=== PATIENT | male | born 1965 | race Caucasian/White ===

== ENCOUNTER 2021-04-12 12:51 | Outpatient (REF) | payer MEDICARE, MEDICAID, SELFPAY ==
--- NOTE | ~2021-04-12 | CT_ITS ---
EXAMINATION: CT HIP WITHOUT CONTRAST, RIGHT CLINICAL INFORMATION: Abnormal x-ray, right hip pain. COMPARISON: None TECHNIQUE: Multiple axial images of the right hip were obtained without administration of intravenous contrast. Coronal and sagittal reformatted images were also obtained. This CT examination was performed using dose optimization techniques as appropriate, variously including the following: *Automated exposure control *Adjustment of mA and/or kV according to patient size (this includes techniques or standardized protocols for targeted exams where dose is matched to indication/reason for exam; i.e. extremities or head) *Use of iterative reconstruction technique DLP: 271 mGy-cm FINDINGS: Minimal degenerative changes are seen in the superior aspect of the joint space with subcortical sclerosis along the superior acetabular rim. Tiny spurring is seen off of the superolateral aspect the acetabular margin. Several small thin-walled cysts with narrow zone of transition are seen medially in the femoral head measuring up to 1.2 cm (image 49, series 6). A similar cyst seen anteriorly at the level of the subcapital femoral neck measures 1.5 cm (image 55, series 2). There is no acute fracture or dislocation. The right hemipelvis is intact. No significant intrapelvic abnormality is seen in the visualized right hemipelvis. CT/CT hip RT wo con IMPRESSION: 1. Minimal right hip degenerative joint changes. 2. Thin-walled cysts detailed above demonstrate benign features without associated abnormality.
== END 2021-04-12 12:52 | disposition home or self-care (01) ==
LOC: HO.CT 12:51
PROVIDERS: PCP Hospitalist; Visit Provider Hospitalist
DX: R93.89 Abnormal findings on diagnostic imaging of other specified body structures (principal)
CPT/HCPCS: 73700

== ENCOUNTER 2021-12-20 13:47 | Outpatient (REF) | payer MEDICARE, MEDICAID, SELFPAY ==
--- NOTE | ~2021-12-20 | CT_ITS ---
EXAMINATION: CT HIP WITHOUT CONTRAST, RIGHT CLINICAL INFORMATION: Thin-walled cyst. Pain. COMPARISON: Right hip CT dated 04/12/2021. TECHNIQUE: Contiguous axial CT images of the right hip were obtained without contrast. Multiplanar reformats were provided and reviewed. This CT examination was performed using dose optimization techniques as appropriate, variously including the following: *Automated exposure control *Adjustment of mA and/or kV according to patient size (this includes techniques or standardized protocols for targeted exams where dose is matched to indication/reason for exam; i.e. extremities or head) *Use of iterative reconstruction technique DLP: 241 mGy-cm FINDINGS: No acute fracture or dislocation. Mild right hip joint space narrowing with tiny marginal osteophytes, unchanged. Mild degenerative change partially visualized at the right sacroiliac joint as well as at the symphysis pubis, unchanged. Redemonstration of subchondral cysts within the medial femoral head as well as within the anterolateral aspect of the femoral head/neck junction, unchanged when compared to the prior examination and consistent with degenerative cysts. No evidence of avascular necrosis. No concerning lytic or blastic osseous lesions. No large joint effusion. The visualized muscles and tendons are grossly intact, however evaluation is limited on CT examination. No abnormal soft tissue mass or fluid collection. The visualized intrapelvic structures are unremarkable. CT/CT hip RT wo con IMPRESSION: Mild right hip osteoarthritis with degenerative cysts in the medial and anterolateral aspect of the femoral head, unchanged when compared to the prior examination. No acute fracture or dislocation. No evidence of avascular necrosis.
== END 2021-12-20 13:48 | disposition home or self-care (01) ==
LOC: HO.CT 13:47
PROVIDERS: PCP Hospitalist; Visit Provider Hospitalist
DX: M25.551 Pain in right hip (principal)
CPT/HCPCS: 73700

== ENCOUNTER 2022-01-02 16:18 | Outpatient (REF) | payer MEDICARE, MEDICAID, SELFPAY ==
[2022-01-02 16:31] LABS: Appearance Urine CLEAR; Color Urine YELLOW; Glucose Urine UA NEG (NEG); Leukocyte Esterase Urine NEG (NEG); Nitrite Urine NEG (NEG); Urine Blood NEG (NEG); Urine Ketones NEG (NEG); Urine Protein NEG (NEG-TRACE)
== END 2022-01-02 16:19 | disposition home or self-care (01) ==
LOC: HO.LNP 16:18
PROVIDERS: Visit Provider Hospitalist
DX: N40.0 Benign prostatic hyperplasia without lower urinary tract symptoms (principal)
CPT/HCPCS: 81003; 87086; 87088; 87186

== ENCOUNTER 2022-02-24 17:41 | Emergency (ER) | payer MEDICARE, MEDICAID, SELFPAY ==
[2022-02-24 17:54] VITALS: BP 160/77; PULSE 90; RESP 18; TEMP 36.1; O2SAT 95; BMI 26.9
--- NOTE | 2022-02-24 18:19 | ED.WOUNDLAC ---
HPI - Wound/Laceration General Chief Complaint: Wound/Laceration Stated Complaint: left finger laceration Time Seen by Provider: 02/24/22 18:19 Source: patient Mode of arrival: wheelchair Limitations: no limitations History of Present Illness HPI narrative: Patient came with laceration left middle finger from the wheelchair break as he tried to turn wheelchair and got his left middle finger stuck in the break superficial laceration with minimal bleeding no deformity Related Data Allergies Allergy/AdvReac Type Severity Reaction Status Date / Time Penicillins [PENICILLINS] Allergy Unknown UNKNOWN Verified 02/24/22 17:57 Review of Systems Review of Systems: Yes all other systems are reviewed and are negative [facility] Social History Social History Advance Directives: No Advance Directives Information Provided: No Physical Exam Vital Signs: Vital Signs: Last Vital Signs Temp 97 F 02/24/22 17:54 Pulse 90 02/24/22 17:54 Resp 18 02/24/22 17:54 BP 160/77 H 02/24/22 17:54 Pulse Ox 95 02/24/22 17:54 BMI result Body Mass Index 26.9 Const: General: comfortable and no acute distress Extrem: Hand/finger images: 1. Superficial flap laceration about 2.5 cm left middle finger no bony deformity neurovascular intact Procedures Laceration Laceration 1: Site: hand (Third finger) Side (If applicable): left Description: flap Depth: simple, single layer Local Anesthetic: lidocaine 2% Amount of anesthesia used (mL): 2 Skin layer closed with: nylon Size (cm): 5-0 Number of sutures: 6 Technique: simple, interrupted Discharge Plan Discharge Clinical Impression: Laceration Instructions: Finger Laceration (ED) Additional Instructions: Local care as advised Suture removal in 7-10 days Interventions: ED Discharge Assessment Last Done: 02/24/22 19:15
[2022-02-24] MEDS: Lidocaine HCl 2 % MPF 5 ML VIAL INFILTRATI (19:33)
== END 2022-02-24 23:30 | disposition home or self-care (01) ==
PROVIDERS: Emergency Provider Internal Medicine; PCP Hospitalist
DX: S61.213A Laceration without foreign body of left middle finger without damage to nail, initial encounter (principal); W23.0XXA Caught, crushed, jammed, or pinched between moving objects, initial encounter; Y93.9 Activity, unspecified; Y92.9 Unspecified place or not applicable; Y99.9 Unspecified external cause status
CPT/HCPCS: 12001; 99284

== ENCOUNTER 2022-11-10 00:02 | Inpatient (IN) | payer MEDICARE, MEDICAID, SELFPAY ==
[2022-11-10] VITALS (16 sets, daily range): BP systolic 86–138; BP diastolic 48–78; PULSE 73–140; RESP 16–36; TEMP 35.8–37.4; O2SAT 93–96; BMI 26.2
--- NOTE | ~2022-11-10 | XR_ITS ---
EXAMINATION: XR CHEST CLINICAL INFORMATION: ET tube placement COMPARISON: 11/11/2022 TECHNIQUE: Frontal view of the chest was obtained. FINDINGS: Endotracheal tube tip lies approximately 6.5 cm above the [place]. Enteric tube courses into the stomach. Right IJ central line tip lies in the region of the cavoatrial junction. Lung volumes are symmetric. Streaky bibasilar opacities are more suggestive of atelectasis. No evidence of pneumothorax or significant pleural effusion. The cardiomediastinal contour is unremarkable. No acute osseous findings are seen. XR/XR chest 1V IMPRESSION: Endotracheal tube tip approximately 6.5 cm above the [place]. Streaky bibasilar opacities more suggestive of atelectasis.
--- NOTE | ~2022-11-10 | XR_ITS ---
EXAMINATION: XR CHEST CLINICAL INFORMATION: Triple-lumen catheter placement COMPARISON: 11/11/2022 TECHNIQUE: Frontal view of the chest was obtained. FINDINGS: Right IJ central line tip lies in the region of the cavoatrial junction. Enteric tube courses into the stomach and has been advanced. The lungs are hypoinflated. Streaky bibasilar opacities suggest atelectasis in this setting. No evidence of pneumothorax or significant pleural effusion. The cardiomediastinal contour is unremarkable. No acute osseous findings are seen. XR/XR chest 1V IMPRESSION: Right IJ central line tip in the region of the cavoatrial junction. Low lung volumes with streaky bibasilar opacities suggesting atelectasis.
--- NOTE | ~2022-11-10 | XR_ITS ---
EXAMINATION: XR CHEST CLINICAL INFORMATION: Shortness of breath COMPARISON: 11/10/2022 TECHNIQUE: Frontal view of the chest was obtained. FINDINGS: Enteric tube courses into the proximal stomach with side-port in the region of the gastroesophageal junction. The lungs are hypoinflated with mild streaky bibasilar opacities suggesting atelectasis. No evidence of pneumothorax or significant pleural effusion. The cardiomediastinal contour is unremarkable. No acute osseous findings are seen. XR/XR chest 1V IMPRESSION: Enteric tube courses into the proximal stomach with side-port in the region of the gastroesophageal junction; consider advancement. Low lung volumes with mild streaky bibasilar opacities suggesting atelectasis.
--- NOTE | ~2022-11-10 | XR_ITS ---
EXAMINATION: XR ABDOMEN WITH DECUBITUS VIEWS CLINICAL INDICATION: Small bowel resection, abdominal distention COMPARISON: CT abdomen 11/10/2022. TECHNIQUE: The abdomen is imaged in 6 views including supine AP and left decubitus views. FINDINGS: There are skin mag overlying the mid abdomen and upper pelvis. Probable temperature probe overlying rectum. Subsegmental atelectasis left base. No effusion lung bases. There is gaseous dilatation of the stomach. Scattered gas is present in large and small bowel. Small bowel loop left midabdomen is mildly dilated along with air-fluid level. No pneumatosis. Scattered gas in the colon is normal in caliber. XR/XR abdomen w decubitus IMPRESSION: 1. Gaseous dilatation stomach. 2. Mildly dilated small bowel loop left midabdomen with air-fluid level. No pneumatosis.
--- NOTE | ~2022-11-10 | CT_ITS ---
EXAMINATION: NONCONTRAST HEAD CT NONCONTRAST CERVICAL SPINE CT INDICATION INFORMATION: Fall, altered mental status COMPARISON: None TECHNIQUE: Separate noncontrast CT examinations of the head and cervical spine were performed. Coronal head CT images and coronal and sagittal cervical spine images were created at the technologist workstation. DLP: 2174 mGy-cm DOSE LOWERING TECHNIQUES: This CT examination was performed using dose optimization techniques as appropriate, variously including the following: - Automated exposure control - Adjustment of mA and/or kV according to patient size (this includes techniques or standardized protocols for targeted exams were dose is matched to indication/reason for exam; i.e. extremities or head) - Use of iterative reconstruction technique FINDINGS: Head: There is no evidence of acute intracranial hemorrhage or territorial infarction. No abnormal mass-effect or midline shift is seen. Reina to white matter differentiation is well preserved. No extra-axial fluid collections are identified. The ventricles are normal in size. There is a chronic appearing region of encephalomalacia in the left middle cranial fossa with overlying craniotomy changes. Mild volume loss is noted. No acute fracture is seen. The mastoid air cells and visualized portions of the paranasal sinuses are well-aerated. Cervical spine: There is grade 1 anterolisthesis of C2 on C3 and slight retrolisthesis of C3 on C4, favored to be chronic/degenerative in nature. Vertebral body heights are maintained. There is facet arthropathy of the upper cervical spine, left-sided greater than right. Scattered endplate osteophytes are present most prominently at C3-C4 with associated disc space narrowing. There is degenerative change at the atlantodens articulation. No evidence of acute fracture. No prevertebral soft tissue swelling. Visualized portions of the lung apices are unremarkable. The thyroid gland is unremarkable. CT/CT cervical spine wo IV con IMPRESSION: HEAD: No acute intracranial findings. Chronic appearing changes as noted above. CERVICAL SPINE: No acute findings identified. Degenerative changes as noted above.
--- NOTE | ~2022-11-10 | XR_ITS ---
EXAMINATION: XR CHEST CLINICAL INFORMATION: NG tube placement COMPARISON: Chest x-ray earlier today TECHNIQUE: Frontal view of the chest was obtained. FINDINGS: Interval insertion of enteric tube which terminates below the level of the diaphragm. The cardiac silhouette is stable. The lungs remain hypoinflated. No pleural effusion or pneumothorax. XR/XR chest 1V IMPRESSION: Enteric tube terminates below the level of the diaphragm.
--- NOTE | ~2022-11-10 | XR_ITS ---
EXAMINATION: XR CHEST CLINICAL INFORMATION: Tachypnea COMPARISON: 11/11/2022 TECHNIQUE: Frontal view of the chest was obtained. FINDINGS: The lungs are hypoinflated. Small right pleural effusion is suspected with adjacent basilar opacity suggesting atelectasis, mildly worsened from prior. Mild atelectasis is also suspected at the left lung base. No evidence of pneumothorax or overt pulmonary edema. The cardiomediastinal contour is unremarkable. No acute osseous findings are seen. XR/XR chest 1V IMPRESSION: Small right pleural effusion with adjacent basilar opacity suggesting atelectasis though consolidation is difficult to entirely exclude, overall mildly worsened from prior.
--- NOTE | ~2022-11-10 | XR_ITS ---
EXAMINATION: XR CHEST CLINICAL INFORMATION: Fall, seizure COMPARISON: 12/23/2013 TECHNIQUE: Frontal view of the chest was obtained. FINDINGS: The lungs are hypoinflated. No focal consolidation is seen. No evidence of pneumothorax, pleural effusion, or pulmonary edema. The cardiomediastinal contour is unremarkable. No acute osseous findings are seen. XR/XR chest 1V IMPRESSION: Low lung volumes without acute findings.
--- NOTE | ~2022-11-10 | CT_ITS ---
EXAMINATION: CT ABDOMEN AND PELVIS WITHOUT CONTRAST CLINICAL INFORMATION: Diffuse abdominal pain, distention COMPARISON: None TECHNIQUE: Multidetector volumetric imaging was performed from the superior aspect of the liver through the pubic symphysis. Sagittal and coronal reformatted images were obtained on the technologist's workstation. This CT examination was performed using dose optimization techniques as appropriate, variously including the following: *Automated exposure control *Adjustment of mA and/or kV according to patient size (this includes techniques or standardized protocols for targeted exams where dose is matched to indication/reason for exam; i.e. extremities or head) *Use of iterative reconstruction technique DLP: 2174 mGy-cm FINDINGS: LUNG BASES: The visualized lung bases are unremarkable. LIVER, GALLBLADDER, AND BILIARY TREE: The liver is normal in size, shape, and attenuation. No focal hepatic lesion or biliary ductal dilatation is identified. The gallbladder is unremarkable with no evidence of radiopaque gallstones, gallbladder wall thickening, or obvious pericholecystic inflammatory changes. PANCREAS: Unremarkable. SPLEEN: Unremarkable. ADRENAL GLANDS: Unremarkable. KIDNEYS AND URETERS: No hydronephrosis or obstructing calculus. There are a couple left lower pole renal calculi measuring up to 4 mm. Mild nonspecific bilateral perinephric stranding. BLADDER: Unremarkable. GASTROINTESTINAL TRACT: Stomach is distended and contains an air-fluid level. There is diffuse, predominantly fluid distention of small bowel. There is suggestion of a short segment of collapsed small bowel in the lateral right abdomen (coronal image 41) which may represent a transition point in the setting of obstruction. Distalmost small bowel loops demonstrate fecalization. Moderate stool is present throughout the colon. No significant bowel wall thickening. The appendix is unremarkable. Trace free fluid is present in the right abdomen. No free air is seen. ABDOMINAL WALL: No significant hernia is appreciated. LYMPH NODES: Normal. VASCULAR: There is atherosclerotic calcification along the aorta and iliac arteries. PELVIC VISCERA: Unremarkable. OSSEOUS STRUCTURES: There is facet arthropathy of the lower lumbar spine. CT/CT abdomen pelvis wo IV con IMPRESSION: 1. Diffuse small bowel dilation with suggestion of a transition point in the right abdomen, overall concerning for small bowel obstruction. 2. Trace free fluid in the lower abdomen. 3. Left lower pole renal calculi without hydronephrosis.
--- NOTE | 2022-11-10 00:55 | ECG_ITS ---
Test Reason : hypotension Blood Pressure : / mmHG Vent. Rate : 072 BPM Atrial Rate : 072 BPM P-R Int : 174 ms QRS Dur : 090 ms QT Int : 402 ms P-R-T Axes : 055 -12 071 degrees QTc Int : 440 ms Normal sinus rhythm with sinus arrhythmia Possible Left atrial enlargement Left ventricular hypertrophy with repolarization abnormality ( R in aVL ) Abnormal ECG No previous ECGs available Referred By: Tesha Adams Electronically Signed By:RAGHAVENDRA LEON
--- NOTE | 2022-11-10 00:58 | ED.GENADULT ---
HPI - General Adult General Chief complaint: General Medical Stated complaint: abd pain Time Seen by Provider: 11/10/22 00:49 Source: EMS Mode of arrival: EMS Limitations: altered mental status and other History of Present Illness HPI narrative: Patient comes to the emergency room via EMS from [facility]. The facility reports that the patient has seizure. Unclear if patient had a head strike. Also, they noted the patient has distended abdomen. Patient is nonverbal. Seems that patient is not on any blood thinners. On arrival to the emergency room, patient complaining of abdominal pain. Patient only able to move his head saying yes or no and answers to certain questions Related Data Allergies Allergy/AdvReac Type Severity Reaction Status Date / Time Penicillins [PENICILLINS] Allergy Unknown UNKNOWN Verified 02/24/22 17:57 Review of Systems Review of Systems: Yes Other (Difficult to obtain, seems to be complaining of abdominal pain) PMFSH Past Medical History Medical History Bipolar disorder BPH (benign prostatic hyperplasia) GERD (gastroesophageal reflux disease) Hyperlipidemia Hypertension Hypothyroidism Schizoaffective disorder Seizure disorder Social History Social History Alcohol intake: unknown Smoked in Last 30 Days: No Use of substances other than those prescribed or required for medical reasons: Unknown Advance Directives: No Advance Directives Information Provided: Yes Physical Exam ED Vital Signs: Vital Signs - 24 hr 11/10/22 00:43 11/10/22 01:42 Temperature 98.2 F 96.5 F L Pulse Rate 75 75 Respiratory Rate 16 18 Blood Pressure 87/60 L 95/49 L Pulse Oximetry 96 96 Oxygen Delivery Method Room Air Room Air BMI result Body Mass Index 26.2 Const Other: Appearance: Alert. Nonverbal at baseline, opens eyes on command Eyes: Pupils equal, round and reactive to light. ENT: Pharynx normal. Neck: Normal inspection. Neck supple. No lymph nodes noted. No crepitus CVS: Normal heart rate and rhythm. Pulses normal. Normal S1 and S2 Respiratory: No respiratory distress. Breath sounds normal. No Wheezing. No rales Abdomen: Soft, distended, seems to have tenderness in the right upper lower quadrants Skin: Skin warm and dry. Normal skin color. Normal skin turgor. Extremities: No lower extremity edema. No Lacerations. No Rash Neuro: Unable to participate in cranial nerve assessment Psych: calm Course Course Course Narrative: -on patient's labs and imaging pending -it is possible the patient had a seizure secondary to hyponatremia. In the emergency room, patient is alert, not having any signs of being postictal, and has not had any active seizures. -patient's white blood cell count 15.2, sodium 121, potassium 5.7, creatinine 1.64, lactic acid 1.8 -sepsis is not suspected. CT scan shows possible small bowel obstruction. -patient received IV fluids, before the sodium levels resolved -patient received 2 amps of D50 and 10 units of insulin to treat hyperkalemia. Also patient got calcium gluconate -we attempted to insert a nasogastric tube. Patient vomited at least 1000 mL of vomit, patient pulled out his NG tube. Patient refusing reinsertion -I discussed the patient with Dr. Bowers, pt being admitted -also, I discussed the patient with Dr. Monk from surgery. Reviewing the CT scan, seems that the patient likely has ileus rather than a small bowel obstruction. We will try to convince the patient to reinsert the NG tube Medications Administered Generic Name Dose Route Start Last Admin Trade Name Freq PRN Reason Stop Dose Admin Calcium Gluconate 2 gm in 100 mls @ 50 mls/hr 11/10/22 02:01 11/10/22 02:31 Calcium Gluconate IV 11/10/22 04:00 50 mls/hr ONCE ONE Administration Discontinued Medications Generic Name Dose Route Start Last Admin Trade Name Freq PRN Reason Stop Dose Admin Dextrose 50 gm 11/10/22 02:01 11/10/22 02:32 Dextrose 50 % 25 Gm/50 Ml Syringe IVPUSH 11/10/22 02:02 50 gm ONCE ONE Administration Sodium Chloride 1,000 mls @ 999 mls/hr 11/10/22 00:55 11/10/22 01:44 Ns IVCONT 11/10/22 01:55 999 mls/hr .Q1H1M ONE Administration Insulin Human Regular 10 unit 11/10/22 02:01 11/10/22 02:34 Insulin Regular, Human 100 Unit/Ml 3 Ml Vial IVPUSH 11/10/22 02:02 10 unit ONCE ONE Administration Medical Decision Making Medical Decision Making MDM Narrative: -patient declined being straight cath, urine is still pending -patient declined nasogastric to Differential Diagnosis Differential Diagnoses: The differential diagnosis associated with the presentation includes (Small-bowel obstruction, constipation, UTI) Admission/Observation Consideration of admission/observation: Escalation of care including admission/observation considered Consult Healthcare Provider Management of the patient was discussed with: Hospitalist (I discussed the patient with Dr. Bowers, pt being admitted) Lab Data MDM Lab Attestation statement: I reviewed the patient's lab results. 11/10/22 01:08 11/10/22 01:08 Labs: Lab Results 11/10/22 11/10/22 11/10/22 Range/Units 00:38 01:08 01:08 WBC 15.2 H (4.8-10.8) X10*3/uL RBC 4.98 (4.60-5.80) X10*6/uL Hgb 15.1 (14.0-18.0) g/dl Hct 40.6 L (42.0-52.0) % MCV 81.5 (80.0-98.0) fL MCH 30.3 (27.0-33.0) pg MCHC 37.2 H (31.0-36.0) g/dl RDW 11.9 (11.0-16.0) % Plt Count 279 (160-400) X10*3/uL MPV 10.0 (9.4-12.4) fL Immature Gran % (Auto) 0.5 H (0.0-0.4) % Neut % (Auto) 85.9 H (45-73) % Lymph % (Auto) 6.3 L (20-40) % Stanley % (Auto) 6.9 (2-11) % Eos % (Auto) 0.1 (0-4) % Baso % (Auto) 0.3 (0-2) % Lymph # (Auto) 1.0 L (1.2-4.9) X10*3/uL Stanley # (Auto) 1.0 (0.1-1.2) X10*3/uL Eos # (Auto) 0.0 (0.0-0.4) X10*3/uL Baso # (Auto) 0.1 (0.0-0.2) X10*3/uL Abs Immat Gran (auto) 0.08 H (0.00-0.03) X10*3/uL Absolute Neuts (auto) 13.0 H (2.0-8.3) x10*3/uL Absolute Nucleated RBC 0.000 (0.0-0.012) X10*3/uL Nucleated RBC % (auto) 0.0 (0.0-0.2) /100WBC PT (10.0-13.1) SEC INR (0.9-1.1) Sodium 121 L (135-145) mmol/L Potassium 5.7 H (3.3-5.1) mmol/L Chloride 89 L (96-108) mmol/L Carbon Dioxide 20 L (22-29) mmol/L Anion Gap 18 (12-20) BUN 16 (9-16) mg/dL Creatinine 1.64 H (0.5-1.4) mg/dL Estim Creat Clear Calc 51.6 Estimated GFR 43 POC Glucose 154 H (60-115) mg/dL Random Glucose 151 H (60-115) mg/dL Lactic Acid (0.5-2.0) mmol/L Calcium 9.7 (8.4-10.2) mg/dL Magnesium 1.6 (1.6-2.6) mg/dL Total Bilirubin 0.6 (0.0-1.0) mg/dL Direct Bilirubin < 0.2 (0.0-0.5) mg/dL AST 24 (5-37) U/L ALT 16 (0-40) U/L Alkaline Phosphatase 94 (39-117) U/L Troponin I High Sens (<3.5-35.0) ng/L Total Protein 7.2 (6.5-8.0) g/dL Albumin 4.6 (3.5-5.0) g/dL Lipase 47 (8-78) U/L TSH (0.32-4.0) uIU/mL COVID-19 (DINA) (Negative) COVID-19 Clin Com 11/10/22 11/10/22 11/10/22 Range/Units 01:08 01:08 01:08 WBC (4.8-10.8) X10*3/uL RBC (4.60-5.80) X10*6/uL Hgb (14.0-18.0) g/dl Hct (42.0-52.0) % MCV (80.0-98.0) fL MCH (27.0-33.0) pg MCHC (31.0-36.0) g/dl RDW (11.0-16.0) % Plt Count (160-400) X10*3/uL MPV (9.4-12.4) fL Immature Gran % (Auto) (0.0-0.4) % Neut % (Auto) (45-73) % Lymph % (Auto) (20-40) % Stanley % (Auto) (2-11) % Eos % (Auto) (0-4) % Baso % (Auto) (0-2) % Lymph # (Auto) (1.2-4.9) X10*3/uL Stanley # (Auto) (0.1-1.2) X10*3/uL Eos # (Auto) (0.0-0.4) X10*3/uL Baso # (Auto) (0.0-0.2) X10*3/uL Abs Immat Gran (auto) (0.00-0.03) X10*3/uL Absolute Neuts (auto) (2.0-8.3) x10*3/uL Absolute Nucleated RBC (0.0-0.012) X10*3/uL Nucleated RBC % (auto) (0.0-0.2) /100WBC PT 11.8 (10.0-13.1) SEC INR 1.0 (0.9-1.1) Sodium (135-145) mmol/L Potassium (3.3-5.1) mmol/L Chloride (96-108) mmol/L Carbon Dioxide (22-29) mmol/L Anion Gap (12-20) BUN (9-16) mg/dL Creatinine (0.5-1.4) mg/dL Estim Creat Clear Calc Estimated GFR POC Glucose (60-115) mg/dL Random Glucose (60-115) mg/dL Lactic Acid (0.5-2.0) mmol/L Calcium (8.4-10.2) mg/dL Magnesium (1.6-2.6) mg/dL Total Bilirubin (0.0-1.0) mg/dL Direct Bilirubin (0.0-0.5) mg/dL AST (5-37) U/L ALT (0-40) U/L Alkaline Phosphatase (39-117) U/L Troponin I High Sens 6.5 (<3.5-35.0) ng/L Total Protein (6.5-8.0) g/dL Albumin (3.5-5.0) g/dL Lipase (8-78) U/L TSH (0.32-4.0) uIU/mL COVID-19 (DINA) Negative (Negative) COVID-19 Clin Com See Note 11/10/22 11/10/22 11/10/22 Range/Units 01:08 01:08 03:22 WBC (4.8-10.8) X10*3/uL RBC (4.60-5.80) X10*6/uL Hgb (14.0-18.0) g/dl Hct (42.0-52.0) % MCV (80.0-98.0) fL MCH (27.0-33.0) pg MCHC (31.0-36.0) g/dl RDW (11.0-16.0) % Plt Count (160-400) X10*3/uL MPV (9.4-12.4) fL Immature Gran % (Auto) (0.0-0.4) % Neut % (Auto) (45-73) % Lymph % (Auto) (20-40) % Stanley % (Auto) (2-11) % Eos % (Auto) (0-4) % Baso % (Auto) (0-2) % Lymph # (Auto) (1.2-4.9) X10*3/uL Stanley # (Auto) (0.1-1.2) X10*3/uL Eos # (Auto) (0.0-0.4) X10*3/uL Baso # (Auto) (0.0-0.2) X10*3/uL Abs Immat Gran (auto) (0.00-0.03) X10*3/uL Absolute Neuts (auto) (2.0-8.3) x10*3/uL Absolute Nucleated RBC (0.0-0.012) X10*3/uL Nucleated RBC % (auto) (0.0-0.2) /100WBC PT (10.0-13.1) SEC INR (0.9-1.1) Sodium (135-145) mmol/L Potassium (3.3-5.1) mmol/L Chloride (96-108) mmol/L Carbon Dioxide (22-29) mmol/L Anion Gap (12-20) BUN (9-16) mg/dL Creatinine (0.5-1.4) mg/dL Estim Creat Clear Calc Estimated GFR POC Glucose 364 H* (60-115) mg/dL Random Glucose (60-115) mg/dL Lactic Acid 1.8 (0.5-2.0) mmol/L Calcium (8.4-10.2) mg/dL Magnesium (1.6-2.6) mg/dL Total Bilirubin (0.0-1.0) mg/dL Direct Bilirubin (0.0-0.5) mg/dL AST (5-37) U/L ALT (0-40) U/L Alkaline Phosphatase (39-117) U/L Troponin I High Sens (<3.5-35.0) ng/L Total Protein (6.5-8.0) g/dL Albumin (3.5-5.0) g/dL Lipase (8-78) U/L TSH 1.79 (0.32-4.0) uIU/mL COVID-19 (DINA) (Negative) COVID-19 Clin Com Independent Interpretation I performed an independent interpretation of an: CT Scan (My Interpretation of head CT: Chronic encephalomalacia in left middle cranial fossa, no acute bleed. My interpretation of abdominal CT scan: Small-bowel obstruction present) Radiology Impression Discussion of test interpretation with radiology: I have reviewed the radiologist's reading. Radiologist Impression: FINDINGS: Head: There is no evidence of acute intracranial hemorrhage or territorial infarction. No abnormal mass-effect or midline shift is seen. Reina to white matter differentiation is well preserved. No extra-axial fluid collections are identified. The ventricles are normal in size. There is a chronic appearing region of encephalomalacia in the left middle cranial fossa with overlying craniotomy changes. Mild volume loss is noted. No acute fracture is seen. The mastoid air cells and visualized portions of the paranasal sinuses are well-aerated. Cervical spine: There is grade 1 anterolisthesis of C2 on C3 and slight retrolisthesis of C3 on C4, favored to be chronic/degenerative in nature. Vertebral body heights are maintained. There is facet arthropathy of the upper cervical spine, left-sided greater than right. Scattered endplate osteophytes are present most prominently at C3-C4 with associated disc space narrowing. There is degenerative change at the atlantodens articulation. No evidence of acute fracture. No prevertebral soft tissue swelling. Visualized portions of the lung apices are unremarkable. The thyroid gland is unremarkable. CT/CT head/brain wo IV con IMPRESSION: HEAD: No acute intracranial findings. Chronic appearing changes as noted above. ? CERVICAL SPINE: No acute findings identified. Degenerative changes as noted above. FINDINGS: LUNG BASES: The visualized lung bases are unremarkable.? LIVER, GALLBLADDER, AND BILIARY TREE: The liver is normal in size, shape, and attenuation. No focal hepatic lesion or biliary ductal dilatation is identified. The gallbladder is unremarkable with no evidence of radiopaque gallstones, gallbladder wall thickening, or obvious pericholecystic inflammatory changes.? PANCREAS: Unremarkable.? SPLEEN: Unremarkable.? ADRENAL GLANDS: Unremarkable.? KIDNEYS AND URETERS: No hydronephrosis or obstructing calculus. There are a couple left lower pole renal calculi measuring up to 4 mm. Mild nonspecific bilateral perinephric stranding.? BLADDER: Unremarkable.? GASTROINTESTINAL TRACT: Stomach is distended and contains an air-fluid level. There is diffuse, predominantly fluid distention of small bowel. There is suggestion of a short segment of collapsed small bowel in the lateral right abdomen (coronal image 41) which may represent a transition point in the setting of obstruction. Distalmost small bowel loops demonstrate fecalization. Moderate stool is present throughout the colon. No significant bowel wall thickening. The appendix is unremarkable. Trace free fluid is present in the right abdomen. No free air is seen. ABDOMINAL WALL: No significant hernia is appreciated.? LYMPH NODES: Normal. VASCULAR: There is atherosclerotic calcification along the aorta and iliac arteries. PELVIC VISCERA: Unremarkable.? OSSEOUS STRUCTURES: There is facet arthropathy of the lower lumbar spine.? CT/CT abdomen pelvis wo IV con IMPRESSION: 1.? Diffuse small bowel dilation with suggestion of a transition point in the right abdomen, overall concerning for small bowel obstruction. 2.? Trace free fluid in the lower abdomen. 3.? Left lower pole renal calculi without hydronephrosis. ? Critical Care Time Critical Care Time Critical Care Time: Yes Total Critical Care Time: 75 Attestation: I have personally provided critical care time. Time includes review of lab data, radiology results, discussion with consultants, and monitoring for potential decompensation. Intervention performed as documented. Discharge Plan Discharge Clinical Impression: Ileus, Acute hyponatremia, Acute hyperkalemia, Acute kidney injury Patient Disposition: Admitted As Inpatient
[2022-11-10 01:17] LABS: MANUAL DIFF FLAG NO
[2022-11-10 01:25] LABS: Prothrombin Time 11.8 SEC (10.0-13.1)
[2022-11-10 01:32] LABS: Lactic Acid 1.8 mmol/L (0.5-2.0)
--- OUTSIDE RECORDS SUMMARY | 2022-11-10 01:32 | XMS_ITS | Continuity of Care Document ---
:1965 Author Organization [facility] Address [address] [place] [id number]- Care Team Providers Name Role Phone Juan Richey DO Primary Care Physician Encounter [facility] Date(s): 09/01/20 - 10/04/20 [facility] [address] [place] [id number]- Attending Physician: Allen Mariano MD Admitting Physician: Allen Mariano MD Referring Physician: Juan Richey DO Allergies, Adverse Reactions, Alerts Substance Reaction Severity Status penicillins Active Medications benztropine 0.5 mg oral tablet 1 tablet = 0.5 mg, By Mouth, Daily at bedtime, 0 Refills, Maintenance, 08/23/14 9:16:20 Start Date: 08/23/14 Status: Orderedbisacodyl 10 mg rectal suppository 1 supp = 10 mg, Rectally, Daily, PRN as needed for constipation, 0 Refills, Maintenance, 08/23/14 9:13:32 Start Date: 08/23/14 Status: Orderedchlorpromazine 100 mg oral tablet 1 tablet = 100 mg, By Mouth, 2 times a day, 0 Refills, Maintenance, 04/13/14 13:43:34 Start Date: 04/13/14 Status: Ordereddiazepam 2 mg oral tablet 1 tablet = 2 mg, By Mouth, 4 times a day, 0 Refills, Maintenance, 08/23/14 9:15:55 Start Date: 08/23/14 Status: OrderedFleet Enema 133 mL, Rectally, Once, PRN as needed for constipation, 0 Refills, Maintenance, 08/23/14 9:13:53 Start Date: 08/23/14 Status: Orderedgabapentin 100 mg oral capsule 2 capsule = 200 mg, By Mouth, 4 times a day, 0 Refills, Maintenance, 04/13/14 13:45:04 Start Date: 04/13/14 Status: OrderedHaloperidol 0 Refills, Maintenance Start Date: 06/12/11 Status: OrderedHydrOXYzine 0 Refills, Maintenance Start Date: 06/12/11 Status: Orderedibuprofen 800 mg oral tablet 1 tablet = 800 mg, By Mouth, 3 times a day, 0 Refills, Maintenance, 04/13/14 13:48:52 Start Date: 04/13/14 Status: OrderedLevothyroxine Tablet Daily, 0 Refills, Maintenance Start Date: 06/12/11 Status: Orderedloperamide 2 mg oral capsule 1 capsule = 2 mg, By Mouth, Every 4 hours, 0 Refills, Maintenance, 04/13/14 13:45:47 Start Date: 04/13/14 Status: Orderedlorazepam 1 mg oral tablet 1 tablet = 1 mg, By Mouth, 3 times a day, 0 Refills, Maintenance, 08/23/14 9:12:12 Start Date: 08/23/14 Status: OrderedMelatonin 3 mg oral tablet 1 tablet = 3 mg, By Mouth, Daily at bedtime, PRN for insomnia, # 60 tablet, 0 Refills, Maintenance, 04/13/14 13:42:19, Tablet Start Date: 04/13/14 Status: OrderedMylanta Liquid 10 mL, By Mouth, 3 times a day after meals and bedtime, PRN as needed to control stomach acid, 0 Refills, Maintenance, 08/23/14 9:11:47 Start Date: 08/23/14 Status: OrderedNexium 40 mg oral enteric coated capsule 1 capsule = 40 mg, By Mouth, Daily, 0 Refills, Maintenance, 08/23/14 9:15:23 Start Date: 08/23/14 Status: Orderedpropranolol 20 mg oral tablet 1 tablet = 20 mg, By Mouth, 2 times a day, 0 Refills, Maintenance, 04/13/14 13:41:48 Start Date: 04/13/14 Status: Orderedranitidine 150 mg oral capsule 1 capsule = 150 mg, By Mouth, 2 times a day, 0 Refills, Maintenance, 08/23/14 9:14:34 Start Date: 08/23/14 Status: OrderedRobitussin AC Liquid 10 mL, By Mouth, Every 4 hours, PRN as needed for cough and congestion, 0 Refills, Maintenance, 08/23/14 9:12:47 Start Date: 08/23/14 Status: OrderedSenna 8.6 mg oral tablet 2 tablet = 17.2 mg, By Mouth, Daily at bedtime, PRN as needed for constipation, # 100 tablet, 0 Refills, Maintenance, 08/23/14 9:14:12, Tablet Start Date: 08/23/14 Status: Orderedtamsulosin 0.4 mg oral capsule 1 capsule = 0.4 mg, By Mouth, Daily, 0 Refills, Maintenance, 04/13/14 13:42:52 Start Date: 04/13/14 Status: OrderedTrileptal Tablet By Mouth, 2 times a day, Maintenance, 06/12/11 18:00:02 Start Date: 06/12/11 Status: OrderedXifaxan 550 mg oral tablet 1 tablet = 550 mg, By Mouth, 2 times a day, # 60 tablet, 0 Refills, Maintenance, 04/13/14 13:44:39, Tablet Start Date: 04/13/14 Status: Ordered Problem List Condition Effective Dates Status Health Status Informant Acid reflux(Confirmed) Active H/O partial seizures(Confirmed) Active Schizophrenia(Confirmed) Active
--- OUTSIDE RECORDS SUMMARY | 2022-11-10 01:32 | XMS_ITS | Continuity of Care Document ---
:1965 Author Organization [facility] Address [address] [place] [id number]- Care Team Providers Name Role Phone Juan Richey DO Primary Care Physician Encounter [facility] Date(s): 09/04/20 - 10/04/20 [facility] [address] [place] [id number] Attending Physician: Gillian Ramirez Admitting Physician: Admtr, Gillian Referring Physician: Admtr, [id number] Allergies, Adverse Reactions, Alerts Substance Reaction Severity [...]
--- OUTSIDE RECORDS SUMMARY | 2022-11-10 01:32 | XMS_ITS | Continuity of Care Document ---
:1965 Author Organization [facility] Address [address] [place] [id number]- Care Team Providers Name Role Phone Juan Richey DO Primary Care Physician [place] [facility] [place]03/20 - 12/03/20 [facility] [address] [place] [id number] Attending Physician: Gillian Ramirez Admitting Physician: Gillian Ramirez Referring Physician: AdmtrGillian Allergies, Adverse Reactions, Alerts Substance Reaction Severity [...] Maintenance, 08/23/14 9:15:23 Start Date: 08/23/14 Status: OrderedNuLYTELY with Flavor Packs oral powder for reconstitution See Instructions, Drink 240mL every 15-20 minutes until gone, # 4,000 mL, 0 Refills, Maintenance, 11/03/20 10:43:00 EST, [facility], Partial fill upon patient request if the prescription is for a schedule II opioid drug., Drink 240mL ever... Start Date: 11/03/20 Status: Orderedpropranolol 20 mg oral tablet 1 [...]
--- OUTSIDE RECORDS SUMMARY | 2022-11-10 01:32 | XMS_ITS | Continuity of Care Document ---
:1965 Author Organization [facility] Address [address] [place] [id number]- Care Team Providers Name Role Phone Juan Richey DO Primary Care Physician [place] [facility] [place]24/20 - 03/28/[address] [id number] Attending Physician: Franky IRIZARRY, Carline Admitting Physician: Carline Wilkins MD Allergies, Adverse Reactions, Alerts Substance Reaction Severity [...] mL, 0 Refills, Maintenance, 11/03/20 10:43:00 EST, [facility], Partial fill upon patient request if the [...]
--- OUTSIDE RECORDS SUMMARY | 2022-11-10 01:32 | XMS_ITS | Continuity of Care Document ---
:1965 Author Organization [facility] Address [address] [place] [id number]- Care Team Providers Name Role Phone Juan Richey DO Primary Care Physician [place] [facility] [place] 07[place] 10/04/20 [facility] [address] [place] [id number] Attending Physician: Mayra Andrews MD Admitting Physician: Mayra Andrews MD Referring Physician: Juan Richey DO Allergies, [...]
[2022-11-10 01:34] LABS: Basophils Absolute Auto 0.1 X10*3/uL (0.0-0.2); Basophils Percent Auto 0.3 % (0-2); COVID-19 Test Negative (Negative); Eosinophils Percent Auto 0.1 % (0-4); Hematocrit 40.6 % (42.0-52.0); Hemoglobin 15.1 g/dl (14.0-18.0); IDNOW Serial# 6674DD1D; Imm Gran Abs Auto 0.08 X10*3/uL (0.00-0.03); Imm Gran Pct Auto 0.5 % (0.0-0.4); Lymphocytes Percent Auto 6.3 % (20-40); Mean Corpuscular HGB Conc 37.2 g/dl (31.0-36.0); Mean Corpuscular Hemoglobin 30.3 pg (27.0-33.0); Mean Corpuscular Volume 81.5 fL (80.0-98.0); Monocytes Percent Auto 6.9 % (2-11); Neutrophils Percent Auto 85.9 % (45-73); Platelet Count 279 X10*3/uL (160-400); Red Blood Count 4.98 X10*6/uL (4.60-5.80); Red Cell Distribution Width 11.9 % (11.0-16.0); White Blood Count 15.2 X10*3/uL (4.8-10.8)
[2022-11-10 01:41] LABS: Troponin-I High Sensitivity 6.5 ng/L (<3.5-35.0)
[2022-11-10 01:43] LABS: Alanine Aminotransferase 16 U/L (0-40); Albumin Level 4.6 g/dL (3.5-5.0); Alkaline Phosphatase 94 U/L (39-117); Anion Gap 18 (12-20); Aspartate Amino Transferase 24 U/L (5-37); Bilirubin Direct < 0.2 mg/dL (0.0-0.5); Bilirubin Total 0.6 mg/dL (0.0-1.0); Blood Urea Nitrogen 16 mg/dL (9-16); Calcium 9.7 mg/dL (8.4-10.2); Carbon Dioxide 20 mmol/L (22-29); Chloride 89 mmol/L (96-108); Creatinine Clr Calc Pharmacy 51.6; Estimated Glomerular Filt Rate 43; Glucose Random 151 mg/dL (60-115); Lipase 47 U/L (8-78); Magnesium 1.6 mg/dL (1.6-2.6); Potassium 5.7 mmol/L (3.3-5.1); Sodium 121 mmol/L (135-145); Total Protein 7.2 g/dL (6.5-8.0)
[2022-11-10] MEDS: 0.9 % Sodium Chloride 1,000 ML 999 ML IVCONT (01:44)
--- NOTE | 2022-11-10 01:56 | PC.NURSE ---
Nursing Assessment: Pt's hyportensive on the monitor, NSR on the monitor. Pt has taken rectal temp, all labs has been drawn, IV 20g LAC. PTt is pacing, this nurse has tried to complete the straight cath, pt has scream, do not touch me . PT IVF are running as order. Provider has been notified. Pt bowel sound throughout all 4 quadrants are hypoactive sound, the abd is rigid, during palpation pt was grimacing on his R upper quadrant touch, and is distended.
[2022-11-10 01:57] LABS: TSH reflex Free T4 1.79 uIU/mL (0.32-4.0)
[2022-11-10] MEDS: Calcium Gluconate/NaCl,Iso-Osm 2 GM/100 ML PLAST..BAG IV (02:31)
[2022-11-10] MEDS: Dextrose 50 % 25 GM/50 ML SYRINGE IVPUSH (02:32)
[2022-11-10] MEDS: Insulin Regular, Human 100 UNIT/ML 3 ML VIAL 10 UNIT IVPUSH (02:34)
[2022-11-10 02:41] LABS: Glucose, Whole Blood 154 mg/dL (60-115)
--- NOTE | 2022-11-10 02:48 | PC.NURSE ---
Re-assessment: Pt's BP is hypotensive, HR stable and afribile. This nurse have tried to insert NG tube with RN Zain. The patient took it off, and started to projectile vomiting ~ 1.5L light brown. pt was changed, and is actually sleeping.
--- NOTE | 2022-11-10 03:01 | PC.NURSE ---
Addendum entered by Yana Kelly 11/10/22 06:02: Pt is hyponatremia not hypo calcemia. Original Note: Re-Assessment: Pt's hypotensive, hypocalemia, and hyperkalemia. Pt's meds were administered as order, and double check with provider. PT POC will be monitor.
[2022-11-10 03:27] LABS: Glucose, Whole Blood 364 mg/dL (60-115)
[2022-11-10 04:38] LABS: Glucose, Whole Blood 292 mg/dL (60-115)
[2022-11-10 04:38] LABS: Glucose, Whole Blood 277 mg/dL (60-115)
--- NOTE | 2022-11-10 05:22 | PC.NURSE ---
Pt BP dropped, pt was change to trendelenburg position and add i bag IVF.
--- NOTE | 2022-11-10 05:58 | PC.NURSE ---
Re-assessment: Pt's V/S are stable, pt was re-position to semi swain. This nurse has spoken with hospitalist by tiger text, provider has stopthe second NS bag d/t pt is hyponatremia.
--- NOTE | 2022-11-10 06:53 | PM.IMHP ---
History of Present Illness Date of Service: 11/10/22 Chief Complaint: seizure? 57-year-old male with past medical history of bipolar disorder, hyperlipidemia, hypertension, hypothyroidism, schizoaffective disorder, seizure disorder, presents to the hospital with witnessed seizure at [facility]. Patient is somnolent but wakes up, shakes his head yes or no but is unable to get much history from him. on review of document sent with him to the ED it seems that pt was sent for abdominal distention, lack of bowel sounds and diaareah as well as vomiting. On arrival to the ED patient noted to be hypotensive with a BP of 87/60, received some fluids with improvement in his BP, Labs are significant for WBC count of 15.2, sodium of 121 with no previous for comparison, potassium of 5.7, chloride of 89, creatinine of 1.64, Abdomen pelvic CT shows diffuse small bowel dilation with suggestion of a transition point in the right abdomen overall concerning for small-bowel obstruction Head CT -ve Unable to obtain review of system is patient is not cooperating with history Past medical history is obtained from documents sent to the ED from [facility] Review of Systems Review of Systems: Yes Unobtainable due to mental condition and Unobtainable due to mental status [facility] Medical History (Updated 11/10/22 @ 07:22 by Colton Mckinley MD) Bipolar disorder BPH (benign prostatic hyperplasia) GERD (gastroesophageal reflux disease) Heart failure Hyperlipidemia Hypertension Hyponatremia Hypothyroidism Schizoaffective disorder Seizure disorder Social History Alcohol intake: unknown Smoked in Last 30 Days: No Use of substances other than those prescribed or required for medical reasons: Unknown Advance Directives: No Advance Directives Information Provided: Yes Meds Allergies Allergy/AdvReac Type Severity Reaction Status Date / Time Penicillins [PENICILLINS] Allergy Unknown UNKNOWN Verified 02/24/22 17:57 Physical Exam Vital Signs and Narrative: Vital Signs: Last Vital Signs Temp 96.5 F L 11/10/22 01:42 Pulse 91 11/10/22 06:21 Resp 18 11/10/22 06:21 BP 101/52 L 11/10/22 06:21 Pulse Ox 93 11/10/22 06:21 O2 Del Method 11/10/22 06:21 BMI result Body Mass Index 26.2 Results Labs 11/10/22 01:08 11/10/22 01:08 Labs: Laboratory Results - last 24 hr 11/10/22 11/10/22 11/10/22 00:38 01:08 01:08 MCV 81.5 MCH 30.3 MCHC 37.2 H RDW 11.9 Plt Count 279 MPV 10.0 Immature Gran % (Auto) 0.5 H Neut % (Auto) 85.9 H Lymph % (Auto) 6.3 L [place] % (Auto) 6.9 Eos % (Auto) 0.1 Baso % (Auto) 0.3 Lymph # (Auto) 1.0 L [place] # (Auto) 1.0 Eos # (Auto) 0.0 Baso # (Auto) 0.1 Abs Immat Gran (auto) 0.08 H Absolute Neuts (auto) 13.0 H Absolute Nucleated RBC 0.000 Nucleated RBC % (auto) 0.0 PT INR Anion Gap 18 Estim Creat Clear Calc 51.6 Estimated GFR 43 POC Glucose 154 H Random Glucose 151 H Lactic Acid Calcium 9.7 Magnesium 1.6 Total Bilirubin 0.6 Direct Bilirubin < 0.2 AST 24 ALT 16 Alkaline Phosphatase 94 Troponin I High Sens Total Protein 7.2 Albumin 4.6 Lipase 47 TSH COVID-19 ([facility]INA) COVID-19 Clin Com 11/10/22 11/10/22 11/10/22 01:08 01:08 01:08 MCV MCH MCHC RDW Plt Count MPV Immature Gran % (Auto) Neut % (Auto) Lymph % (Auto) [place] % (Auto) Eos % (Auto) Baso % (Auto) Lymph # (Auto) [place] # (Auto) Eos # (Auto) Baso # (Auto) Abs Immat Gran (auto) Absolute Neuts (auto) Absolute Nucleated RBC Nucleated RBC % (auto) PT 11.8 INR 1.0 Anion Gap Estim Creat Clear Calc Estimated GFR POC Glucose Random Glucose Lactic Acid Calcium Magnesium Total Bilirubin Direct Bilirubin AST ALT Alkaline Phosphatase Troponin I High Sens 6.5 Total Protein Albumin Lipase TSH COVID-19 ([facility]INA) Negative COVID-19 Clin Com See Note 11/10/22 11/10/22 11/10/22 01:08 01:08 03:22 MCV MCH MCHC RDW Plt Count MPV Immature Gran % (Auto) Neut % (Auto) Lymph % (Auto) [place] % (Auto) Eos % (Auto) Baso % (Auto) Lymph # (Auto) [place] # (Auto) Eos # (Auto) Baso # (Auto) Abs Immat Gran (auto) Absolute Neuts (auto) Absolute Nucleated RBC Nucleated RBC % (auto) PT INR Anion Gap Estim Creat Clear Calc Estimated GFR POC Glucose 364 H* Random Glucose Lactic Acid 1.8 Calcium Magnesium Total Bilirubin Direct Bilirubin AST ALT Alkaline Phosphatase Troponin I High Sens Total Protein Albumin Lipase TSH 1.79 COVID-19 (DINA) COVID-19 Clin Com 11/10/22 11/10/22 04:04 04:34 MCV MCH MCHC RDW Plt Count MPV Immature Gran % (Auto) Neut % (Auto) Lymph % (Auto) [place] % (Auto) Eos % (Auto) Baso % (Auto) Lymph # (Auto) [place] # (Auto) Eos # (Auto) Baso # (Auto) Abs Immat Gran (auto) Absolute Neuts (auto) Absolute Nucleated RBC Nucleated RBC % (auto) PT INR Anion Gap Estim Creat Clear Calc Estimated GFR POC Glucose 292 H 277 H Random Glucose Lactic Acid Calcium Magnesium Total Bilirubin Direct Bilirubin AST ALT Alkaline Phosphatase Troponin I High Sens Total Protein Albumin Lipase TSH COVID-19 (DINA) COVID-19 Clin Com Imaging Radiologist's Impressions: Impressions Chest X-Ray 11/10/22 01:25 IMPRESSION: Low lung volumes without acute findings. Abdomen/Pelvis CT 11/10/22 02:25 IMPRESSION: 1. Diffuse small bowel dilation with suggestion of a transition point in the right abdomen, overall concerning for small bowel obstruction. 2. Trace free fluid in the lower abdomen. 3. Left lower pole renal calculi without hydronephrosis. Cervical Spine CT 11/10/22 02:25 IMPRESSION: HEAD: No acute intracranial findings. Chronic appearing changes as noted above. CERVICAL SPINE: No acute findings identified. Degenerative changes as noted above. Head CT 11/10/22 02:25 IMPRESSION: HEAD: No acute intracranial findings. Chronic appearing changes as noted above. CERVICAL SPINE: No acute findings identified. Degenerative changes as noted above. Assessment and Plan (1) Small bowel obstruction: Status: Acute (2) Acute hyponatremia: Status: Chronic (3) Acute hyperkalemia: Status: Acute (4) Acute kidney injury: Status: Acute Plan 57-year-old male with past medical history of schizoaffective, bipolar disorder, hypertension, hyperlipidemia, unspecified heart failure presents to the hospital with what appears to be abdominal distension, lack of bowel sounds as well as reported vomiting. In the ED patient also had several episodes of vomiting. Imaging shows small-bowel obstruction # acute small-bowel obstruction - will make NPO, - NG-tube was attempted but unsuccessful - patient had episodes of hypotension responded well to fluids - hemodynamically stable - GI consulted # chronic versus acute? hyponatremia - per documentation patient has hypoosmolar hyponatremia - no previous sodium for comparison - patient received 1 L of NS in the ED - will obtain stat BMP - nephrology consulted -follow BMP q.6 hours - at this time I will hold off on further fluids until further evaluation # hyperkalemia - no EKG changes - will give Lokelma # MELY? - unclear baseline - patient received IV fluids - repeat BMP # Seizure? - some report of seizure per triage note, but no reprt per documentation from [facility] - will continue home antileptics All other issues are stable, at this time pending med review by pharmacy - will resume home medications once reconciled Time Spent With Patient Time: Total time managing care of this patient today ____ minutes. Quality Stroke Does the patient have a stroke diagnosis?: No VTE Prior VTE?: No VTE Risk Level:: Medical - moderate - high VTE Device Contraindication: Treatment Not Indicated VTE Drug Contraindication: N/A - Med Ordered
[2022-11-10] MEDS: 0.9 % Sodium Chloride 1,000 ML 100 ML IVCONT ×2 (07:19→17:43)
[2022-11-10 07:48] LABS: Anion Gap 19 (12-20); Blood Urea Nitrogen 19 mg/dL (9-16); Calcium 10.2 mg/dL (8.4-10.2); Carbon Dioxide 21 mmol/L (22-29); Chloride 89 mmol/L (96-108); Creatinine Clr Calc Pharmacy 51.9; Estimated Glomerular Filt Rate 44; Glucose Random 129 mg/dL (60-115); Potassium 3.9 mmol/L (3.3-5.1); Sodium 125 mmol/L (135-145)
--- NOTE | 2022-11-10 08:04 | P.CONNP_ITS ---
History of Present Illness Reason for Consult Consult date: 11/10/22 Chief Complaint Chief complaint: SBO, electrolyte abnormality History of Present Illness Narrative: 57 year old patient with unknown baseline kidney function presented to the hospital with witnessed seizure and found to have elevated serum creaatinine, potassium and low sereum sodium. [facility] He was also sent because of abdominal distention and vomiting. On arrival to the ED patient noted to be hypotensive with a BP of 87/60. Abdomen CT showed diffuse small bowel dilation with suggestion of a transition point in the right abdomen overall concerning for small-bowel obstruction Review of Systems Review of Systems 10 points ROS negative except for pertinent in HPI PMFSH Past Medical History Medical History (Updated 11/10/22 @ 08:06 by Carrington Swift MD) Bipolar disorder BPH (benign prostatic hyperplasia) GERD (gastroesophageal reflux disease) Heart failure Hyperlipidemia Hypertension Hyponatremia Hypothyroidism Schizoaffective disorder Seizure disorder Social History Social History Alcohol intake: unknown Smoked in Last 30 Days: No Use of substances other than those prescribed or required for medical reasons: Unknown Advance Directives: No Advance Directives Information Provided: Yes Meds Allergies Allergy/AdvReac Type Severity Reaction Status Date / Time Penicillins [PENICILLINS] Allergy Unknown UNKNOWN Verified 02/24/22 17:57 Active Medications: Current Medications Acetaminophen (Acetaminophen 325 Mg Tablet) 650 mg PO Q6H PRN PRN Reason: Pain, Mild (Pain Scale 1-3) Dextrose (Dextrose 50 % 25 Gm/50 Ml Syringe) 25 gm IVPUSH Q15M PRN; Protocol PRN Reason: per Hypoglycemia Standing Ord. Glucose (Glucose Gel 15 Gm Gel..Gram.) 15 gm PO Q15M PRN; Protocol PRN Reason: per Hypoglycemia Standing Ord. Heparin Sodium (Porcine) (Heparin Sodium,Porcine 5,000 Unit/Ml Vial) 5,000 unit SUBCUT Q12H [facility] Sodium Chloride (Ns) 1,000 mls @ 100 mls/hr IVCONT .Q10H [facility] Last Admin: 11/10/22 07:19 Dose: 100 mls/hr Insulin Human Lispro (Insulin Lispro 100 Unit/Ml 3 Ml Vial) 0 unit SUBCUT QIDACHS [facility]; Protocol Last Admin: 11/10/22 07:20 Dose: Not Given Ondansetron HCl (Ondansetron Hcl 4 Mg/2 Ml Vial) 4 mg IVPUSH Q8H PRN PRN Reason: Nausea and Vomiting Physical Exam Vital Signs: Last Vital Signs Temp 97.4 F 11/10/22 07:00 Pulse 96 11/10/22 07:00 Resp 20 11/10/22 07:00 BP 99/56 L 11/10/22 07:00 Pulse Ox 95 11/10/22 07:00 O2 Del Method 11/10/22 07:00 BMI result Body Mass Index 26.2 Const General: alert and awake HEENT Head: Yes normocephalic and Yes atraumatic Neck Neck: Yes supple Resp Auscultation: clear to auscultation bilaterally Cardio Heart sounds: S1 normal heart sound present and S2 normal heart sound present GI Palpation (GI): Soft to palpation and no guarding Extrem General: Yes no pedal edema Results Lab Results 11/10/22 01:08 11/10/22 07:26 Lab results: Chemistry 11/10/22 11/10/22 01:08 07:26 Sodium 121 L 125 L Potassium 5.7 H 3.9 D Carbon Dioxide 20 L 21 L BUN 16 19 H Creatinine 1.64 H 1.63 H Calcium 9.7 10.2 Hematology 11/10/22 01:08 WBC 15.2 H Hgb 15.1 Plt Count 279 Assessment and Plan (1) MELY (acute kidney injury): Status: Acute (2) Hyperkalemia: Status: Acute (3) Hyponatremia: Status: Acute (4) Metabolic acidosis: Status: Acute Plan MELY probably due to renal hypoperfusion and tubular stress ? acute tubular injury no obstruction benign urine sediment hypotensive probably hypovolemic hyponatremia elevated serum potassium due to compromised distal flow unknown baseline kidney function REC Uosm and Lisset Sosm IVF NS sodium zirconium as needed track down baseline kidney function follow kidney function and electrolytes Time Spent With Patient Time: Total time managing care of this patient today ____ minutes. Procedures Date of Service Date of Service: 11/10/22
--- NOTE | 2022-11-10 08:18 | PHA.MEDREC ---
Pharmacy Consult ? Medication Reconciliation Pharmacy has completed the medication reconciliation. Patient had med list from [facility] [place].
[2022-11-10 08:49] LABS: Osmolality, Serum 263 mosm/kg (281-305)
--- NOTE | 2022-11-10 08:57 | PM.CNGS ---
History of Present Illness Consult details Consult date: 11/10/22 Reason for consult: abdominal pain Requesting physician: Tesha Adams Narrative: 57-year-old male patient resident of [facility] with a history of bipolar disorder, hyperlipidemia, hypertension, hypothyroidism, schizoaffective disorder, and seizure disorder, presenting to the ED after a witnessed seizure at his facility. Patient was found to be somnolent with no complaints of abdominal pain however he was found to have abdominal distension with decreased bowel sounds, diarrhea and vomiting. Subsequent workup laboratories revealed a WBC of 15.2, glucose of 364, and lactic acid of 1.8, sodium 121, potassium 5.7. CT abdomen and pelvis revealed dilated loops of small bowel with air-fluid levels with a transition point in the right abdomen suggestive of a partial small-bowel obstruction , although to my reading of the study there appears to be dilated terminal ileum with fecalization and diffuse dilatation of small bowel suggestive of ileus. Marked gastric distention is identified. Patient was admitted to the hospitalist service for management of the electrolyte imbalance. Review of Systems Review of Systems: Yes Unobtainable due to mental status Neurologic: Reports confusion Psychiatric: Psychiatric: Reports confusion [facility] Past Medical History Medical History (Updated 11/10/22 @ 08:06 by Carrington Swift MD) Bipolar disorder BPH (benign prostatic hyperplasia) GERD (gastroesophageal reflux disease) Heart failure Hyperlipidemia Hypertension Hyponatremia Hypothyroidism Schizoaffective disorder Seizure disorder Social History Social History Alcohol intake: unknown Smoked in Last 30 Days: No Use of substances other than those prescribed or required for medical reasons: Unknown Advance Directives: No Advance Directives Information Provided: Yes Meds Allergies Allergy/AdvReac Type Severity Reaction Status Date / Time Penicillins [PENICILLINS] Allergy Unknown UNKNOWN Verified 02/24/22 17:57 Active Medications: Current Medications Acetaminophen (Acetaminophen 325 Mg Tablet) 650 mg PO Q6H PRN PRN Reason: Pain, Mild (Pain Scale 1-3) Al Hydroxide/Mg Hydroxide (Magnesium Hydrox/Alum Hydrox 30 Ml Oral.Susp) 30 ml PO Q6H PRN PRN Reason: GI UPSET Benztropine Mesylate (Benztropine Mesylate 0.5 Mg Tablet) 0.5 mg PO BID [place] Bisacodyl (Bisacodyl 10 Mg Supp.Rect) 10 mg NE DAILY PRN PRN Reason: Constipation Chlorpromazine HCl (Chlorpromazine Hcl 25 Mg Tablet) 25 mg PO BID [facility] Chlorpromazine HCl (Chlorpromazine Hcl 100 Mg Tablet) 100 mg PO BID [facility] Clozapine (Clozapine 25 Mg Tablet) 25 mg PO DAILY [facility] Clozapine (Clozapine 25 Mg Tablet) 50 mg PO DAILY [facility] Dextrose (Dextrose 50 % 25 Gm/50 Ml Syringe) 25 gm IVPUSH Q15M PRN; Protocol PRN Reason: per Hypoglycemia Standing Ord. Diazepam (Diazepam 2 Mg Tablet) 2 mg PO BID [facility] Diphenhydramine HCl (Diphenhydramine Hcl 25 Mg Capsule) 25 mg PO Q6H PRN PRN Reason: Itching Docusate Sodium (Docusate Sodium 100 Mg Capsule) 100 mg PO Q8H PRN PRN Reason: Constipation Gabapentin (Gabapentin 100 Mg Capsule) 100 mg PO TID [facility] Gabapentin (Gabapentin 600 Mg Tablet) 600 mg PO TID [facility] Gemfibrozil (Gemfibrozil 600 Mg Tablet) 600 mg PO BID [facility] Glucose (Glucose Gel 15 Gm Gel..Gram.) 15 gm PO Q15M PRN; Protocol PRN Reason: per Hypoglycemia Standing Ord. Guaifenesin (Guaifenesin 100 Mg/5 Ml Liquid) 10 ml PO Q6H PRN PRN Reason: Cough Haloperidol Decanoate (Haloperidol Decanoate 50 Mg/Ml Ampul) 100 mg IM Q2W [facility] Heparin Sodium (Porcine) (Heparin Sodium,Porcine 5,000 Unit/Ml Vial) 5,000 unit SUBCUT Q12H [facility] Hydroxyzine HCl (Hydroxyzine Hcl 50 Mg Tablet) 50 mg PO Q8H PRN PRN Reason: Agitation Hydroxyzine HCl (Hydroxyzine Hcl 50 Mg/Ml Vial) 50 mg IM Q8H PRN PRN Reason: Agitation Sodium Chloride (Ns) 1,000 mls @ 100 mls/hr IVCONT .Q10H [facility] Last Admin: 11/10/22 07:19 Dose: 100 mls/hr Ibuprofen (Ibuprofen 600 Mg Tablet) 600 mg PO TID [facility] Insulin Human Lispro (Insulin Lispro 100 Unit/Ml 3 Ml Vial) 0 unit SUBCUT QIDACHS [facility]; Protocol Last Admin: 11/10/22 07:20 Dose: Not Given Lactulose (Lactulose 20 Gm/30 Ml Solution) 20 gm PO DAILY [facility] Levothyroxine Sodium (Levothyroxine Sodium 75 Mcg Tablet) 75 mcg PO DAILY@0600 [facility] Lisinopril (Lisinopril 5 Mg Tablet) 5 mg PO DAILY [facility]; Protocol Melatonin (Melatonin 3 Mg Tablet) 3 mg PO BEDTIME [facility] Non-Formulary Medication (Loperamide [Imodium A-D]) 2 mg PO Q6H PRN PRN Reason: Loose Stool Non-Formulary Medication (Saliva Substitute Combo No.9 [Biotene Dry Mouth Oral Rinse]) 15 ml MUCOUS MEM BID [facility] Omeprazole (Omeprazole 40 Mg Capsule.Dr) 40 mg PO BEDTIME [facility] Ondansetron HCl (Ondansetron Hcl 4 Mg/2 Ml Vial) 4 mg IVPUSH Q8H PRN PRN Reason: Nausea and Vomiting Oxcarbazepine (Oxcarbazepine 300 Mg Tablet) 600 mg PO BID [facility] Propranolol HCl (Propranolol Hcl 10 Mg Tablet) 10 mg PO TID [facility]; Protocol Propranolol HCl (Propranolol Hcl 20 Mg Tablet) 20 mg PO TID [facility]; Protocol Rifaximin (Rifaximin 550 Mg Tablet) 550 mg PO BID [facility] Senna (Sennosides 8.6 Mg Tablet) 8.6 mg PO DAILY PRN PRN Reason: Constipation Sodium Biphosphate/Sodium Phosphate (Sodium Phosphate,Sumner-Dibasic 133 Ml Enema) 118 ml NE DAILY PRN PRN Reason: Constipation Sodium Chloride (Sodium Chloride 0.65 % Nasal 44 Ml Sprbtl) 2 spray NOSTRIL-B Q12H PRN PRN Reason: dry nose Sodium Chloride (Sodium Chloride Tab 1 Gm Tablet) 1 gm PO BID [facility] Tamsulosin HCl (Tamsulosin Hcl 0.4 Mg Capsule) 0.4 mg PO BEDTIME [facility] Tramadol HCl (Tramadol Hcl 50 Mg Tablet) 50 mg PO Q12H PRN PRN Reason: right hip pain Home Medications Medication Instructions Recorded Confirmed Last Taken Type Saccharomyces boulardii 250 mg 250 mg PO DAILY 11/10/22 11/10/22 Unknown History capsule (Probiotic (S.boulardii)) acetaminophen 325 mg tablet 650 mg PO Q4H PRN Fever Or Pain 11/10/22 11/10/22 Unknown History aluminum-mag hydroxide-simethicone 30 ml PO Q6H PRN GI UPSET 11/10/22 11/10/22 Unknown History 200 mg-200 mg-20 mg/5 mL oral susp benztropine 0.5 mg tablet 0.5 mg PO BID 11/10/22 11/10/22 Unknown History bisacodyl 10 mg rectal suppository 10 mg NE DAILY PRN Constipation 11/10/22 11/10/22 Unknown History cetylpyridinium chloride 1 jaja mucous membrane Q2H PRN Sore 11/10/22 11/10/22 Unknown History Throat chlorpromazine 100 mg tablet 100 mg PO BID 11/10/22 11/10/22 Unknown History chlorpromazine 25 mg tablet 25 mg PO BID 11/10/22 11/10/22 Unknown History clozapine 25 mg tablet 25 mg PO DAILY 11/10/22 11/10/22 Unknown History clozapine 50 mg tablet 50 mg PO DAILY 11/10/22 11/10/22 Unknown History diazepam 2 mg tablet 2 mg PO BID 11/10/22 11/10/22 Unknown History diphenhydramine HCl 25 mg tablet 25 mg PO Q6H PRN Itching 11/10/22 11/10/22 Unknown History (Benadryl Allergy) docusate sodium 100 mg capsule 100 mg PO Q8H PRN Constipation 11/10/22 11/10/22 Unknown History gabapentin 100 mg capsule 100 mg PO TID 11/10/22 11/10/22 Unknown History gabapentin 600 mg tablet 600 mg PO TID 11/10/22 11/10/22 Unknown History gemfibrozil 600 mg tablet (Lopid) 600 mg PO BID 11/10/22 11/10/22 Unknown History guaifenesin 100 mg/5 mL oral liquid 200 mg PO Q6H PRN Cough 11/10/22 11/10/22 Unknown History haloperidol decanoate 100 mg/mL 100 mg IM Q2W 11/10/22 11/10/22 11/09/22 History intramuscular solution (Haldol Decanoate) hydroxyzine HCl 50 mg tablet 50 mg PO Q8H PRN Agitation 11/10/22 11/10/22 Unknown History hydroxyzine HCl 50 mg/mL 50 mg IM Q8H PRN Agitation 11/10/22 11/10/22 Unknown History intramuscular solution ibuprofen 600 mg tablet 600 mg PO TID 11/10/22 11/10/22 Unknown History lactulose 10 gram/15 mL oral 30 ml PO DAILY 11/10/22 11/10/22 Unknown History solution levothyroxine 75 mcg tablet 75 mcg PO DAILY@0600 11/10/22 11/10/22 Unknown History lisinopril 5 mg tablet 5 mg PO DAILY 11/10/22 11/10/22 Unknown History loperamide 2 mg tablet (Imodium 2 mg PO Q6H PRN Loose Stool 11/10/22 11/10/22 Unknown History A-D) melatonin 3 mg tablet 3 mg PO BEDTIME 11/10/22 11/10/22 Unknown History methyl salicylate 15 %-menthol 10 1 appl topical Q8H PRN Back Pain 11/10/22 11/10/22 Unknown History % topical cream omeprazole 40 mg capsule,delayed 40 mg PO BEDTIME 11/10/22 11/10/22 Unknown History release ondansetron HCl 4 mg tablet 4 mg PO Q6H PRN Nausea And Vomiting 11/10/22 11/10/22 Unknown History oxcarbazepine 600 mg tablet 600 mg PO BID 11/10/22 11/10/22 Unknown History propranolol 10 mg tablet 10 mg PO TID 11/10/22 11/10/22 Unknown History propranolol 20 mg tablet 20 mg PO TID 11/10/22 11/10/22 Unknown History rifaximin 550 mg tablet (Xifaxan) 550 mg PO BID 11/10/22 11/10/22 Unknown History saliva substitute combo no.9 15 ml mucous membrane BID 11/10/22 11/10/22 Unknown History (Biotene Dry Mouth Oral Rinse mouthwash) sennosides 8.6 mg tablet (senna) 8.6 mg PO DAILY PRN Constipation 11/10/22 11/10/22 Unknown History sodium chloride 0.65 % nasal spray 2 spray intranasal Q12H PRN dry 11/10/22 11/10/22 Unknown History aerosol (Deep Sea Nasal) nose sodium chloride 1,000 mg soluble 1,000 mg PO BID 11/10/22 11/10/22 Unknown History tablet sodium phosphates 19 gram-7 118 ml NE DAILY PRN Constipation 11/10/22 11/10/22 Unknown History gram/118 mL enema (Fleet Enema) tamsulosin 0.4 mg capsule 0.4 mg PO BEDTIME 11/10/22 11/10/22 Unknown History tramadol 50 mg tablet 50 mg PO Q12H PRN right hip pain 11/10/22 11/10/22 Unknown History Physical Exam Vital Signs: Vital Signs: Last Vital Signs Temp 97.4 F 11/10/22 07:00 Pulse 96 11/10/22 07:00 Resp 20 11/10/22 07:00 BP 99/56 L 11/10/22 07:00 Pulse Ox 95 11/10/22 07:00 O2 Del Method 11/10/22 07:00 BMI result Body Mass Index 26.2 Const: General: confusion, lethargic and patient obtunded Nutritional Appearance: thin Orientation/consciousness: confusion, patient obtunded and lethargic Limitations: behavioral limitations HEENT: Head: Yes normocephalic and Yes atraumatic Resp: Effort & Inspection: normal respiratory effort, no audible wheezes, no cough and no respiratory distress GI: Inspection: Yes distended Palpation (GI): Soft to palpation, nontender, no guarding, not rigid and No hepatosplenomegaly present Percussion: Yes dullness to percussion Rectal Exam - Male: Yes deferred Skin: Other: warm, dry Neuro: Other: non-verbal General: confusion and patient obtunded Extrem: General: Yes no clubbing, cyanosis or edema Results Labs 11/10/22 01:08 11/10/22 07:26 Labs: Abnormal lab results 11/10/22 11/10/22 11/10/22 Range/Units 00:38 01:08 01:08 WBC 15.2 H (4.8-10.8) X10*3/uL Hct 40.6 L (42.0-52.0) % MCHC 37.2 H (31.0-36.0) g/dl Immature Gran % (Auto) 0.5 H (0.0-0.4) % Neut % (Auto) 85.9 H (45-73) % Lymph % (Auto) 6.3 L (20-40) % Lymph # (Auto) 1.0 L (1.2-4.9) X10*3/uL Abs Immat Gran (auto) 0.08 H (0.00-0.03) X10*3/uL Absolute Neuts (auto) 13.0 H (2.0-8.3) x10*3/uL Sodium 121 L (135-145) mmol/L Potassium 5.7 H (3.3-5.1) mmol/L Chloride 89 L (96-108) mmol/L Carbon Dioxide 20 L (22-29) mmol/L BUN (9-16) mg/dL Creatinine 1.64 H (0.5-1.4) mg/dL POC Glucose 154 H (60-115) mg/dL Random Glucose 151 H (60-115) mg/dL Osmolality (281-305) mosm/kg 11/10/22 11/10/22 11/10/22 Range/Units 03:22 04:04 04:34 WBC (4.8-10.8) X10*3/uL Hct (42.0-52.0) % MCHC (31.0-36.0) g/dl Immature Gran % (Auto) (0.0-0.4) % Neut % (Auto) (45-73) % Lymph % (Auto) (20-40) % Lymph # (Auto) (1.2-4.9) X10*3/uL Abs Immat Gran (auto) (0.00-0.03) X10*3/uL Absolute Neuts (auto) (2.0-8.3) x10*3/uL Sodium (135-145) mmol/L Potassium (3.3-5.1) mmol/L Chloride (96-108) mmol/L Carbon Dioxide (22-29) mmol/L BUN (9-16) mg/dL Creatinine (0.5-1.4) mg/dL POC Glucose 364 H* 292 H 277 H (60-115) mg/dL Random Glucose (60-115) mg/dL Osmolality (281-305) mosm/kg 11/10/22 11/10/22 Range/Units 07:26 07:30 WBC (4.8-10.8) X10*3/uL Hct (42.0-52.0) % MCHC (31.0-36.0) g/dl Immature Gran % (Auto) (0.0-0.4) % Neut % (Auto) (45-73) % Lymph % (Auto) (20-40) % Lymph # (Auto) (1.2-4.9) X10*3/uL Abs Immat Gran (auto) (0.00-0.03) X10*3/uL Absolute Neuts (auto) (2.0-8.3) x10*3/uL Sodium 125 L (135-145) mmol/L Potassium (3.3-5.1) mmol/L Chloride 89 L (96-108) mmol/L Carbon Dioxide 21 L (22-29) mmol/L BUN 19 H (9-16) mg/dL Creatinine 1.63 H (0.5-1.4) mg/dL POC Glucose (60-115) mg/dL Random Glucose 129 H (60-115) mg/dL Osmolality 263 L (281-305) mosm/kg Short CBC 11/10/22 Range/Units 01:08 WBC 15.2 H (4.8-10.8) X10*3/uL Hgb 15.1 (14.0-18.0) g/dl Hct 40.6 L (42.0-52.0) % Plt Count 279 (160-400) X10*3/uL BMP 11/10/22 11/10/22 01:08 07:26 Sodium 121 L 125 L Potassium 5.7 H 3.9 D Chloride 89 L 89 L Carbon Dioxide 20 L 21 L BUN 16 19 H Creatinine 1.64 H 1.63 H Calcium 9.7 10.2 Liver Function 11/10/22 Range/Units 01:08 Total Bilirubin 0.6 (0.0-1.0) mg/dL Direct Bilirubin < 0.2 (0.0-0.5) mg/dL AST 24 (5-37) U/L ALT 16 (0-40) U/L Alkaline Phosphatase 94 (39-117) U/L Albumin 4.6 (3.5-5.0) g/dL All other labs normal. Assessment and Plan (1) Small bowel obstruction: Status: Acute (2) Ileus: Status: Acute Plan 57-year-old male patient presenting following a seizure at his care facility found to have abdominal distension. Abdominal examination does reveal a distended abdomen with no apparent tenderness although exam is difficult due to patient's mental status . Laboratories revealed hyponatremia and hyperkalemia. There is a normal lactate. CT abdomen and pelvis revealed diffusely dilated small bowel with fecalization in the terminal ileum this may be from an ileus or chronic constipation. There is gastric dilatation in the patient would benefit from a nasogastric decompression. This was apparently was attempted but unsuccessful in the emergency department. Recommend correction of electrolyte imbalance and bowel rest. No indication for surgical intervention at this time. Time Spent With Patient Time: Total time managing care of this patient today ____ minutes. Procedures Date of Service Date of Service: 11/10/22
--- NOTE | 2022-11-10 11:16 | PC.NURSE ---
patient HR has been increased to 120s. hospitalist notified but no further orders at this time. patient is NPO, refusing to taking any meds anyway. looks at rn when they talk to him but then closes his eyes. follows commands when spoke to.
[2022-11-10 11:23] LABS: Glucose, Whole Blood 116 mg/dL (60-115)
[2022-11-10 12:16] LABS: Anion Gap 19 (12-20); Blood Urea Nitrogen 24 mg/dL (9-16); Calcium 9.9 mg/dL (8.4-10.2); Carbon Dioxide 23 mmol/L (22-29); Chloride 89 mmol/L (96-108); Creatinine Clr Calc Pharmacy 46.5; Estimated Glomerular Filt Rate 38; Glucose Random 131 mg/dL (60-115); Potassium 4.5 mmol/L (3.3-5.1); Sodium 126 mmol/L (135-145)
[2022-11-10] MEDS: Haloperidol Lactate 5 MG/ML VIAL 2.5 MG IVPUSH (13:17)
[2022-11-10] MEDS: Morphine Sulfate 2 MG/ML CARTRIDGE IVPUSH (13:26)
--- NOTE | 2022-11-10 13:43 | PM.EVENT ---
Event Note Date of Service: 11/10/22 Event Note: The patient was seen evaluated on multiple occasions during the day Removed his NG tube upon placing it Abdomen is more distended and he started throw up To use none behavior restraint to the wrist Place NG tube Surgery to follow him up Time Spent With Patient Time: Total time managing care of this patient today ____ minutes.
--- NOTE | 2022-11-10 13:45 | PC.NURSE ---
md at bedside, patient abdomen firm, appeared more distended than this morning. tender to light touch. decision to place NG back into patient. md order for soft restraints on patient wrists. ng tube placed, initial output 1900 ml or dark brown fluid.
--- NOTE | 2022-11-10 15:23 | PC.NURSE ---
pt pressure decreased 80s/50s. this RN tiger texted Dr. Cavazos, awaiting response
[2022-11-10] MEDS: 0.9 % Sodium Chloride 1,000 ML 999 ML IV (15:55)
--- NOTE | 2022-11-10 15:55 | PC.NURSE ---
pt placed into trendelenburg and 1L bolus of NS initiated. report called to floor, pt going up shortly
--- NOTE | 2022-11-10 15:56 | PC.NURSE ---
pt remains in soft upper extremity restrains for medical necessity to prevent pulling out NG-tube. Pt tolerating restrains well, circulation intact, range of movement is still present
[2022-11-10 17:03] LABS: Glucose, Whole Blood 107 mg/dL (60-115)
[2022-11-10] MEDS: Heparin Sodium,Porcine 5,000 UNIT/ML VIAL 5000 UNIT SUBCUT (17:46)
[2022-11-10 18:41] LABS: Anion Gap 19 (12-20); Blood Urea Nitrogen 29 mg/dL (9-16); Calcium 8.9 mg/dL (8.4-10.2); Carbon Dioxide 20 mmol/L (22-29); Chloride 93 mmol/L (96-108); Creatinine Clr Calc Pharmacy 38.6; Estimated Glomerular Filt Rate 31; Glucose Random 114 mg/dL (60-115); Potassium 3.5 mmol/L (3.3-5.1); Sodium 128 mmol/L (135-145)
[2022-11-10 19:47] LABS: Glucose, Whole Blood 111 mg/dL (60-115)
[2022-11-11] VITALS (42 sets, daily range): BP systolic 56–128; BP diastolic 40–82; PULSE 68–138; RESP 15–30; TEMP 32–39.2; O2SAT 97–100; BMI 26.2
--- NOTE | 2022-11-11 | ECG_ITS ---
Test Reason : cp Blood Pressure : / mmHG Vent. Rate : 137 BPM Atrial Rate : 137 BPM P-R Int : 140 ms QRS Dur : 068 ms QT Int : 252 ms P-R-T Axes : 093 -29 157 degrees QTc Int : 380 ms Poor data quality Likely sinus tachycardia T wave abnormality, consider lateral ischemia Abnormal ECG When compared to the previous EKG of Sinus tachycardia present Referred By: Colton Mckinley Electronically Signed By:Pankaj Azar
[2022-11-11] MEDS: diazePAM 10 MG/2 ML CARTRIDGE 2 MG IVPUSH (00:02)
[2022-11-11] MEDS: Lactated Ringers 1,000 ML 999 ML IV ×2 (00:55→02:55)
--- NOTE | 2022-11-11 01:04 | ECG_ITS ---
Test Reason : cp Blood Pressure : / mmHG Vent. Rate : 124 BPM Atrial Rate : 124 BPM P-R Int : 130 ms QRS Dur : 076 ms QT Int : 276 ms P-R-T Axes : 000 -29 152 degrees QTc Int : 396 ms Sinus tachycardia Minimal voltage criteria for LVH, may be normal variant ( R in aVL ) T wave abnormality, consider lateral ischemia Abnormal ECG When compared with ECG of 10-NOV-2022 01:21, T wave inversion now evident in Lateral leads Referred By: Colton Mckinley Electronically Signed By:Pankaj Azar
[2022-11-11 01:10] LABS: Anion Gap 24 (12-20); Blood Urea Nitrogen 39 mg/dL (9-16); Carbon Dioxide 17 mmol/L (22-29); Chloride 93 mmol/L (96-108); Creatinine Clr Calc Pharmacy 27.3; Estimated Glomerular Filt Rate 21; Glucose Random 107 mg/dL (60-115); Potassium 4.3 mmol/L (3.3-5.1); Sodium 130 mmol/L (135-145)
--- NOTE | 2022-11-11 01:15 | PC.NURSE ---
Addendum entered by Ronan Pappas RN 11/11/22 07:57: Despite IVF bolus, unable to get manual BP on patient and unable to place PIV. MD notified and ICU DECORATOR INSPECTOR at bedside to place RIJ triple lumen w/o incident. Additional 1.5L IVF boluses given w/minimal improvement in BP to 50s/30s manually. This RN still unable to get O2 sat on patient. Throughout this patient continued mentating appropriately and asymptomatic. Dr. Mckinley made aware of continued hypotension. Patient transferred to ICU for pressor support at 0600. On arrival to ICU patient intubated for airway protection at 0606 w/#8 ETT, 22@lip - see eMAR for meds given. Vent settings RR 16, TV 450, PEEP 5, FiO2 70%. Patient started on Levophed w/immediate improvement in BPs. Bladder scanned for >250 mL and Allred placed per order. Oncoming RN aware. Original Note: At approximately 0030 this RN was made aware of unable to get O2 sat on patient. On assessment patient noted to be tachypneic w/increased work of breathing and RR mid 30s. HR also noted to be increased to ST 130s. Multiple sites trialed for O2 sat, only able to get SpO2 68%. NRB placed on patient and Dr. Mckinley paged. at bedside to evaluate patient w/RT, unable to get sat. At this time manual BP also taken for 70/20 by both RN and MD. STAT ABG, CXR and labs completed as ordered - see chart for complete results. IVF bolus infusing as ordered.
[2022-11-11 01:25] LABS: ABG Refer to POC result
[2022-11-11 01:27] LABS: ABG Base Excess -9.5 mmol/L; ABG HCO3 13 mmol/L (22-26); ABG pCO2 23 mmHg (32-45); ABG pH 7.37 (7.35-7.45); ABG pO2 130 mmHg (83-108)
[2022-11-11 01:27] LABS: Appearance Urine Clear; Color Urine Yellow; Glucose Urine UA 250 mg/dL (Negative); Leukocyte Esterase Urine Negative (Negative); Nitrite Urine Negative (Negative); PH 5.5 (5.0-9.0); UMIC TRIGGER UACC YES; Urine Blood Negative (Negative); Urine Ketones Negative (Negative); Urine Protein 30 (1+) mg/dL (Neg-Trace)
[2022-11-11 01:29] LABS: Bacteria Urine None Seen (None Seen); Hyaline Casts Urine 0-2 /LPF (0-2); RBC Urine 0-2 /HPF (0-2); Squamous Epithelial Cell Urine 0-2 /HPF (0-2); WBC Urine 0-5 /HPF (0-5)
[2022-11-11 01:37] LABS: Amphetamine Screen Urine Not Detected (Not Detect); Barbiturates, Urine Not Detected (Not Detect); Benzodiazepines Screen Urine POSITIVE (Not Detect); Cannabinoid Screen Urine Not Detected (Not Detect); Cocaine Screen Urine Not Detected (Not Detect); Fentanyl, urine POSITIVE (Not Detect); Opiate Screen Urine POSITIVE (Not Detect); Phencyclidine Screen Urine Not Detected (Not Detect)
[2022-11-11 01:43] LABS: Osmolality Urine 409 mosm/kg (373-1093)
--- NOTE | 2022-11-11 02:27 | W.PM.CCHP ---
Procedures Date of Service Date of Service: 11/11/22 Central Line Placement Right IJ: Central Line Comments: Patient with poor peripheral access, requiring multiple lab draws and medications. Multiple RNs attempt IV access, ED attempt EJ with no sucess.? Central line placed Right internal jugular triple lumen central venous catheter placed in usual sterile conditions under ultrasound guidance for appropriate vascular access without immediate complications. Central line position verified with Chest XRAY. Consent for Procedure: Emergent-no informed consent obtained Time out performed: Yes Sterile Technique Used: Yes Patient placed on monitor/pulse ox: Yes MD prep: mask, gown and gloves Central line prep: Chlorhexidine scrub Local anesthesia used: lidocaine 1% Amount of anesthesia used (ml): 2 Ultrasound used for placement: Yes Central line lumen inserted: triple Post procedure: sutured in place, good blood return, all ports aspirated, flushed, capped and sterile dressing applied Post procedure x-ray: tip of catheter in good position and no pneumothorax seen Patient tolerated procedure: well and no complications Complications: none
[2022-11-11 02:44] LABS: B Type Natriuretic Peptide 514 pg/mL (<100)
[2022-11-11 02:59] LABS: Troponin-I High Sensitivity 2342.7 ng/L (<3.5-35.0)
[2022-11-11] MEDS: Lactated Ringers 500 ML 999 ML IV (04:18)
[2022-11-11 04:56] LABS: Anion Gap 21 (12-20); Blood Urea Nitrogen 41 mg/dL (9-16); Calcium 8.3 mg/dL (8.4-10.2); Carbon Dioxide 18 mmol/L (22-29); Chloride 98 mmol/L (96-108); Creatinine Clr Calc Pharmacy 31.9; Estimated Glomerular Filt Rate 25; Glucose Random 89 mg/dL (60-115); Potassium 4.9 mmol/L (3.3-5.1); Sodium 132 mmol/L (135-145)
[2022-11-11 04:59] LABS: Lactic Acid 5.9 mmol/L (0.5-2.0)
[2022-11-11 05:00] LABS: Troponin-I High Sensitivity 1817.1 ng/L (<3.5-35.0)
[2022-11-11] MEDS: Lactated Ringers 1,000 ML 100 ML IVCONT ×3 (05:12→18:44)
[2022-11-11] MEDS: cefEPime HCl 1 GM in 0.9 % Sodium Chloride 50 ML IV ×2 (05:22→11:37)
--- NOTE | 2022-11-11 05:53 | PM.EVENT ---
Event Note Date of Service: 11/11/22 Event Note: At around 01:30 received a message from nurse that we are unable to get O2 on the patient, upon my arrival patient is alert, awake, answering questions appropriately but shaking his head yes or no. He appear to be tachypneic, as well as have thready pulses. He has hands appear to be cold and skin to be call me. We were unable to obtain O2 as well as blood pressure was significantly low to the point that we were on both to record BP manually or using the BP machine. During this patient has been awake, and alert. Denies any chest pain, no shortness of breath. He was on non-rebreather. An ABG was attempted, and fluid was started. ABG shows PaO2 of 130, with pH of 7.37, - will unable to start him on fluid but he lost peripheral IV access, Central line was placed by ICU 2.5 L of LR were given, Labs are significant for elevated troponin, patient denies any chest pain, EKG shows nonspecific ST T wave changes, also has an elevated lactic acid and a BNP Patient's abdomen is slightly distended, and G-tube in place After receiving 2.5 L fluid BP improved to 70s over 50s At this time due to low BP, as well as the send abdomen as well as significant abnormality in all other parameters patient will be transferred to ICU. Discussed case with general surgery who state that they will operate on patient if he needs operation for SBO, as well as spoke to his mother who states that patient needs to be full code no measures need to be implemented if necessary Case discussed with Dr. Kessler Time Spent With Patient Time: Total time managing care of this patient today ____ minutes.
[2022-11-11] MEDS: propofoL 1,000 MG/100 ML VIAL 25.59 MG IVCONT ×3 (06:05→18:28)
[2022-11-11] MEDS: Sodium Bicarbonate 8.4% 50 MEQ/50 ML SYRINGE IVPUSH (06:05)
[2022-11-11] MEDS: propofoL 200 MG/20 ML VIAL 100 MG IVPUSH (06:05)
[2022-11-11] MEDS: Sodium Bicarbonate 8.4% 50 MEQ/50 ML VIAL IVPUSH (06:30)
--- NOTE | 2022-11-11 06:30 | W.PM.CCHP ---
Procedures Date of Service Date of Service: 11/11/22 Intubation Intubation Comments: Patient required emergent intubation for airway protection. Emergent endotracheal intubation performed with 8-cuffed ET tube with glidescope visualization of the vocal cords with no immediate complications.? ET tube position verified on chest x-ray. Consent for Procedure: Emergent-no informed consent obtained Time out performed: Yes Sedative: propofol Mg given: 100 Laryngoscope: fiber optic video scope ET tube size: 8 ET tube uncuffed: No Tube secured depth (cm): 22 Tube secured location: lips Tube placement confirmation: visualized tube passing through cords, equal breath sounds bilaterally, no breath sounds over epigastrium and confirmation by capnometry Patient tolerated procedure: well and no complications Intubation complications: none
[2022-11-11 06:33] LABS: Reflex Lactate? Lactic Acid Added
[2022-11-11 06:52] LABS: Venous Blood Gas Refer to POC result
[2022-11-11 06:53] LABS: VBG Base Excess -2.4 mmol/L; VBG HCO3 24 mmol/L (22-26); VBG pCO2 48 mmHg; VBG pO2 60 mmHg
[2022-11-11 06:58] LABS: Hematocrit 34.3 % (42.0-52.0); Hemoglobin 12.6 g/dl (14.0-18.0); Mean Corpuscular HGB Conc 36.7 g/dl (31.0-36.0); Mean Corpuscular Hemoglobin 29.9 pg (27.0-33.0); Mean Corpuscular Volume 81.3 fL (80.0-98.0); Mean Platelet Volume 10.6 fL (9.4-12.4); Platelet Count 251 X10*3/uL (160-400); Red Blood Count 4.22 X10*6/uL (4.60-5.80); Red Cell Distribution Width 12.2 % (11.0-16.0); White Blood Count 11.2 X10*3/uL (4.8-10.8)
[2022-11-11 07:04] LABS: ~Lactic Acid-LAB USE ONLY 7.4 mmol/L (0.5-2.0)
[2022-11-11 07:11] LABS: Alanine Aminotransferase 1091 U/L (0-40); Albumin Level 2.9 g/dL (3.5-5.0); Alkaline Phosphatase 63 U/L (39-117); Anion Gap 21 (12-20); Aspartate Amino Transferase 990 U/L (5-37); Bilirubin Total 0.7 mg/dL (0.0-1.0); Blood Urea Nitrogen 43 mg/dL (9-16); Calcium 8.1 mg/dL (8.4-10.2); Carbon Dioxide 22 mmol/L (22-29); Chloride 95 mmol/L (96-108); Creatinine Clr Calc Pharmacy 35.5; Estimated Glomerular Filt Rate 28; Glucose Random 109 mg/dL (60-115); Potassium 4.7 mmol/L (3.3-5.1); Sodium 133 mmol/L (135-145); Total Protein 4.5 g/dL (6.5-8.0)
--- NOTE | 2022-11-11 08:24 | P.PNGS_ITS ---
Subjective Subjective Date of Service: 11/11/22 Interval history: Events of the night were reviewed. Patient became hypotensive and was transferred a ICU, intubated and placed on pressors. Abdomen found to be markedly distended despite nasogastric decompression. Physical Exam Vital Signs: Vital Signs: Last Vital Signs Temp 102.0 F H 11/11/22 07:54 Pulse 135 H 11/11/22 07:54 Resp 25 H 11/11/22 07:54 BP 86/51 L 11/11/22 07:54 Pulse Ox 100 11/11/22 07:54 O2 Del Method 11/11/22 07:54 O2 Flow Rate 6 11/11/22 03:20 FiO2 70 11/11/22 07:54 BMI result Body Mass Index 26.2 Const: Other: Intubated and sedated Resp: Other: breathing on vent GI: Other: marked distension of abdomen, tympany to percussion Extrem: Other: no edema Objective Data Active Medications Acetaminophen (Acetaminophen 325 Mg Tablet) 650 mg PO Q6H PRN PRN Reason: Pain, Mild (Pain Scale 1-3) Al Hydroxide/Mg Hydroxide (Magnesium Hydrox/Alum Hydrox 30 Ml Oral.Susp) 30 ml PO Q6H PRN PRN Reason: GI UPSET Benztropine Mesylate (Benztropine Mesylate 0.5 Mg Tablet) 0.5 mg PO BID [facility] Last Admin: 11/10/22 19:53 Dose: Not Given Documented By: FAIZAN Non-Admin Reason: NPO Bisacodyl (Bisacodyl 10 Mg Supp.Rect) 10 mg DC DAILY PRN PRN Reason: Constipation Chlorpromazine HCl (Chlorpromazine Hcl 25 Mg Tablet) 25 mg PO BID [facility] Last Admin: 11/10/22 19:53 Dose: Not Given Documented By: FAIZAN Non-Admin Reason: NPO Chlorpromazine HCl (Chlorpromazine Hcl 100 Mg Tablet) 100 mg PO BID [facility] Last Admin: 11/10/22 19:53 Dose: Not Given Documented By: FAIZAN Non-Admin Reason: NPO Dextrose (Dextrose 50 % 25 Gm/50 Ml Syringe) 25 gm IVPUSH Q15M PRN; Protocol PRN Reason: per Hypoglycemia Standing Ord. Diazepam (Diazepam 2 Mg Tablet) 2 mg PO BID [facility] Last Admin: 11/10/22 19:53 Dose: Not Given Documented By: FAIZAN Non-Admin Reason: NPO Diazepam (Diazepam 10 Mg/2 Ml Cartridge) 2 mg IVPUSH BID [facility] Last Admin: 11/11/22 00:02 Dose: 2 mg Documented By: FAIZAN Diphenhydramine HCl (Diphenhydramine Hcl 25 Mg Capsule) 25 mg PO Q6H PRN PRN Reason: Itching Docusate Sodium (Docusate Sodium 100 Mg Capsule) 100 mg PO Q8H PRN PRN Reason: Constipation Gabapentin (Gabapentin 100 Mg Capsule) 100 mg PO TID [facility] Last Admin: 11/10/22 19:54 Dose: Not Given Documented By: FAIZAN Non-Admin Reason: NPO Gabapentin (Gabapentin 600 Mg Tablet) 600 mg PO TID [facility] Last Admin: 11/10/22 19:54 Dose: Not Given Documented By: FAIZAN Non-Admin Reason: NPO Gemfibrozil (Gemfibrozil 600 Mg Tablet) 600 mg PO BID [facility] Last Admin: 11/10/22 19:54 Dose: Not Given Documented By: FAIZAN Non-Admin Reason: NPO Glucose (Glucose Gel 15 Gm Gel..Gram.) 15 gm PO Q15M PRN; Protocol PRN Reason: per Hypoglycemia Standing Ord. Guaifenesin (Guaifenesin 100 Mg/5 Ml Liquid) 10 ml PO Q6H PRN PRN Reason: Cough Haloperidol Decanoate (Haloperidol Decanoate 50 Mg/Ml Ampul) 100 mg IM Q14D [facility] Haloperidol Lactate (Haloperidol Lactate 5 Mg/Ml Vial) 2.5 mg IVPUSH ONCE PRN PRN Reason: anxiety/restlessness Last Admin: 11/10/22 13:17 Dose: 2.5 mg Documented By: COOPEB Heparin Sodium (Porcine) (Heparin Sodium,Porcine 5,000 Unit/Ml Vial) 5,000 unit SUBCUT Q12H [facility] Last Admin: 11/11/22 07:09 Dose: Not Given Documented By: SOLEDAD Non-Admin Reason: hold per risk professional Hydroxyzine HCl (Hydroxyzine Hcl 50 Mg Tablet) 50 mg PO Q8H PRN PRN Reason: Agitation Hydroxyzine HCl (Hydroxyzine Hcl 50 Mg/Ml Vial) 50 mg IM Q8H PRN PRN Reason: Agitation Cefepime HCl 1 gm/ Sodium (Chloride) 50 mls @ 100 mls/hr IV Q8H [facility] Last Infusion: 11/11/22 06:28 Dose: 0 mls/hr Documented By: WILMA Propofol (Diprivan) 1,000 mg in 100 mls @ 0 mls/hr IVCONT .Q0M [facility]; Protocol Last Admin: 11/11/22 06:05 Dose: 50 mcg/kg/min, 25.59 mls/hr Documented By: WILMA Norepinephrine Bitartrate (Levophed) 8 mg in 250 mls @ 0 mls/hr IVCONT .Q0M [facility]; Protocol Last Titration: 11/11/22 07:28 Dose: 0.27 mcg/kg/min, 43.18 mls/hr Documented By: SOLEDAD Vancomycin HCl 1,000 mg/ (Sodium Chloride) 270 mls @ 270 mls/hr IV Q24H [facility] Ibuprofen (Ibuprofen 600 Mg Tablet) 600 mg PO TID [facility] Last Admin: 11/10/22 19:54 Dose: Not Given Documented By: FAIZAN Non-Admin Reason: NPO Insulin Human Lispro (Insulin Lispro 100 Unit/Ml 3 Ml Vial) 0 unit SUBCUT Q6H [facility]; Protocol Lactulose (Lactulose 20 Gm/30 Ml Solution) 20 gm PO DAILY [facility] Last Admin: 11/10/22 10:09 Dose: Not Given Documented By: HERRERA Non-Admin Reason: NPO Levothyroxine Sodium (Levothyroxine Sodium 75 Mcg Tablet) 75 mcg PO DAILY@0600 [facility] Last Admin: 11/11/22 06:36 Dose: Not Given Documented By: WILMA Non-Admin Reason: NPO Lisinopril (Lisinopril 5 Mg Tablet) 5 mg PO DAILY [facility]; Protocol Last Admin: 11/10/22 10:09 Dose: Not Given Documented By: HERRERA Non-Admin Reason: NPO Loperamide HCl (Loperamide Hcl 2 Mg Capsule) 2 mg PO Q6H PRN PRN Reason: Loose Stool Melatonin (Melatonin 3 Mg Tablet) 3 mg PO BEDTIME [facility] Last Admin: 11/10/22 19:54 Dose: Not Given Documented By: FAIZAN Non-Admin Reason: NPO Metoprolol Tartrate (Metoprolol Tartrate 5 Mg/5 Ml Vial) 5 mg IVPUSH Q6H PRN PRN Reason: HR>110 Morphine Sulfate (Morphine Sulfate 2 Mg/Ml Cartridge) 2 mg IVPUSH Q3H PRN; Protocol PRN Reason: Pain, Severe (Pain Scale 7-10) Last Admin: 11/10/22 13:26 Dose: 2 mg Documented By: COOPEB Omeprazole (Omeprazole 40 Mg Capsule.Dr) 40 mg PO BEDTIME [facility] Last Admin: 11/10/22 19:54 Dose: Not Given Documented By: FAIZAN Non-Admin Reason: NPO Ondansetron HCl (Ondansetron Hcl 4 Mg/2 Ml Vial) 4 mg IVPUSH Q8H PRN PRN Reason: Nausea and Vomiting Oxcarbazepine (Oxcarbazepine 300 Mg Tablet) 600 mg PO BID [facility] Last Admin: 11/10/22 19:54 Dose: Not Given Documented By: FAIZAN Non-Admin Reason: NPO Pharmacy Consult (Consult Rx Vancomycin Dosing) 1 each MISCELLANE DAILY PRN PRN Reason: Consult order Propranolol HCl (Propranolol Hcl 10 Mg Tablet) 10 mg PO TID [facility]; Protocol Last Admin: 11/10/22 19:55 Dose: Not Given Documented By: FAIZAN Non-Admin Reason: NPO Propranolol HCl (Propranolol Hcl 20 Mg Tablet) 20 mg PO TID [facility]; Protocol Last Admin: 11/10/22 19:55 Dose: Not Given Documented By: FAIZAN Non-Admin Reason: NPO Rifaximin (Rifaximin 550 Mg Tablet) 550 mg PO BID [facility] Last Admin: 11/10/22 19:55 Dose: Not Given Documented By: FAIZAN Non-Admin Reason: NPO Senna (Sennosides 8.6 Mg Tablet) 8.6 mg PO DAILY PRN PRN Reason: Constipation Sodium Biphosphate/Sodium Phosphate (Sodium Phosphate,[place]-Dibasic 133 Ml Enema) 118 ml DC DAILY PRN PRN Reason: Constipation Sodium Chloride (Sodium Chloride 0.65 % Nasal 44 Ml Sprbtl) 2 spray NOSTRIL-B Q12H PRN PRN Reason: dry nose Sodium Chloride (Sodium Chloride Tab 1 Gm Tablet) 1 gm PO BID [facility] Last Admin: 11/10/22 19:55 Dose: Not Given Documented By: FAIZAN Non-Admin Reason: NPO Tamsulosin HCl (Tamsulosin Hcl 0.4 Mg Capsule) 0.4 mg PO BEDTIME [facility] Last Admin: 11/10/22 19:55 Dose: Not Given Documented By: FAIZAN Non-Admin Reason: NPO Tramadol HCl (Tramadol Hcl 50 Mg Tablet) 50 mg PO Q12H PRN PRN Reason: right hip pain Labs 11/11/22 06:40 11/11/22 06:40 Labs: Laboratory Results - last 24 hr 11/10/22 11/10/22 11/10/22 07:30 11:20 11:53 MCV MCH MCHC RDW Plt Count MPV Absolute Nucleated RBC Nucleated RBC % (auto) O2 Saturation ABG pH at Pt Temp ABG pCO2 at Pt Temp ABG pO2 at Pt Temp ABG HCO3 ABG Base Excess (Actual) VBG pH VBG pCO2 VBG pO2 VBG HCO3 VBG O2 Saturation VBG Base Excess Anion Gap 19 Estim Creat Clear Calc 46.5 Estimated GFR 38 POC Glucose 116 H Random Glucose 131 H Osmolality 263 L Lactic Acid Lactic Acid F/U @ 2Hr Calcium 9.9 Total Bilirubin AST ALT Alkaline Phosphatase Troponin I High Sens B-Natriuretic Peptide Total Protein Albumin Urine Color Urine Appearance Urine pH Ur Specific [place] Urine Protein Urine Glucose (UA) Urine Ketones Urine Blood Urine Nitrite Ur Leukocyte Esterase Urine RBC Urine WBC Ur Squamous Epith Cells Urine Bacteria Hyaline Casts Urine Osmolality Ur Random Sodium Urine Opiates Screen Urine Fentanyl Screen Ur Barbiturates Screen Ur Phencyclidine Scrn Ur Amphetamines Screen U Benzodiazepines Scrn Urine Cocaine Screen U Marijuana (THC) Screen 11/10/22 11/10/22 11/10/22 16:36 18:00 19:43 MCV MCH MCHC RDW Plt Count MPV Absolute Nucleated RBC Nucleated RBC % (auto) O2 Saturation ABG pH at Pt Temp ABG pCO2 at Pt Temp ABG pO2 at Pt Temp ABG HCO3 ABG Base Excess (Actual) VBG pH VBG pCO2 VBG pO2 VBG HCO3 VBG O2 Saturation VBG Base Excess Anion Gap 19 Estim Creat Clear Calc 38.6 Estimated GFR 31 POC Glucose 107 111 Random Glucose 114 Osmolality Lactic Acid Lactic Acid F/U @ 2Hr Calcium 8.9 D Total Bilirubin AST ALT Alkaline Phosphatase Troponin I High Sens B-Natriuretic Peptide Total Protein Albumin Urine Color Urine Appearance Urine pH Ur Specific [place] Urine Protein Urine Glucose (UA) Urine Ketones Urine Blood Urine Nitrite Ur Leukocyte Esterase Urine RBC Urine WBC Ur Squamous Epith Cells Urine Bacteria Hyaline Casts Urine Osmolality Ur Random Sodium Urine Opiates Screen Urine Fentanyl Screen Ur Barbiturates Screen Ur Phencyclidine Scrn Ur Amphetamines Screen U Benzodiazepines Scrn Urine Cocaine Screen U Marijuana (THC) Screen 11/10/22 11/10/22 11/10/22 23:15 23:15 23:15 MCV MCH MCHC RDW Plt Count MPV Absolute Nucleated RBC Nucleated RBC % (auto) O2 Saturation ABG pH at Pt Temp ABG pCO2 at Pt Temp ABG pO2 at Pt Temp ABG HCO3 ABG Base Excess (Actual) VBG pH VBG pCO2 VBG pO2 VBG HCO3 VBG O2 Saturation VBG Base Excess Anion Gap Estim Creat Clear Calc Estimated GFR POC Glucose Random Glucose Osmolality Lactic Acid Lactic Acid F/U @ 2Hr Calcium Total Bilirubin AST ALT Alkaline Phosphatase Troponin I High Sens B-Natriuretic Peptide Total Protein Albumin Urine Color Yellow Urine Appearance Clear Urine pH 5.5 Ur Specific [place] 1.020 Urine Protein 30 (1+) H Urine Glucose (UA) 250 H Urine Ketones Negative Urine Blood Negative Urine Nitrite Negative Ur Leukocyte Esterase Negative Urine RBC 0-2 Urine WBC 0-5 Ur Squamous Epith Cells 0-2 Urine Bacteria None Seen Hyaline Casts 0-2 Urine Osmolality 409 Ur Random Sodium Urine Opiates Screen POSITIVE H Urine Fentanyl Screen POSITIVE H Ur Barbiturates Screen Not Detected Ur Phencyclidine Scrn Not Detected Ur Amphetamines Screen Not Detected U Benzodiazepines Scrn POSITIVE H Urine Cocaine Screen Not Detected U Marijuana (THC) Screen Not Detected 11/10/22 11/11/22 11/11/22 23:15 00:38 01:19 MCV MCH MCHC RDW Plt Count MPV Absolute Nucleated RBC Nucleated RBC % (auto) O2 Saturation 100.0 ABG pH at Pt Temp 7.37 ABG pCO2 at Pt Temp 23 L ABG pO2 at Pt Temp 130 H ABG HCO3 13 L ABG Base Excess (Actual) -9.5 VBG pH VBG pCO2 VBG pO2 VBG HCO3 VBG O2 Saturation VBG Base Excess Anion Gap 24 H Estim Creat Clear Calc 27.3 Estimated GFR 21 POC Glucose Random Glucose 107 Osmolality Lactic Acid Lactic Acid F/U @ 2Hr Calcium 9.0 Total Bilirubin AST ALT Alkaline Phosphatase Troponin I High Sens B-Natriuretic Peptide Total Protein Albumin Urine Color Urine Appearance Urine pH Ur Specific [place] Urine Protein Urine Glucose (UA) Urine Ketones Urine Blood Urine Nitrite Ur Leukocyte Esterase Urine RBC Urine WBC Ur Squamous Epith Cells Urine Bacteria Hyaline Casts Urine Osmolality Ur Random Sodium 29.0 Urine Opiates Screen Urine Fentanyl Screen Ur Barbiturates Screen Ur Phencyclidine Scrn Ur Amphetamines Screen U Benzodiazepines Scrn Urine Cocaine Screen U Marijuana (THC) Screen 11/11/22 11/11/22 11/11/22 01:44 02:16 04:29 MCV MCH MCHC RDW Plt Count MPV Absolute Nucleated RBC Nucleated RBC % (auto) O2 Saturation ABG pH at Pt Temp ABG pCO2 at Pt Temp ABG pO2 at Pt Temp ABG HCO3 ABG Base Excess (Actual) VBG pH VBG pCO2 VBG pO2 VBG HCO3 VBG O2 Saturation VBG Base Excess Anion Gap Estim Creat Clear Calc Estimated GFR POC Glucose Random Glucose Osmolality Lactic Acid Lactic Acid F/U @ 2Hr Calcium Total Bilirubin AST ALT Alkaline Phosphatase Troponin I High Sens 2342.7 H* D 1817.1 H* B-Natriuretic Peptide 514 H Total Protein Albumin Urine Color Urine Appearance Urine pH Ur Specific [place] Urine Protein Urine Glucose (UA) Urine Ketones Urine Blood Urine Nitrite Ur Leukocyte Esterase Urine RBC Urine WBC Ur Squamous Epith Cells Urine Bacteria Hyaline Casts Urine Osmolality Ur Random Sodium Urine Opiates Screen Urine Fentanyl Screen Ur Barbiturates Screen Ur Phencyclidine Scrn Ur Amphetamines Screen U Benzodiazepines Scrn Urine Cocaine Screen U Marijuana (THC) Screen 11/11/22 11/11/22 11/11/22 04:29 04:29 06:40 MCV MCH MCHC RDW Plt Count MPV Absolute Nucleated RBC Nucleated RBC % (auto) O2 Saturation ABG pH at Pt Temp ABG pCO2 at Pt Temp ABG pO2 at Pt Temp ABG HCO3 ABG Base Excess (Actual) VBG pH VBG pCO2 VBG pO2 VBG HCO3 VBG O2 Saturation VBG Base Excess Anion Gap 21 H 21 H Estim Creat Clear Calc 31.9 35.5 Estimated GFR 25 28 POC Glucose Random Glucose 89 109 Osmolality Lactic Acid 5.9 H* Lactic Acid F/U @ 2Hr Calcium 8.3 L D 8.1 L Total Bilirubin 0.7 AST 990 H ALT 1091 H Alkaline Phosphatase 63 Troponin I High Sens B-Natriuretic Peptide Total Protein 4.5 L Albumin 2.9 L Urine Color Urine Appearance Urine pH Ur Specific [place] Urine Protein Urine Glucose (UA) Urine Ketones Urine Blood Urine Nitrite Ur Leukocyte Esterase Urine RBC Urine WBC Ur Squamous Epith Cells Urine Bacteria Hyaline Casts Urine Osmolality Ur Random Sodium Urine Opiates Screen Urine Fentanyl Screen Ur Barbiturates Screen Ur Phencyclidine Scrn Ur Amphetamines Screen U Benzodiazepines Scrn Urine Cocaine Screen U Marijuana (THC) Screen 11/11/22 11/11/22 11/11/22 06:40 06:40 06:40 MCV 81.3 MCH 29.9 MCHC 36.7 H RDW 12.2 Plt Count 251 MPV 10.6 Absolute Nucleated RBC 0.000 Nucleated RBC % (auto) 0.0 O2 Saturation ABG pH at Pt Temp ABG pCO2 at Pt Temp ABG pO2 at Pt Temp ABG HCO3 ABG Base Excess (Actual) VBG pH VBG pCO2 VBG pO2 VBG HCO3 VBG O2 Saturation VBG Base Excess Anion Gap Cancelled Estim Creat Clear Calc Cancelled Estimated GFR Cancelled POC Glucose Random Glucose Cancelled Osmolality Lactic Acid Lactic Acid F/U @ 2Hr 7.4 H* Calcium Cancelled Total Bilirubin AST ALT Alkaline Phosphatase Troponin I High Sens B-Natriuretic Peptide Total Protein Albumin Urine Color Urine Appearance Urine pH Ur Specific [place] Urine Protein Urine Glucose (UA) Urine Ketones Urine Blood Urine Nitrite Ur Leukocyte Esterase Urine RBC Urine WBC Ur Squamous Epith Cells Urine Bacteria Hyaline Casts Urine Osmolality Ur Random Sodium Urine Opiates Screen Urine Fentanyl Screen Ur Barbiturates Screen Ur Phencyclidine Scrn Ur Amphetamines Screen U Benzodiazepines Scrn Urine Cocaine Screen U Marijuana (THC) Screen 11/11/22 06:46 MCV MCH MCHC RDW Plt Count MPV Absolute Nucleated RBC Nucleated RBC % (auto) O2 Saturation ABG pH at Pt Temp ABG pCO2 at Pt Temp ABG pO2 at Pt Temp ABG HCO3 ABG Base Excess (Actual) VBG pH 7.30 L VBG pCO2 48 VBG pO2 60 VBG HCO3 24 VBG O2 Saturation 82.0 VBG Base Excess -2.4 Anion Gap Estim Creat Clear Calc Estimated GFR POC Glucose Random Glucose Osmolality Lactic Acid Lactic Acid F/U @ 2Hr Calcium Total Bilirubin AST ALT Alkaline Phosphatase Troponin I High Sens B-Natriuretic Peptide Total Protein Albumin Urine Color Urine Appearance Urine pH Ur Specific [place] Urine Protein Urine Glucose (UA) Urine Ketones Urine Blood Urine Nitrite Ur Leukocyte Esterase Urine RBC Urine WBC Ur Squamous Epith Cells Urine Bacteria Hyaline Casts Urine Osmolality Ur Random Sodium Urine Opiates Screen Urine Fentanyl Screen Ur Barbiturates Screen Ur Phencyclidine Scrn Ur Amphetamines Screen U Benzodiazepines Scrn Urine Cocaine Screen U Marijuana (THC) Screen Microbiology Microbiology Results: Microbiology 11/10/22 01:16 Blood Culture - Preliminary Blood - Venous Prelim: GPC Gram Stain only 11/10/22 01:16 Blood Culture - Preliminary Blood - Venous No growth after 24 hours. Procedures Date of Service Date of Service: 11/11/22 Progress Note: A&P Assessment and plan (1) Metabolic acidosis: Status: Acute (2) Hyponatremia: Status: Acute (3) Small bowel obstruction: Status: Acute Plan patient with apparent small-bowel obstruction, not responding to non operative management now becoming septic with increased lactate, hypotension and increased abdominal distension. Patient will require exploratory laparotomy probable lysis of adhesions. Discussed with ICU team. Will add on schedule as soon as possible. I discussed the procedure in detail with patient's mom , Rocio, and she consents to the procedure. Time Spent With Patient Time: Total time managing care of this patient today ____ minutes. Quality Stroke Does the patient have a stroke diagnosis?: No VTE Prior VTE?: No VTE Risk Level:: Medical - moderate - high VTE Device Contraindication: Treatment Not Indicated VTE Drug Contraindication: N/A - Med Ordered
--- NOTE | 2022-11-11 08:35 | MHC.CM.PN ---
Addendum entered by Tana Badillo 11/11/22 13:01: Pt spoke with RN at [facility]: pt is minimally communicative and requires total assistance for care needs. He is primarily w/c bound at baseline. Pt went to OR this am for an exploratory laparotomy and will return to ICU on vent for continued care. D/C plan is for a return to [facility] where pt is a LTC resident. Pt's mother/activated HCP to be notified of surgical progress by MD frame table operator. CM to follow. Original Note: Pt transferred to ICU and is now vented and unable to participate in CM assessment. Call placed to [facility]: pt is a full code with an activated HCP listed as his mother. Copy urgently requested for our records. RN states she does not know pt and to call back when administration is available for information on his functional abilities. Pt is a LTC resident and will return to facility when medically ready.
[2022-11-11 08:44] LABS: Reflex Lactate? 2 Y
[2022-11-11] MEDS: Chlorhexidine Gluc Oral Rinse 15 ML MOUTHWASH BUCCAL ×3 (08:53→21:42)
[2022-11-11] MEDS: Famotidine/PF 20 MG/2 ML VIAL IVPUSH (08:53)
[2022-11-11 09:30] LABS: ~Lactic Acid-LAB USE ONLY 4.5 mmol/L (0.5-2.0)
[2022-11-11] MEDS: Norepinephrine Bitartrate/D5W 8 MG/250 ML PLAST..BAG 43.18 MG IVCONT (09:47)
--- NOTE | 2022-11-11 10:02 | PHA.PROG ---
Admission Date/Time: November 10, 2022 06:51 Indication: Resp Infection Weight in k.3 kg Adjusted body weight in K.3 kg [place] body weight in K.3 kg Obesity Dosing Indication % IBW: 113% Serum Creatinine - Last 168 Hours 11/10/22 11/10/22 11/10/22 01:08 07:26 11:53 Creatinine 1.64 H 1.63 H 1.82 H 11/10/22 11/11/22 11/11/22 18:00 00:38 04:29 Creatinine 2.19 H 3.10 H 2.65 H 11/11/22 11/11/22 06:40 06:40 Creatinine 2.38 H Cancelled Estimated CrCl and GFR - Last 168 Hours 11/10/22 11/10/22 11/10/22 01:08 07:26 11:53 Estim Creat Clear Calc 51.6 51.9 46.5 Estimated GFR 43 44 38 11/10/22 11/11/22 11/11/22 18:00 00:38 04:29 Estim Creat Clear Calc 38.6 27.3 31.9 Estimated GFR 31 21 25 11/11/22 11/11/22 06:40 06:40 Estim Creat Clear Calc 35.5 Cancelled Estimated GFR 28 Cancelled Vancomycin Loading Dose: 2000 mg Current Vancomycin Dosing Regimen: 1000 mg Q24H Date and Time for next Vancomycin Level to be drawn: 11/13 @ 0500 Pharmacist Comments on Vancomycin Plan: Patient received an adequate loading dose of vancomycin 2000 mg on 11/11 @ 0522. Will start maintenance dose vanco 1000 mg Q24H on 11/12 @ 0700. Expected AUC 536 with a trough of 17.8. Since patient's SCr is unstable, will get a level prior to the 3rd dose on 11/13 @ 0500. Pharmacy will continue to monitor renal function daily Erin Guzman PharmD Vancomycin dosing will take advantage of [employer] as a clinical decision support tool that uses Bayesian modeling to calculate individual patient's pharmacokinetic parameters and forecast the patient's drug concentration time course with the target goal AUC 24 range of 400 - 600 mg/L/hr.
--- NOTE | 2022-11-11 10:43 | MHC.CLN ---
RE: CONSULT PT EXPECTED TO BE NPO >3 DAYS AND MAY REQUIRE TF FOR NUTRITION SUPPORT PT IS INTUBATED AND SEDATED AND HEADED TO OR FOR SX THIS AM DISCUSSED AT ROUNDS WITH PT CURRENTLY NPO AND TO REMAIN R/T SBO NGT IN PLACE IF TF NEEDED; RECOMMEND PROMOTE AT MAX GAOL RATE 60ML/HR TO PROVIDE 1440KCALS (2116KCALS WITH SEDATION), 90G PROTEIN, 1208ML FREE WATER MONITOR TOLERANCE, RESIDUALS AND LYTES SEE ALSO FULL CLINICAL NUTRITION ASSESSMENT
--- NOTE | 2022-11-11 10:47 | P.CONAN_ITS ---
FORMERLY [facility] Active Problems Active Problems: All Active Problems (Updated 11/10/22 @ 08:06 by Carrington Swift MD) Metabolic acidosis (Acute) Hyponatremia (Acute) Hyperkalemia (Acute) MELY (acute kidney injury) (Acute) Small bowel obstruction (Acute) Ileus (Acute) Acute hyponatremia (Chronic) Acute hyperkalemia (Acute) Acute kidney injury (Acute) Past Medical History Medical History (Updated 11/10/22 @ 08:06 by Carrington Swift MD) Bipolar disorder BPH (benign prostatic hyperplasia) GERD (gastroesophageal reflux disease) Heart failure Hyperlipidemia Hypertension Hyponatremia Hypothyroidism Schizoaffective disorder Seizure disorder Surgical History History of Problems with Anesthesia: Unobtainable Social History Social History Household Members: Other Housing: Assisted Living Facility Unable to assess alcohol history related to: Unknown Alcohol intake: unknown Patient Tobacco Use Status: Never used Tobacco Meds Allergies Allergy/AdvReac Type Severity Reaction Status Date / Time Penicillins [PENICILLINS] Allergy Unknown UNKNOWN Verified 02/24/22 17:57 Active Medications: Current Medications Chlorhexidine Gluconate (Chlorhexidine Gluc Oral Rinse 15 Ml Mouthwash) 15 ml BUCCAL TID [facility] Last Admin: 11/11/22 08:53 Dose: 15 ml Dextrose (Dextrose 50 % 25 Gm/50 Ml Syringe) 25 gm IVPUSH Q15M PRN; Protocol PRN Reason: per Hypoglycemia Standing Ord. Famotidine (Famotidine/Pf 20 Mg/2 Ml Vial) 20 mg IVPUSH DAILY [facility] Last Admin: 11/11/22 08:53 Dose: 20 mg Glucose (Glucose Gel 15 Gm Gel..Gram.) 15 gm PO Q15M PRN; Protocol PRN Reason: per Hypoglycemia Standing Ord. Haloperidol Decanoate (Haloperidol Decanoate 50 Mg/Ml Ampul) 100 mg IM Q14D [facility] Heparin Sodium (Porcine) (Heparin Sodium,Porcine 5,000 Unit/Ml Vial) 5,000 unit SUBCUT Q12H [facility] Last Admin: 11/11/22 07:09 Dose: Not Given Cefepime HCl 1 gm/ Sodium (Chloride) 50 mls @ 100 mls/hr IV Q8H [facility] Last Infusion: 11/11/22 06:28 Dose: Infused Propofol (Diprivan) 1,000 mg in 100 mls @ 0 mls/hr IVCONT .Q0M [facility]; Protocol Last Admin: 11/11/22 09:10 Dose: 50 mcg/kg/min, 25.59 mls/hr Vancomycin HCl 1,000 mg/ (Sodium Chloride) 270 mls @ 270 mls/hr IV Q24H ESPINOZA Lactated Ringer's (Lr) 1,000 mls @ 100 mls/hr IVCONT .Q10H [facility] Last Admin: 11/11/22 08:20 Dose: 100 mls/hr Norepinephrine Bitartrate (Levophed) 8 mg in 250 mls @ 0 mls/hr IVCONT .Q0M [facility]; Protocol Last Admin: 11/11/22 09:47 Dose: 0.27 mcg/kg/min, 43.18 mls/hr Insulin Human Lispro (Insulin Lispro 100 Unit/Ml 3 Ml Vial) 0 unit SUBCUT Q6H [facility]; Protocol Lactulose (Lactulose 20 Gm/30 Ml Solution) 20 gm PO DAILY [facility] Last Admin: 11/10/22 10:09 Dose: Not Given Levothyroxine Sodium (Levothyroxine Sodium 75 Mcg Tablet) 75 mcg PO DAILY@0600 [facility] Last Admin: 11/11/22 06:36 Dose: Not Given Metoprolol Tartrate (Metoprolol Tartrate 5 Mg/5 Ml Vial) 5 mg IVPUSH Q6H PRN PRN Reason: HR>110 Morphine Sulfate (Morphine Sulfate 2 Mg/Ml Cartridge) 2 mg IVPUSH Q3H PRN; Protocol PRN Reason: Pain, Severe (Pain Scale 7-10) Last Admin: 11/10/22 13:26 Dose: 2 mg Ondansetron HCl (Ondansetron Hcl 4 Mg/2 Ml Vial) 4 mg IVPUSH Q8H PRN PRN Reason: Nausea and Vomiting Pharmacy Consult (Consult Rx Vancomycin Dosing) 1 each MISCELLANE DAILY PRN PRN Reason: Consult order Home Medications Medication Instructions Recorded Confirmed Last Taken Type Saccharomyces boulardii 250 mg 250 mg PO DAILY 11/10/22 11/10/22 Unknown History capsule (Probiotic (S.boulardii)) acetaminophen 325 mg tablet 650 mg PO Q4H PRN Fever Or Pain 11/10/22 11/10/22 Unknown History aluminum-mag hydroxide-simethicone 30 ml PO Q6H PRN GI UPSET 11/10/22 11/10/22 Unknown History 200 mg-200 mg-20 mg/5 mL oral susp benztropine 0.5 mg tablet 0.5 mg PO BID 11/10/22 11/10/22 Unknown History bisacodyl 10 mg rectal suppository 10 mg DC DAILY PRN Constipation 11/10/22 11/10/22 Unknown History cetylpyridinium chloride 1 jaja mucous membrane Q2H PRN Sore 11/10/22 11/10/22 Unknown History Throat chlorpromazine 100 mg tablet 100 mg PO BID 11/10/22 11/10/22 Unknown History chlorpromazine 25 mg tablet 25 mg PO BID 11/10/22 11/10/22 Unknown History clozapine 25 mg tablet 25 mg PO DAILY 11/10/22 11/10/22 Unknown History clozapine 50 mg tablet 50 mg PO DAILY 11/10/22 11/10/22 Unknown History diazepam 2 mg tablet 2 mg PO BID 11/10/22 11/10/22 Unknown History diphenhydramine HCl 25 mg tablet 25 mg PO Q6H PRN Itching 11/10/22 11/10/22 Unknown History (Benadryl Allergy) docusate sodium 100 mg capsule 100 mg PO Q8H PRN Constipation 11/10/22 11/10/22 Unknown History gabapentin 100 mg capsule 100 mg PO TID 11/10/22 11/10/22 Unknown History gabapentin 600 mg tablet 600 mg PO TID 11/10/22 11/10/22 Unknown History gemfibrozil 600 mg tablet (Lopid) 600 mg PO BID 11/10/22 11/10/22 Unknown History guaifenesin 100 mg/5 mL oral liquid 200 mg PO Q6H PRN Cough 11/10/22 11/10/22 Unknown History haloperidol decanoate 100 mg/mL 100 mg IM Q2W 11/10/22 11/10/22 11/09/22 History intramuscular solution (Haldol Decanoate) hydroxyzine HCl 50 mg tablet 50 mg PO Q8H PRN Agitation 11/10/22 11/10/22 Unknown History hydroxyzine HCl 50 mg/mL 50 mg IM Q8H PRN Agitation 11/10/22 11/10/22 Unknown History intramuscular solution ibuprofen 600 mg tablet 600 mg PO TID 11/10/22 11/10/22 Unknown History lactulose 10 gram/15 mL oral 30 ml PO DAILY 11/10/22 11/10/22 Unknown History solution levothyroxine 75 mcg tablet 75 mcg PO DAILY@0600 11/10/22 11/10/22 Unknown History lisinopril 5 mg tablet 5 mg PO DAILY 11/10/22 11/10/22 Unknown History loperamide 2 mg tablet (Imodium 2 mg PO Q6H PRN Loose Stool 11/10/22 11/10/22 Unknown History A-D) melatonin 3 mg tablet 3 mg PO BEDTIME 11/10/22 11/10/22 Unknown History methyl salicylate 15 %-menthol 10 1 appl topical Q8H PRN Back Pain 11/10/22 11/10/22 Unknown History % topical cream omeprazole 40 mg capsule,delayed 40 mg PO BEDTIME 11/10/22 11/10/22 Unknown History release ondansetron HCl 4 mg tablet 4 mg PO Q6H PRN Nausea And Vomiting 11/10/22 11/10/22 Unknown History oxcarbazepine 600 mg tablet 600 mg PO BID 11/10/22 11/10/22 Unknown History propranolol 10 mg tablet 10 mg PO TID 11/10/22 11/10/22 Unknown History propranolol 20 mg tablet 20 mg PO TID 11/10/22 11/10/22 Unknown History rifaximin 550 mg tablet (Xifaxan) 550 mg PO BID 11/10/22 11/10/22 Unknown History saliva substitute combo no.9 15 ml mucous membrane BID 11/10/22 11/10/22 Unknown History (Biotene Dry Mouth Oral Rinse mouthwash) sennosides 8.6 mg tablet (senna) 8.6 mg PO DAILY PRN Constipation 11/10/22 11/10/22 Unknown History sodium chloride 0.65 % nasal spray 2 spray intranasal Q12H PRN dry 11/10/22 11/10/22 Unknown History aerosol (Deep Sea Nasal) nose sodium chloride 1,000 mg soluble 1,000 mg PO BID 11/10/22 11/10/22 Unknown History tablet sodium phosphates 19 gram-7 118 ml DC DAILY PRN Constipation 11/10/22 11/10/22 Unknown History gram/118 mL enema (Fleet Enema) tamsulosin 0.4 mg capsule 0.4 mg PO BEDTIME 11/10/22 11/10/22 Unknown History tramadol 50 mg tablet 50 mg PO Q12H PRN right hip pain 11/10/22 11/10/22 Unknown History Exam Exam Date and Time: November 11, 2022 1047 Height,Weight and Vital Signs: Height 5 ft 11 in Weight 85.3 kg Last Vital Signs Temp 102.4 F H 11/11/22 08:54 Pulse 134 H 11/11/22 09:47 Resp 22 H 11/11/22 08:54 BP 81/56 L 11/11/22 09:47 Pulse Ox 100 11/11/22 08:54 O2 Del Method 11/11/22 08:54 O2 Flow Rate 6 11/11/22 03:20 FiO2 70 11/11/22 08:54 Pertinent Lab Results Pertinent Lab Results: Laboratory Tests 11/10/22 11/10/22 11/10/22 00:38 01:08 01:08 WBC 15.2 H RBC 4.98 Hgb 15.1 Hct 40.6 L MCV 81.5 MCH 30.3 MCHC 37.2 H RDW 11.9 Plt Count 279 MPV 10.0 Immature Gran % (Auto) 0.5 H Neut % (Auto) 85.9 H Lymph % (Auto) 6.3 L [place] % (Auto) 6.9 Eos % (Auto) 0.1 Baso % (Auto) 0.3 Lymph # (Auto) 1.0 L [place] # (Auto) 1.0 Eos # (Auto) 0.0 Baso # (Auto) 0.1 Abs Immat Gran (auto) 0.08 H Absolute Neuts (auto) 13.0 H Absolute Nucleated RBC 0.000 Nucleated RBC % (auto) 0.0 PT INR O2 Saturation ABG pH at Pt Temp ABG pCO2 at Pt Temp ABG pO2 at Pt Temp ABG HCO3 ABG Base Excess (Actual) VBG pH VBG pCO2 VBG pO2 VBG HCO3 VBG O2 Saturation VBG Base Excess Sodium 121 L Potassium 5.7 H Chloride 89 L Carbon Dioxide 20 L Anion Gap 18 BUN 16 Creatinine 1.64 H Estim Creat Clear Calc 51.6 Estimated GFR 43 POC Glucose 154 H Random Glucose 151 H Osmolality Lactic Acid Lactic Acid F/U @ 2Hr Lactic Acid F/U @ 4Hr Calcium 9.7 Magnesium 1.6 Total Bilirubin 0.6 Direct Bilirubin < 0.2 AST 24 ALT 16 Alkaline Phosphatase 94 Troponin I High Sens B-Natriuretic Peptide Total Protein 7.2 Albumin 4.6 Lipase 47 TSH Urine Color Urine Appearance Urine pH Ur Specific [place] Urine Protein Urine Glucose (UA) Urine Ketones Urine Blood Urine Nitrite Ur Leukocyte Esterase Urine RBC Urine WBC Ur Squamous Epith Cells Urine Bacteria Hyaline Casts Urine Osmolality Ur Random Sodium Urine Opiates Screen Urine Fentanyl Screen Ur Barbiturates Screen Ur Phencyclidine Scrn Ur Amphetamines Screen U Benzodiazepines Scrn Urine Cocaine Screen U Marijuana (THC) Screen COVID-19 ([facility]) COVID-19 Clin Com Blood Type Antibody Screen 11/10/22 11/10/22 11/10/22 01:08 01:08 01:08 WBC RBC Hgb Hct MCV MCH MCHC RDW Plt Count MPV Immature Gran % (Auto) Neut % (Auto) Lymph % (Auto) [place] % (Auto) Eos % (Auto) Baso % (Auto) Lymph # (Auto) [place] # (Auto) Eos # (Auto) Baso # (Auto) Abs Immat Gran (auto) Absolute Neuts (auto) Absolute Nucleated RBC Nucleated RBC % (auto) PT 11.8 INR 1.0 O2 Saturation ABG pH at Pt Temp ABG pCO2 at Pt Temp ABG pO2 at Pt Temp ABG HCO3 ABG Base Excess (Actual) VBG pH VBG pCO2 VBG pO2 VBG HCO3 VBG O2 Saturation VBG Base Excess Sodium Potassium Chloride Carbon Dioxide Anion Gap BUN Creatinine Estim Creat Clear Calc Estimated GFR POC Glucose Random Glucose Osmolality Lactic Acid Lactic Acid F/U @ 2Hr Lactic Acid F/U @ 4Hr Calcium Magnesium Total Bilirubin Direct Bilirubin AST ALT Alkaline Phosphatase Troponin I High Sens 6.5 B-Natriuretic Peptide Total Protein Albumin Lipase TSH Urine Color Urine Appearance Urine pH Ur Specific [place] Urine Protein Urine Glucose (UA) Urine Ketones Urine Blood Urine Nitrite Ur Leukocyte Esterase Urine RBC Urine WBC Ur Squamous Epith Cells Urine Bacteria Hyaline Casts Urine Osmolality Ur Random Sodium Urine Opiates Screen Urine Fentanyl Screen Ur Barbiturates Screen Ur Phencyclidine Scrn Ur Amphetamines Screen U Benzodiazepines Scrn Urine Cocaine Screen U Marijuana (THC) Screen COVID-19 ([facility]INA) Negative COVID-19 Clin Com See Note Blood Type Antibody Screen 11/10/22 11/10/22 11/10/22 01:08 01:08 03:22 WBC RBC Hgb Hct MCV MCH MCHC RDW Plt Count MPV Immature Gran % (Auto) Neut % (Auto) Lymph % (Auto) [place] % (Auto) Eos % (Auto) Baso % (Auto) Lymph # (Auto) [place] # (Auto) Eos # (Auto) Baso # (Auto) Abs Immat Gran (auto) Absolute Neuts (auto) Absolute Nucleated RBC Nucleated RBC % (auto) PT INR O2 Saturation ABG pH at Pt Temp ABG pCO2 at Pt Temp ABG pO2 at Pt Temp ABG HCO3 ABG Base Excess (Actual) VBG pH VBG pCO2 VBG pO2 VBG HCO3 VBG O2 Saturation VBG Base Excess Sodium Potassium Chloride Carbon Dioxide Anion Gap BUN Creatinine Estim Creat Clear Calc Estimated GFR POC Glucose 364 H* Random Glucose Osmolality Lactic Acid 1.8 Lactic Acid F/U @ 2Hr Lactic Acid F/U @ 4Hr Calcium Magnesium Total Bilirubin Direct Bilirubin AST ALT Alkaline Phosphatase Troponin I High Sens B-Natriuretic Peptide Total Protein Albumin Lipase TSH 1.79 Urine Color Urine Appearance Urine pH Ur Specific [place] Urine Protein Urine Glucose (UA) Urine Ketones Urine Blood Urine Nitrite Ur Leukocyte Esterase Urine RBC Urine WBC Ur Squamous Epith Cells Urine Bacteria Hyaline Casts Urine Osmolality Ur Random Sodium Urine Opiates Screen Urine Fentanyl Screen Ur Barbiturates Screen Ur Phencyclidine Scrn Ur Amphetamines Screen U Benzodiazepines Scrn Urine Cocaine Screen U Marijuana (THC) Screen COVID-19 ([facility]INA) COVID-19 Clin Com Blood Type Antibody Screen 11/10/22 11/10/22 11/10/22 04:04 04:34 07:26 WBC RBC Hgb Hct MCV MCH MCHC RDW Plt Count MPV Immature Gran % (Auto) Neut % (Auto) Lymph % (Auto) [place] % (Auto) Eos % (Auto) Baso % (Auto) Lymph # (Auto) [place] # (Auto) Eos # (Auto) Baso # (Auto) Abs Immat Gran (auto) Absolute Neuts (auto) Absolute Nucleated RBC Nucleated RBC % (auto) PT INR O2 Saturation ABG pH at Pt Temp ABG pCO2 at Pt Temp ABG pO2 at Pt Temp ABG HCO3 ABG Base Excess (Actual) VBG pH VBG pCO2 VBG pO2 VBG HCO3 VBG O2 Saturation VBG Base Excess Sodium 125 L Potassium 3.9 D Chloride 89 L Carbon Dioxide 21 L Anion Gap 19 BUN 19 H Creatinine 1.63 H Estim Creat Clear Calc 51.9 Estimated GFR 44 POC Glucose 292 H 277 H Random Glucose 129 H Osmolality Lactic Acid Lactic Acid F/U @ 2Hr Lactic Acid F/U @ 4Hr Calcium 10.2 Magnesium Total Bilirubin Direct Bilirubin AST ALT Alkaline Phosphatase Troponin I High Sens B-Natriuretic Peptide Total Protein Albumin Lipase TSH Urine Color Urine Appearance Urine pH Ur Specific [place] Urine Protein Urine Glucose (UA) Urine Ketones Urine Blood Urine Nitrite Ur Leukocyte Esterase Urine RBC Urine WBC Ur Squamous Epith Cells Urine Bacteria Hyaline Casts Urine Osmolality Ur Random Sodium Urine Opiates Screen Urine Fentanyl Screen Ur Barbiturates Screen Ur Phencyclidine Scrn Ur Amphetamines Screen U Benzodiazepines Scrn Urine Cocaine Screen U Marijuana (THC) Screen COVID-19 ([facility]) COVID-19 Clin Com Blood Type Antibody Screen 11/10/22 11/10/22 11/10/22 07:30 11:20 11:53 WBC RBC Hgb Hct MCV MCH MCHC RDW Plt Count MPV Immature Gran % (Auto) Neut % (Auto) Lymph % (Auto) [place] % (Auto) Eos % (Auto) Baso % (Auto) Lymph # (Auto) [place] # (Auto) Eos # (Auto) Baso # (Auto) Abs Immat Gran (auto) Absolute Neuts (auto) Absolute Nucleated RBC Nucleated RBC % (auto) PT INR O2 Saturation ABG pH at Pt Temp ABG pCO2 at Pt Temp ABG pO2 at Pt Temp ABG HCO3 ABG Base Excess (Actual) VBG pH VBG pCO2 VBG pO2 VBG HCO3 VBG O2 Saturation VBG Base Excess Sodium 126 L Potassium 4.5 Chloride 89 L Carbon Dioxide 23 Anion Gap 19 BUN 24 H Creatinine 1.82 H Estim Creat Clear Calc 46.5 Estimated GFR 38 POC Glucose 116 H Random Glucose 131 H Osmolality 263 L Lactic Acid Lactic Acid F/U @ 2Hr Lactic Acid F/U @ 4Hr Calcium 9.9 Magnesium Total Bilirubin Direct Bilirubin AST ALT Alkaline Phosphatase Troponin I High Sens B-Natriuretic Peptide Total Protein Albumin Lipase TSH Urine Color Urine Appearance Urine pH Ur Specific [place] Urine Protein Urine Glucose (UA) Urine Ketones Urine Blood Urine Nitrite Ur Leukocyte Esterase Urine RBC Urine WBC Ur Squamous Epith Cells Urine Bacteria Hyaline Casts Urine Osmolality Ur Random Sodium Urine Opiates Screen Urine Fentanyl Screen Ur Barbiturates Screen Ur Phencyclidine Scrn Ur Amphetamines Screen U Benzodiazepines Scrn Urine Cocaine Screen U Marijuana (THC) Screen COVID-19 ([facility]INA) COVID-19 [place] Blood Type Antibody Screen 11/10/22 11/10/22 11/10/22 16:36 18:00 19:43 WBC RBC Hgb Hct MCV MCH MCHC RDW Plt Count MPV Immature Gran % (Auto) Neut % (Auto) Lymph % (Auto) [place] % (Auto) Eos % (Auto) Baso % (Auto) Lymph # (Auto) [place] # (Auto) Eos # (Auto) Baso # (Auto) Abs Immat Gran (auto) Absolute Neuts (auto) Absolute Nucleated RBC Nucleated RBC % (auto) PT INR O2 Saturation ABG pH at Pt Temp ABG pCO2 at Pt Temp ABG pO2 at Pt Temp ABG HCO3 ABG Base Excess (Actual) VBG pH VBG pCO2 VBG pO2 VBG HCO3 VBG O2 Saturation VBG Base Excess Sodium 128 L Potassium 3.5 D Chloride 93 L Carbon Dioxide 20 L Anion Gap 19 BUN 29 H Creatinine 2.19 H Estim Creat Clear Calc 38.6 Estimated GFR 31 POC Glucose 107 111 Random Glucose 114 Osmolality Lactic Acid Lactic Acid F/U @ 2Hr Lactic Acid F/U @ 4Hr Calcium 8.9 D Magnesium Total Bilirubin Direct Bilirubin AST ALT Alkaline Phosphatase Troponin I High Sens B-Natriuretic Peptide Total Protein Albumin Lipase TSH Urine Color Urine Appearance Urine pH Ur Specific [place] Urine Protein Urine Glucose (UA) Urine Ketones Urine Blood Urine Nitrite Ur Leukocyte Esterase Urine RBC Urine WBC Ur Squamous Epith Cells Urine Bacteria Hyaline Casts Urine Osmolality Ur Random Sodium Urine Opiates Screen Urine Fentanyl Screen Ur Barbiturates Screen Ur Phencyclidine Scrn Ur Amphetamines Screen U Benzodiazepines Scrn Urine Cocaine Screen U Marijuana (THC) Screen COVID-19 ([facility]INA) COVID-19 [place] Com Blood Type Antibody Screen 11/10/22 11/10/22 11/10/22 23:15 23:15 23:15 WBC RBC Hgb Hct MCV MCH MCHC RDW Plt Count MPV Immature Gran % (Auto) Neut % (Auto) Lymph % (Auto) [place] % (Auto) Eos % (Auto) Baso % (Auto) Lymph # (Auto) [place] # (Auto) Eos # (Auto) Baso # (Auto) Abs Immat Gran (auto) Absolute Neuts (auto) Absolute Nucleated RBC Nucleated RBC % (auto) PT INR O2 Saturation ABG pH at Pt Temp ABG pCO2 at Pt Temp ABG pO2 at Pt Temp ABG HCO3 ABG Base Excess (Actual) VBG pH VBG pCO2 VBG pO2 VBG HCO3 VBG O2 Saturation VBG Base Excess Sodium Potassium Chloride Carbon Dioxide Anion Gap BUN Creatinine Estim Creat Clear Calc Estimated GFR POC Glucose Random Glucose Osmolality Lactic Acid Lactic Acid F/U @ 2Hr Lactic Acid F/U @ 4Hr Calcium Magnesium Total Bilirubin Direct Bilirubin AST ALT Alkaline Phosphatase Troponin I High Sens B-Natriuretic Peptide Total Protein Albumin Lipase TSH Urine Color Yellow Urine Appearance Clear Urine pH 5.5 Ur Specific [place] 1.020 Urine Protein 30 (1+) H Urine Glucose (UA) 250 H Urine Ketones Negative Urine Blood Negative Urine Nitrite Negative Ur Leukocyte Esterase Negative Urine RBC 0-2 Urine WBC 0-5 Ur Squamous Epith Cells 0-2 Urine Bacteria None Seen Hyaline Casts 0-2 Urine Osmolality 409 Ur Random Sodium Urine Opiates Screen POSITIVE H Urine Fentanyl Screen POSITIVE H Ur Barbiturates Screen Not Detected Ur Phencyclidine Scrn Not Detected Ur Amphetamines Screen Not Detected U Benzodiazepines Scrn POSITIVE H Urine Cocaine Screen Not Detected U Marijuana (THC) Screen Not Detected COVID-19 ([facility]) COVID-19 Clin Com Blood Type Antibody Screen 11/10/22 11/11/22 11/11/22 23:15 00:38 01:19 WBC RBC Hgb Hct MCV MCH MCHC RDW Plt Count MPV Immature Gran % (Auto) Neut % (Auto) Lymph % (Auto) [place] % (Auto) Eos % (Auto) Baso % (Auto) Lymph # (Auto) [place] # (Auto) Eos # (Auto) Baso # (Auto) Abs Immat Gran (auto) Absolute Neuts (auto) Absolute Nucleated RBC Nucleated RBC % (auto) PT INR O2 Saturation 100.0 ABG pH at Pt Temp 7.37 ABG pCO2 at Pt Temp 23 L ABG pO2 at Pt Temp 130 H ABG HCO3 13 L ABG Base Excess (Actual) -9.5 VBG pH VBG pCO2 VBG pO2 VBG HCO3 VBG O2 Saturation VBG Base Excess Sodium 130 L Potassium 4.3 D Chloride 93 L Carbon Dioxide 17 L Anion Gap 24 H BUN 39 H Creatinine 3.10 H Estim Creat Clear Calc 27.3 Estimated GFR 21 POC Glucose Random Glucose 107 Osmolality Lactic Acid Lactic Acid F/U @ 2Hr Lactic Acid F/U @ 4Hr Calcium 9.0 Magnesium Total Bilirubin Direct Bilirubin AST ALT Alkaline Phosphatase Troponin I High Sens B-Natriuretic Peptide Total Protein Albumin Lipase TSH Urine Color Urine Appearance Urine pH Ur Specific [place] Urine Protein Urine Glucose (UA) Urine Ketones Urine Blood Urine Nitrite Ur Leukocyte Esterase Urine RBC Urine WBC Ur Squamous Epith Cells Urine Bacteria Hyaline Casts Urine Osmolality Ur Random Sodium 29.0 Urine Opiates Screen Urine Fentanyl Screen Ur Barbiturates Screen Ur Phencyclidine Scrn Ur Amphetamines Screen U Benzodiazepines Scrn Urine Cocaine Screen U Marijuana (THC) Screen COVID-19 ([facility]INA) COVID-Cater to u Com Blood Type Antibody Screen 11/11/22 11/11/22 11/11/22 01:44 02:16 04:29 WBC RBC Hgb Hct MCV MCH MCHC RDW Plt Count MPV Immature Gran % (Auto) Neut % (Auto) Lymph % (Auto) [place] % (Auto) Eos % (Auto) Baso % (Auto) Lymph # (Auto) [place] # (Auto) Eos # (Auto) Baso # (Auto) Abs Immat Gran (auto) Absolute Neuts (auto) Absolute Nucleated RBC Nucleated RBC % (auto) PT INR O2 Saturation ABG pH at Pt Temp ABG pCO2 at Pt Temp ABG pO2 at Pt Temp ABG HCO3 ABG Base Excess (Actual) VBG pH VBG pCO2 VBG pO2 VBG HCO3 VBG O2 Saturation VBG Base Excess Sodium Potassium Chloride Carbon Dioxide Anion Gap BUN Creatinine Estim Creat Clear Calc Estimated GFR POC Glucose Random Glucose Osmolality Lactic Acid Lactic Acid F/U @ 2Hr Lactic Acid F/U @ 4Hr Calcium Magnesium Total Bilirubin Direct Bilirubin AST ALT Alkaline Phosphatase Troponin I High Sens 2342.7 H* D 1817.1 H* B-Natriuretic Peptide 514 H Total Protein Albumin Lipase TSH Urine Color Urine Appearance Urine pH Ur Specific [place] Urine Protein Urine Glucose (UA) Urine Ketones Urine Blood Urine Nitrite Ur Leukocyte Esterase Urine RBC Urine WBC Ur Squamous Epith Cells Urine Bacteria Hyaline Casts Urine Osmolality Ur Random Sodium Urine Opiates Screen Urine Fentanyl Screen Ur Barbiturates Screen Ur Phencyclidine Scrn Ur Amphetamines Screen U Benzodiazepines Scrn Urine Cocaine Screen U Marijuana (THC) Screen COVID-19 ([facility]INA) COVID-Cater to u Com Blood Type Antibody Screen 11/11/22 11/11/22 11/11/22 04:29 04:29 06:40 WBC RBC Hgb Hct MCV MCH MCHC RDW Plt Count MPV Immature Gran % (Auto) Neut % (Auto) Lymph % (Auto) [place] % (Auto) Eos % (Auto) Baso % (Auto) Lymph # (Auto) [place] # (Auto) Eos # (Auto) Baso # (Auto) Abs Immat Gran (auto) Absolute Neuts (auto) Absolute Nucleated RBC Nucleated RBC % (auto) PT INR O2 Saturation ABG pH at Pt Temp ABG pCO2 at Pt Temp ABG pO2 at Pt Temp ABG HCO3 ABG Base Excess (Actual) VBG pH VBG pCO2 VBG pO2 VBG HCO3 VBG O2 Saturation VBG Base Excess Sodium 132 L 133 L Potassium 4.9 4.7 Chloride 98 95 L Carbon Dioxide 18 L 22 Anion Gap 21 H 21 H BUN 41 H 43 H Creatinine 2.65 H 2.38 H Estim Creat Clear Calc 31.9 35.5 Estimated GFR 25 28 POC Glucose Random Glucose 89 109 Osmolality Lactic Acid 5.9 H* Lactic Acid F/U @ 2Hr Lactic Acid F/U @ 4Hr Calcium 8.3 L D 8.1 L Magnesium Total Bilirubin 0.7 Direct Bilirubin AST 990 H ALT 1091 H Alkaline Phosphatase 63 Troponin I High Sens B-Natriuretic Peptide Total Protein 4.5 L Albumin 2.9 L Lipase TSH Urine Color Urine Appearance Urine pH Ur Specific [place] Urine Protein Urine Glucose (UA) Urine Ketones Urine Blood Urine Nitrite Ur Leukocyte Esterase Urine RBC Urine WBC Ur Squamous Epith Cells Urine Bacteria Hyaline Casts Urine Osmolality Ur Random Sodium Urine Opiates Screen Urine Fentanyl Screen Ur Barbiturates Screen Ur Phencyclidine Scrn Ur Amphetamines Screen U Benzodiazepines Scrn Urine Cocaine Screen U Marijuana (THC) Screen COVID-19 ([facility]INA) COVID-19 Clin Com Blood Type Antibody Screen 11/11/22 11/11/22 11/11/22 06:40 06:40 06:40 WBC 11.2 H RBC 4.22 L Hgb 12.6 L Hct 34.3 L MCV 81.3 MCH 29.9 MCHC 36.7 H RDW 12.2 Plt Count 251 MPV 10.6 Immature Gran % (Auto) Neut % (Auto) Lymph % (Auto) [place] % (Auto) Eos % (Auto) Baso % (Auto) Lymph # (Auto) [place] # (Auto) Eos # (Auto) Baso # (Auto) Abs Immat Gran (auto) Absolute Neuts (auto) Absolute Nucleated RBC 0.000 Nucleated RBC % (auto) 0.0 PT INR O2 Saturation ABG pH at Pt Temp ABG pCO2 at Pt Temp ABG pO2 at Pt Temp ABG HCO3 ABG Base Excess (Actual) VBG pH VBG pCO2 VBG pO2 VBG HCO3 VBG O2 Saturation VBG Base Excess Sodium Cancelled Potassium Cancelled Chloride Cancelled Carbon Dioxide Cancelled Anion Gap Cancelled BUN Cancelled Creatinine Cancelled Estim Creat Clear Calc Cancelled Estimated GFR Cancelled POC Glucose Random Glucose Cancelled Osmolality Lactic Acid Lactic Acid F/U @ 2Hr 7.4 H* Lactic Acid F/U @ 4Hr Calcium Cancelled Magnesium Total Bilirubin Direct Bilirubin AST ALT Alkaline Phosphatase Troponin I High Sens B-Natriuretic Peptide Total Protein Albumin Lipase TSH Urine Color Urine Appearance Urine pH Ur Specific [place] Urine Protein Urine Glucose (UA) Urine Ketones Urine Blood Urine Nitrite Ur Leukocyte Esterase Urine RBC Urine WBC Ur Squamous Epith Cells Urine Bacteria Hyaline Casts Urine Osmolality Ur Random Sodium Urine Opiates Screen Urine Fentanyl Screen Ur Barbiturates Screen Ur Phencyclidine Scrn Ur Amphetamines Screen U Benzodiazepines Scrn Urine Cocaine Screen U Marijuana (THC) Screen COVID-19 (DINA) COVID-19 Clin Com Blood Type Antibody Screen 11/11/22 11/11/22 11/11/22 06:46 08:09 08:58 WBC RBC Hgb Hct MCV MCH MCHC RDW Plt Count MPV Immature Gran % (Auto) Neut % (Auto) Lymph % (Auto) [place] % (Auto) Eos % (Auto) Baso % (Auto) Lymph # (Auto) [place] # (Auto) Eos # (Auto) Baso # (Auto) Abs Immat Gran (auto) Absolute Neuts (auto) Absolute Nucleated RBC Nucleated RBC % (auto) PT INR O2 Saturation ABG pH at Pt Temp ABG pCO2 at Pt Temp ABG pO2 at Pt Temp ABG HCO3 ABG Base Excess (Actual) VBG pH 7.30 L VBG pCO2 48 VBG pO2 60 VBG HCO3 24 VBG O2 Saturation 82.0 VBG Base Excess -2.4 Sodium Potassium Chloride Carbon Dioxide Anion Gap BUN Creatinine Estim Creat Clear Calc Estimated GFR POC Glucose Random Glucose Osmolality Lactic Acid Lactic Acid F/U @ 2Hr Lactic Acid F/U @ 4Hr 4.5 H* Calcium Magnesium Total Bilirubin Direct Bilirubin AST ALT Alkaline Phosphatase Troponin I High Sens B-Natriuretic Peptide Total Protein Albumin Lipase TSH Urine Color Urine Appearance Urine pH Ur Specific [place] Urine Protein Urine Glucose (UA) Urine Ketones Urine Blood Urine Nitrite Ur Leukocyte Esterase Urine RBC Urine WBC Ur Squamous Epith Cells Urine Bacteria Hyaline Casts Urine Osmolality Ur Random Sodium Urine Opiates Screen Urine Fentanyl Screen Ur Barbiturates Screen Ur Phencyclidine Scrn Ur Amphetamines Screen U Benzodiazepines Scrn Urine Cocaine Screen U Marijuana (THC) Screen COVID-19 (DINA) COVID-19 Clin Com Blood Type A Positive Antibody Screen NEGATIVE Narrative Narrative: Pt received from ICU INTUBATED AND sedated. PROPOFOL AND LEVOPHED RUNNING; right IJ TLC IN SITU. History obtained from chart and surgeon. Assessment and Plan Assessment Anesthesia Assessment: Chart Reviewed Final Anesthetic Review History of Problems with Anesthesia: Unobtainable NPO: Yes ASA Class: V and Emergency Final Preanesthetic Review: Meds/Allgs Chart Reviewed, Consent Obtained/Reviewed and Anes Risks/Benef Reviewed Patient Risk: High Procedure Risk: Intermediate Anesthetic Plan Anesthetic Plan: GA Disposition: Inp. Admit - ICU
--- NOTE | 2022-11-11 11:03 | P.OP_ITS ---
Operative Note Operative Note Date of Service: 11/11/22 Narrative: Preoperative diagnosis: Small-bowel obstruction Postoperative diagnosis: no small bowel obstruction, necrotic bowel proximal jejunum Procedure: exploratory laparotomy, small-bowel resection Surgeon: George Moses MD Corporate Banking Officer: Soif Mitchell PA-C Anesthesia: general endotracheal Indications for procedure: 57-year-old male patient presenting to the emergency department after a seizure found to have abdominal distension. CT abdomen pelvis revealed dilated loops of small bowel and stomach suggestive of a small- bowel obstruction possibly a distal obstruction. Operative findings: dilated proximal bowel but no evidence of obstruction. Frankly necrotic bowel , patchy in appearance, involving proximal jejunum from just below ligament of Treitz and involving approximately 115 cm of jejunum. abdominal cavity filled with dark, foul-smelling serous fluid Ligament of Treitz: Specimen: Proximal jejunum Estimated blood loss: 25 mL Complications: none Procedure details: patient was brought to the OR placed in a supine position. After administering general anesthesia patient's abdomen was prepped with ChloraPrep and draped in a sterile fashion. A surgical time-out was called the consent confirmed. Patient received preoperative antibiotics and Venodyne boots were in place. Local anesthesia was infiltrated along the midline. The midline incision was made around the umbilicus and carried out through subcutaneous tissue through linea alba into the peritoneal cavity. A large amount of dark foul-smelling serous fluid was aspirated. Small bowel was run from ligament of Treitz down to the terminal ileum. No obstruction was identified however multiple patchy areas of necrosis were noted involving the proximal jejunum. No distal small bowel necrosis was identified. Right colon transverse colon descending colon sigmoid colon raw within normal limits. Stomach was noted to be dilated and NG tube position checked. Decision was made to resect the necrotic small bowel from just below the ligament of Treitz down to the mid jejunum. The distal most area of necrosis was identified. A line of dissection was created approximately 5 cm beyond this. Hemostat was used to dissect the mesentery below the jejunum. A JOSELIN stapling was then used to divide the small bowel this level. LigaSure was then used to divide the mesentery proximally towards the ligament of Treitz. Skin line resection approximately 10 cm beyond the ligament of Treitz was created using a right angle clamp. Again a JOSELIN stapler was used to divide the bowel at this level. The remaining mesentery was then divided using LigaSure. The specimen was measured at 115 cm. This was then passed off the table and sent to pathology for further examination. A functional end-to-end anastomosis was then performed. Enterotomies were made in both the jejunal and ligament of Treitz and. The 2 loops of bowel were secured together using 3-0 Surgilon sutures. A JOSELIN stapler was then used to create the anastomosis through the enterotomies. TA stapler was then used to close the enterotomies. A residual area of partial necrosis was inverted using limbered 3-0 Surgilon sutures. The anastomosis was also reinforced using interrupted 3-0 Surgilon sutures. The mesenteric defect was closed using interrupted 3-0 Surgilon sutures. Wounds were then checked for hemostasis. Wounds were then irrigated with saline solution and suctioned dry. Fascia was then closed using a running looped PDS suture. Dermis was reapproximated using interrupted 3-0 Polysorb sutures and skin closed with skin mag. Sterile berkley ssings were then applied. Sponge, instrument, and needle counts reported as correct. The patient was returned to ICU in Critical condition.
--- NOTE | 2022-11-11 11:36 | P.PNCC_ITS ---
Subjective Subjective Date of Service: 11/11/22 Interval History: 57-year-old gentleman with underlying history of hypothyroidism, hypertension, bipolar/schizoaffective disorder, seizure disorder, resident of [facility], bed-bound admitted on 11/10/2022 with a weakness seizure and abdominal distension. On ER evaluation patient hypotensive with CT abdomen suggestive of small-bowel obstruction. Patient initially treated conservatively with gastric decompression and IV fluids and admitted to general medical mckeon. Overnight with development of worsening hypotension associated with fluid shifts requiring starting on vasopressor support, transferred to intensive care unit, and i ntubation. The re-evaluated by General surgery and taking to or for explorative laparotomy with finding of patchy necrotic small-bowel, now postop day 0 after small-bowel resection with primary anastomosis. Events overnight as above. Critical Care Time (minutes): 60 Physical Exam Vital Signs: Vital Signs: Last Vital Signs Temp 102.4 F H 11/11/22 08:54 Pulse 134 H 11/11/22 09:47 Resp 22 H 11/11/22 08:54 BP 81/56 L 11/11/22 09:47 Pulse Ox 100 11/11/22 08:54 O2 Del Method 11/11/22 08:54 O2 Flow Rate 6 11/11/22 03:20 FiO2 70 11/11/22 11:21 BMI result Body Mass Index 26.2 Const: General: no acute distress and other (Sedated on the vent) Eyes: Sclerae: sclerae normal EOM: EOMs intact bilaterally Neck: Neck: Yes no lymphadenopathy, Yes trachea midline and Yes supple Resp: Auscultation: crackles (Bilateral) Cardio: Rate: tachycardic Rhythm: regular rhythm Heart sounds: no gallops, no murmurs and no rubs GI: Inspection: Yes other (Surgical incision with dressing) Palpation (GI): Soft to palpation and Other GI palpation findings present ( Nontender) Auscultation: Hypoactive bowel sounds present Extrem: General: No clubbing, No cyanosis and Yes edema (1+ bilateral) Objective Data Labs 11/11/22 06:40 11/11/22 06:40 Labs: Laboratory Results - last 24 hr 11/10/22 11/10/22 11/10/22 11:53 16:36 18:00 WBC RBC Hgb Hct MCV MCH MCHC RDW Plt Count MPV Absolute Nucleated RBC Nucleated RBC % (auto) O2 Saturation ABG pH at Pt Temp ABG pCO2 at Pt Temp ABG pO2 at Pt Temp ABG HCO3 ABG Base Excess (Actual) VBG pH VBG pCO2 VBG pO2 VBG HCO3 VBG O2 Saturation VBG Base Excess Sodium 126 L 128 L Potassium 4.5 3.5 D Chloride 89 L 93 L Carbon Dioxide 23 20 L Anion Gap 19 19 BUN 24 H 29 H Creatinine 1.82 H 2.19 H Estim Creat Clear Calc 46.5 38.6 Estimated GFR 38 31 POC Glucose 107 Random Glucose 131 H 114 Lactic Acid Lactic Acid F/U @ 2Hr Lactic Acid F/U @ 4Hr Calcium 9.9 8.9 D Total Bilirubin AST ALT Alkaline Phosphatase Troponin I High Sens B-Natriuretic Peptide Total Protein Albumin Urine Color Urine Appearance Urine pH Ur Specific [place] Urine Protein Urine Glucose (UA) Urine Ketones Urine Blood Urine Nitrite Ur Leukocyte Esterase Urine RBC Urine WBC Ur Squamous Epith Cells Urine Bacteria Hyaline Casts Urine Osmolality Ur Random Sodium Urine Opiates Screen Urine Fentanyl Screen Ur Barbiturates Screen Ur Phencyclidine Scrn Ur Amphetamines Screen U Benzodiazepines Scrn Urine Cocaine Screen U Marijuana (THC) Screen Blood Type Antibody Screen 11/10/22 11/10/22 11/10/22 19:43 23:15 23:15 WBC RBC Hgb Hct MCV MCH MCHC RDW Plt Count MPV Absolute Nucleated RBC Nucleated RBC % (auto) O2 Saturation ABG pH at Pt Temp ABG pCO2 at Pt Temp ABG pO2 at Pt Temp ABG HCO3 ABG Base Excess (Actual) VBG pH VBG pCO2 VBG pO2 VBG HCO3 VBG O2 Saturation VBG Base Excess Sodium Potassium Chloride Carbon Dioxide Anion Gap BUN Creatinine Estim Creat Clear Calc Estimated GFR POC Glucose 111 Random Glucose Lactic Acid Lactic Acid F/U @ 2Hr Lactic Acid F/U @ 4Hr Calcium Total Bilirubin AST ALT Alkaline Phosphatase Troponin I High Sens B-Natriuretic Peptide Total Protein Albumin Urine Color Yellow Urine Appearance Clear Urine pH 5.5 Ur Specific [place] 1.020 Urine Protein 30 (1+) H Urine Glucose (UA) 250 H Urine Ketones Negative Urine Blood Negative Urine Nitrite Negative Ur Leukocyte Esterase Negative Urine RBC 0-2 Urine WBC 0-5 Ur Squamous Epith Cells 0-2 Urine Bacteria None Seen Hyaline Casts 0-2 Urine Osmolality Ur Random Sodium Urine Opiates Screen POSITIVE H Urine Fentanyl Screen POSITIVE H Ur Barbiturates Screen Not Detected Ur Phencyclidine Scrn Not Detected Ur Amphetamines Screen Not Detected U Benzodiazepines Scrn POSITIVE H Urine Cocaine Screen Not Detected U Marijuana (THC) Screen Not Detected Blood Type Antibody Screen 11/10/22 11/10/22 11/11/22 23:15 23:15 00:38 WBC RBC Hgb Hct MCV MCH MCHC RDW Plt Count MPV Absolute Nucleated RBC Nucleated RBC % (auto) O2 Saturation ABG pH at Pt Temp ABG pCO2 at Pt Temp ABG pO2 at Pt Temp ABG HCO3 ABG Base Excess (Actual) VBG pH VBG pCO2 VBG pO2 VBG HCO3 VBG O2 Saturation VBG Base Excess Sodium 130 L Potassium 4.3 D Chloride 93 L Carbon Dioxide 17 L Anion Gap 24 H BUN 39 H Creatinine 3.10 H Estim Creat Clear Calc 27.3 Estimated GFR 21 POC Glucose Random Glucose 107 Lactic Acid Lactic Acid F/U @ 2Hr Lactic Acid F/U @ 4Hr Calcium 9.0 Total Bilirubin AST ALT Alkaline Phosphatase Troponin I High Sens B-Natriuretic Peptide Total Protein Albumin Urine Color Urine Appearance Urine pH Ur Specific [place] Urine Protein Urine Glucose (UA) Urine Ketones Urine Blood Urine Nitrite Ur Leukocyte Esterase Urine RBC Urine WBC Ur Squamous Epith Cells Urine Bacteria Hyaline Casts Urine Osmolality 409 Ur Random Sodium 29.0 Urine Opiates Screen Urine Fentanyl Screen Ur Barbiturates Screen Ur Phencyclidine Scrn Ur Amphetamines Screen U Benzodiazepines Scrn Urine Cocaine Screen U Marijuana (THC) Screen Blood Type Antibody Screen 11/11/22 11/11/22 11/11/22 01:19 01:44 02:16 WBC RBC Hgb Hct MCV MCH MCHC RDW Plt Count MPV Absolute Nucleated RBC Nucleated RBC % (auto) O2 Saturation 100.0 ABG pH at Pt Temp 7.37 ABG pCO2 at Pt Temp 23 L ABG pO2 at Pt Temp 130 H ABG HCO3 13 L ABG Base Excess (Actual) -9.5 VBG pH VBG pCO2 VBG pO2 VBG HCO3 VBG O2 Saturation VBG Base Excess Sodium Potassium Chloride Carbon Dioxide Anion Gap BUN Creatinine Estim Creat Clear Calc Estimated GFR POC Glucose Random Glucose Lactic Acid Lactic Acid F/U @ 2Hr Lactic Acid F/U @ 4Hr Calcium Total Bilirubin AST ALT Alkaline Phosphatase Troponin I High Sens 2342.7 H* D B-Natriuretic Peptide 514 H Total Protein Albumin Urine Color Urine Appearance Urine pH Ur Specific [place] Urine Protein Urine Glucose (UA) Urine Ketones Urine Blood Urine Nitrite Ur Leukocyte Esterase Urine RBC Urine WBC Ur Squamous Epith Cells Urine Bacteria Hyaline Casts Urine Osmolality Ur Random Sodium Urine Opiates Screen Urine Fentanyl Screen Ur Barbiturates Screen Ur Phencyclidine Scrn Ur Amphetamines Screen U Benzodiazepines Scrn Urine Cocaine Screen U Marijuana (THC) Screen Blood Type Antibody Screen 11/11/22 11/11/22 11/11/22 04:29 04:29 04:29 WBC RBC Hgb Hct MCV MCH MCHC RDW Plt Count MPV Absolute Nucleated RBC Nucleated RBC % (auto) O2 Saturation ABG pH at Pt Temp ABG pCO2 at Pt Temp ABG pO2 at Pt Temp ABG HCO3 ABG Base Excess (Actual) VBG pH VBG pCO2 VBG pO2 VBG HCO3 VBG O2 Saturation VBG Base Excess Sodium 132 L Potassium 4.9 Chloride 98 Carbon Dioxide 18 L Anion Gap 21 H BUN 41 H Creatinine 2.65 H Estim Creat Clear Calc 31.9 Estimated GFR 25 POC Glucose Random Glucose 89 Lactic Acid 5.9 H* Lactic Acid F/U @ 2Hr Lactic Acid F/U @ 4Hr Calcium 8.3 L D Total Bilirubin AST ALT Alkaline Phosphatase Troponin I High Sens 1817.1 H* B-Natriuretic Peptide Total Protein Albumin Urine Color Urine Appearance Urine pH Ur Specific [place] Urine Protein Urine Glucose (UA) Urine Ketones Urine Blood Urine Nitrite Ur Leukocyte Esterase Urine RBC Urine WBC Ur Squamous Epith Cells Urine Bacteria Hyaline Casts Urine Osmolality Ur Random Sodium Urine Opiates Screen Urine Fentanyl Screen Ur Barbiturates Screen Ur Phencyclidine Scrn Ur Amphetamines Screen U Benzodiazepines Scrn Urine Cocaine Screen U Marijuana (THC) Screen Blood Type Antibody Screen 11/11/22 11/11/22 11/11/22 06:40 06:40 06:40 WBC 11.2 H RBC 4.22 L Hgb 12.6 L Hct 34.3 L MCV 81.3 MCH 29.9 MCHC 36.7 H RDW 12.2 Plt Count 251 MPV 10.6 Absolute Nucleated RBC 0.000 Nucleated RBC % (auto) 0.0 O2 Saturation ABG pH at Pt Temp ABG pCO2 at Pt Temp ABG pO2 at Pt Temp ABG HCO3 ABG Base Excess (Actual) VBG pH VBG pCO2 VBG pO2 VBG HCO3 VBG O2 Saturation VBG Base Excess Sodium 133 L Cancelled Potassium 4.7 Cancelled Chloride 95 L Cancelled Carbon Dioxide 22 Cancelled Anion Gap 21 H Cancelled BUN 43 H Cancelled Creatinine 2.38 H Cancelled Estim Creat Clear Calc 35.5 Cancelled Estimated GFR 28 Cancelled POC Glucose Random Glucose 109 Cancelled Lactic Acid Lactic Acid F/U @ 2Hr Lactic Acid F/U @ 4Hr Calcium 8.1 L Cancelled Total Bilirubin 0.7 AST 990 H ALT 1091 H Alkaline Phosphatase 63 Troponin I High Sens B-Natriuretic Peptide Total Protein 4.5 L Albumin 2.9 L Urine Color Urine Appearance Urine pH Ur Specific [place] Urine Protein Urine Glucose (UA) Urine Ketones Urine Blood Urine Nitrite Ur Leukocyte Esterase Urine RBC Urine WBC Ur Squamous Epith Cells Urine Bacteria Hyaline Casts Urine Osmolality Ur Random Sodium Urine Opiates Screen Urine Fentanyl Screen Ur Barbiturates Screen Ur Phencyclidine Scrn Ur Amphetamines Screen U Benzodiazepines Scrn Urine Cocaine Screen U Marijuana (THC) Screen Blood Type Antibody Screen 11/11/22 11/11/22 11/11/22 06:40 06:46 08:09 WBC RBC Hgb Hct MCV MCH MCHC RDW Plt Count MPV Absolute Nucleated RBC Nucleated RBC % (auto) O2 Saturation ABG pH at Pt Temp ABG pCO2 at Pt Temp ABG pO2 at Pt Temp ABG HCO3 ABG Base Excess (Actual) VBG pH 7.30 L VBG pCO2 48 VBG pO2 60 VBG HCO3 24 VBG O2 Saturation 82.0 VBG Base Excess -2.4 Sodium Potassium Chloride Carbon Dioxide Anion Gap BUN Creatinine Estim Creat Clear Calc Estimated GFR POC Glucose Random Glucose Lactic Acid Lactic Acid F/U @ 2Hr 7.4 H* Lactic Acid F/U @ 4Hr Calcium Total Bilirubin AST ALT Alkaline Phosphatase Troponin I High Sens B-Natriuretic Peptide Total Protein Albumin Urine Color Urine Appearance Urine pH Ur Specific [place] Urine Protein Urine Glucose (UA) Urine Ketones Urine Blood Urine Nitrite Ur Leukocyte Esterase Urine RBC Urine WBC Ur Squamous Epith Cells Urine Bacteria Hyaline Casts Urine Osmolality Ur Random Sodium Urine Opiates Screen Urine Fentanyl Screen Ur Barbiturates Screen Ur Phencyclidine Scrn Ur Amphetamines Screen U Benzodiazepines Scrn Urine Cocaine Screen U Marijuana (THC) Screen Blood Type A Positive Antibody Screen NEGATIVE 11/11/22 08:58 WBC RBC Hgb Hct MCV MCH MCHC RDW Plt Count MPV Absolute Nucleated RBC Nucleated RBC % (auto) O2 Saturation ABG pH at Pt Temp ABG pCO2 at Pt Temp ABG pO2 at Pt Temp ABG HCO3 ABG Base Excess (Actual) VBG pH VBG pCO2 VBG pO2 VBG HCO3 VBG O2 Saturation VBG Base Excess Sodium Potassium Chloride Carbon Dioxide Anion Gap BUN Creatinine Estim Creat Clear Calc Estimated GFR POC Glucose Random Glucose Lactic Acid Lactic Acid F/U @ 2Hr Lactic Acid F/U @ 4Hr 4.5 H* Calcium Total Bilirubin AST ALT Alkaline Phosphatase Troponin I High Sens B-Natriuretic Peptide Total Protein Albumin Urine Color Urine Appearance Urine pH Ur Specific [place] Urine Protein Urine Glucose (UA) Urine Ketones Urine Blood Urine Nitrite Ur Leukocyte Esterase Urine RBC Urine WBC Ur Squamous Epith Cells Urine Bacteria Hyaline Casts Urine Osmolality Ur Random Sodium Urine Opiates Screen Urine Fentanyl Screen Ur Barbiturates Screen Ur Phencyclidine Scrn Ur Amphetamines Screen U Benzodiazepines Scrn Urine Cocaine Screen U Marijuana (THC) Screen Blood Type Antibody Screen Microbiology Microbiology Results: Microbiology 11/10/22 01:16 Blood - Venous Blood Culture - Preliminary Prelim: GPC Gram Stain only 11/10/22 01:16 Blood - Venous Blood Culture - Preliminary No growth after 24 hours. Progress Note: A&P Assessment and plan (1) Ischemic necrosis of small bowel: Status: Acute (2) MELY (acute kidney injury): Status: Acute (3) Small bowel obstruction: Status: Acute (4) Acute respiratory failure with hypoxia: Status: Acute (5) Bipolar disorder: Status: Acute (6) Schizoaffective disorder: Status: Acute (7) Hypothyroidism: Status: Acute (8) Seizure disorder: Status: Acute Plan Assessment: 57-year-old gentleman with underlying bipolar, schizoaffective, seizure disorder, resident of [facility] facility admitted with seizure and small- bowel obstruction, now status post surgical exploration with resection of necrot ic bowel Plan: Neuro: No acute issues. Underlying history of seizure disorder. Start on Keppra. Cardiac: Hypotension likely secondary to fluid shifts with small-bowel obstruction. Continue to titrate off vasopressor support as tolerated. Underlying history of congestive heart failure. Pulmonary: Acute hypoxic respiratory failure secondary to small-bowel obstruction with likely aspiration component. Continue to titrate off ventilatory support as tolerated. Renal: Acute renal failure secondary to intravascular volume depletion. Non oliguric. Continue IV fluid support. Continue to monitor renal indices and urine output. Endo: No acute issues. GI: Small-bowel obstruction with development of ischemic necrosis. Status post exploratory laparotomy with resection of necrotic bowel. General surgery service care appreciated. ID: Empirically covered with broad-spectrum antibiotics. Heme/Onc: No acute issues. Psych: Underlying history of bipolar disorder and schizoaffective disorder. Miscellaneous: No acute issues. Prophylaxis: Heparin Diet: NPO Critical care time spent: 60 minutes Quality Stroke Does the patient have a stroke diagnosis?: No VTE Prior VTE?: No VTE Risk Level:: Medical - moderate - high VTE Device Contraindication: Treatment Not Indicated VTE Drug Contraindication: N/A - Med Ordered
[2022-11-11 11:46] LABS: Glucose, Whole Blood 82 mg/dL (60-115)
[2022-11-11] MEDS: levETIRAcetam in NaCl (iso-os) 500 MG/100 ML PIGGYBACK 400 MG IV (12:36)
[2022-11-11] MEDS: Piperacillin Sodium/Tazobactam 3.375 GM in 0.9 % Sodium Chloride 50 ML IV ×2 (13:03→17:26)
[2022-11-11 13:17] LABS: VBG Base Excess -5.5 mmol/L; VBG HCO3 19 mmol/L (22-26); VBG pCO2 33 mmHg; VBG pH 7.35 (7.32-7.43); VBG pO2 45 mmHg
[2022-11-11 13:25] LABS: Hematocrit 36.7 % (42.0-52.0); Hemoglobin 13.3 g/dl (14.0-18.0); Mean Corpuscular HGB Conc 36.2 g/dl (31.0-36.0); Mean Corpuscular Hemoglobin 29.6 pg (27.0-33.0); Mean Corpuscular Volume 81.6 fL (80.0-98.0); Mean Platelet Volume 10.4 fL (9.4-12.4); Platelet Count 249 X10*3/uL (160-400); Red Cell Distribution Width 12.4 % (11.0-16.0)
[2022-11-11 13:37] LABS: WBC ABN SCTR FOR CBC 1
[2022-11-11 13:45] LABS: Alanine Aminotransferase 962 U/L (0-40); Albumin Level 2.6 g/dL (3.5-5.0); Alkaline Phosphatase 68 U/L (39-117); Anion Gap 18 (12-20); Aspartate Amino Transferase 932 U/L (5-37); Bilirubin Total 0.7 mg/dL (0.0-1.0); Blood Urea Nitrogen 43 mg/dL (9-16); Calcium 7.6 mg/dL (8.4-10.2); Carbon Dioxide 20 mmol/L (22-29); Chloride 97 mmol/L (96-108); Creatinine Clr Calc Pharmacy 46.2; Estimated Glomerular Filt Rate 38; Glucose Random 134 mg/dL (60-115); Magnesium 1.6 mg/dL (1.6-2.6); Phosphorus 5.1 mg/dL (2.7-4.5); Potassium 4.1 mmol/L (3.3-5.1); Sodium 131 mmol/L (135-145); Total Protein 4.2 g/dL (6.5-8.0)
[2022-11-11 14:08] LABS: Band Neutrophils Percent 37 % (3-5); Lymphocytes Percent Manual 17 % (20-40); Metamyelocytes Percent 1 %; Monocytes Percent Manual 6 % (2-11); Neutrophils Percent Manual 39 % (45-73)
[2022-11-11 14:16] LABS: Burr Cells 3+ (>5) /OIF; Dohle Bodies PRESENT; Platelet Estimate NORMAL (NORMAL); Platelet Morphology Comment NORMAL; RBC Morphology NOTED; Toxic Vacuolation PRESENT
[2022-11-11 14:17] LABS: Lymphocytes Absolute Manual 1.3 X10*3/uL (1.2-4.9); Metamyelocytes Absolute 0.1 X10*3/uL; Monocytes Absolute Manual 0.4 X10*3/uL (0.1-1.2); Neutrophils Absolute Manual 5.6 X10*3/uL (2.0-8.3); White Blood Count 7.4 X10*3/uL (4.8-10.8)
[2022-11-11] MEDS: Norepinephrine Bitartrate/D5W 8 MG/250 ML PLAST..BAG 39.98 MG IVCONT (15:28)
[2022-11-11] MEDS: propofoL 1,000 MG/100 ML VIAL 15.35 MG IVCONT (15:29)
--- NOTE | 2022-11-11 17:09 | PC.NURSE ---
Addendum entered by Martina Ibanez RN 11/11/22 18:39: Serum glucose 441 - MD notified - POC recheck 206 - fluids changed back to LR. RR maintaining high 20's, belly breathing - MD notified - Fentanyl 100mcg IVP ordered and administered with good effect - RR down to 17, breathing even and nonlabored. Addendum entered by Martina Ibanez RN 11/11/22 17:52: Core temp down to 100.4 - cooling blanket turned off and removed. Patient shivering, RR mid 20's synchronous with vent - Propofol gtt titrated per EMAR - MD notified and aware. POC 36, recheck 43 - 1 amp D50 administered per EMAR - 15min recheck 25 on right hand and 50 on left hand - second amp D50 administered - MD notified, serum glucose ordered, fluids changed to D10 @ 50 Original Note: Assumed care at 0700 - Patient intubated and sedated ; care temp 102.6, HR maintaining 130's sinus, RR low 20's, MAP >65 with levophed support, lactic up to 7.4 down to 4.5. Unable to obtain O2 sat - ADMISSIONS CLERK aware. Abdomen distended, firm, faint bowl sounds ; NGT to continuous suction draining dark brown content. Patient went to OR for exp lap with Dr Pollock. Mid line abdominal incision C/D/I. NGT switched to low intermittent suction per surgical PA. Abx switch to Zosyn - okay per MD d/t penicillin allergy. Core temp maintaining >102 - MD notified and patient placed on cooling blanket. HR down to 110's, sinus. Fio2 titrated down to 40%, O2 sat 100%. Allred draining 40-80cc/hr cloudy concentrated urine. Patient placed on prevlon system and turning bed. Skin cool, dry, no skin integrity concerns, barrier cream applied.
[2022-11-11] MEDS: Dextrose 50 % 25 GM/50 ML SYRINGE IVPUSH ×2 (17:25→17:45)
[2022-11-11 17:26] LABS: Glucose, Whole Blood 43 mg/dL (60-115)
[2022-11-11 17:26] LABS: Glucose, Whole Blood 36 mg/dL (60-115)
[2022-11-11] MEDS: Dextrose 10 % 1,000 ML 50 ML IVCONT (17:49)
[2022-11-11 17:53] LABS: Glucose, Whole Blood 25 mg/dL (60-115)
[2022-11-11 17:53] LABS: Glucose, Whole Blood 52 mg/dL (60-115)
[2022-11-11 18:19] LABS: Glucose Random 441 mg/dL (60-115)
[2022-11-11] MEDS: fentaNYL citrate/PF 100 MCG/2 ML VIAL IVPUSH (18:25)
[2022-11-11 18:33] LABS: Glucose, Whole Blood 206 mg/dL (60-115)
[2022-11-11 18:46] LABS: Anion Gap 19 (12-20); Blood Urea Nitrogen 44 mg/dL (9-16); Carbon Dioxide 16 mmol/L (22-29); Chloride 98 mmol/L (96-108); Estimated Glomerular Filt Rate 38; Sodium 129 mmol/L (135-145)
[2022-11-11 19:35] LABS: Venous Blood Gas Refer to POC result
[2022-11-11] MEDS: Norepinephrine Bitartrate/D5W 8 MG/250 ML PLAST..BAG 49.58 MG IVCONT (21:41)
[2022-11-11] MEDS: propofoL 1,000 MG/100 ML VIAL 20.47 MG IVCONT (22:34)
[2022-11-11 23:52] LABS: Glucose, Whole Blood 127 mg/dL (60-115)
[2022-11-12] VITALS (55 sets, daily range): BP systolic 69–222; BP diastolic 43–82; PULSE 97–133; RESP 19–122; TEMP 32–39; O2SAT 92–100; BMI 29.0
[2022-11-12] MEDS: Piperacillin Sodium/Tazobactam 3.375 GM in 0.9 % Sodium Chloride 50 ML IV ×4 (00:04→17:43)
[2022-11-12] MEDS: levETIRAcetam in NaCl (iso-os) 500 MG/100 ML PIGGYBACK 400 MG IV (00:05)
[2022-11-12 01:45] LABS: Glucose, Whole Blood 157 mg/dL (60-115)
[2022-11-12] MEDS: Norepinephrine Bitartrate/D5W 8 MG/250 ML PLAST..BAG 49.58 MG IVCONT ×2 (02:38→06:38)
[2022-11-12] MEDS: propofoL 1,000 MG/100 ML VIAL 15.35 MG IVCONT (03:38)
[2022-11-12] MEDS: Lactated Ringers 1,000 ML 100 ML IVCONT (03:39)
[2022-11-12 05:02] LABS: VBG Base Excess -0.6 mmol/L; VBG HCO3 22 mmol/L (22-26); VBG pCO2 32 mmHg; VBG pH 7.44 (7.32-7.43); VBG pO2 40 mmHg
[2022-11-12 05:09] LABS: Venous Blood Gas Refer to POC result
[2022-11-12 05:27] LABS: Hematocrit 33.6 % (42.0-52.0); Mean Corpuscular HGB Conc 35.7 g/dl (31.0-36.0); Mean Corpuscular Hemoglobin 29.3 pg (27.0-33.0); Mean Corpuscular Volume 82.2 fL (80.0-98.0); Mean Platelet Volume 10.4 fL (9.4-12.4); Platelet Count 226 X10*3/uL (160-400); Red Blood Count 4.09 X10*6/uL (4.60-5.80); Red Cell Distribution Width 12.5 % (11.0-16.0)
[2022-11-12 05:37] LABS: WBC ABN SCTR FOR CBC 1; White Blood Count 12.1 X10*3/uL (4.8-10.8)
[2022-11-12 05:45] LABS: Glucose, Whole Blood 122 mg/dL (60-115)
[2022-11-12] MEDS: vancomycin HCL 1,000 MG in 0.9 % Sodium Chloride 250 ML 270 MG IV (05:46)
[2022-11-12 05:57] LABS: Alanine Aminotransferase 690 U/L (0-40); Albumin Level 2.6 g/dL (3.5-5.0); Alkaline Phosphatase 73 U/L (39-117); Anion Gap 17 (12-20); Aspartate Amino Transferase 420 U/L (5-37); Bilirubin Total 0.8 mg/dL (0.0-1.0); Blood Urea Nitrogen 39 mg/dL (9-16); Calcium 7.6 mg/dL (8.4-10.2); Carbon Dioxide 23 mmol/L (22-29); Chloride 95 mmol/L (96-108); Creatinine Clr Calc Pharmacy 66.1; Estimated Glomerular Filt Rate 58; Glucose Random 124 mg/dL (60-115); Magnesium 1.6 mg/dL (1.6-2.6); Phosphorus 3.1 mg/dL (2.7-4.5); Potassium 3.9 mmol/L (3.3-5.1); Sodium 131 mmol/L (135-145); Total Protein 4.3 g/dL (6.5-8.0)
[2022-11-12 06:24] LABS: Band Neutrophils Percent 48 % (3-5); Lymphocytes Absolute Manual 0.6 X10*3/uL (1.2-4.9); Lymphocytes Percent Manual 5 % (20-40); Metamyelocytes Absolute 0.1 X10*3/uL; Metamyelocytes Percent 1 %; Monocytes Absolute Manual 0.2 X10*3/uL (0.1-1.2); Monocytes Percent Manual 2 % (2-11); Neutrophils Absolute Manual 11.1 X10*3/uL (2.0-8.3); Neutrophils Percent Manual 44 % (45-73)
[2022-11-12 06:25] LABS: RBC Morphology NOTED
[2022-11-12 06:26] LABS: Burr Cells 3+ (>5) /OIF; Dohle Bodies PRESENT; Platelet Estimate NORMAL (NORMAL); Platelet Morphology Comment NORMAL; Toxic Granulation PRESENT; Toxic Vacuolation PRESENT
[2022-11-12] MEDS: propofoL 1,000 MG/100 ML VIAL 20.47 MG IVCONT (06:36)
[2022-11-12] MEDS: Famotidine/PF 20 MG/2 ML VIAL IVPUSH (07:34)
[2022-11-12] MEDS: Chlorhexidine Gluc Oral Rinse 15 ML MOUTHWASH BUCCAL (07:34)
--- NOTE | 2022-11-12 07:48 | P.PNGS_ITS ---
Subjective Subjective Date of Service: 11/12/22 Interval history: Sedated, intubated, On vent Physical Exam Vital Signs: Vital Signs: Last Vital Signs Temp 101.5 F H 11/12/22 07:00 Pulse 126 H 11/12/22 07:00 Resp 25 H 11/12/22 07:00 BP 103/62 11/12/22 07:00 Pulse Ox 99 11/12/22 07:00 O2 Del Method 11/12/22 07:00 O2 Flow Rate 6 11/11/22 03:20 FiO2 30 11/12/22 07:39 BMI result Body Mass Index 29.0 remains tachycardic; febrile, decreased O2 requirement, good sat Const: Other: sedated GI: Other: Midline incision dressing clean and intact without discharge; no erythema or rash Skin: Other: warm, dry Objective Data Active Medications Chlorhexidine Gluconate (Chlorhexidine Gluc Oral Rinse 15 Ml Mouthwash) 15 ml BUCCAL TID [facility] Last Admin: 11/12/22 07:34 Dose: 15 ml Documented By: PHOENIX Dextrose (Dextrose 50 % 25 Gm/50 Ml Syringe) 25 gm IVPUSH Q15M PRN; Protocol PRN Reason: per Hypoglycemia Standing Ord. Last Admin: 11/11/22 17:45 Dose: 25 gm Documented By: SOLEDAD Famotidine (Famotidine/Pf 20 Mg/2 Ml Vial) 20 mg IVPUSH DAILY [facility] Last Admin: 11/12/22 07:34 Dose: 20 mg Documented By: [place] Fentanyl (Fentanyl Citrate/Pf 100 Mcg/2 Ml Vial) 100 mcg IVPUSH Q2H PRN; Protocol PRN Reason: Pain, Moderate (Pain Scale 4-6 Last Admin: 11/11/22 18:25 Dose: 100 mcg Documented By: SOLEDAD Glucose (Glucose Gel 15 Gm Gel..Gram.) 15 gm PO Q15M PRN; Protocol PRN Reason: per Hypoglycemia Standing Ord. Haloperidol Decanoate (Haloperidol Decanoate 50 Mg/Ml Ampul) 100 mg IM Q14D [facility] Heparin Sodium (Porcine) (Heparin Sodium,Porcine 5,000 Unit/Ml Vial) 5,000 unit SUBCUT Q12H [facility] Last Admin: 11/12/22 06:43 Dose: Not Given Documented By: KEZIA Non-Admin Reason: hold per provoder Propofol (Diprivan) 1,000 mg in 100 mls @ 0 mls/hr IVCONT .Q0M ESPINOZA; Protocol Last Admin: 11/12/22 06:36 Dose: 40 mcg/kg/min, 20.47 mls/hr Documented By: KEZIA Vancomycin HCl 1,000 mg/ (Sodium Chloride) 270 mls @ 270 mls/hr IV Q24H ESPINOZA Last Infusion: 11/12/22 07:14 Dose: 0 mls/hr Documented By: HARESHUMOC Norepinephrine Bitartrate (Levophed) 8 mg in 250 mls @ 0 mls/hr IVCONT .Q0M ESPINOZA; Protocol Last Admin: 11/12/22 06:38 Dose: 0.31 mcg/kg/min, 49.58 mls/hr Documented By: KEZIA Piperacillin Sod/Tazobactam (Sod 3.375 gm/ Sodium Chloride) 50 mls @ 100 mls/hr IV Q6H [facility] Last Infusion: 11/12/22 06:04 Dose: 0 mls/hr Documented By: ARJUN Levetiracetam (Keppra) 500 mg in 100 mls @ 400 mls/hr IV Q12H [facility] Last Infusion: 11/12/22 00:20 Dose: 0 mls/hr Documented By: ARJUN Dextrose (D10) 1,000 mls @ 50 mls/hr IVCONT .Q20H ESPINOZA Last Infusion: 11/11/22 18:43 Dose: 0 mls/hr Documented By: SOLEDAD Lactated Ringer's (Lr) 1,000 mls @ 100 mls/hr IVCONT .Q10H ESPINOZA Last Admin: 11/12/22 03:39 Dose: 100 mls/hr Documented By: ARJUN Insulin Human Lispro (Insulin Lispro 100 Unit/Ml 3 Ml Vial) 0 unit SUBCUT Q6H [facility]; Protocol Last Admin: 11/12/22 06:04 Dose: Not Given Documented By: ARJUN Non-Admin Reason: No Insulin Coverage Pharmacy Consult (Consult Rx Vancomycin Dosing) 1 each MISCELLANE DAILY PRN PRN Reason: Consult order Labs 11/12/22 04:55 11/12/22 04:55 Labs: Laboratory Results - last 24 hr 11/11/22 11/11/22 11/11/22 08:09 08:58 11:40 MCV MCH MCHC RDW Plt Count MPV Immature Gran % (Auto) Neut % (Auto) Lymph % (Auto) [place] % (Auto) Eos % (Auto) Baso % (Auto) Lymph # (Auto) [place] # (Auto) Eos # (Auto) Baso # (Auto) Abs Immat Gran (auto) Absolute Neuts (auto) Absolute Nucleated RBC Nucleated RBC % (auto) Neutrophils % (Manual) Band Neutrophils % Lymphocytes % (Manual) Monocytes % (Manual) Metamyelocytes % Abs Neuts (Manual) Lymphocytes # (Manual) Monocytes # (Manual) Metamyelocytes # Toxic Granulation Toxic Vacuolation Dohle Bodies Platelet Estimate Plt Morphology Comment RBC Morphology [place] Cells VBG pH VBG pCO2 VBG pO2 VBG HCO3 VBG O2 Saturation VBG Base Excess Anion Gap Estim Creat Clear Calc Estimated GFR POC Glucose 82 Random Glucose Lactic Acid F/U @ 4Hr 4.5 H* Calcium Phosphorus Magnesium Total Bilirubin AST ALT Alkaline Phosphatase Total Protein Albumin Blood Type A Positive Antibody Screen NEGATIVE 11/11/22 11/11/22 11/11/22 13:10 13:13 13:13 MCV 81.6 MCH 29.6 MCHC 36.2 H RDW 12.4 Plt Count 249 MPV 10.4 Immature Gran % (Auto) Cancelled Neut % (Auto) Cancelled Lymph % (Auto) Cancelled [place] % (Auto) Cancelled Eos % (Auto) Cancelled Baso % (Auto) Cancelled Lymph # (Auto) Cancelled [place] # (Auto) Cancelled Eos # (Auto) Cancelled Baso # (Auto) Cancelled Abs Immat Gran (auto) Cancelled Absolute Neuts (auto) Cancelled Absolute Nucleated RBC 0.000 Nucleated RBC % (auto) 0.0 Neutrophils % (Manual) 39 L Band Neutrophils % 37 H Lymphocytes % (Manual) 17 L Monocytes % (Manual) 6 Metamyelocytes % 1 Abs Neuts (Manual) 5.6 Lymphocytes # (Manual) 1.3 Monocytes # (Manual) 0.4 Metamyelocytes # 0.1 Toxic Granulation Toxic Vacuolation PRESENT Dohle Bodies PRESENT Platelet Estimate NORMAL Plt Morphology Comment NORMAL RBC Morphology NOTED [place] Cells 3+ (>5) VBG pH 7.35 VBG pCO2 33 VBG pO2 45 VBG HCO3 19 L VBG O2 Saturation 71.0 VBG Base Excess -5.5 Anion Gap 18 Estim Creat Clear Calc 46.2 Estimated GFR 38 POC Glucose Random Glucose 134 H Lactic Acid F/U @ 4Hr Calcium 7.6 L D Phosphorus 5.1 H Magnesium 1.6 Total Bilirubin 0.7 AST 932 H ALT 962 H Alkaline Phosphatase 68 Total Protein 4.2 L Albumin 2.6 L Blood Type Antibody Screen 11/11/22 11/11/22 11/11/22 17:21 17:23 17:41 MCV MCH MCHC RDW Plt Count MPV Immature Gran % (Auto) Neut % (Auto) Lymph % (Auto) [place] % (Auto) Eos % (Auto) Baso % (Auto) Lymph # (Auto) [place] # (Auto) Eos # (Auto) Baso # (Auto) Abs Immat Gran (auto) Absolute Neuts (auto) Absolute Nucleated RBC Nucleated RBC % (auto) Neutrophils % (Manual) Band Neutrophils % Lymphocytes % (Manual) Monocytes % (Manual) Metamyelocytes % Abs Neuts (Manual) Lymphocytes # (Manual) Monocytes # (Manual) Metamyelocytes # Toxic Granulation Toxic Vacuolation Dohle Bodies Platelet Estimate Plt Morphology Comment RBC Morphology [place] Cells VBG pH VBG pCO2 VBG pO2 VBG HCO3 VBG O2 Saturation VBG Base Excess Anion Gap Estim Creat Clear Calc Estimated GFR POC Glucose 36 L* 43 L* 25 L* Random Glucose Lactic Acid F/U @ 4Hr Calcium Phosphorus Magnesium Total Bilirubin AST ALT Alkaline Phosphatase Total Protein Albumin Blood Type Antibody Screen 11/11/22 11/11/22 11/11/22 17:43 18:00 18:24 MCV MCH MCHC RDW Plt Count MPV Immature Gran % (Auto) Neut % (Auto) Lymph % (Auto) [place] % (Auto) Eos % (Auto) Baso % (Auto) Lymph # (Auto) [place] # (Auto) Eos # (Auto) Baso # (Auto) Abs Immat Gran (auto) Absolute Neuts (auto) Absolute Nucleated RBC Nucleated RBC % (auto) Neutrophils % (Manual) Band Neutrophils % Lymphocytes % (Manual) Monocytes % (Manual) Metamyelocytes % Abs Neuts (Manual) Lymphocytes # (Manual) Monocytes # (Manual) Metamyelocytes # Toxic Granulation Toxic Vacuolation Dohle Bodies Platelet Estimate Plt Morphology Comment RBC Morphology [place] Cells VBG pH VBG pCO2 VBG pO2 VBG HCO3 VBG O2 Saturation VBG Base Excess Anion Gap 19 Estim Creat Clear Calc 46.0 Estimated GFR 38 POC Glucose 52 L* 206 H Random Glucose 441 H* Lactic Acid F/U @ 4Hr Calcium 7.0 L D Phosphorus Magnesium Total Bilirubin AST ALT Alkaline Phosphatase Total Protein Albumin Blood Type Antibody Screen 11/11/22 11/12/22 11/12/22 23:47 01:42 04:54 MCV MCH MCHC RDW Plt Count MPV Immature Gran % (Auto) Neut % (Auto) Lymph % (Auto) [place] % (Auto) Eos % (Auto) Baso % (Auto) Lymph # (Auto) [place] # (Auto) Eos # (Auto) Baso # (Auto) Abs Immat Gran (auto) Absolute Neuts (auto) Absolute Nucleated RBC Nucleated RBC % (auto) Neutrophils % (Manual) Band Neutrophils % Lymphocytes % (Manual) Monocytes % (Manual) Metamyelocytes % Abs Neuts (Manual) Lymphocytes # (Manual) Monocytes # (Manual) Metamyelocytes # Toxic Granulation Toxic Vacuolation Dohle Bodies Platelet Estimate Plt Morphology Comment RBC Morphology [place] Cells VBG pH 7.44 H VBG pCO2 32 VBG pO2 40 VBG HCO3 22 VBG O2 Saturation 66.0 VBG Base Excess -0.6 Anion Gap Estim Creat Clear Calc Estimated GFR POC Glucose 127 H 157 H Random Glucose Lactic Acid F/U @ 4Hr Calcium Phosphorus Magnesium Total Bilirubin AST ALT Alkaline Phosphatase Total Protein Albumin Blood Type Antibody Screen 11/12/22 11/12/22 11/12/22 04:55 04:55 04:55 MCV 82.2 MCH 29.3 MCHC 35.7 RDW 12.5 Plt Count 226 MPV 10.4 Immature Gran % (Auto) Cancelled Neut % (Auto) Cancelled Lymph % (Auto) Cancelled [place] % (Auto) Cancelled Eos % (Auto) Cancelled Baso % (Auto) Cancelled Lymph # (Auto) Cancelled [place] # (Auto) Cancelled Eos # (Auto) Cancelled Baso # (Auto) Cancelled Abs Immat Gran (auto) Cancelled Absolute Neuts (auto) Cancelled Absolute Nucleated RBC 0.000 Nucleated RBC % (auto) 0.0 Neutrophils % (Manual) 44 L Band Neutrophils % 48 H Lymphocytes % (Manual) 5 L Monocytes % (Manual) 2 Metamyelocytes % 1 Abs Neuts (Manual) 11.1 H Lymphocytes # (Manual) 0.6 L Monocytes # (Manual) 0.2 Metamyelocytes # 0.1 Toxic Granulation PRESENT Toxic Vacuolation PRESENT Dohle Bodies PRESENT Platelet Estimate NORMAL Plt Morphology Comment NORMAL RBC Morphology NOTED [place] Cells 3+ (>5) VBG pH VBG pCO2 VBG pO2 VBG HCO3 VBG O2 Saturation VBG Base Excess Anion Gap 17 Estim Creat Clear Calc Cancelled 66.1 Estimated GFR Cancelled 58 POC Glucose Random Glucose 124 H Lactic Acid F/U @ 4Hr Calcium 7.6 L D Phosphorus 3.1 Magnesium 1.6 Total Bilirubin 0.8 AST 420 H ALT 690 H Alkaline Phosphatase 73 Total Protein 4.3 L Albumin 2.6 L Blood Type Antibody Screen 11/12/22 05:37 MCV MCH MCHC RDW Plt Count MPV Immature Gran % (Auto) Neut % (Auto) Lymph % (Auto) [place] % (Auto) Eos % (Auto) Baso % (Auto) Lymph # (Auto) [place] # (Auto) Eos # (Auto) Baso # (Auto) Abs Immat Gran (auto) Absolute Neuts (auto) Absolute Nucleated RBC Nucleated RBC % (auto) Neutrophils % (Manual) Band Neutrophils % Lymphocytes % (Manual) Monocytes % (Manual) Metamyelocytes % Abs Neuts (Manual) Lymphocytes # (Manual) Monocytes # (Manual) Metamyelocytes # Toxic Granulation Toxic Vacuolation Dohle Bodies Platelet Estimate Plt Morphology Comment RBC Morphology [place] Cells VBG pH VBG pCO2 VBG pO2 VBG HCO3 VBG O2 Saturation VBG Base Excess Anion Gap Estim Creat Clear Calc Estimated GFR POC Glucose 122 H Random Glucose Lactic Acid F/U @ 4Hr Calcium Phosphorus Magnesium Total Bilirubin AST ALT Alkaline Phosphatase Total Protein Albumin Blood Type Antibody Screen Microbiology Microbiology Results: Microbiology 11/10/22 01:16 Blood Culture - Preliminary Blood - Venous No growth after 48 hours. 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 Patient remains on vent, few bowel sounds. Abdomen seem much softer. Management per ICU team. Time Spent With Patient Time: Total time managing care of this patient today ____ minutes. Quality Stroke Does the patient have a stroke diagnosis?: No VTE Prior VTE?: No VTE Risk Level:: Medical - moderate - high VTE Device Contraindication: Treatment Not Indicated VTE Drug Contraindication: N/A - Med Ordered
[2022-11-12] MEDS: Albumin Human 25 % 100 ML 133.33 ML IV ×2 (08:37→09:03)
[2022-11-12] MEDS: levETIRAcetam in NaCl (iso-os) 1,000 MG/100 ML PIGGYBACK 400 MG IV ×2 (08:37→19:29)
[2022-11-12] MEDS: fentaNYL citrate/PF 100 MCG/2 ML VIAL IVPUSH ×3 (09:01→15:49)
--- NOTE | 2022-11-12 09:42 | P.PNNP_ITS ---
Subjective Subjective Date of Service: 11/12/22 Interval history: Events noted s/p surgery Physical Exam Vital Signs: Vital Signs: Last Vital Signs Temp 101.1 F H 11/12/22 09:00 Pulse 126 H 11/12/22 09:39 Resp 33 H 11/12/22 09:01 BP 122/62 11/12/22 09:39 Pulse Ox 99 11/12/22 09:00 O2 Del Method 11/12/22 09:00 O2 Flow Rate 6 11/11/22 03:20 FiO2 30 11/12/22 09:00 BMI result Body Mass Index 29.0 Const: General: alert and awake HEENT: Head: Yes normocephalic and Yes atraumatic Neck: Neck: Yes supple Resp: Auscultation: clear to auscultation bilaterally Cardio: Heart sounds: S1 normal heart sound present and S2 normal heart sound present GI: Palpation (GI): Soft to palpation and no guarding Extrem: General: Yes no pedal edema Objective Data Labs 11/12/22 04:55 11/12/22 04:55 Labs: Laboratory Results - last 24 hr 11/11/22 11/11/22 11/11/22 11:40 13:10 13:13 WBC 7.4 RBC 4.50 L Hgb 13.3 L Hct 36.7 L MCV 81.6 MCH 29.6 MCHC 36.2 H RDW 12.4 Plt Count 249 MPV 10.4 Immature Gran % (Auto) Cancelled Neut % (Auto) Cancelled Lymph % (Auto) Cancelled [place] % (Auto) Cancelled Eos % (Auto) Cancelled Baso % (Auto) Cancelled Lymph # (Auto) Cancelled [place] # (Auto) Cancelled Eos # (Auto) Cancelled Baso # (Auto) Cancelled Abs Immat Gran (auto) Cancelled Absolute Neuts (auto) Cancelled Absolute Nucleated RBC 0.000 Nucleated RBC % (auto) 0.0 Neutrophils % (Manual) 39 L Band Neutrophils % 37 H Lymphocytes % (Manual) 17 L Monocytes % (Manual) 6 Metamyelocytes % 1 Abs Neuts (Manual) 5.6 Lymphocytes # (Manual) 1.3 Monocytes # (Manual) 0.4 Metamyelocytes # 0.1 Toxic Granulation Toxic Vacuolation PRESENT Dohle Bodies PRESENT Platelet Estimate NORMAL Plt Morphology Comment NORMAL RBC Morphology NOTED [place] Cells 3+ (>5) VBG pH 7.35 VBG pCO2 33 VBG pO2 45 VBG HCO3 19 L VBG O2 Saturation 71.0 VBG Base Excess -5.5 Sodium Potassium Chloride Carbon Dioxide Anion Gap BUN Creatinine Estim Creat Clear Calc Estimated GFR POC Glucose 82 Random Glucose Calcium Phosphorus Magnesium Total Bilirubin AST ALT Alkaline Phosphatase Total Protein Albumin 11/11/22 11/11/22 11/11/22 13:13 17:21 17:23 WBC RBC Hgb Hct MCV MCH MCHC RDW Plt Count MPV Immature Gran % (Auto) Neut % (Auto) Lymph % (Auto) [place] % (Auto) Eos % (Auto) Baso % (Auto) Lymph # (Auto) [place] # (Auto) Eos # (Auto) Baso # (Auto) Abs Immat Gran (auto) Absolute Neuts (auto) Absolute Nucleated RBC Nucleated RBC % (auto) Neutrophils % (Manual) Band Neutrophils % Lymphocytes % (Manual) Monocytes % (Manual) Metamyelocytes % Abs Neuts (Manual) Lymphocytes # (Manual) Monocytes # (Manual) Metamyelocytes # Toxic Granulation Toxic Vacuolation Dohle Bodies Platelet Estimate Plt Morphology Comment RBC Morphology [place] Cells VBG pH VBG pCO2 VBG pO2 VBG HCO3 VBG O2 Saturation VBG Base Excess Sodium 131 L Potassium 4.1 Chloride 97 Carbon Dioxide 20 L Anion Gap 18 BUN 43 H Creatinine 1.83 H Estim Creat Clear Calc 46.2 Estimated GFR 38 POC Glucose 36 L* 43 L* Random Glucose 134 H Calcium 7.6 L D Phosphorus 5.1 H Magnesium 1.6 Total Bilirubin 0.7 AST 932 H ALT 962 H Alkaline Phosphatase 68 Total Protein 4.2 L Albumin 2.6 L 11/11/22 11/11/22 11/11/22 17:41 17:43 18:00 WBC RBC Hgb Hct MCV MCH MCHC RDW Plt Count MPV Immature Gran % (Auto) Neut % (Auto) Lymph % (Auto) [place] % (Auto) Eos % (Auto) Baso % (Auto) Lymph # (Auto) [place] # (Auto) Eos # (Auto) Baso # (Auto) Abs Immat Gran (auto) Absolute Neuts (auto) Absolute Nucleated RBC Nucleated RBC % (auto) Neutrophils % (Manual) Band Neutrophils % Lymphocytes % (Manual) Monocytes % (Manual) Metamyelocytes % Abs Neuts (Manual) Lymphocytes # (Manual) Monocytes # (Manual) Metamyelocytes # Toxic Granulation Toxic Vacuolation Dohle Bodies Platelet Estimate Plt Morphology Comment RBC Morphology [place] Cells VBG pH VBG pCO2 VBG pO2 VBG HCO3 VBG O2 Saturation VBG Base Excess Sodium 129 L Potassium 4.0 Chloride 98 Carbon Dioxide 16 L Anion Gap 19 BUN 44 H Creatinine 1.84 H Estim Creat Clear Calc 46.0 Estimated GFR 38 POC Glucose 25 L* 52 L* Random Glucose 441 H* Calcium 7.0 L D Phosphorus Magnesium Total Bilirubin AST ALT Alkaline Phosphatase Total Protein Albumin 11/11/22 11/11/22 11/12/22 18:24 23:47 01:42 WBC RBC Hgb Hct MCV MCH MCHC RDW Plt Count MPV Immature Gran % (Auto) Neut % (Auto) Lymph % (Auto) [place] % (Auto) Eos % (Auto) Baso % (Auto) Lymph # (Auto) [place] # (Auto) Eos # (Auto) Baso # (Auto) Abs Immat Gran (auto) Absolute Neuts (auto) Absolute Nucleated RBC Nucleated RBC % (auto) Neutrophils % (Manual) Band Neutrophils % Lymphocytes % (Manual) Monocytes % (Manual) Metamyelocytes % Abs Neuts (Manual) Lymphocytes # (Manual) Monocytes # (Manual) Metamyelocytes # Toxic Granulation Toxic Vacuolation Dohle Bodies Platelet Estimate Plt Morphology Comment RBC Morphology [place] Cells VBG pH VBG pCO2 VBG pO2 VBG HCO3 VBG O2 Saturation VBG Base Excess Sodium Potassium Chloride Carbon Dioxide Anion Gap BUN Creatinine Estim Creat Clear Calc Estimated GFR POC Glucose 206 H 127 H 157 H Random Glucose Calcium Phosphorus Magnesium Total Bilirubin AST ALT Alkaline Phosphatase Total Protein Albumin 11/12/22 11/12/22 11/12/22 04:54 04:55 04:55 WBC 12.1 H RBC 4.09 L Hgb 12.0 L Hct 33.6 L MCV 82.2 MCH 29.3 MCHC 35.7 RDW 12.5 Plt Count 226 MPV 10.4 Immature Gran % (Auto) Cancelled Neut % (Auto) Cancelled Lymph % (Auto) Cancelled [place] % (Auto) Cancelled Eos % (Auto) Cancelled Baso % (Auto) Cancelled Lymph # (Auto) Cancelled [place] # (Auto) Cancelled Eos # (Auto) Cancelled Baso # (Auto) Cancelled Abs Immat Gran (auto) Cancelled Absolute Neuts (auto) Cancelled Absolute Nucleated RBC 0.000 Nucleated RBC % (auto) 0.0 Neutrophils % (Manual) 44 L Band Neutrophils % 48 H Lymphocytes % (Manual) 5 L Monocytes % (Manual) 2 Metamyelocytes % 1 Abs Neuts (Manual) 11.1 H Lymphocytes # (Manual) 0.6 L Monocytes # (Manual) 0.2 Metamyelocytes # 0.1 Toxic Granulation PRESENT Toxic Vacuolation PRESENT Dohle Bodies PRESENT Platelet Estimate NORMAL Plt Morphology Comment NORMAL RBC Morphology NOTED [place] Cells 3+ (>5) VBG pH 7.44 H VBG pCO2 32 VBG pO2 40 VBG HCO3 22 VBG O2 Saturation 66.0 VBG Base Excess -0.6 Sodium Potassium Chloride Carbon Dioxide Anion Gap BUN Creatinine Cancelled Estim Creat Clear Calc Cancelled Estimated GFR Cancelled POC Glucose Random Glucose Calcium Phosphorus Magnesium Total Bilirubin AST ALT Alkaline Phosphatase Total Protein Albumin 11/12/22 11/12/22 04:55 05:37 WBC RBC Hgb Hct MCV MCH MCHC RDW Plt Count MPV Immature Gran % (Auto) Neut % (Auto) Lymph % (Auto) [place] % (Auto) Eos % (Auto) Baso % (Auto) Lymph # (Auto) [place] # (Auto) Eos # (Auto) Baso # (Auto) Abs Immat Gran (auto) Absolute Neuts (auto) Absolute Nucleated RBC Nucleated RBC % (auto) Neutrophils % (Manual) Band Neutrophils % Lymphocytes % (Manual) Monocytes % (Manual) Metamyelocytes % Abs Neuts (Manual) Lymphocytes # (Manual) Monocytes # (Manual) Metamyelocytes # Toxic Granulation Toxic Vacuolation Dohle Bodies Platelet Estimate Plt Morphology Comment RBC Morphology [place] Cells VBG pH VBG pCO2 VBG pO2 VBG HCO3 VBG O2 Saturation VBG Base Excess Sodium 131 L Potassium 3.9 Chloride 95 L Carbon Dioxide 23 Anion Gap 17 BUN 39 H Creatinine 1.28 Estim Creat Clear Calc 66.1 Estimated GFR 58 POC Glucose 122 H Random Glucose 124 H Calcium 7.6 L D Phosphorus 3.1 Magnesium 1.6 Total Bilirubin 0.8 AST 420 H ALT 690 H Alkaline Phosphatase 73 Total Protein 4.3 L Albumin 2.6 L Microbiology Microbiology Results: Microbiology 11/10/22 01:16 Blood - Venous Blood Culture - Preliminary No growth after 48 hours. 11/10/22 01:16 Blood - Venous Blood Culture - Preliminary Prelim: GPC Gram Stain only Procedures Date of Service Date of Service: 11/12/22 Assessment & Plan Assessment and plan (1) MELY (acute kidney injury): Status: Acute (2) Hyperkalemia: Status: Acute (3) Hyponatremia: Status: Acute (4) Metabolic acidosis: Status: Acute Plan MELY probably due to renal hypoperfusion / acute tubular injury No obstruction hypovolemic hyponatremia elevated serum potassium due to compromised distal flow unknown baseline kidney function REC Renal function is improving with hydration Keep I > O and SBP > 100 Potassium normalized Keep hypotonic fluid restriction and goal pNa> 130 Time Spent With Patient Time: Total time managing care of this patient today ____ minutes. Progress Note: Quality Stroke Does the patient have a stroke diagnosis?: No
--- NOTE | 2022-11-12 10:06 | PM.CCPN ---
Subjective Subjective Date of Service: 11/12/22 Interval History: 57-year-old gentleman with underlying history of hypothyroidism, hypertension, bipolar/schizoaffective disorder, seizure disorder, resident of [facility], bed-bound admitted on 11/10/2022 with a weakness seizure and abdominal distension. On ER evaluation patient hypotensive with CT abdomen suggestive of small-bowel obstruction. Patient initially treated conservatively with gastric decompression and IV fluids and admitted to general medical mckeon. Overnight 11/11/2022 with development of worsening hypotension associated with fluid shifts requiring starting on vasopressor support, transferred to intensive care unit, and intubation. The re-evaluated by General surgery and taking to or for explorative laparotomy with finding of patchy necrotic small-bowel, now postop day 1 after small-bowel resection with primary anastomosis. No events overnight. Pressor requirements improving. Renal function improving. Extubated uneventfully this a.m.. Critical Care Time (minutes): 45 Physical Exam Vital Signs: Vital Signs: Last Vital Signs Temp 101.1 F H 11/12/22 09:00 Pulse 123 H 11/12/22 10:00 Resp 122 H 11/12/22 10:00 BP 121/63 11/12/22 10:00 Pulse Ox 94 11/12/22 10:00 O2 Del Method 11/12/22 10:00 O2 Flow Rate 1 11/12/22 10:00 FiO2 30 11/12/22 09:00 BMI result Body Mass Index 29.0 Const: General: no acute distress and lethargic (arousable and follows commands) Orientation/consciousness: lethargic (arousable and follows commands) Eyes: Sclerae: sclerae normal EOM: EOMs intact bilaterally Neck: Neck: Yes no lymphadenopathy, Yes trachea midline and Yes supple Resp: Effort & Inspection: normal respiratory effort and no respiratory distress Auscultation: clear to auscultation bilaterally Cardio: Rate: tachycardic Rhythm: regular rhythm Heart sounds: no gallops, no murmurs and no rubs GI: Palpation (GI): Soft to palpation and Other GI palpation findings present ( Surgical incision with dressing, no hematoma) Auscultation: Hypoactive bowel sounds present Extrem: General: Yes no pedal edema, No clubbing and No cyanosis Objective Data Labs 11/12/22 04:55 11/12/22 04:55 Labs: Laboratory Results - last 24 hr 11/11/22 11/11/22 11/11/22 11:40 13:10 13:13 WBC 7.4 RBC 4.50 L Hgb 13.3 L Hct 36.7 L MCV 81.6 MCH 29.6 MCHC 36.2 H RDW 12.4 Plt Count 249 MPV 10.4 Immature Gran % (Auto) Cancelled Neut % (Auto) Cancelled Lymph % (Auto) Cancelled [place] % (Auto) Cancelled Eos % (Auto) Cancelled Baso % (Auto) Cancelled Lymph # (Auto) Cancelled [place] # (Auto) Cancelled Eos # (Auto) Cancelled Baso # (Auto) Cancelled Abs Immat Gran (auto) Cancelled Absolute Neuts (auto) Cancelled Absolute Nucleated RBC 0.000 Nucleated RBC % (auto) 0.0 Neutrophils % (Manual) 39 L Band Neutrophils % 37 H Lymphocytes % (Manual) 17 L Monocytes % (Manual) 6 Metamyelocytes % 1 Abs Neuts (Manual) 5.6 Lymphocytes # (Manual) 1.3 Monocytes # (Manual) 0.4 Metamyelocytes # 0.1 Toxic Granulation Toxic Vacuolation PRESENT Dohle Bodies PRESENT Platelet Estimate NORMAL Plt Morphology Comment NORMAL RBC Morphology NOTED [place] Cells 3+ (>5) VBG pH 7.35 VBG pCO2 33 VBG pO2 45 VBG HCO3 19 L VBG O2 Saturation 71.0 VBG Base Excess -5.5 Sodium Potassium Chloride Carbon Dioxide Anion Gap BUN Creatinine Estim Creat Clear Calc Estimated GFR POC Glucose 82 Random Glucose Calcium Phosphorus Magnesium Total Bilirubin AST ALT Alkaline Phosphatase Total Protein Albumin 11/11/22 11/11/22 11/11/22 13:13 17:21 17:23 WBC RBC Hgb Hct MCV MCH MCHC RDW Plt Count MPV Immature Gran % (Auto) Neut % (Auto) Lymph % (Auto) [place] % (Auto) Eos % (Auto) Baso % (Auto) Lymph # (Auto) [place] # (Auto) Eos # (Auto) Baso # (Auto) Abs Immat Gran (auto) Absolute Neuts (auto) Absolute Nucleated RBC Nucleated RBC % (auto) Neutrophils % (Manual) Band Neutrophils % Lymphocytes % (Manual) Monocytes % (Manual) Metamyelocytes % Abs Neuts (Manual) Lymphocytes # (Manual) Monocytes # (Manual) Metamyelocytes # Toxic Granulation Toxic Vacuolation Dohle Bodies Platelet Estimate Plt Morphology Comment RBC Morphology [place] Cells VBG pH VBG pCO2 VBG pO2 VBG HCO3 VBG O2 Saturation VBG Base Excess Sodium 131 L Potassium 4.1 Chloride 97 Carbon Dioxide 20 L Anion Gap 18 BUN 43 H Creatinine 1.83 H Estim Creat Clear Calc 46.2 Estimated GFR 38 POC Glucose 36 L* 43 L* Random Glucose 134 H Calcium 7.6 L D Phosphorus 5.1 H Magnesium 1.6 Total Bilirubin 0.7 AST 932 H ALT 962 H Alkaline Phosphatase 68 Total Protein 4.2 L Albumin 2.6 L 11/11/22 11/11/22 11/11/22 17:41 17:43 18:00 WBC RBC Hgb Hct MCV MCH MCHC RDW Plt Count MPV Immature Gran % (Auto) Neut % (Auto) Lymph % (Auto) [place] % (Auto) Eos % (Auto) Baso % (Auto) Lymph # (Auto) [place] # (Auto) Eos # (Auto) Baso # (Auto) Abs Immat Gran (auto) Absolute Neuts (auto) Absolute Nucleated RBC Nucleated RBC % (auto) Neutrophils % (Manual) Band Neutrophils % Lymphocytes % (Manual) Monocytes % (Manual) Metamyelocytes % Abs Neuts (Manual) Lymphocytes # (Manual) Monocytes # (Manual) Metamyelocytes # Toxic Granulation Toxic Vacuolation Dohle Bodies Platelet Estimate Plt Morphology Comment RBC Morphology [place] Cells VBG pH VBG pCO2 VBG pO2 VBG HCO3 VBG O2 Saturation VBG Base Excess Sodium 129 L Potassium 4.0 Chloride 98 Carbon Dioxide 16 L Anion Gap 19 BUN 44 H Creatinine 1.84 H Estim Creat Clear Calc 46.0 Estimated GFR 38 POC Glucose 25 L* 52 L* Random Glucose 441 H* Calcium 7.0 L D Phosphorus Magnesium Total Bilirubin AST ALT Alkaline Phosphatase Total Protein Albumin 11/11/22 11/11/22 11/12/22 18:24 23:47 01:42 WBC RBC Hgb Hct MCV MCH MCHC RDW Plt Count MPV Immature Gran % (Auto) Neut % (Auto) Lymph % (Auto) [place] % (Auto) Eos % (Auto) Baso % (Auto) Lymph # (Auto) [place] # (Auto) Eos # (Auto) Baso # (Auto) Abs Immat Gran (auto) Absolute Neuts (auto) Absolute Nucleated RBC Nucleated RBC % (auto) Neutrophils % (Manual) Band Neutrophils % Lymphocytes % (Manual) Monocytes % (Manual) Metamyelocytes % Abs Neuts (Manual) Lymphocytes # (Manual) Monocytes # (Manual) Metamyelocytes # Toxic Granulation Toxic Vacuolation Dohle Bodies Platelet Estimate Plt Morphology Comment RBC Morphology [place] Cells VBG pH VBG pCO2 VBG pO2 VBG HCO3 VBG O2 Saturation VBG Base Excess Sodium Potassium Chloride Carbon Dioxide Anion Gap BUN Creatinine Estim Creat Clear Calc Estimated GFR POC Glucose 206 H 127 H 157 H Random Glucose Calcium Phosphorus Magnesium Total Bilirubin AST ALT Alkaline Phosphatase Total Protein Albumin 11/12/22 11/12/22 11/12/22 04:54 04:55 04:55 WBC 12.1 H RBC 4.09 L Hgb 12.0 L Hct 33.6 L MCV 82.2 MCH 29.3 MCHC 35.7 RDW 12.5 Plt Count 226 MPV 10.4 Immature Gran % (Auto) Cancelled Neut % (Auto) Cancelled Lymph % (Auto) Cancelled [place] % (Auto) Cancelled Eos % (Auto) Cancelled Baso % (Auto) Cancelled Lymph # (Auto) Cancelled [place] # (Auto) Cancelled Eos # (Auto) Cancelled Baso # (Auto) Cancelled Abs Immat Gran (auto) Cancelled Absolute Neuts (auto) Cancelled Absolute Nucleated RBC 0.000 Nucleated RBC % (auto) 0.0 Neutrophils % (Manual) 44 L Band Neutrophils % 48 H Lymphocytes % (Manual) 5 L Monocytes % (Manual) 2 Metamyelocytes % 1 Abs Neuts (Manual) 11.1 H Lymphocytes # (Manual) 0.6 L Monocytes # (Manual) 0.2 Metamyelocytes # 0.1 Toxic Granulation PRESENT Toxic Vacuolation PRESENT Dohle Bodies PRESENT Platelet Estimate NORMAL Plt Morphology Comment NORMAL RBC Morphology NOTED [place] Cells 3+ (>5) VBG pH 7.44 H VBG pCO2 32 VBG pO2 40 VBG HCO3 22 VBG O2 Saturation 66.0 VBG Base Excess -0.6 Sodium Potassium Chloride Carbon Dioxide Anion Gap BUN Creatinine Cancelled Estim Creat Clear Calc Cancelled Estimated GFR Cancelled POC Glucose Random Glucose Calcium Phosphorus Magnesium Total Bilirubin AST ALT Alkaline Phosphatase Total Protein Albumin 11/12/22 11/12/22 04:55 05:37 WBC RBC Hgb Hct MCV MCH MCHC RDW Plt Count MPV Immature Gran % (Auto) Neut % (Auto) Lymph % (Auto) [place] % (Auto) Eos % (Auto) Baso % (Auto) Lymph # (Auto) [place] # (Auto) Eos # (Auto) Baso # (Auto) Abs Immat Gran (auto) Absolute Neuts (auto) Absolute Nucleated RBC Nucleated RBC % (auto) Neutrophils % (Manual) Band Neutrophils % Lymphocytes % (Manual) Monocytes % (Manual) Metamyelocytes % Abs Neuts (Manual) Lymphocytes # (Manual) Monocytes # (Manual) Metamyelocytes # Toxic Granulation Toxic Vacuolation Dohle Bodies Platelet Estimate Plt Morphology Comment RBC Morphology [place] Cells VBG pH VBG pCO2 VBG pO2 VBG HCO3 VBG O2 Saturation VBG Base Excess Sodium 131 L Potassium 3.9 Chloride 95 L Carbon Dioxide 23 Anion Gap 17 BUN 39 H Creatinine 1.28 Estim Creat Clear Calc 66.1 Estimated GFR 58 POC Glucose 122 H Random Glucose 124 H Calcium 7.6 L D Phosphorus 3.1 Magnesium 1.6 Total Bilirubin 0.8 AST 420 H ALT 690 H Alkaline Phosphatase 73 Total Protein 4.3 L Albumin 2.6 L Microbiology Microbiology Results: Microbiology 11/10/22 01:16 Blood - Venous Blood Culture - Preliminary No growth after 48 hours. 11/10/22 01:16 Blood - Venous Blood Culture - Preliminary Prelim: GPC Gram Stain only Progress Note: A&P Assessment and plan (1) Seizure disorder: Status: Acute (2) Hypothyroidism: Status: Acute (3) Schizoaffective disorder: Status: Acute (4) Bipolar disorder: Status: Acute (5) Acute respiratory failure with hypoxia: Status: Acute (6) Ischemic necrosis of small bowel: Status: Acute Plan Assessment: 57-year-old gentleman with underlying bipolar, schizoaffective, seizure disorder, resident of [facility] admitted with seizure and small-bowel obstruction, now status post surgical exploration with resection of necrotic bowel Plan: Neuro: No acute issues. Underlying history of seizure disorder. Continue on Keppra. Cardiac: Hypotension likely secondary to fluid shifts with small-bowel obstruction, improving. Continue to titrate off vasopressor support as tolerated. Underlying history of congestive heart failure. Pulmonary: Acute hypoxic respiratory failure secondary to small-bowel obstruction with likely aspiration component briefly requiring ventilatory support. Extubated this a.m.. Continue to titrate off supplemental oxygen as tolerated. Renal: Acute renal failure secondary to intravascular volume depletion, improving. Nephrology service care appreciated. Non oliguric. Continue IV fluid support. Continue to monitor renal indices and urine output. Endo: No acute issues. GI: Small-bowel obstruction with development of ischemic necrosis. Status post exploratory laparotomy with resection of necrotic bowel. General surgery service care appreciated. NGT to intermittent suction. ID: Empirically covered with broad-spectrum antibiotics. Heme/Onc: No acute issues. Psych: Underlying history of bipolar disorder and schizoaffective disorder. Will start on Lamictal after return of bowel function. Miscellaneous: No acute issues. Prophylaxis: Heparin Diet: NPO Critical care time spent: 45 minutes Quality Stroke Does the patient have a stroke diagnosis?: No VTE Prior VTE?: No VTE Risk Level:: Medical - moderate - high VTE Device Contraindication: Treatment Not Indicated VTE Drug Contraindication: N/A - Med Ordered
--- NOTE | 2022-11-12 10:21 | MHC.CM.PN ---
Patient remains intubated/vented in ICU. Per Dr Hernandez, extubation will be attempted today. 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 Anticipate patient will return when medically stable via BLS. Continue to monitor for d/c needs.
[2022-11-12] MEDS: Acetaminophen 1,000 MG/100 ML PIGGYBACK 400 MG IV (10:23)
[2022-11-12] MEDS: Heparin Sodium,Porcine 5,000 UNIT/ML VIAL 5000 UNIT SUBCUT ×2 (10:24→17:43)
[2022-11-12 11:33] LABS: Glucose, Whole Blood 119 mg/dL (60-115)
[2022-11-12] MEDS: Norepinephrine Bitartrate/D5W 8 MG/250 ML PLAST..BAG 30.39 MG IVCONT (12:00)
--- NOTE | 2022-11-12 13:19 | HO.POSTANES ---
Post Anesthesia Evaluation Post Anesthesia Evaluation Vital Signs: Vital Signs Temp Pulse Resp BP Pulse Ox O2 Del Method O2 Flow Rate 11/12/22 12:57 119 H 113/62 11/12/22 12:31 118 H 113/62 11/12/22 12:17 122 H 122/64 11/12/22 12:05 20 11/12/22 12:00 117 H 122/63 11/12/22 12:00 117 H 122/63 11/12/22 11:28 116 H 119/66 11/12/22 10:37 120 H 120/63 11/12/22 09:39 126 H 122/62 11/12/22 09:00 11/12/22 09:11 121 H 111/66 11/12/22 09:00 11/12/22 09:01 33 H 11/12/22 08:27 118 H 100/59 L 11/12/22 08:08 121 H 111/63 11/12/22 07:39 11/12/22 07:17 11/12/22 13:00 118 H 29 H 101/59 L 95 Nasal Cannula 2 11/12/22 12:00 121 H 26 H 122/63 97 Room Air 11/12/22 11:00 98.5 F 119 H 30 H 104/58 L 94 Room Air 11/12/22 10:00 123 H 122 H 121/63 94 Nasal Cannula 1 11/12/22 09:00 101.1 F H 120 H 20 111/66 99 Mechanical Ventilation 11/12/22 08:00 101.5 F H 119 H 20 101/58 L 96 Mechanical Ventilation 11/12/22 07:00 101.5 F H 126 H 25 H 103/62 99 Mechanical Ventilation 11/12/22 06:38 120 H 105/64 11/12/22 06:38 120 H 105/64 11/12/22 06:36 123 H 11/12/22 06:36 123 H 11/12/22 04:12 11/12/22 04:00 11/12/22 03:38 130 H 11/12/22 02:38 129 H 123/72 11/12/22 02:38 129 H 123/72 11/12/22 06:00 102.2 F H 125 H 23 H 108/64 99 Mechanical Ventilation 11/12/22 05:00 131 H 24 H 111/65 99 Mechanical Ventilation 11/12/22 03:58 101.2 F H 129 H 22 H 120/67 98 Mechanical Ventilation 11/12/22 02:57 128 H 24 H 95/57 L 97 Mechanical Ventilation 11/12/22 02:00 100.8 F H 126 H 22 H 118/67 97 Mechanical Ventilation FiO2 11/12/22 12:57 11/12/22 12:31 11/12/22 12:17 11/12/22 12:05 11/12/22 12:00 11/12/22 12:00 11/12/22 11:28 11/12/22 10:37 11/12/22 09:39 11/12/22 09:00 30 11/12/22 09:11 11/12/22 09:00 30 11/12/22 09:01 11/12/22 08:27 11/12/22 08:08 11/12/22 07:39 30 11/12/22 07:17 30 11/12/22 13:00 11/12/22 12:00 11/12/22 11:00 11/12/22 10:00 11/12/22 09:00 30 11/12/22 08:00 30 11/12/22 07:00 30 11/12/22 06:38 11/12/22 06:38 11/12/22 06:36 11/12/22 06:36 11/12/22 04:12 30 11/12/22 04:00 30 11/12/22 03:38 11/12/22 02:38 11/12/22 02:38 11/12/22 06:00 11/12/22 05:00 11/12/22 03:58 30 11/12/22 02:57 30 11/12/22 02:00 30 Anesthesia: General Endotracheal-GETA Mental Status: Awake Pain Control: Satisfactory Nausea/Vomiting: None Hydration: Adequate Anesthesia-Related Issues: No Anes. Related Issues Comments: patient was extubated earlier this morning
[2022-11-12] MEDS: Haloperidol Lactate 5 MG/ML VIAL IVPUSH (16:51)
[2022-11-12] MEDS: dexmedeTOMIDidine HCL/NS 400 MCG/100 ML INFUS..BTL 23.63 MCG IVCONT ×3 (17:24→23:39)
[2022-11-12 17:44] LABS: Glucose, Whole Blood 102 mg/dL (60-115)
--- NOTE | 2022-11-12 18:02 | PC.NURSE ---
Patient extubated at 0925 without complication - awake, following commands and tolerating PSV 5/5. Patient extubated to 1-2L NC maintaining sats >90%. Patient a&ox1, following commands, pulling an lines and tubes. Levophed titrated off per EMAR. Patient becoming increasingly agitated - patient pulled NGT out - MD aware. Precedex gtt started with good effect. MAP down to 52 and levophed gtt restarted. Allred removed and patient unable to urinate - BS 909cc - MD notified and straight grace ordered - 650 cc removed.
[2022-11-12 23:33] LABS: Glucose, Whole Blood 108 mg/dL (60-115)
[2022-11-13] VITALS (37 sets, daily range): BP systolic 81–173; BP diastolic 44–89; PULSE 84–139; RESP 19–42; TEMP 36.8–38.4; O2SAT 90–100; BMI 27.4
[2022-11-13] MEDS: Piperacillin Sodium/Tazobactam 3.375 GM in 0.9 % Sodium Chloride 50 ML IV ×3 (00:07→11:46)
[2022-11-13] MEDS: Norepinephrine Bitartrate/D5W 8 MG/250 ML PLAST..BAG 17.59 MG IVCONT (02:22)
[2022-11-13] MEDS: Heparin Sodium,Porcine 5,000 UNIT/ML VIAL 5000 UNIT SUBCUT ×3 (02:25→17:21)
[2022-11-13] MEDS: dexmedeTOMIDidine HCL/NS 400 MCG/100 ML INFUS..BTL 28.35 MCG IVCONT (02:30)
--- NOTE | 2022-11-13 02:46 | PC.NURSE ---
Addendum entered by Ryder Mcdonough RN 11/13/22 04:35: BLADDER SCANNED 0300 FOR 453ML---BLADDER SCANNED 0400 FOR 510ML...ICU SPA ASSISTANT MANAGER UPDATED...#16FR SHANNON INSERTED WITH 500ML DEEP YELLOW URINE OBTAINED Original Note: CARE ASSUMED 23:15...INITIALLY RESTFUL WITH PRECIDEX 1.0 MCG/KG/HR...RESPIRATIONS EASY WITH O2 2 L/M CANNULA...BLADDER SCANNED 672ml 23:30.....ICU SPA ASSISTANT MANAGER AWARE..STRAIGHT CATH'D PER SPA ASSISTANT MANAGER...INCONTINANT MODERATE AMOUNT STRAIGHT CATHETER INSERTED WITH ADDITIONAL 400ml RAFA URINE OBTAINED....AGITATED...YELLING FUCK YOU ... GIVE ME A DRINK OF WATER ...ATTEMPTING TO STRIKE STAFF WITH FIST...PRECIDEX TITRATED TO 1.5 THE NDOWN TO 1.2 MCG/KG/HR WITH RESTFUL EFFECT...NSR..NO ECTOPY...LEVOPHED DRIP PER DEC..CURRENTLY DOZING..RR 20-22...SAO2 98% WITH O2 2 L/M
[2022-11-13 05:04] LABS: VBG Base Excess 5.2 mmol/L; VBG HCO3 29 mmol/L (22-26); VBG pCO2 39 mmHg; VBG pH 7.47 (7.32-7.43); VBG pO2 45 mmHg
[2022-11-13 05:07] LABS: MANUAL DIFF FLAG NO
[2022-11-13 05:12] LABS: Basophils Percent Auto 0.4 % (0-2); Eosinophils Percent Auto 0.3 % (0-4); Hematocrit 24.1 % (42.0-52.0); Hemoglobin 8.6 g/dl (14.0-18.0); Imm Gran Pct Auto 2.6 % (0.0-0.4); Lymphocytes Absolute Auto 0.8 X10*3/uL (1.2-4.9); Lymphocytes Percent Auto 10.1 % (20-40); Mean Corpuscular HGB Conc 35.7 g/dl (31.0-36.0); Mean Corpuscular Hemoglobin 29.5 pg (27.0-33.0); Mean Corpuscular Volume 82.5 fL (80.0-98.0); Mean Platelet Volume 9.3 fL (9.4-12.4); Monocytes Absolute Auto 0.6 X10*3/uL (0.1-1.2); Monocytes Percent Auto 7.2 % (2-11); Neutrophils Absolute Auto 6.2 x10*3/uL (2.0-8.3); Neutrophils Percent Auto 79.4 % (45-73); Platelet Count 137 X10*3/uL (160-400); Red Blood Count 2.92 X10*6/uL (4.60-5.80); Red Cell Distribution Width 12.2 % (11.0-16.0); White Blood Count 7.8 X10*3/uL (4.8-10.8)
[2022-11-13 05:34] LABS: Venous Blood Gas Refer to POC result
[2022-11-13 05:42] LABS: Anion Gap 13 (12-20); Blood Urea Nitrogen 22 mg/dL (9-16); Calcium 8.1 mg/dL (8.4-10.2); Carbon Dioxide 27 mmol/L (22-29); Chloride 101 mmol/L (96-108); Estimated Glomerular Filt Rate > 60; Glucose Random 111 mg/dL (60-115); Magnesium 1.8 mg/dL (1.6-2.6); Phosphorus 1.3 mg/dL (2.7-4.5); Potassium 3.8 mmol/L (3.3-5.1); Sodium 137 mmol/L (135-145)
[2022-11-13 05:55] LABS: Glucose, Whole Blood 111 mg/dL (60-115)
[2022-11-13] MEDS: dexmedeTOMIDidine HCL/NS 400 MCG/100 ML INFUS..BTL 33.08 MCG IVCONT (06:00)
[2022-11-13] MEDS: vancomycin HCL 1,000 MG in 0.9 % Sodium Chloride 250 ML 270 MG IV (06:08)
[2022-11-13] MEDS: Potassium Phosphate/NS 15 MMOL/250 ML PLAST..BAG 62.5 MMOL IV (06:26)
[2022-11-13] MEDS: fentaNYL citrate/PF 100 MCG/2 ML VIAL IVPUSH ×4 (06:36→21:29)
[2022-11-13] MEDS: levETIRAcetam in NaCl (iso-os) 1,000 MG/100 ML PIGGYBACK 400 MG IV ×2 (07:17→21:02)
--- NOTE | 2022-11-13 07:39 | HE.PHANOTE ---
Vancomycin Dosing Patient most likely will be subtherapeutic right now due to large improvement in renal function. Will adjust dose to vancomycin 1000 mg Q12H. Level schedule to be drawn tonight to confirm patient level prior to initiating Q12H dosing 11/13 @ 1700. Erin Guzman, ChasityD
[2022-11-13] MEDS: propofoL 200 MG/20 ML VIAL 50 MG IVPUSH ×2 (08:03→17:05)
--- NOTE | 2022-11-13 08:18 | PC.NURSE ---
Addendum entered by Martina Ibanez RN 11/13/22 17:24: Patient continued to be agitated - Valium 5mg IVP administered x2 w/ minimal effect, precedex gtt titrated off, Benadryl 50mg IVP administered with moderate effect. Levophed gtt titrated off and MAP maintaining >65. 1700 - Patient combative with staff, ripping wires off, unable to redirect, attempting to get OOB despite continued wrist restraints. Valium 5mg IVP administered w/o effect. Propofol 50mg IV administered by provider. Patient resting with eyes closed and occasionally moaning. HR maintaining 120-140's sinus, O2 sat >90% on 3L NC, BP 143/73, RR 30-40's, temp 101.1 - MD notified. Abdominal incision mag intact. Original Note: Patient experiencing worsening agitation, appears panicked/paranoid, hitting staff, throwing self oob, pulling at lines/tubes, unable to redirect. Precedex gtt maxed, bilateral wrist restraints applied - MD notified - okay to administer additional dose of Fentanyl 100mcg IVP per MD. Patient continued to escalate - MD at bedside - Propofol 50mg IVP administered by MD with good effect. Patient calm, resting with eyes closed. VSS - HR 96, RR 25, BP 117/71 w/ levophed support, 98% on 5L NC.
--- NOTE | 2022-11-13 08:46 | P.PNGS_ITS ---
Subjective Subjective Date of Service: 11/13/22 <Sofi Mitchell PA-C - Last Filed: 11/13/22 08:50> 11/13/22 <George Moses MD - Last Filed: 11/13/22 08:52> Interval history: Was extubated yesterday. Was off pressors but was started on precedex and became hypotensive and therefore they had to be restarted. Has become aggressive and violent towards staff. Pulled NGT out. <Sofi Mitchell PA-C - Last Filed: 11/13/22 08:50> Physical Exam Vital Signs: Vital Signs: Last Vital Signs Temp 99.9 F 11/13/22 08:00 Pulse 99 11/13/22 08:16 Resp 38 H 11/13/22 08:03 BP 85/44 L 11/13/22 08:16 Pulse Ox 96 11/13/22 08:00 O2 Del Method 11/13/22 08:00 O2 Flow Rate 5 11/13/22 08:00 FiO2 30 11/12/22 09:00 BMI result Body Mass Index 27.4 <Sofi Mitchell PA-C - Last Filed: 11/13/22 08:50> Const: General: comfortable and no acute distress <MARIVEL Arce Last Filed: 11/13/22 08:50> Resp: Effort & Inspection: normal respiratory effort <Sofi Mitchell PA-C - Last Filed: 11/13/22 08:50> GI: Inspection: No distended and Yes incision (clean, mag intact, no erythema) <Sofi Mitchell PA-C - Last Filed: 11/13/22 08:50> Palpation (GI): Soft to palpation, Tenderness to palpation present (GI) (mild), no guarding and not rigid <CAROLA Arce Last Filed: 11/13/22 08:50> Skin: General skin exam: no rashes or lesions noted <CAROLA Arce Last Filed: 11/13/22 08:50> Objective Data Active Medications Dextrose (Dextrose 50 % 25 Gm/50 Ml Syringe) 25 gm IVPUSH Q15M PRN; Protocol PRN Reason: per Hypoglycemia Standing Ord. Last Admin: 11/11/22 17:45 Dose: 25 gm Documented By: SOLEDAD Diazepam (Diazepam 10 Mg/2 Ml Cartridge) 5 mg IVPUSH Q6H PRN PRN Reason: Anxiety Fentanyl (Fentanyl Citrate/Pf 100 Mcg/2 Ml Vial) 100 mcg IVPUSH Q2H PRN; Protocol PRN Reason: Pain, Moderate (Pain Scale 4-6 Last Admin: 11/13/22 07:58 Dose: 100 mcg Documented By: SOLEDAD Comments: okay to give now per Glucose (Glucose Gel 15 Gm Gel..Gram.) 15 gm PO Q15M PRN; Protocol PRN Reason: per Hypoglycemia Standing Ord. Haloperidol Decanoate (Haloperidol Decanoate 50 Mg/Ml Ampul) 100 mg IM Q14D ESPINOZA Heparin Sodium (Porcine) (Heparin Sodium,Porcine 5,000 Unit/Ml Vial) 5,000 unit SUBCUT Q8H ESPINOZA Last Admin: 11/13/22 02:25 Dose: 5,000 unit Documented By: ARNOLDO Norepinephrine Bitartrate (Levophed) 8 mg in 250 mls @ 0 mls/hr IVCONT .Q0M ESPINOZA; Protocol Last Titration: 11/13/22 08:16 Dose: 0.05 mcg/kg/min, 8 mls/hr Documented By: SOLEDAD Piperacillin Sod/Tazobactam (Sod 3.375 gm/ Sodium Chloride) 50 mls @ 100 mls/hr IV Q6H ESPINOZA Last Infusion: 11/13/22 06:07 Dose: 0 mls/hr Documented By: ARNOLDO Levetiracetam (Keppra) 1,000 mg in 100 mls @ 400 mls/hr IV Q12H ESPINOZA Last Infusion: 11/13/22 07:36 Dose: 0 mls/hr Documented By: SOLEDAD Dexmedetomidine HCl (Precedex) 400 mcg in 100 mls @ 0 mls/hr IVCONT .Q0M ESPINOZA; Protocol Last Admin: 11/13/22 06:00 Dose: 1.4 mcg/kg/hr, 33.08 mls/hr Documented By: ARNOLDO Potassium Phosphate (Kphos) 15 mmol in 250 mls @ 62.5 mls/hr IV ONCE ONE Stop: 11/13/22 09:55 Last Admin: 11/13/22 06:26 Dose: 62.5 mls/hr Documented By: ARNOLDO Vancomycin HCl 1,000 mg/ (Sodium Chloride) 270 mls @ 270 mls/hr IV Q12H ESPINOZA Insulin Human Lispro (Insulin Lispro 100 Unit/Ml 3 Ml Vial) 0 unit SUBCUT Q6H ESPINOZA; Protocol Last Admin: 11/13/22 06:11 Dose: Not Given Documented By: ARNOLDO Non-Admin Reason: No Insulin Coverage Pharmacy Consult (Consult Rx Vancomycin Dosing) 1 each MISCELLANE DAILY PRN PRN Reason: Consult order <Sofi Mitchell PA-C - Last Filed: 11/13/22 08:50> Labs CBC & Chem 7: 11/13/22 05:00 11/13/22 05:00 <Sofi Mitchell PA-C - Last Filed: 11/13/22 08:50> Labs: Laboratory Results - last 24 hr 11/12/22 11/12/22 11/12/22 11:29 17:33 23:19 MCV MCH MCHC RDW Plt Count MPV Immature Gran % (Auto) Neut % (Auto) Lymph % (Auto) [place] % (Auto) Eos % (Auto) Baso % (Auto) Lymph # (Auto) [place] # (Auto) Eos # (Auto) Baso # (Auto) Abs Immat Gran (auto) Absolute Neuts (auto) Absolute Nucleated RBC Nucleated RBC % (auto) VBG pH VBG pCO2 VBG pO2 VBG HCO3 VBG O2 Saturation VBG Base Excess Anion Gap Estim Creat Clear Calc Estimated GFR POC Glucose 119 H 102 108 Random Glucose Calcium Phosphorus Magnesium Albumin 11/13/22 11/13/22 11/13/22 04:56 05:00 05:00 MCV 82.5 MCH 29.5 MCHC 35.7 RDW 12.2 Plt Count 137 L D MPV 9.3 L Immature Gran % (Auto) 2.6 H Neut % (Auto) 79.4 H Lymph % (Auto) 10.1 L [place] % (Auto) 7.2 Eos % (Auto) 0.3 Baso % (Auto) 0.4 Lymph # (Auto) 0.8 L [place] # (Auto) 0.6 Eos # (Auto) 0.0 Baso # (Auto) 0.0 Abs Immat Gran (auto) 0.20 H Absolute Neuts (auto) 6.2 Absolute Nucleated RBC 0.000 Nucleated RBC % (auto) 0.0 VBG pH 7.47 H VBG pCO2 39 VBG pO2 45 VBG HCO3 29 H VBG O2 Saturation 76.0 VBG Base Excess 5.2 Anion Gap Estim Creat Clear Calc Cancelled Estimated GFR Cancelled POC Glucose Random Glucose Calcium Phosphorus Magnesium Albumin 11/13/22 11/13/22 05:00 05:51 MCV MCH MCHC RDW Plt Count MPV Immature Gran % (Auto) Neut % (Auto) Lymph % (Auto) [place] % (Auto) Eos % (Auto) Baso % (Auto) Lymph # (Auto) [place] # (Auto) Eos # (Auto) Baso # (Auto) Abs Immat Gran (auto) Absolute Neuts (auto) Absolute Nucleated RBC Nucleated RBC % (auto) VBG pH VBG pCO2 VBG pO2 VBG HCO3 VBG O2 Saturation VBG Base Excess Anion Gap 13 Estim Creat Clear Calc 110.0 Estimated GFR > 60 POC Glucose 111 Random Glucose 111 Calcium 8.1 L D Phosphorus 1.3 L Magnesium 1.8 Albumin 3.0 L <CAROLA Arce Last Filed: 11/13/22 08:50> Microbiology Microbiology Results: Microbiology 11/10/22 01:16 Blood Culture - Final Blood - Venous Coag negative Staphylococcus <CAROLA Arce Last Filed: 11/13/22 08:50> Procedures Date of Service Date of Service: 11/13/22 <CAROLA Arce Last Filed: 11/13/22 08:50> Progress Note: A&P Assessment and plan (1) Ischemic necrosis of small bowel: Status: Acute <CAROLA Arce Last Filed: 11/13/22 08:50> Assessment and Plan: POD #2 s/p exploratory laparotomy, proximal small bowel resection for patchy necrotic bowel. No mechanical obstruction found. Abdomen soft, incision clean. Await GI function. Management per ICU team. <CAROLA Arce Last Filed: 11/13/22 08:50> Time Spent With Patient Time: Total time managing care of this patient today ____ minutes. <Sofi Mitchell PA-C - Last Filed: 11/13/22 08:50> Quality Stroke Does the patient have a stroke diagnosis?: No <Sofi Mitchell PA-C - Last Filed: 11/13/22 08:50> VTE Prior VTE?: No <Sofi Mitchell PA-C - Last Filed: 11/13/22 08:50> VTE Risk Level:: Medical - moderate - high <Sofi Mitchell PA-C - Last Filed: 11/13/22 08:50> VTE Device Contraindication: Treatment Not Indicated <Sofi Mitchell PA-C - Last Filed: 11/13/22 08:50> VTE Drug Contraindication: N/A - Med Ordered <Sofi Mitchell PA-C - Last Filed: 11/13/22 08:50>
--- NOTE | 2022-11-13 08:46 | P.PNGS_ITS ---
Subjective Subjective Date of Service: 11/13/22 Interval history: Extubated, weaning off pressors. Reported to be a occasionally aggressive. NG tube removed by patient Physical Exam Vital Signs: Vital Signs: Last Vital Signs Temp 99.9 F 11/13/22 08:00 Pulse 99 11/13/22 08:16 Resp 38 H 11/13/22 08:03 BP 85/44 L 11/13/22 08:16 Pulse Ox 96 11/13/22 08:00 O2 Del Method 11/13/22 08:00 O2 Flow Rate 5 11/13/22 08:00 FiO2 30 11/12/22 09:00 BMI result Body Mass Index 27.4 remains tachycardic; febrile, decreased O2 requirement, good sat Const: Other: sedated GI: Other: Midline incision dressing clean and intact without discharge; no erythema or rash; dressings removed, mag intact. Skin: Other: warm, dry, no rash Objective Data Active Medications Dextrose (Dextrose 50 % 25 Gm/50 Ml Syringe) 25 gm IVPUSH Q15M PRN; Protocol PRN Reason: per Hypoglycemia Standing Ord. Last Admin: 11/11/22 17:45 Dose: 25 gm Documented By: SOLEDAD Diazepam (Diazepam 10 Mg/2 Ml Cartridge) 5 mg IVPUSH Q6H PRN PRN Reason: Anxiety Fentanyl (Fentanyl Citrate/Pf 100 Mcg/2 Ml Vial) 100 mcg IVPUSH Q2H PRN; Protocol PRN Reason: Pain, Moderate (Pain Scale 4-6 Last Admin: 11/13/22 07:58 Dose: 100 mcg Documented By: SOLEDAD Comments: okay to give now per Glucose (Glucose Gel 15 Gm Gel..Gram.) 15 gm PO Q15M PRN; Protocol PRN Reason: per Hypoglycemia Standing Ord. Haloperidol Decanoate (Haloperidol Decanoate 50 Mg/Ml Ampul) 100 mg IM Q14D [facility] Heparin Sodium (Porcine) (Heparin Sodium,Porcine 5,000 Unit/Ml Vial) 5,000 unit SUBCUT Q8H [facility] Last Admin: 11/13/22 02:25 Dose: 5,000 unit Documented By: ARNOLDO Norepinephrine Bitartrate (Levophed) 8 mg in 250 mls @ 0 mls/hr IVCONT .Q0M [facility]; Protocol Last Titration: 11/13/22 08:16 Dose: 0.05 mcg/kg/min, 8 mls/hr Documented By: SOLEDAD Piperacillin Sod/Tazobactam (Sod 3.375 gm/ Sodium Chloride) 50 mls @ 100 mls/hr IV Q6H [facility] Last Infusion: 11/13/22 06:07 Dose: 0 mls/hr Documented By: ARNOLDO Levetiracetam (Keppra) 1,000 mg in 100 mls @ 400 mls/hr IV Q12H [facility] Last Infusion: 11/13/22 07:36 Dose: 0 mls/hr Documented By: SOLEDAD Dexmedetomidine HCl (Precedex) 400 mcg in 100 mls @ 0 mls/hr IVCONT .Q0M [facility]; Protocol Last Admin: 11/13/22 06:00 Dose: 1.4 mcg/kg/hr, 33.08 mls/hr Documented By: ARNOLDO Potassium Phosphate (Kphos) 15 mmol in 250 mls @ 62.5 mls/hr IV ONCE ONE Stop: 11/13/22 09:55 Last Admin: 11/13/22 06:26 Dose: 62.5 mls/hr Documented By: ARNOLDO Vancomycin HCl 1,000 mg/ (Sodium Chloride) 270 mls @ 270 mls/hr IV Q12H [facility] Insulin Human Lispro (Insulin Lispro 100 Unit/Ml 3 Ml Vial) 0 unit SUBCUT Q6H [facility]; Protocol Last Admin: 11/13/22 06:11 Dose: Not Given Documented By: ARNOLDO Non-Admin Reason: No Insulin Coverage Pharmacy Consult (Consult Rx Vancomycin Dosing) 1 each MISCELLANE DAILY PRN PRN Reason: Consult order Labs 11/13/22 05:00 11/13/22 05:00 Labs: Laboratory Results - last 24 hr 11/12/22 11/12/22 11/12/22 11:29 17:33 23:19 MCV MCH MCHC RDW Plt Count MPV Immature Gran % (Auto) Neut % (Auto) Lymph % (Auto) [place] % (Auto) Eos % (Auto) Baso % (Auto) Lymph # (Auto) [place] # (Auto) Eos # (Auto) Baso # (Auto) Abs Immat Gran (auto) Absolute Neuts (auto) Absolute Nucleated RBC Nucleated RBC % (auto) VBG pH VBG pCO2 VBG pO2 VBG HCO3 VBG O2 Saturation VBG Base Excess Anion Gap Estim Creat Clear Calc Estimated GFR POC Glucose 119 H 102 108 Random Glucose Calcium Phosphorus Magnesium Albumin 11/13/22 11/13/22 11/13/22 04:56 05:00 05:00 MCV 82.5 MCH 29.5 MCHC 35.7 RDW 12.2 Plt Count 137 L D MPV 9.3 L Immature Gran % (Auto) 2.6 H Neut % (Auto) 79.4 H Lymph % (Auto) 10.1 L [place] % (Auto) 7.2 Eos % (Auto) 0.3 Baso % (Auto) 0.4 Lymph # (Auto) 0.8 L [place] # (Auto) 0.6 Eos # (Auto) 0.0 Baso # (Auto) 0.0 Abs Immat Gran (auto) 0.20 H Absolute Neuts (auto) 6.2 Absolute Nucleated RBC 0.000 Nucleated RBC % (auto) 0.0 VBG pH 7.47 H VBG pCO2 39 VBG pO2 45 VBG HCO3 29 H VBG O2 Saturation 76.0 VBG Base Excess 5.2 Anion Gap Estim Creat Clear Calc Cancelled Estimated GFR Cancelled POC Glucose Random Glucose Calcium Phosphorus Magnesium Albumin 11/13/22 11/13/22 05:00 05:51 MCV MCH MCHC RDW Plt Count MPV Immature Gran % (Auto) Neut % (Auto) Lymph % (Auto) [place] % (Auto) Eos % (Auto) Baso % (Auto) Lymph # (Auto) [place] # (Auto) Eos # (Auto) Baso # (Auto) Abs Immat Gran (auto) Absolute Neuts (auto) Absolute Nucleated RBC Nucleated RBC % (auto) VBG pH VBG pCO2 VBG pO2 VBG HCO3 VBG O2 Saturation VBG Base Excess Anion Gap 13 Estim Creat Clear Calc 110.0 Estimated GFR > 60 POC Glucose 111 Random Glucose 111 Calcium 8.1 L D Phosphorus 1.3 L Magnesium 1.8 Albumin 3.0 L Microbiology Microbiology Results: Microbiology 11/10/22 01:16 Blood Culture - Final Blood - Venous Coag negative Staphylococcus Procedures Date of Service Date of Service: 11/13/22 Progress Note: A&P Assessment and plan (1) Seizure disorder: Status: Acute (2) Acute respiratory failure with hypoxia: Status: Acute (3) Ischemic necrosis of small bowel: Status: Acute (4) Schizoaffective disorder: Status: Acute Plan 57-year-old male patient presenting after seizure with abdominal distension found on CT to possible small-bowel obstruction. Patient became hypotensive with respiratory failure subsequently intubated and transferred to ICU. Patient noted to be acidotic and was subsequently taken to the OR for exploratory laparotomy. Operative exploration revealed patchy areas of bowel necrosis invol ving the proximal jejunum. Patient underwent small-bowel resection of 115 cm of proximal small bowel with a jejunojejunostomy just distal to the ligament of Treitz. Patient is making small improvement with some bowel sounds noted. Patient is now extubated and breathing comfortably. Incision is clean and intact without evidence of infection. BP occasionally dropping requiring Levophed. Continue management per ICU/hospitalist team. Time Spent With Patient Time: Total time managing care of this patient today ____ minutes. Quality Stroke Does the patient have a stroke diagnosis?: No VTE Prior VTE?: No VTE Risk Level:: Medical - moderate - high VTE Device Contraindication: Treatment Not Indicated VTE Drug Contraindication: N/A - Med Ordered
[2022-11-13] MEDS: dexmedeTOMIDidine HCL/NS 400 MCG/100 ML INFUS..BTL 35.44 MCG IVCONT (08:59)
[2022-11-13] MEDS: diazePAM 10 MG/2 ML CARTRIDGE 5 MG IVPUSH ×4 (09:00→23:32)
--- NOTE | 2022-11-13 09:52 | MHC.CLN ---
F/U PT EXTUBATED YESTERDAY DISCUSSED AT ROUNDS WITH PT CURRENTLY DAY 4 NPO PT PULLED OUT NGT FOLLOWING WITH TEAM
--- NOTE | 2022-11-13 09:59 | MHC.CM.PN ---
Patient remains in ICU. Currently on Levophed drip. Extubated 11/12. 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 Anticipate patient will return when medically stable via BLS. Continue to monitor for d/c needs.
[2022-11-13 11:38] LABS: Glucose, Whole Blood 89 mg/dL (60-115)
--- NOTE | 2022-11-13 12:28 | PM.CCPN ---
Subjective Subjective Date of Service: 11/13/22 Interval History: 57-year-old gentleman with underlying history of hypothyroidism, hypertension, bipolar/schizoaffective disorder, seizure disorder, resident of [facility], bed-bound admitted on 11/10/2022 with a weakness seizure and abdominal distension. On ER evaluation patient hypotensive with CT abdomen suggestive of small-bowel obstruction. Patient initially treated conservatively with gastric decompression and IV fluids and admitted to general medical mckeon. Overnight 11/11/2022 with development of worsening hypotension associated with fluid shifts requiring starting on vasopressor support, transferred to intensive care unit, and intubation. The re-evaluated by General surgery and taking to or for explorative laparotomy with finding of patchy necrotic small-bowel, now postop day 1 after small-bowel resection with primary anastomosis. Extubated 11/12/2022. Overnight with significant agitation requiring Precedex drip. Critical Care Time (minutes): 0 Physical Exam Vital Signs: Vital Signs: Last Vital Signs Temp 99.5 F 11/13/22 12:00 Pulse 103 H 11/13/22 12:00 Resp 31 H 11/13/22 12:00 BP 137/71 11/13/22 12:00 Pulse Ox 97 11/13/22 12:00 O2 Del Method 11/13/22 12:00 O2 Flow Rate 3 11/13/22 12:00 FiO2 30 11/12/22 09:00 BMI result Body Mass Index 27.4 Const: General: no acute distress, alert, awake and other (Intermittently agitated) Eyes: Sclerae: sclerae normal EOM: EOMs intact bilaterally Neck: Neck: Yes no lymphadenopathy, Yes trachea midline and Yes supple Resp: Effort & Inspection: normal respiratory effort and no respiratory distress Auscultation: clear to auscultation bilaterally Cardio: Rate: tachycardic Rhythm: regular rhythm Heart sounds: no gallops, no murmurs and no rubs GI: Inspection: Yes other (Surgical incision clean without hematoma) Palpation (GI): Soft to palpation and Other GI palpation findings present ( Nontender) Auscultation: Hypoactive bowel sounds present Extrem: General: No clubbing, No cyanosis and Yes edema (Trace bilateral) Objective Data Labs 11/13/22 05:00 11/13/22 05:00 Labs: Laboratory Results - last 24 hr 11/12/22 11/12/22 11/13/22 17:33 23:19 04:56 WBC RBC Hgb Hct MCV MCH MCHC RDW Plt Count MPV Immature Gran % (Auto) Neut % (Auto) Lymph % (Auto) [place] % (Auto) Eos % (Auto) Baso % (Auto) Lymph # (Auto) [place] # (Auto) Eos # (Auto) Baso # (Auto) Abs Immat Gran (auto) Absolute Neuts (auto) Absolute Nucleated RBC Nucleated RBC % (auto) VBG pH 7.47 H VBG pCO2 39 VBG pO2 45 VBG HCO3 29 H VBG O2 Saturation 76.0 VBG Base Excess 5.2 Sodium Potassium Chloride Carbon Dioxide Anion Gap BUN Creatinine Estim Creat Clear Calc Estimated GFR POC Glucose 102 108 Random Glucose Calcium Phosphorus Magnesium Albumin 11/13/22 11/13/22 11/13/22 05:00 05:00 05:00 WBC 7.8 RBC 2.92 L D Hgb 8.6 L D Hct 24.1 L D MCV 82.5 MCH 29.5 MCHC 35.7 RDW 12.2 Plt Count 137 L D MPV 9.3 L Immature Gran % (Auto) 2.6 H Neut % (Auto) 79.4 H Lymph % (Auto) 10.1 L [place] % (Auto) 7.2 Eos % (Auto) 0.3 Baso % (Auto) 0.4 Lymph # (Auto) 0.8 L [place] # (Auto) 0.6 Eos # (Auto) 0.0 Baso # (Auto) 0.0 Abs Immat Gran (auto) 0.20 H Absolute Neuts (auto) 6.2 Absolute Nucleated RBC 0.000 Nucleated RBC % (auto) 0.0 VBG pH VBG pCO2 VBG pO2 VBG HCO3 VBG O2 Saturation VBG Base Excess Sodium 137 Potassium 3.8 Chloride 101 Carbon Dioxide 27 Anion Gap 13 BUN 22 H Creatinine Cancelled 0.77 Estim Creat Clear Calc Cancelled 110.0 Estimated GFR Cancelled > 60 POC Glucose Random Glucose 111 Calcium 8.1 L D Phosphorus 1.3 L Magnesium 1.8 Albumin 3.0 L 11/13/22 11/13/22 05:51 11:26 WBC RBC Hgb Hct MCV MCH MCHC RDW Plt Count MPV Immature Gran % (Auto) Neut % (Auto) Lymph % (Auto) [place] % (Auto) Eos % (Auto) Baso % (Auto) Lymph # (Auto) [place] # (Auto) Eos # (Auto) Baso # (Auto) Abs Immat Gran (auto) Absolute Neuts (auto) Absolute Nucleated RBC Nucleated RBC % (auto) VBG pH VBG pCO2 VBG pO2 VBG HCO3 VBG O2 Saturation VBG Base Excess Sodium Potassium Chloride Carbon Dioxide Anion Gap BUN Creatinine Estim Creat Clear Calc Estimated GFR POC Glucose 111 89 Random Glucose Calcium Phosphorus Magnesium Albumin Microbiology Microbiology Results: Microbiology 11/10/22 01:16 Blood - Venous Blood Culture - Final Coag negative Staphylococcus 11/10/22 01:16 Blood - Venous Blood Culture - Preliminary No growth after 48 hours. Progress Note: A&P Assessment and plan (1) Seizure disorder: Status: Acute (2) Hypothyroidism: Status: Acute (3) Schizoaffective disorder: Status: Acute (4) Bipolar disorder: Status: Acute (5) Ischemic necrosis of small bowel: Status: Acute Plan Assessment: 57-year-old gentleman with underlying bipolar, schizoaffective, seizure disorder, resident of [facility] facility admitted with seizure and small-bowel obstruction, now status post surgical exploration with resection of necrotic bowel Plan: Neuro: No acute issues. Underlying history of seizure disorder. Continue on Keppra. Cardiac: Hypotension likely secondary to fluid shifts with small-bowel obstruction, improving. Continue to titrate off vasopressor support as tolerated. Underlying history of congestive heart failure. Pulmonary: Acute hypoxic respiratory failure secondary to small-bowel obstruction with likely aspiration component briefly requiring ventilatory support. Extubated this a.m.. Continue to titrate off supplemental oxygen as tolerated. Renal: Acute renal failure secondary to intravascular volume depletion, improving. Nephrology service care appreciated. Non oliguric. Continue IV fluid support. Continue to monitor renal indices and urine output. Endo: No acute issues. GI: Small-bowel obstruction with development of ischemic necrosis. Status post exploratory laparotomy with resection of necrotic bowel. General surgery service care appreciated. NGT to intermittent suction. ID: Coagulase-negative streptococcal bacteremia. Continue on vancomycin. Heme/Onc: No acute issues. Psych: Underlying history of bipolar disorder and schizoaffective disorder. Will start on Lamictal after return of bowel function. Miscellaneous: No acute issues. Prophylaxis: Heparin Diet: Pending return of bowel function Quality Stroke Does the patient have a stroke diagnosis?: No VTE Prior VTE?: No VTE Risk Level:: Medical - moderate - high VTE Device Contraindication: Treatment Not Indicated VTE Drug Contraindication: N/A - Med Ordered
[2022-11-13] MEDS: Albuterol/Iprat 2.5/0.5MG 3 ML AMPUL.NEB INHALE ×2 (13:00→20:57)
[2022-11-13] MEDS: lamoTRIgine 100 MG TABLET PO ×2 (15:01→21:03)
[2022-11-13] MEDS: diphenhydrAMINE HCL 50 MG/ML VIAL IVPUSH (15:23)
[2022-11-13 17:21] LABS: Glucose, Whole Blood 126 mg/dL (60-115)
[2022-11-13 17:45] LABS: Vancomycin Random 5.3 mcg/mL (15-20)
--- NOTE | 2022-11-13 17:58 | HE.PHANOTE ---
Vancomycin Dosing Addendum Patients level came back at 5.3. Increased dose and frequency to 1250 mg Q12H. Patients renal has not been stable but improving. PRedicted AUC 399 mg/L/hr. Next draw tomorrow 11/14 @1700
[2022-11-13] MEDS: vancomycin HCL 1,250 MG in 0.9 % Sodium Chloride 250 ML 166.67 MG IV (19:26)
[2022-11-13 23:29] LABS: Glucose, Whole Blood 78 mg/dL (60-115)
[2022-11-14] VITALS (29 sets, daily range): BP systolic 137–178; BP diastolic 76–93; PULSE 76–113; RESP 15–28; TEMP 36.6–37.6; O2SAT 2–100; BMI 26.9
[2022-11-14] MEDS: Heparin Sodium,Porcine 5,000 UNIT/ML VIAL 5000 UNIT SUBCUT ×3 (01:44→18:36)
[2022-11-14] MEDS: fentaNYL citrate/PF 100 MCG/2 ML VIAL IVPUSH ×3 (02:14→14:12)
[2022-11-14 05:00] LABS: VBG Base Excess 3.2 mmol/L; VBG HCO3 27 mmol/L (22-26); VBG pCO2 40 mmHg; VBG pH 7.43 (7.32-7.43); VBG pO2 43 mmHg
[2022-11-14 05:04] LABS: Glucose, Whole Blood 83 mg/dL (60-115)
[2022-11-14 05:12] LABS: Venous Blood Gas Refer to POC result
[2022-11-14 05:33] LABS: MANUAL DIFF FLAG NO
[2022-11-14 05:39] LABS: Basophils Percent Auto 0.3 % (0-2); Eosinophils Percent Auto 0.2 % (0-4); Hemoglobin 7.9 g/dl (14.0-18.0); Imm Gran Pct Auto 1.7 % (0.0-0.4); Lymphocytes Absolute Auto 0.6 X10*3/uL (1.2-4.9); Lymphocytes Percent Auto 10.5 % (20-40); Mean Corpuscular HGB Conc 34.3 g/dl (31.0-36.0); Mean Corpuscular Hemoglobin 29.5 pg (27.0-33.0); Mean Corpuscular Volume 85.8 fL (80.0-98.0); Mean Platelet Volume 10.2 fL (9.4-12.4); Monocytes Absolute Auto 0.6 X10*3/uL (0.1-1.2); Monocytes Percent Auto 10.2 % (2-11); Neutrophils Absolute Auto 4.5 x10*3/uL (2.0-8.3); Neutrophils Percent Auto 77.1 % (45-73); Platelet Count 132 X10*3/uL (160-400); Red Blood Count 2.68 X10*6/uL (4.60-5.80); Red Cell Distribution Width 12.4 % (11.0-16.0); White Blood Count 5.8 X10*3/uL (4.8-10.8)
[2022-11-14] MEDS: vancomycin HCL 1,250 MG in 0.9 % Sodium Chloride 250 ML 166.67 MG IV (06:01)
[2022-11-14 06:04] LABS: Albumin Level 3.1 g/dL (3.5-5.0); Anion Gap 15 (12-20); Blood Urea Nitrogen 18 mg/dL (9-16); Calcium 8.2 mg/dL (8.4-10.2); Carbon Dioxide 25 mmol/L (22-29); Chloride 108 mmol/L (96-108); Creatinine Clr Calc Pharmacy 143.5; Estimated Glomerular Filt Rate > 60; Glucose Random 90 mg/dL (60-115); Magnesium 1.7 mg/dL (1.6-2.6); Potassium 3.4 mmol/L (3.3-5.1); Sodium 145 mmol/L (135-145)
[2022-11-14] MEDS: Magnesium Sulfate/D5W 1 GM/100 ML PIGGYBACK IV (07:14)
[2022-11-14] MEDS: diazePAM 10 MG/2 ML CARTRIDGE 5 MG IVPUSH (07:14)
[2022-11-14] MEDS: Albuterol/Iprat 2.5/0.5MG 3 ML AMPUL.NEB INHALE ×3 (07:42→19:00)
[2022-11-14] MEDS: Potassium Phosphate/NS 15 MMOL/250 ML PLAST..BAG 62.5 MMOL IV (08:27)
[2022-11-14] MEDS: Metoprolol Tartrate 5 MG/5 ML VIAL IVPUSH ×3 (08:35→21:37)
[2022-11-14] MEDS: lamoTRIgine 100 MG TABLET PO (09:38)
[2022-11-14] MEDS: levETIRAcetam in NaCl (iso-os) 1,000 MG/100 ML PIGGYBACK 400 MG IV ×2 (09:38→21:36)
--- NOTE | 2022-11-14 10:33 | MHC.CM.NN ---
Pt extubated, OOB to chair and making clinical progress s/p exploratory lap for necrotic bowel. 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 S transport. Clinical updates remitted to black
--- NOTE | 2022-11-14 11:09 | PM.CCPN ---
Subjective Subjective Date of Service: 11/14/22 Interval History: 57-year-old gentleman with underlying history of hypothyroidism, hypertension, bipolar/schizoaffective disorder, seizure disorder, resident of [facility], bed-bound admitted on 11/10/2022 with a weakness seizure and abdominal distension. On ER evaluation patient hypotensive with CT abdomen suggestive of small-bowel obstruction. Patient initially treated conservatively with gastric decompression and IV fluids and admitted to general medical mckeon. Overnight 11/11/2022 with development of worsening hypotension associated with fluid shifts requiring starting on vasopressor support, transferred to intensive care unit, and intubation. The re-evaluated by General surgery and taking to or for explorative laparotomy with finding of patchy necrotic small-bowel, now postop day 1 after small-bowel resection with primary anastomosis. Extubated 11/12/2022. Started on Lamictal significant improvement in agitation. No events overnight. Critical Care Time (minutes): 0 Physical Exam Vital Signs: Vital Signs: Last Vital Signs Temp 98.8 F 11/14/22 09:00 Pulse 102 H 11/14/22 10:00 Resp 18 11/14/22 10:00 BP 154/81 H 11/14/22 10:00 Pulse Ox 98 11/14/22 10:00 O2 Del Method 11/14/22 10:00 O2 Flow Rate 1 11/14/22 08:00 FiO2 30 11/12/22 09:00 BMI result Body Mass Index 26.9 Const: General: no acute distress and lethargic (Arousable and follows commands) Orientation/consciousness: lethargic (Arousable and follows commands) Eyes: Sclerae: sclerae normal EOM: EOMs intact bilaterally Neck: Neck: Yes no lymphadenopathy, Yes trachea midline and Yes supple Resp: Effort & Inspection: normal respiratory effort and no respiratory distress Auscultation: clear to auscultation bilaterally Cardio: Rate: regular rate Rhythm: regular rhythm Heart sounds: no gallops, no murmurs and no rubs GI: Inspection: Yes other (Abdominal incision stapleline clean) Palpation (GI): Soft to palpation Auscultation: Hypoactive bowel sounds present Extrem: General: Yes no pedal edema, No clubbing and No cyanosis Objective Data Labs 11/14/22 04:55 11/14/22 04:55 Labs: Laboratory Results - last 24 hr 0211/13/22 11/13/22 11:26 17:00 17:17 WBC RBC Hgb Hct MCV MCH MCHC RDW Plt Count MPV Immature Gran % (Auto) Neut % (Auto) Lymph % (Auto) [place] % (Auto) Eos % (Auto) Baso % (Auto) Lymph # (Auto) [place] # (Auto) Eos # (Auto) Baso # (Auto) Abs Immat Gran (auto) Absolute Neuts (auto) Absolute Nucleated RBC Nucleated RBC % (auto) VBG pH VBG pCO2 VBG pO2 VBG HCO3 VBG O2 Saturation VBG Base Excess Sodium Potassium Chloride Carbon Dioxide Anion Gap BUN Creatinine Estim Creat Clear Calc Estimated GFR POC Glucose 89 126 H Random Glucose Calcium Phosphorus Magnesium Albumin Random Vancomycin 5.3 L 11/13/22 11/14/22 11/14/22 23:25 04:53 04:55 WBC 5.8 RBC 2.68 L Hgb 7.9 L Hct 23.0 L MCV 85.8 MCH 29.5 MCHC 34.3 RDW 12.4 Plt Count 132 L MPV 10.2 Immature Gran % (Auto) 1.7 H Neut % (Auto) 77.1 H Lymph % (Auto) 10.5 L [place] % (Auto) 10.2 Eos % (Auto) 0.2 Baso % (Auto) 0.3 Lymph # (Auto) 0.6 L [place] # (Auto) 0.6 Eos # (Auto) 0.0 Baso # (Auto) 0.0 Abs Immat Gran (auto) 0.10 H Absolute Neuts (auto) 4.5 Absolute Nucleated RBC 0.000 Nucleated RBC % (auto) 0.0 VBG pH 7.43 VBG pCO2 40 VBG pO2 43 VBG HCO3 27 H VBG O2 Saturation 72.0 VBG Base Excess 3.2 Sodium Potassium Chloride Carbon Dioxide Anion Gap BUN Creatinine Estim Creat Clear Calc Estimated GFR POC Glucose 78 Random Glucose Calcium Phosphorus Magnesium Albumin Random Vancomycin 11/14/22 11/14/22 11/14/22 04:55 04:55 05:00 WBC RBC Hgb Hct MCV MCH MCHC RDW Plt Count MPV Immature Gran % (Auto) Neut % (Auto) Lymph % (Auto) [place] % (Auto) Eos % (Auto) Baso % (Auto) Lymph # (Auto) [place] # (Auto) Eos # (Auto) Baso # (Auto) Abs Immat Gran (auto) Absolute Neuts (auto) Absolute Nucleated RBC Nucleated RBC % (auto) VBG pH VBG pCO2 VBG pO2 VBG HCO3 VBG O2 Saturation VBG Base Excess Sodium 145 Potassium 3.4 Chloride 108 Carbon Dioxide 25 Anion Gap 15 BUN 18 H Creatinine 0.59 Cancelled Estim Creat Clear Calc 143.5 Cancelled Estimated GFR > 60 Cancelled POC Glucose 83 Random Glucose 90 Calcium 8.2 L Phosphorus 2.0 L Magnesium 1.7 Albumin 3.1 L Random Vancomycin Microbiology Microbiology Results: Microbiology 11/10/22 01:16 Blood - Venous Blood Culture - Final Coag negative Staphylococcus 11/10/22 01:16 Blood - Venous Blood Culture - Preliminary No growth after 48 hours. Progress Note: A&P Assessment and plan (1) Seizure disorder: Status: Acute (2) Hypothyroidism: Status: Acute (3) Schizoaffective disorder: Status: Acute (4) Bipolar disorder: Status: Acute (5) Ischemic necrosis of small bowel: Status: Acute Plan Assessment: 57-year-old gentleman with underlying bipolar, schizoaffective, seizure disorder, resident of [facility] admitted with seizure and small-bowel obstruction, now status post surgical exploration with resection of necrotic bowel Plan: Neuro: No acute issues. Underlying history of seizure disorder. Continue on Keppra. Cardiac: Hypotension likely secondary to fluid shifts with small-bowel obstruction, improving. Continue to titrate off vasopressor support as tolerated. Underlying history of congestive heart failure. Pulmonary: Acute hypoxic respiratory failure secondary to small-bowel obstruction with likely aspiration component briefly requiring ventilatory support. Extubated this a.m.. Continue to titrate off supplemental oxygen as tolerated. Renal: Acute renal failure secondary to intravascular volume depletion, resolved. Nephrology service care appreciated. Non oliguric. Continue to monitor renal indices and urine output. Endo: No acute issues. GI: Small-bowel obstruction with development of ischemic necrosis. Status post exploratory laparotomy with resection of necrotic bowel. General surgery service care appreciated. ID: Coagulase-negative streptococcal bacteremia. Continue on vancomycin. Heme/Onc: No acute issues. Psych: Underlying history of bipolar disorder and schizoaffective disorder. Agitation improved significantly on Lamictal. Miscellaneous: No acute issues. Prophylaxis: Heparin Diet: Pending return of bowel function At this time stable for transfer to telemetry [facility]. Quality Stroke Does the patient have a stroke diagnosis?: No VTE Prior VTE?: No VTE Risk Level:: Medical - moderate - high VTE Device Contraindication: Treatment Not Indicated VTE Drug Contraindication: N/A - Med Ordered
--- NOTE | 2022-11-14 11:40 | P.PNGS_ITS ---
Subjective Subjective Date of Service: 11/14/22 Interval history: Seems more awake today. Moving to [facility]; no respiratory distress Physical Exam Vital Signs: Vital Signs: Last Vital Signs Temp 98.8 F 11/14/22 09:00 Pulse 98 11/14/22 11:00 Resp 20 11/14/22 11:00 BP 158/92 H 11/14/22 11:00 Pulse Ox 95 11/14/22 11:00 O2 Del Method 11/14/22 11:00 O2 Flow Rate 1 11/14/22 08:00 FiO2 30 11/12/22 09:00 BMI result Body Mass Index 26.9 remains tachycardic; febrile, decreased O2 requirement, good sat Const: Other: sedated GI: Other: Midline incision clean, dry and intact without redness or discharge; no BS Percussion: Yes dullness to percussion Skin: Other: warm, dry, no rash Objective Data Active Medications Albuterol/Ipratropium (Albuterol/Iprat 2.5/0.5mg 3 Ml Ampul.Neb) 3 ml INHALE RQ6H WHILE AWAKE [facility] Last Admin: 11/14/22 07:42 Dose: 3 ml Documented By: HUMBLE Dextrose (Dextrose 50 % 25 Gm/50 Ml Syringe) 25 gm IVPUSH Q15M PRN; Protocol PRN Reason: per Hypoglycemia Standing Ord. Last Admin: 11/11/22 17:45 Dose: 25 gm Documented By: SOLEDAD Diazepam (Diazepam 10 Mg/2 Ml Cartridge) 5 mg IVPUSH Q6H PRN PRN Reason: Anxiety Last Admin: 11/14/22 07:14 Dose: 5 mg Documented By: LANCE Fentanyl (Fentanyl Citrate/Pf 100 Mcg/2 Ml Vial) 100 mcg IVPUSH Q2H PRN; Protocol PRN Reason: Pain, Moderate (Pain Scale 4-6 Last Admin: 11/14/22 05:31 Dose: 100 mcg Documented By: ARNOLDO Glucose (Glucose Gel 15 Gm Gel..Gram.) 15 gm PO Q15M PRN; Protocol PRN Reason: per Hypoglycemia Standing Ord. Haloperidol Decanoate (Haloperidol Decanoate 50 Mg/Ml Ampul) 100 mg IM Q14D [facility] Heparin Sodium (Porcine) (Heparin Sodium,Porcine 5,000 Unit/Ml Vial) 5,000 unit SUBCUT Q8H [facility] Last Admin: 11/14/22 01:44 Dose: 5,000 unit Documented By: ARNOLDO Levetiracetam (Keppra) 1,000 mg in 100 mls @ 400 mls/hr IV Q12H [facility] Last Admin: 11/14/22 09:38 Dose: 400 mls/hr Documented By: LANCE Vancomycin HCl 1,250 mg/ (Sodium Chloride) 250 mls @ 166.667 mls/hr IV Q12H [facility] Last Infusion: 11/14/22 09:31 Dose: 0 mls/hr Documented By: LANCE Potassium Phosphate (Kphos) 15 mmol in 250 mls @ 62.5 mls/hr IV ONCE ONE Stop: 11/14/22 11:59 Last Admin: 11/14/22 08:27 Dose: 62.5 mls/hr Documented By: LANCE Insulin Human Lispro (Insulin Lispro 100 Unit/Ml 3 Ml Vial) 0 unit SUBCUT Q6H [facility]; Protocol Last Admin: 11/14/22 05:02 Dose: Not Given Documented By: ARNOLDO Non-Admin Reason: No Insulin Coverage Lamotrigine (Lamotrigine 100 Mg Tablet) 100 mg PO BID [facility] Last Admin: 11/14/22 09:38 Dose: 100 mg Documented By: LANCE Metoprolol Tartrate (Metoprolol Tartrate 5 Mg/5 Ml Vial) 5 mg IVPUSH Q6H [facility] Last Admin: 11/14/22 08:35 Dose: 5 mg Documented By: LANCE Pharmacy Consult (Consult Rx Vancomycin Dosing) 1 each MISCELLANE DAILY PRN PRN Reason: Consult order Labs 11/14/22 04:55 11/14/22 04:55 Labs: Laboratory Results - last 24 hr 11/13/22 11/13/22 11/13/22 17:00 17:17 23:25 MCV MCH MCHC RDW Plt Count MPV Immature Gran % (Auto) Neut % (Auto) Lymph % (Auto) [place] % (Auto) Eos % (Auto) Baso % (Auto) Lymph # (Auto) [place] # (Auto) Eos # (Auto) Baso # (Auto) Abs Immat Gran (auto) Absolute Neuts (auto) Absolute Nucleated RBC Nucleated RBC % (auto) VBG pH VBG pCO2 VBG pO2 VBG HCO3 VBG O2 Saturation VBG Base Excess Anion Gap Estim Creat Clear Calc Estimated GFR POC Glucose 126 H 78 Random Glucose Calcium Phosphorus Magnesium Albumin Random Vancomycin 5.3 L 11/14/22 11/14/22 11/14/22 04:53 04:55 04:55 MCV 85.8 MCH 29.5 MCHC 34.3 RDW 12.4 Plt Count 132 L MPV 10.2 Immature Gran % (Auto) 1.7 H Neut % (Auto) 77.1 H Lymph % (Auto) 10.5 L [place] % (Auto) 10.2 Eos % (Auto) 0.2 Baso % (Auto) 0.3 Lymph # (Auto) 0.6 L [place] # (Auto) 0.6 Eos # (Auto) 0.0 Baso # (Auto) 0.0 Abs Immat Gran (auto) 0.10 H Absolute Neuts (auto) 4.5 Absolute Nucleated RBC 0.000 Nucleated RBC % (auto) 0.0 VBG pH 7.43 VBG pCO2 40 VBG pO2 43 VBG HCO3 27 H VBG O2 Saturation 72.0 VBG Base Excess 3.2 Anion Gap 15 Estim Creat Clear Calc 143.5 Estimated GFR > 60 POC Glucose Random Glucose 90 Calcium 8.2 L Phosphorus 2.0 L Magnesium 1.7 Albumin 3.1 L Random Vancomycin 11/14/22 11/14/22 04:55 05:00 MCV MCH MCHC RDW Plt Count MPV Immature Gran % (Auto) Neut % (Auto) Lymph % (Auto) [place] % (Auto) Eos % (Auto) Baso % (Auto) Lymph # (Auto) [place] # (Auto) Eos # (Auto) Baso # (Auto) Abs Immat Gran (auto) Absolute Neuts (auto) Absolute Nucleated RBC Nucleated RBC % (auto) VBG pH VBG pCO2 VBG pO2 VBG HCO3 VBG O2 Saturation VBG Base Excess Anion Gap Estim Creat Clear Calc Cancelled Estimated GFR Cancelled POC Glucose 83 Random Glucose Calcium Phosphorus Magnesium Albumin Random Vancomycin Procedures Date of Service Date of Service: 11/14/22 Progress Note: A&P Assessment and plan (1) Ischemic necrosis of small bowel: Status: Acute Plan POD #2 s/p exploratory laparotomy, proximal small bowel resection for patchy necrotic bowel. No mechanical obstruction found. Abdomen soft, incision clean. Await GI function. Management per hospitalist team. Time Spent With Patient Time: Total time managing care of this patient today ____ minutes. Quality Stroke Does the patient have a stroke diagnosis?: No VTE Prior VTE?: No VTE Risk Level:: Medical - moderate - high VTE Device Contraindication: Treatment Not Indicated VTE Drug Contraindication: N/A - Med Ordered
[2022-11-14 12:43] LABS: Glucose, Whole Blood 89 mg/dL (60-115)
--- NOTE | 2022-11-14 12:53 | PC.NURSE ---
0830 P: hr st 117 sbp 170's-180's I: medicated with prn Haldol for agitation, notified Dr. Hernandez with orders for IV Lopressor. e: HR decreased 80's SBP 140-160s.
[2022-11-14 15:56] LABS: Glucose, Whole Blood 103 mg/dL (60-115)
--- NOTE | 2022-11-14 16:08 | PC.NURSE ---
Accepted pt ion transfer from the ICU. No restraints needed. Obs camera placed in room. Pt oriented to unit, call rebolledo and bed controls. Able to make needs known. See Expanse for complete details.
[2022-11-14 17:33] LABS: Vancomycin Random 7.3 mcg/mL (15-20)
--- NOTE | 2022-11-14 17:44 | HE.PHANOTE ---
increased dose due to low trough. cautious dosing since pt has only received 2 doses @q12 interval. May need to increase dose, next level is 11/16 @0400
[2022-11-14] MEDS: vancomycin HCL 1,500 MG in 0.9 % Sodium Chloride 500 ML 333.33 MG IV (18:36)
[2022-11-14 18:55] LABS: Glucose, Whole Blood 103 mg/dL (60-115)
[2022-11-15] VITALS (10 sets, daily range): BP systolic 160–168; BP diastolic 80–85; PULSE 85–105; RESP 16–22; TEMP 36.1–36.6; O2SAT 93–98
[2022-11-15 00:57] LABS: Glucose, Whole Blood 108 mg/dL (60-115)
[2022-11-15] MEDS: Metoprolol Tartrate 5 MG/5 ML VIAL IVPUSH ×4 (03:31→20:32)
[2022-11-15] MEDS: Heparin Sodium,Porcine 5,000 UNIT/ML VIAL 5000 UNIT SUBCUT ×2 (03:32→08:57)
[2022-11-15] MEDS: Morphine Sulfate 4 MG/ML CARTRIDGE IVPUSH ×4 (03:45→23:45)
[2022-11-15 06:20] LABS: Glucose, Whole Blood 108 mg/dL (60-115)
[2022-11-15] MEDS: vancomycin HCL 1,500 MG in 0.9 % Sodium Chloride 500 ML 333.33 MG IV (06:36)
[2022-11-15] MEDS: Albuterol/Iprat 2.5/0.5MG 3 ML AMPUL.NEB INHALE ×3 (07:07→18:56)
[2022-11-15 07:25] LABS: MANUAL DIFF FLAG NO
[2022-11-15 07:30] LABS: Basophils Percent Auto 0.4 % (0-2); Hematocrit 25.8 % (42.0-52.0); Hemoglobin 8.6 g/dl (14.0-18.0); Imm Gran Abs Auto 0.05 X10*3/uL (0.00-0.03); Imm Gran Pct Auto 0.9 % (0.0-0.4); Lymphocytes Absolute Auto 0.6 X10*3/uL (1.2-4.9); Lymphocytes Percent Auto 11.5 % (20-40); Mean Corpuscular HGB Conc 33.3 g/dl (31.0-36.0); Mean Corpuscular Hemoglobin 29.6 pg (27.0-33.0); Mean Corpuscular Volume 88.7 fL (80.0-98.0); Mean Platelet Volume 10.1 fL (9.4-12.4); Monocytes Absolute Auto 0.6 X10*3/uL (0.1-1.2); Monocytes Percent Auto 11.4 % (2-11); Neutrophils Absolute Auto 4.1 x10*3/uL (2.0-8.3); Neutrophils Percent Auto 75.8 % (45-73); Platelet Count 163 X10*3/uL (160-400); Red Blood Count 2.91 X10*6/uL (4.60-5.80); White Blood Count 5.4 X10*3/uL (4.8-10.8)
[2022-11-15 07:51] LABS: Alanine Aminotransferase 204 U/L (0-40); Albumin Level 3.3 g/dL (3.5-5.0); Alkaline Phosphatase 67 U/L (39-117); Anion Gap 14 (12-20); Aspartate Amino Transferase 66 U/L (5-37); Bilirubin Total 1.4 mg/dL (0.0-1.0); Blood Urea Nitrogen 21 mg/dL (9-16); Calcium 8.8 mg/dL (8.4-10.2); Carbon Dioxide 27 mmol/L (22-29); Chloride 113 mmol/L (96-108); Estimated Glomerular Filt Rate > 60; Glucose Random 109 mg/dL (60-115); Magnesium 1.9 mg/dL (1.6-2.6); Phosphorus 1.9 mg/dL (2.7-4.5); Potassium 3.5 mmol/L (3.3-5.1); Sodium 150 mmol/L (135-145); Total Protein 5.1 g/dL (6.5-8.0)
--- NOTE | 2022-11-15 08:23 | PM.PNGS ---
Subjective Subjective Date of Service: 11/15/22 Interval history: Seems more awake, nonverbal. No apparent bowel movement or flatus Physical Exam Vital Signs: Vital Signs: Last Vital Signs Temp 97.0 F 11/15/22 07:38 Pulse 101 H 11/15/22 07:38 Resp 20 11/15/22 07:38 BP 168/80 H 11/15/22 07:38 Pulse Ox 98 11/15/22 07:38 O2 Del Method 11/15/22 07:38 O2 Flow Rate 1.5 11/15/22 07:38 FiO2 30 11/12/22 09:00 BMI result Body Mass Index 26.9 Const: General: awake, anxious and confusion Nutritional Appearance: well nourished Orientation/consciousness: confusion Limitations: behavioral limitations Resp: Effort & Inspection: normal respiratory effort GI: Inspection: Yes distended and Yes incision (Clean, dry, and intact without erythema or discharge) Palpation (GI): Soft to palpation Auscultation: Hypoactive bowel sounds present Rectal Exam - Male: Yes deferred Neuro: General: confusion Extrem: General: Yes no pedal edema Objective Data Active Medications Albuterol/Ipratropium (Albuterol/Iprat 2.5/0.5mg 3 Ml Ampul.Neb) 3 ml INHALE RQ6H WHILE AWAKE [facility] Last Admin: 11/15/22 07:07 Dose: 3 ml Documented By: BONITA Dextrose (Dextrose 50 % 25 Gm/50 Ml Syringe) 25 gm IVPUSH Q15M PRN; Protocol PRN Reason: per Hypoglycemia Standing Ord. Last Admin: 11/11/22 17:45 Dose: 25 gm Documented By: SOLEDAD Diazepam (Diazepam 10 Mg/2 Ml Cartridge) 5 mg IVPUSH Q6H PRN PRN Reason: Anxiety Last Admin: 11/14/22 07:14 Dose: 5 mg Documented By: LANCE Glucose (Glucose Gel 15 Gm Gel..Gram.) 15 gm PO Q15M PRN; Protocol PRN Reason: per Hypoglycemia Standing Ord. Haloperidol Decanoate (Haloperidol Decanoate 50 Mg/Ml Ampul) 100 mg IM Q14D [facility] Heparin Sodium (Porcine) (Heparin Sodium,Porcine 5,000 Unit/Ml Vial) 5,000 unit SUBCUT Q8H [facility] Last Admin: 11/15/22 03:32 Dose: 5,000 unit Documented By: FABBY Levetiracetam (Keppra) 1,000 mg in 100 mls @ 400 mls/hr IV Q12H [facility] Last Infusion: 11/14/22 21:54 Dose: 0 mls/hr Documented By: GENET Vancomycin HCl 1,500 mg/ (Sodium Chloride) 500 mls @ 333.333 mls/hr IV Q12H [facility] Last Admin: 11/15/22 06:36 Dose: 333.33 mls/hr Documented By: FABBY Dextrose/Sodium Chloride (D51/2ns) 1,000 mls @ 80 mls/hr IVCONT .[id number] [facility] Insulin Human Lispro (Insulin Lispro 100 Unit/Ml 3 Ml Vial) 0 unit SUBCUT Q6H [facility]; Protocol Last Admin: 11/15/22 06:22 Dose: Not Given Documented By: FABBY Non-Admin Reason: No Insulin Coverage Lamotrigine (Lamotrigine 100 Mg Tablet) 100 mg PO BID [facility] Last Admin: 11/14/22 21:37 Dose: Not Given Documented By: GENET Non-Admin Reason: NPO Metoprolol Tartrate (Metoprolol Tartrate 5 Mg/5 Ml Vial) 5 mg IVPUSH Q6H [facility] Last Admin: 11/15/22 03:31 Dose: 5 mg Documented By: FABBY Morphine Sulfate (Morphine Sulfate 4 Mg/Ml Cartridge) 4 mg IVPUSH Q6H PRN; Protocol PRN Reason: Pain, Severe (Pain Scale 7-10) Last Admin: 11/15/22 03:45 Dose: 4 mg Documented By: FABBY Pharmacy Consult (Consult Rx Vancomycin Dosing) 1 each MISCELLANE DAILY PRN PRN Reason: Consult order Labs 11/15/22 06:31 11/15/22 06:31 Labs: Laboratory Results - last 24 hr 11/14/22 11/14/22 11/14/22 12:38 15:18 17:00 MCV MCH MCHC RDW Plt Count MPV Immature Gran % (Auto) Neut % (Auto) Lymph % (Auto) [place] % (Auto) Eos % (Auto) Baso % (Auto) Lymph # (Auto) [place] # (Auto) Eos # (Auto) Baso # (Auto) Abs Immat Gran (auto) Absolute Neuts (auto) Absolute Nucleated RBC Nucleated RBC % (auto) Anion Gap Estim Creat Clear Calc Estimated GFR POC Glucose 89 103 Random Glucose Calcium Phosphorus Magnesium Total Bilirubin AST ALT Alkaline Phosphatase Total Protein Albumin Random Vancomycin 7.3 L 11/14/22 11/15/22 11/15/22 18:49 00:44 06:08 MCV MCH MCHC RDW Plt Count MPV Immature Gran % (Auto) Neut % (Auto) Lymph % (Auto) [place] % (Auto) Eos % (Auto) Baso % (Auto) Lymph # (Auto) [place] # (Auto) Eos # (Auto) Baso # (Auto) Abs Immat Gran (auto) Absolute Neuts (auto) Absolute Nucleated RBC Nucleated RBC % (auto) Anion Gap Estim Creat Clear Calc Estimated GFR POC Glucose 103 108 108 Random Glucose Calcium Phosphorus Magnesium Total Bilirubin AST ALT Alkaline Phosphatase Total Protein Albumin Random Vancomycin 11/15/22 11/15/22 06:31 06:31 MCV 88.7 MCH 29.6 MCHC 33.3 RDW 13.0 Plt Count 163 MPV 10.1 Immature Gran % (Auto) 0.9 H Neut % (Auto) 75.8 H Lymph % (Auto) 11.5 L [place] % (Auto) 11.4 H Eos % (Auto) 0.0 Baso % (Auto) 0.4 Lymph # (Auto) 0.6 L [place] # (Auto) 0.6 Eos # (Auto) 0.0 Baso # (Auto) 0.0 Abs Immat Gran (auto) 0.05 H Absolute Neuts (auto) 4.1 Absolute Nucleated RBC 0.000 Nucleated RBC % (auto) 0.0 Anion Gap 14 Estim Creat Clear Calc 146.0 Estimated GFR > 60 POC Glucose Random Glucose 109 Calcium 8.8 D Phosphorus 1.9 L Magnesium 1.9 Total Bilirubin 1.4 H AST 66 H ALT 204 H Alkaline Phosphatase 67 Total Protein 5.1 L Albumin 3.3 L Random Vancomycin Microbiology Microbiology Results: Microbiology 11/10/22 01:16 Blood Culture - Final Blood - Venous No growth after 5 days. Procedures Date of Service Date of Service: 11/15/22 Progress Note: A&P Assessment and plan (1) Seizure disorder: Status: Acute (2) Ischemic necrosis of small bowel: Status: Acute (3) Small bowel obstruction: Status: Acute Plan Pod 4 following exploratory laparotomy, small-bowel resection of necrotic proximal jejunum. Nasogastric tube is out. Patient extubated and on telemetry unit. He remains nonverbal but appears to be a no acute distress. Abdomen remains distended but wounds are clean. No bowel function yet. Will check abdominal x-ray today. Time Spent With Patient Time: Total time managing care of this patient today ____ minutes. Quality Stroke Does the patient have a stroke diagnosis?: No VTE Prior VTE?: No VTE Risk Level:: Medical - moderate - high VTE Device Contraindication: Treatment Not Indicated VTE Drug Contraindication: N/A - Med Ordered
[2022-11-15 08:49] LABS: Creatinine Clr Calc Pharmacy 148.6; Estimated Glomerular Filt Rate > 60
[2022-11-15] MEDS: levETIRAcetam in NaCl (iso-os) 1,000 MG/100 ML PIGGYBACK 400 MG IV ×2 (08:57→20:37)
[2022-11-15] MEDS: lamoTRIgine 100 MG TABLET PO (08:59)
[2022-11-15] MEDS: Dextrose 5 % and 0.45 % NaCl 1,000 ML 80 ML IVCONT (09:07)
--- NOTE | 2022-11-15 09:20 | HE.PHANOTE ---
RE: leyla Hallman not utilized in obesity model, keeping 1500mg Q12H for now with level to be drawn before next dose tonight @1600
[2022-11-15] MEDS: ondansetron HCL 4 MG/2 ML VIAL IVPUSH ×2 (09:28→15:28)
--- NOTE | 2022-11-15 11:12 | P.PNNP_ITS ---
Subjective Subjective Date of Service: 11/15/22 Interval history: no acute events Hypernatremic Physical Exam Vital Signs: Vital Signs: Last Vital Signs Temp 97.0 F 11/15/22 07:38 Pulse 101 H 11/15/22 07:38 Resp 20 11/15/22 07:38 BP 168/80 H 11/15/22 07:38 Pulse Ox 98 11/15/22 07:38 O2 Del Method 11/15/22 07:38 O2 Flow Rate 1.5 11/15/22 07:38 FiO2 30 11/12/22 09:00 BMI result Body Mass Index 26.9 Const: General: alert and awake Resp: Auscultation: clear to auscultation bilaterally Cardio: Heart sounds: S1 normal heart sound present and S2 normal heart sound present GI: Palpation (GI): Soft to palpation and no guarding Extrem: General: Yes no pedal edema Objective Data Labs 11/15/22 06:31 11/15/22 08:17 Labs: Laboratory Results - last 24 hr 11/14/22 11/14/22 11/14/22 12:38 15:18 17:00 WBC RBC Hgb Hct MCV MCH MCHC RDW Plt Count MPV Immature Gran % (Auto) Neut % (Auto) Lymph % (Auto) [place] % (Auto) Eos % (Auto) Baso % (Auto) Lymph # (Auto) [place] # (Auto) Eos # (Auto) Baso # (Auto) Abs Immat Gran (auto) Absolute Neuts (auto) Absolute Nucleated RBC Nucleated RBC % (auto) Sodium Potassium Chloride Carbon Dioxide Anion Gap BUN Creatinine Estim Creat Clear Calc Estimated GFR POC Glucose 89 103 Random Glucose Calcium Phosphorus Magnesium Total Bilirubin AST ALT Alkaline Phosphatase Total Protein Albumin Random Vancomycin 7.3 L 11/14/22 11/15/22 11/15/22 18:49 00:44 06:08 WBC RBC Hgb Hct MCV MCH MCHC RDW Plt Count MPV Immature Gran % (Auto) Neut % (Auto) Lymph % (Auto) [place] % (Auto) Eos % (Auto) Baso % (Auto) Lymph # (Auto) [place] # (Auto) Eos # (Auto) Baso # (Auto) Abs Immat Gran (auto) Absolute Neuts (auto) Absolute Nucleated RBC Nucleated RBC % (auto) Sodium Potassium Chloride Carbon Dioxide Anion Gap BUN Creatinine Estim Creat Clear Calc Estimated GFR POC Glucose 103 108 108 Random Glucose Calcium Phosphorus Magnesium Total Bilirubin AST ALT Alkaline Phosphatase Total Protein Albumin Random Vancomycin 11/15/22 11/15/22 11/15/22 06:31 06:31 08:17 WBC 5.4 RBC 2.91 L Hgb 8.6 L Hct 25.8 L MCV 88.7 MCH 29.6 MCHC 33.3 RDW 13.0 Plt Count 163 MPV 10.1 Immature Gran % (Auto) 0.9 H Neut % (Auto) 75.8 H Lymph % (Auto) 11.5 L [place] % (Auto) 11.4 H Eos % (Auto) 0.0 Baso % (Auto) 0.4 Lymph # (Auto) 0.6 L [place] # (Auto) 0.6 Eos # (Auto) 0.0 Baso # (Auto) 0.0 Abs Immat Gran (auto) 0.05 H Absolute Neuts (auto) 4.1 Absolute Nucleated RBC 0.000 Nucleated RBC % (auto) 0.0 Sodium 150 H Potassium 3.5 Chloride 113 H Carbon Dioxide 27 Anion Gap 14 BUN 21 H Creatinine 0.58 0.57 Estim Creat Clear Calc 146.0 148.6 Estimated GFR > 60 > 60 POC Glucose Random Glucose 109 Calcium 8.8 D Phosphorus 1.9 L Magnesium 1.9 Total Bilirubin 1.4 H AST 66 H ALT 204 H Alkaline Phosphatase 67 Total Protein 5.1 L Albumin 3.3 L Random Vancomycin Microbiology Microbiology Results: Microbiology 11/10/22 01:16 Blood - Venous Blood Culture - Final No growth after 5 days. 11/10/22 01:16 Blood - Venous Blood Culture - Final Coag negative Staphylococcus Procedures Date of Service Date of Service: 11/15/22 Assessment & Plan Assessment and plan (1) MELY (acute kidney injury): Status: Acute (2) Hyperkalemia: Status: Acute (3) Metabolic acidosis: Status: Acute (4) Hypernatremia: Status: Acute Plan 57-year-old gentleman with underlying history of hypothyroidism, hypertension, bipolar/schizoaffective disorder, seizure disorder, resident of [facility], bed-bound admitted on 11/10/2022 with seizure and abdominal distension.? On ER evaluation patient hypotensive with CT abdomen suggestive of small-bowel obstruction.?Overnight 11/11/2022 with development of worsening hypotension associated with fluid shifts requiring starting on vasopressor support, transferred to intensive care unit, and intubation.? Ultimately taken for explorative laparotomy with finding of patchy necrotic small-bowel, Extubated 11/12/2022.? Started on Lamictal significant improvement in agitation. Course complicated by MELY and Hyperkalemia, resolved with resuscitation efforts. Now profoundly hypernatremic from water deficit. Plan: - D5/W at 125cc/hr - daily labs monitoring renal function and lytes Time Spent With Patient Time: Total time managing care of this patient today ____ minutes. Progress Note: Quality Stroke Does the patient have a stroke diagnosis?: No
[2022-11-15] MEDS: Dextrose 5 % 1,000 ML 125 ML IVCONT (11:18)
--- NOTE | 2022-11-15 11:20 | P.PNIM_ITS ---
Subjective Subjective Date of Service: 11/15/22 Interval History: cc: abd pain interval history:had loose bm Physical Exam Vital Signs: Vital Signs: Last Vital Signs Temp 97.0 F 11/15/22 07:38 Pulse 101 H 11/15/22 07:38 Resp 20 11/15/22 07:38 BP 168/80 H 11/15/22 07:38 Pulse Ox 98 11/15/22 07:38 O2 Del Method 11/15/22 07:38 O2 Flow Rate 1.5 11/15/22 07:38 FiO2 30 11/12/22 09:00 BMI result Body Mass Index 26.9 Const: General: alert and awake Resp: Auscultation: clear to auscultation bilaterally Cardio: Heart sounds: S1 normal heart sound present and S2 normal heart sound present GI: Palpation (GI): Soft to palpation and no guarding Extrem: General: Yes no pedal edema Objective Data Active Medications Albuterol/Ipratropium (Albuterol/Iprat 2.5/0.5mg 3 Ml Ampul.Neb) 3 ml INHALE RQ6H WHILE AWAKE [facility] Last Admin: 11/15/22 07:07 Dose: 3 ml Documented By: BONITA Dextrose (Dextrose 50 % 25 Gm/50 Ml Syringe) 25 gm IVPUSH Q15M PRN; Protocol PRN Reason: per Hypoglycemia Standing Ord. Last Admin: 11/11/22 17:45 Dose: 25 gm Documented By: SOLEDAD Diazepam (Diazepam 10 Mg/2 Ml Cartridge) 5 mg IVPUSH Q6H PRN PRN Reason: Anxiety Last Admin: 11/14/22 07:14 Dose: 5 mg Documented By: LANCE Glucose (Glucose Gel 15 Gm Gel..Gram.) 15 gm PO Q15M PRN; Protocol PRN Reason: per Hypoglycemia Standing Ord. Haloperidol Decanoate (Haloperidol Decanoate 50 Mg/Ml Ampul) 100 mg IM Q14D [facility] Heparin Sodium (Porcine) (Heparin Sodium,Porcine 5,000 Unit/Ml Vial) 5,000 unit SUBCUT Q8H [facility] Last Admin: 11/15/22 08:57 Dose: 5,000 unit Documented By: MONTRELL Levetiracetam (Keppra) 1,000 mg in 100 mls @ 400 mls/hr IV Q12H [facility] Last Infusion: 11/15/22 09:21 Dose: 0 mls/hr Documented By: MONTRELL Dextrose (D5w) 1,000 mls @ 125 mls/hr IVCONT .Q8H [facility] Stop: 11/15/22 19:07 Last Admin: 11/15/22 11:18 Dose: 125 mls/hr Documented By: MONTRELL Insulin Human Lispro (Insulin Lispro 100 Unit/Ml 3 Ml Vial) 0 unit SUBCUT Q6H [facility]; Protocol Last Admin: 11/15/22 06:22 Dose: Not Given Documented By: FABBY Non-Admin Reason: No Insulin Coverage Lamotrigine (Lamotrigine 100 Mg Tablet) 100 mg PO BID [facility] Last Admin: 11/15/22 08:59 Dose: 100 mg Documented By: MONTRELL Metoprolol Tartrate (Metoprolol Tartrate 5 Mg/5 Ml Vial) 5 mg IVPUSH Q6H [facility] Last Admin: 11/15/22 08:56 Dose: 5 mg Documented By: MONTRELL Morphine Sulfate (Morphine Sulfate 4 Mg/Ml Cartridge) 4 mg IVPUSH Q6H PRN; Protocol PRN Reason: Pain, Severe (Pain Scale 7-10) Last Admin: 11/15/22 09:12 Dose: 4 mg Documented By: MONTRELL Labs 11/15/22 06:31 11/15/22 08:17 Labs: Laboratory Results - last 24 hr 11/14/22 11/14/22 11/14/22 12:38 15:18 17:00 MCV MCH MCHC RDW Plt Count MPV Immature Gran % (Auto) Neut % (Auto) Lymph % (Auto) [place] % (Auto) Eos % (Auto) Baso % (Auto) Lymph # (Auto) [place] # (Auto) Eos # (Auto) Baso # (Auto) Abs Immat Gran (auto) Absolute Neuts (auto) Absolute Nucleated RBC Nucleated RBC % (auto) Anion Gap Estim Creat Clear Calc Estimated GFR POC Glucose 89 103 Random Glucose Calcium Phosphorus Magnesium Total Bilirubin AST ALT Alkaline Phosphatase Total Protein Albumin Random Vancomycin 7.3 L 11/14/22 11/15/22 11/15/22 18:49 00:44 06:08 MCV MCH MCHC RDW Plt Count MPV Immature Gran % (Auto) Neut % (Auto) Lymph % (Auto) [place] % (Auto) Eos % (Auto) Baso % (Auto) Lymph # (Auto) [place] # (Auto) Eos # (Auto) Baso # (Auto) Abs Immat Gran (auto) Absolute Neuts (auto) Absolute Nucleated RBC Nucleated RBC % (auto) Anion Gap Estim Creat Clear Calc Estimated GFR POC Glucose 103 108 108 Random Glucose Calcium Phosphorus Magnesium Total Bilirubin AST ALT Alkaline Phosphatase Total Protein Albumin Random Vancomycin 11/15/22 11/15/22 11/15/22 06:31 06:31 08:17 MCV 88.7 MCH 29.6 MCHC 33.3 RDW 13.0 Plt Count 163 MPV 10.1 Immature Gran % (Auto) 0.9 H Neut % (Auto) 75.8 H Lymph % (Auto) 11.5 L [place] % (Auto) 11.4 H Eos % (Auto) 0.0 Baso % (Auto) 0.4 Lymph # (Auto) 0.6 L [place] # (Auto) 0.6 Eos # (Auto) 0.0 Baso # (Auto) 0.0 Abs Immat Gran (auto) 0.05 H Absolute Neuts (auto) 4.1 Absolute Nucleated RBC 0.000 Nucleated RBC % (auto) 0.0 Anion Gap 14 Estim Creat Clear Calc 146.0 148.6 Estimated GFR > 60 > 60 POC Glucose Random Glucose 109 Calcium 8.8 D Phosphorus 1.9 L Magnesium 1.9 Total Bilirubin 1.4 H AST 66 H ALT 204 H Alkaline Phosphatase 67 Total Protein 5.1 L Albumin 3.3 L Random Vancomycin Microbiology Microbiology Results: Microbiology 11/10/22 01:16 Blood Culture - Final Blood - Venous No growth after 5 days. Assessment and Plan (1) Hypernatremia: Status: Acute Plan 57M pmh bipolar, seizure disorder, htn, hld, hypothyroid, presented after witnesses seizure, course was complicated by SBO with bowel necrosis and acute hypoxic respiratory failure requiring intubation, now extubated and downgraded to medical floor acute hypoxic respiratory failure resolved SBO s/p ex lap with resection of necrotic prox jejunum management per surgery matthieu resolved hypernatremia changing to d5w for 3L, monitor epilepsy continue keppra schizoaffective disorder continue mood stabilizers, haldol coag negative staph in 1/2 blood cultures likely contaminant, will dc vanc dvt prophylaxis - lovenox full cdoe reason for continued hospitalization:awaiting return of gi Time Spent With Patient Time: Total time managing care of this patient today ____ minutes. Quality Stroke Does the patient have a stroke diagnosis?: No VTE Prior VTE?: No VTE Risk Level:: Medical - moderate - high VTE Device Contraindication: Treatment Not Indicated VTE Drug Contraindication: N/A - Med Ordered
--- NOTE | 2022-11-15 11:20 | MHC.CLN ---
F/U PT TRANSFERRED TO MEDICAL FLOOR PT CURRENTLY DAY 6 NPO D5W IVF RUNNING WHEN DIET TO ADVANCE, RECOMMEND ADDING ENSURE SUPPLEMENT TO INCREASE [address] CONSULT [address] IF PPN NEEDED FOLLOWING WITH TEAM
[2022-11-15 12:40] LABS: Glucose, Whole Blood 129 mg/dL (60-115)
--- NOTE | 2022-11-15 12:46 | MHC.CM.PN ---
per rounds pt from [facility] pt may need a central line, no dc date atthsi time
[2022-11-15] MEDS: Enoxaparin Sodium 40 MG/0.4 ML SYRINGE SUBCUT (15:20)
[2022-11-15 15:35] LABS: Glucose, Whole Blood 118 mg/dL (60-115)
[2022-11-15 20:44] LABS: Glucose, Whole Blood 95 mg/dL (60-115)
[2022-11-15 23:53] LABS: Glucose, Whole Blood 101 mg/dL (60-115)
[2022-11-16] VITALS (11 sets, daily range): BP systolic 128–166; BP diastolic 68–97; PULSE 69–96; RESP 15–23; TEMP 36.2–37; O2SAT 92–99; BMI 26.2
[2022-11-16] MEDS: Dextrose 5 % 1,000 ML 125 ML IVCONT ×3 (03:58→18:25)
[2022-11-16] MEDS: Metoprolol Tartrate 5 MG/5 ML VIAL IVPUSH ×4 (04:01→22:43)
[2022-11-16] MEDS: Morphine Sulfate 4 MG/ML CARTRIDGE IVPUSH ×2 (06:01→12:12)
[2022-11-16 06:02] LABS: Glucose, Whole Blood 101 mg/dL (60-115)
[2022-11-16 06:40] LABS: Hematocrit 31.4 % (42.0-52.0); Hemoglobin 10.3 g/dl (14.0-18.0); Mean Corpuscular HGB Conc 32.8 g/dl (31.0-36.0); Mean Corpuscular Hemoglobin 29.4 pg (27.0-33.0); Mean Corpuscular Volume 89.7 fL (80.0-98.0); Platelet Count 176 X10*3/uL (160-400); Red Cell Distribution Width 13.3 % (11.0-16.0); White Blood Count 8.3 X10*3/uL (4.8-10.8)
[2022-11-16 06:54] LABS: Anion Gap 12 (12-20); Blood Urea Nitrogen 22 mg/dL (9-16); Calcium 8.6 mg/dL (8.4-10.2); Carbon Dioxide 28 mmol/L (22-29); Chloride 115 mmol/L (96-108); Creatinine Clr Calc Pharmacy 143.5; Estimated Glomerular Filt Rate > 60; Glucose Fasting 131 mg/dL (60-99); Potassium 3.5 mmol/L (3.3-5.1); Sodium 151 mmol/L (135-145)
[2022-11-16] MEDS: Albuterol/Iprat 2.5/0.5MG 3 ML AMPUL.NEB INHALE ×3 (07:26→19:05)
[2022-11-16 07:41] LABS: Glucose, Whole Blood 108 mg/dL (60-115)
[2022-11-16] MEDS: levETIRAcetam in NaCl (iso-os) 1,000 MG/100 ML PIGGYBACK 400 MG IV ×2 (08:01→20:26)
--- NOTE | 2022-11-16 09:21 | HO.PM.IMPN ---
Subjective Subjective Date of Service: 11/16/22 Interval History: cc: abd pain interval history:no further bm Physical Exam Vital Signs: Vital Signs: Last Vital Signs Temp 97.5 F 11/16/22 08:00 Pulse 92 11/16/22 07:31 Resp 18 11/16/22 08:00 BP 166/81 H 11/16/22 08:00 Pulse Ox 94 11/16/22 08:00 O2 Del Method 11/16/22 08:00 O2 Flow Rate 3 11/16/22 03:00 FiO2 30 11/12/22 09:00 BMI result Body Mass Index 26.2 Const: General: alert and awake Resp: Auscultation: clear to auscultation bilaterally Cardio: Heart sounds: S1 normal heart sound present and S2 normal heart sound present GI: Palpation (GI): Soft to palpation and no guarding Extrem: General: Yes no pedal edema Objective Data Active Medications Albuterol/Ipratropium (Albuterol/Iprat 2.5/0.5mg 3 Ml Ampul.Neb) 3 ml INHALE RQ6H WHILE AWAKE [facility] Last Admin: 11/16/22 07:26 Dose: 3 ml Documented By: BERHANE Dextrose (Dextrose 50 % 25 Gm/50 Ml Syringe) 25 gm IVPUSH Q15M PRN; Protocol PRN Reason: per Hypoglycemia Standing Ord. Last Admin: 11/11/22 17:45 Dose: 25 gm Documented By: SOLEDAD Diazepam (Diazepam 10 Mg/2 Ml Cartridge) 5 mg IVPUSH Q6H PRN PRN Reason: Anxiety Last Admin: 11/14/22 07:14 Dose: 5 mg Documented By: LANCE Enoxaparin Sodium (Enoxaparin Sodium 40 Mg/0.4 Ml Syringe) 40 mg SUBCUT Q24H [facility] Last Admin: 11/15/22 15:20 Dose: 40 mg Documented By: MONTRELL Glucose (Glucose Gel 15 Gm Gel..Gram.) 15 gm PO Q15M PRN; Protocol PRN Reason: per Hypoglycemia Standing Ord. Haloperidol Decanoate (Haloperidol Decanoate 50 Mg/Ml Ampul) 100 mg IM Q14D [facility] Levetiracetam (Keppra) 1,000 mg in 100 mls @ 400 mls/hr IV Q12H [facility] Last Infusion: 11/16/22 08:38 Dose: 0 mls/hr Documented By: ABBE Dextrose (D5w) 1,000 mls @ 125 mls/hr IVCONT .Q8H [facility] Last Infusion: 11/16/22 08:38 Dose: 125 mls/hr Documented By: ABBE Insulin Human Lispro (Insulin Lispro 100 Unit/Ml 3 Ml Vial) 0 unit SUBCUT Q6H [facility]; Protocol Last Admin: 11/16/22 06:05 Dose: Not Given Documented By: MORENO Non-Admin Reason: No Insulin Coverage Lamotrigine (Lamotrigine 100 Mg Tablet) 100 mg PO BID [facility] Last Admin: 11/16/22 08:08 Dose: Not Given Documented By: ABBE Non-Admin Reason: NPO Metoprolol Tartrate (Metoprolol Tartrate 5 Mg/5 Ml Vial) 5 mg IVPUSH Q6H [facility] Last Admin: 11/16/22 08:04 Dose: 5 mg Documented By: ABBE Morphine Sulfate (Morphine Sulfate 4 Mg/Ml Cartridge) 4 mg IVPUSH Q6H PRN; Protocol PRN Reason: Pain, Severe (Pain Scale 7-10) Last Admin: 11/16/22 06:01 Dose: 4 mg Documented By: MORENO Ondansetron HCl (Ondansetron Hcl 4 Mg/2 Ml Vial) 4 mg IVPUSH Q6H PRN PRN Reason: nausea Last Admin: 11/15/22 15:28 Dose: 4 mg Documented By: DEX-RIVLA Labs 11/16/22 06:09 11/16/22 06:09 Labs: Laboratory Results - last 24 hr 11/15/22 11/15/22 11/15/22 12:32 15:29 20:33 MCV MCH MCHC RDW Plt Count MPV Absolute Nucleated RBC Nucleated RBC % (auto) Anion Gap Estim Creat Clear Calc Estimated GFR POC Glucose 129 H 118 H 95 Fasting Glucose Calcium 11/15/22 11/16/22 11/16/22 23:43 05:59 06:09 MCV 89.7 MCH 29.4 MCHC 32.8 RDW 13.3 Plt Count 176 MPV 10.0 Absolute Nucleated RBC 0.000 Nucleated RBC % (auto) 0.0 Anion Gap Estim Creat Clear Calc Estimated GFR POC Glucose 101 101 Fasting Glucose Calcium 11/16/22 11/16/22 06:09 07:21 MCV MCH MCHC RDW Plt Count MPV Absolute Nucleated RBC Nucleated RBC % (auto) Anion Gap 12 Estim Creat Clear Calc 143.5 Estimated GFR > 60 POC Glucose 108 Fasting Glucose 131 H Calcium 8.6 Assessment and Plan (1) Hypernatremia: Status: Acute Plan 57M pmh bipolar, seizure disorder, htn, hld, hypothyroid, presented after witnesses seizure, course was complicated by SBO with bowel necrosis and acute hypoxic respiratory failure requiring intubation, now extubated and downgraded to medical floor acute hypoxic respiratory failure resolved SBO s/p ex lap with resection of necrotic prox jejunum management per surgery continue npo - small sips matthieu resolved hypernatremia continue d5w for 3L total, monitor epilepsy continue keppra schizoaffective disorder continue mood stabilizers, haldol coag negative staph in 1/2 blood cultures likely contaminant, dced vanc dvt prophylaxis - lovenox full cdoe reason for continued hospitalization:awaiting return of gi Time Spent With Patient Time: Total time managing care of this patient today ____ minutes. Quality Stroke Does the patient have a stroke diagnosis?: No VTE Prior VTE?: No VTE Risk Level:: Medical - moderate - high VTE Device Contraindication: Treatment Not Indicated VTE Drug Contraindication: N/A - Med Ordered
--- NOTE | 2022-11-16 10:34 | PM.PNGS ---
Subjective Subjective Date of Service: 11/16/22 Patient reports: still having pain Interval history: The patient is seen in coverage for Dr. Moses Patient reports he is still having pain in refused to let me examine him. He did not answer questions about other complaints such as shortness of breath or chest pain He denies any flatus but does report that he is distended. He did agree a left his gown so that I could check his abdominal incision but stated that I could not touch him Physical Exam Vital Signs: Vital Signs: Last Vital Signs Temp 97.5 F 11/16/22 08:00 Pulse 92 11/16/22 07:31 Resp 18 11/16/22 08:00 BP 166/81 H 11/16/22 08:00 Pulse Ox 94 11/16/22 08:00 O2 Del Method 11/16/22 08:00 O2 Flow Rate 3 11/16/22 03:00 FiO2 30 11/12/22 09:00 BMI result Body Mass Index 26.2 On exam, the patient is intermittently agitated He is in no acute respiratory distress and has no obvious neurologic localizing symptoms Abdomen appears distended, I did not touch is abdomen per patient request. Incision is clean dry and intact with no evidence of abscess, cellulitis or other complications. Objective Data Active Medications Albuterol/Ipratropium (Albuterol/Iprat 2.5/0.5mg 3 Ml Ampul.Neb) 3 ml INHALE RQ6H WHILE AWAKE [facility] Last Admin: 11/16/22 07:26 Dose: 3 ml Documented By: BERHANE Dextrose (Dextrose 50 % 25 Gm/50 Ml Syringe) 25 gm IVPUSH Q15M PRN; Protocol PRN Reason: per Hypoglycemia Standing Ord. Last Admin: 11/11/22 17:45 Dose: 25 gm Documented By: SOLEDAD Diazepam (Diazepam 10 Mg/2 Ml Cartridge) 5 mg IVPUSH Q6H PRN PRN Reason: Anxiety Last Admin: 11/14/22 07:14 Dose: 5 mg Documented By: LANCE Enoxaparin Sodium (Enoxaparin Sodium 40 Mg/0.4 Ml Syringe) 40 mg SUBCUT Q24H [facility] Last Admin: 11/15/22 15:20 Dose: 40 mg Documented By: MONTRELL Glucose (Glucose Gel 15 Gm Gel..Gram.) 15 gm PO Q15M PRN; Protocol PRN Reason: per Hypoglycemia Standing Ord. Haloperidol Decanoate (Haloperidol Decanoate 50 Mg/Ml Ampul) 100 mg IM Q14D [facility] Levetiracetam (Keppra) 1,000 mg in 100 mls @ 400 mls/hr IV Q12H [facility] Last Infusion: 11/16/22 08:38 Dose: 0 mls/hr Documented By: ABBE Dextrose (D5w) 1,000 mls @ 125 mls/hr IVCONT .Q8H [facility] Last Infusion: 11/16/22 08:38 Dose: 125 mls/hr Documented By: ABBE Insulin Human Lispro (Insulin Lispro 100 Unit/Ml 3 Ml Vial) 0 unit SUBCUT Q6H [facility]; Protocol Last Admin: 11/16/22 06:05 Dose: Not Given Documented By: MORENO Non-Admin Reason: No Insulin Coverage Lamotrigine (Lamotrigine 100 Mg Tablet) 100 mg PO BID [facility] Last Admin: 11/16/22 08:08 Dose: Not Given Documented By: ABBE Non-Admin Reason: NPO Metoprolol Tartrate (Metoprolol Tartrate 5 Mg/5 Ml Vial) 5 mg IVPUSH Q6H [facility] Last Admin: 11/16/22 08:04 Dose: 5 mg Documented By: ABBE Morphine Sulfate (Morphine Sulfate 4 Mg/Ml Cartridge) 4 mg IVPUSH Q6H PRN; Protocol PRN Reason: Pain, Severe (Pain Scale 7-10) Last Admin: 11/16/22 06:01 Dose: 4 mg Documented By: MORENO Ondansetron HCl (Ondansetron Hcl 4 Mg/2 Ml Vial) 4 mg IVPUSH Q6H PRN PRN Reason: nausea Last Admin: 11/15/22 15:28 Dose: 4 mg Documented By: N-RIVLA Labs 11/16/22 06:09 11/16/22 06:09 Labs: Laboratory Results - last 24 hr 11/15/22 11/15/22 11/15/22 12:32 15:29 20:33 MCV MCH MCHC RDW Plt Count MPV Absolute Nucleated RBC Nucleated RBC % (auto) Anion Gap Estim Creat Clear Calc Estimated GFR POC Glucose 129 H 118 H 95 Fasting Glucose Calcium 11/15/22 11/16/22 11/16/22 23:43 05:59 06:09 MCV 89.7 MCH 29.4 MCHC 32.8 RDW 13.3 Plt Count 176 MPV 10.0 Absolute Nucleated RBC 0.000 Nucleated RBC % (auto) 0.0 Anion Gap Estim Creat Clear Calc Estimated GFR POC Glucose 101 101 Fasting Glucose Calcium 11/16/22 11/16/22 06:09 07:21 MCV MCH MCHC RDW Plt Count MPV Absolute Nucleated RBC Nucleated RBC % (auto) Anion Gap 12 Estim Creat Clear Calc 143.5 Estimated GFR > 60 POC Glucose 108 Fasting Glucose 131 H Calcium 8.6 Procedures Date of Service Date of Service: 11/16/22 Progress Note: A&P Assessment and plan (1) Hypernatremia: Status: Acute (2) Seizure disorder: Status: Acute (3) Hypothyroidism: Status: Acute (4) Schizoaffective disorder: Status: Acute (5) Bipolar disorder: Status: Acute (6) Acute respiratory failure with hypoxia: Status: Acute (7) Ischemic necrosis of small bowel: Status: Acute (8) Metabolic acidosis: Status: Acute (9) Hyponatremia: Status: Acute (10) Hyperkalemia: Status: Acute (11) MELY (acute kidney injury): Status: Acute Plan Hold on advancing diet given abdominal bloating. Will reassess patient tomorrow. Please call me today with any other surgical questions. Time Spent With Patient Time: Total time managing care of this patient today ____ minutes. Quality Stroke Does the patient have a stroke diagnosis?: No VTE Prior VTE?: No VTE Risk Level:: Medical - moderate - high VTE Device Contraindication: Treatment Not Indicated VTE Drug Contraindication: N/A - Med Ordered
[2022-11-16 11:24] LABS: Glucose, Whole Blood 126 mg/dL (60-115)
--- NOTE | 2022-11-16 12:42 | PM.PNNEP ---
Subjective Subjective Date of Service: 11/16/22 Interval history: Hypernatremia Physical Exam Vital Signs: Vital Signs: Last Vital Signs Temp 98.6 F 11/16/22 11:43 Pulse 92 11/16/22 11:43 Resp 18 11/16/22 11:43 BP 128/97 H 11/16/22 11:43 Pulse Ox 99 11/16/22 11:43 O2 Del Method 11/16/22 11:43 O2 Flow Rate 3.5 11/16/22 11:43 FiO2 30 11/12/22 09:00 BMI result Body Mass Index 26.2 Const: General: alert and awake HEENT: Head: Yes normocephalic and Yes atraumatic Neck: Neck: Yes supple Resp: Auscultation: clear to auscultation bilaterally Cardio: Heart sounds: S1 normal heart sound present and S2 normal heart sound present GI: Palpation (GI): Soft to palpation and no guarding Extrem: General: Yes no pedal edema Objective Data Labs 11/16/22 06:09 11/16/22 06:09 Labs: Laboratory Results - last 24 hr 11/15/22 11/15/22 11/15/22 15:29 20:33 23:43 WBC RBC Hgb Hct MCV MCH MCHC RDW Plt Count MPV Absolute Nucleated RBC Nucleated RBC % (auto) Sodium Potassium Chloride Carbon Dioxide Anion Gap BUN Creatinine Estim Creat Clear Calc Estimated GFR POC Glucose 118 H 95 101 Fasting Glucose Calcium 11/16/22 11/16/22 11/16/22 05:59 06:09 06:09 WBC 8.3 RBC 3.50 L D Hgb 10.3 L Hct 31.4 L D MCV 89.7 MCH 29.4 MCHC 32.8 RDW 13.3 Plt Count 176 MPV 10.0 Absolute Nucleated RBC 0.000 Nucleated RBC % (auto) 0.0 Sodium 151 H Potassium 3.5 Chloride 115 H Carbon Dioxide 28 Anion Gap 12 BUN 22 H Creatinine 0.59 Estim Creat Clear Calc 143.5 Estimated GFR > 60 POC Glucose 101 Fasting Glucose 131 H Calcium 8.6 11/16/22 11/16/22 07:21 11:14 WBC RBC Hgb Hct MCV MCH MCHC RDW Plt Count MPV Absolute Nucleated RBC Nucleated RBC % (auto) Sodium Potassium Chloride Carbon Dioxide Anion Gap BUN Creatinine Estim Creat Clear Calc Estimated GFR POC Glucose 108 126 H Fasting Glucose Calcium Microbiology Microbiology Results: Microbiology 11/10/22 01:16 Blood - Venous Blood Culture - Final No growth after 5 days. 11/10/22 01:16 Blood - Venous Blood Culture - Final Coag negative Staphylococcus Procedures Date of Service Date of Service: 11/16/22 Assessment & Plan Assessment and plan (1) MELY (acute kidney injury): Status: Acute (2) Hyperkalemia: Status: Acute (3) Metabolic acidosis: Status: Acute (4) Hypernatremia: Status: Acute Plan 57-year-old gentleman with underlying history of hypothyroidism, hypertension, bipolar/schizoaffective disorder, seizure disorder, resident of [facility], bed-bound admitted on 11/10/2022 with seizure and abdominal distension.? On ER evaluation patient hypotensive with CT abdomen suggestive of small-bowel obstruction.?Overnight 11/11/2022 with development of worsening hypotension associated with fluid shifts requiring starting on vasopressor support, transferred to intensive care unit, and intubation.? Ultimately taken for explorative laparotomy with finding of patchy necrotic small-bowel, Extubated 11/12/2022.? Started on Lamictal significant improvement in agitation. Course complicated by MELY and Hyperkalemia, resolved with resuscitation efforts. Now profoundly hypernatremic from water deficit. Plan: - Increase D5/W to 175cc/hr - daily labs monitoring renal function and lytes Time Spent With Patient Time: Total time managing care of this patient today ____ minutes. Progress Note: Quality Stroke Does the patient have a stroke diagnosis?: No
[2022-11-16] MEDS: diazePAM 10 MG/2 ML CARTRIDGE 5 MG IVPUSH (14:33)
[2022-11-16] MEDS: ondansetron HCL 4 MG/2 ML VIAL IVPUSH (20:26)
[2022-11-17] VITALS (8 sets, daily range): BP systolic 134–181; BP diastolic 64–111; PULSE 76–101; RESP 16–22; TEMP 36.4–37.1; O2SAT 90–97; BMI 25.7
--- NOTE | 2022-11-17 01:30 | MHC.PIE ---
P.Increased work of breathing I.Pt noted to have coarse crackles bilat,increased work of breathing.Dr Goodwin notified,IV fluids put on hold,stat CXR ordered and ABG'S.Difficulty obtaining ABG'S per respiratory,changed to venous ABG'S by ,and Updraft ordered x 1. E.Cont to monitor
--- NOTE | 2022-11-17 02:27 | PC.RT ---
Pt aggressively refused ABG.
[2022-11-17] MEDS: diazePAM 10 MG/2 ML CARTRIDGE 5 MG IVPUSH (03:47)
[2022-11-17] MEDS: Metoprolol Tartrate 5 MG/5 ML VIAL IVPUSH (03:47)
[2022-11-17 04:09] LABS: Hematocrit 28.2 % (42.0-52.0); Hemoglobin 9.2 g/dl (14.0-18.0); Mean Corpuscular HGB Conc 32.6 g/dl (31.0-36.0); Mean Corpuscular Hemoglobin 29.8 pg (27.0-33.0); Mean Corpuscular Volume 91.3 fL (80.0-98.0); Mean Platelet Volume 9.8 fL (9.4-12.4); Platelet Count 171 X10*3/uL (160-400); Red Blood Count 3.09 X10*6/uL (4.60-5.80); Red Cell Distribution Width 13.4 % (11.0-16.0); White Blood Count 8.1 X10*3/uL (4.8-10.8)
[2022-11-17 04:11] LABS: Venous Blood Gas Refer to POC result
[2022-11-17 04:11] LABS: VBG Base Excess 5.8 mmol/L; VBG HCO3 30 mmol/L (22-26); VBG pCO2 44 mmHg; VBG pH 7.44 (7.32-7.43); VBG pO2 49 mmHg
[2022-11-17] MEDS: Albuterol/Iprat 2.5/0.5MG 3 ML AMPUL.NEB INHALE ×2 (04:13→07:46)
[2022-11-17 04:28] LABS: Anion Gap 15 (12-20); Blood Urea Nitrogen 19 mg/dL (9-16); Calcium 8.5 mg/dL (8.4-10.2); Carbon Dioxide 24 mmol/L (22-29); Chloride 111 mmol/L (96-108); Estimated Glomerular Filt Rate > 60; Glucose Fasting 107 mg/dL (60-99); Potassium 3.8 mmol/L (3.3-5.1); Sodium 146 mmol/L (135-145)
--- NOTE | 2022-11-17 09:54 | P.PNIM_ITS ---
Subjective Subjective Date of Service: 11/17/22 Interval History: cc: abd pain interval history:having bms Physical Exam Vital Signs: Vital Signs: Last Vital Signs Temp 98.7 F 11/17/22 08:00 Pulse 101 H 11/17/22 08:00 Resp 20 11/17/22 08:00 BP 142/65 H 11/17/22 08:00 Pulse Ox 90 L 11/17/22 08:00 O2 Del Method 11/17/22 08:00 O2 Flow Rate 1 11/16/22 23:49 FiO2 30 11/12/22 09:00 BMI result Body Mass Index 25.7 Const: General: alert and awake HEENT: Head: Yes normocephalic and Yes atraumatic Neck: Neck: Yes supple Resp: Auscultation: clear to auscultation bilaterally Cardio: Heart sounds: S1 normal heart sound present and S2 normal heart sound present GI: Palpation (GI): Soft to palpation and no guarding Extrem: General: Yes no pedal edema Objective Data Active Medications Albuterol/Ipratropium (Albuterol/Iprat 2.5/0.5mg 3 Ml Ampul.Neb) 3 ml INHALE RQ6H WHILE AWAKE [facility] Last Admin: 11/17/22 07:46 Dose: 3 ml Documented By: BERHANE Dextrose (Dextrose 50 % 25 Gm/50 Ml Syringe) 25 gm IVPUSH Q15M PRN; Protocol PRN Reason: per Hypoglycemia Standing Ord. Last Admin: 11/11/22 17:45 Dose: 25 gm Documented By: SOLEDAD Diazepam (Diazepam 10 Mg/2 Ml Cartridge) 5 mg IVPUSH Q6H PRN PRN Reason: Anxiety Last Admin: 11/17/22 03:47 Dose: 5 mg Documented By: UZAIR Enoxaparin Sodium (Enoxaparin Sodium 40 Mg/0.4 Ml Syringe) 40 mg SUBCUT Q24H [facility] Last Admin: 11/16/22 18:46 Dose: Not Given Documented By: ABBE Non-Admin Reason: Patient Refused Glucose (Glucose Gel 15 Gm Gel..Gram.) 15 gm PO Q15M PRN; Protocol PRN Reason: per Hypoglycemia Standing Ord. Haloperidol Decanoate (Haloperidol Decanoate 50 Mg/Ml Ampul) 100 mg IM Q14D [facility] Lamotrigine (Lamotrigine 100 Mg Tablet) 100 mg PO BID [facility] Last Admin: 11/16/22 22:27 Dose: Not Given Documented By: MORENO Non-Admin Reason: Nausea Levetiracetam (Levetiracetam 1,000 Mg Tablet) 1,000 mg PO BID [facility] Morphine Sulfate (Morphine Sulfate 4 Mg/Ml Cartridge) 4 mg IVPUSH Q6H PRN; Pro tocol PRN Reason: Pain, Severe (Pain Scale 7-10) Last Admin: 11/16/22 12:12 Dose: 4 mg Documented By: SOLISPE Ondansetron HCl (Ondansetron Hcl 4 Mg/2 Ml Vial) 4 mg IVPUSH Q6H PRN PRN Reason: nausea Last Admin: 11/16/22 20:26 Dose: 4 mg Documented By: MORENO Labs 11/17/22 04:03 11/17/22 04:03 Labs: Laboratory Results - last 24 hr 11/16/22 11/17/22 11/17/22 11:14 04:03 04:03 MCV 91.3 MCH 29.8 MCHC 32.6 RDW 13.4 Plt Count 171 MPV 9.8 Absolute Nucleated RBC 0.000 Nucleated RBC % (auto) 0.0 VBG pH VBG pCO2 VBG pO2 VBG HCO3 VBG O2 Saturation VBG Base Excess Anion Gap 15 Estim Creat Clear Calc 146.0 Estimated GFR > 60 POC Glucose 126 H Fasting Glucose 107 H Calcium 8.5 11/17/22 04:06 MCV MCH MCHC RDW Plt Count MPV Absolute Nucleated RBC Nucleated RBC % (auto) VBG pH 7.44 H VBG pCO2 44 VBG pO2 49 VBG HCO3 30 H VBG O2 Saturation 75.0 VBG Base Excess 5.8 Anion Gap Estim Creat Clear Calc Estimated GFR POC Glucose Fasting Glucose Calcium Assessment and Plan (1) Hypernatremia: Status: Acute Plan 57M pmh bipolar, seizure disorder, htn, hld, hypothyroid, presented after witnesses seizure, course was complicated by SBO with bowel necrosis and acute hypoxic respiratory failure requiring intubation, now extubated and downgraded to medical floor acute hypoxic respiratory failure resolved SBO s/p ex lap with resection of necrotic prox jejunum management per surgery having bms, will advance to clears matthieu resolved hypernatremia improved to 146, encourage po fluids, monitor epilepsy continue keppra schizoaffective disorder continue mood stabilizers, haldol coag negative staph in 1/2 blood cultures likely contaminant, dced vanc dvt prophylaxis - lovenox full cdoe reason for continued hospitalization:awaiting return of gi, hyperna, Time Spent With Patient Time: Total time managing care of this patient today ____ minutes. Quality Stroke Does the patient have a stroke diagnosis?: No VTE Prior VTE?: No VTE Risk Level:: Medical - moderate - high VTE Device Contraindication: Treatment Not Indicated VTE Drug Contraindication: N/A - Med Ordered
[2022-11-17] MEDS: levETIRAcetam 1,000 MG TABLET 1000 MG PO ×2 (10:23→20:07)
[2022-11-17] MEDS: lamoTRIgine 100 MG TABLET PO ×2 (10:23→20:07)
--- NOTE | 2022-11-17 11:37 | P.PNGS_ITS ---
Subjective Subjective Date of Service: 11/17/22 Patient reports: feels better Interval history: The patient is less agitated today and reports that he is thirsty and that he is passing gas. He otherwise denies complaints such as chest pain or difficulty breathing Physical Exam Vital Signs: Vital Signs: Last Vital Signs Temp 98.7 F 11/17/22 08:00 Pulse 101 H 11/17/22 08:00 Resp 20 11/17/22 08:00 BP 142/65 H 11/17/22 08:00 Pulse Ox 90 L 11/17/22 08:00 O2 Del Method 11/17/22 08:00 O2 Flow Rate 1 11/16/22 23:49 FiO2 30 11/12/22 09:00 BMI result Body Mass Index 25.7 Patient is nontoxic His abdomen is distended with some tympany but it is less than yesterday. His incision is healing well Objective Data Active Medications Albuterol/Ipratropium (Albuterol/Iprat 2.5/0.5mg 3 Ml Ampul.Neb) 3 ml INHALE RQ6H WHILE AWAKE [facility] Last Admin: 11/17/22 07:46 Dose: 3 ml Documented By: BERHANE Dextrose (Dextrose 50 % 25 Gm/50 Ml Syringe) 25 gm IVPUSH Q15M PRN; Protocol PRN Reason: per Hypoglycemia Standing Ord. Last Admin: 11/11/22 17:45 Dose: 25 gm Documented By: SOLEDAD Diazepam (Diazepam 10 Mg/2 Ml Cartridge) 5 mg IVPUSH Q6H PRN PRN Reason: Anxiety Last Admin: 11/17/22 03:47 Dose: 5 mg Documented By: UZAIR Enoxaparin Sodium (Enoxaparin Sodium 40 Mg/0.4 Ml Syringe) 40 mg SUBCUT Q24H [facility] Last Admin: 11/16/22 18:46 Dose: Not Given Documented By: ABBE Non-Admin Reason: Patient Refused Glucose (Glucose Gel 15 Gm Gel..Gram.) 15 gm PO Q15M PRN; Protocol PRN Reason: per Hypoglycemia Standing Ord. Haloperidol Decanoate (Haloperidol Decanoate 50 Mg/Ml Ampul) 100 mg IM Q14D [facility] Lamotrigine (Lamotrigine 100 Mg Tablet) 100 mg PO BID [facility] Last Admin: 11/17/22 10:23 Dose: 100 mg Documented By: ABBE Levetiracetam (Levetiracetam 1,000 Mg Tablet) 1,000 mg PO BID [facility] Last Admin: 11/17/22 10:23 Dose: 1,000 mg Documented By: ABBE Morphine Sulfate (Morphine Sulfate 4 Mg/Ml Cartridge) 4 mg IVPUSH Q6H PRN; Protocol PRN Reason: Pain, Severe (Pain Scale 7-10) Last Admin: 11/16/22 12:12 Dose: 4 mg Documented By: ABBE Ondansetron HCl (Ondansetron Hcl 4 Mg/2 Ml Vial) 4 mg IVPUSH Q6H PRN PRN Reason: nausea Last Admin: 11/16/22 20:26 Dose: 4 mg Documented By: MORENO Labs 11/17/22 04:03 11/17/22 04:03 Labs: Laboratory Results - last 24 hr 11/17/22 11/17/22 11/17/22 04:03 04:03 04:06 MCV 91.3 MCH 29.8 MCHC 32.6 RDW 13.4 Plt Count 171 MPV 9.8 Absolute Nucleated RBC 0.000 Nucleated RBC % (auto) 0.0 VBG pH 7.44 H VBG pCO2 44 VBG pO2 49 VBG HCO3 30 H VBG O2 Saturation 75.0 VBG Base Excess 5.8 Anion Gap 15 Estim Creat Clear Calc 146.0 Estimated GFR > 60 Fasting Glucose 107 H Calcium 8.5 Procedures Date of Service Date of Service: 11/17/22 Progress Note: A&P Assessment and plan (1) Ischemic necrosis of small bowel: Status: Acute (2) Acute respiratory failure with hypoxia: Status: Acute (3) Bipolar disorder: Status: Acute (4) Schizoaffective disorder: Status: Acute (5) Hypothyroidism: Status: Acute (6) Seizure disorder: Status: Acute Plan Start clear liquids Hold for bloating, nausea or vomiting Dr. Moses will resume care November 18 Time Spent With Patient Time: Total time managing care of this patient today ____ minutes. Quality Stroke Does the patient have a stroke diagnosis?: No VTE Prior VTE?: No VTE Risk Level:: Medical - moderate - high VTE Device Contraindication: Treatment Not Indicated VTE Drug Contraindication: N/A - Med Ordered
[2022-11-17] MEDS: oxyCODONE HCl Immed Release 5 MG TABLET PO ×2 (13:02→20:07)
[2022-11-17] MEDS: LORazepam 0.5 MG TABLET PO ×2 (16:23→20:07)
--- NOTE | 2022-11-17 18:29 | PC.NURSE ---
cash applications associate reported during a face time call between pt and pt's sister serjio bassett related to cash applications associate that pt's ,other had a fall and was in hospital with a possible brain bleed. Sister requested that the mother not be contacted until her prognosis is better established. serjio also requested that the pt not be informed that his mother is in hospital.
[2022-11-18] MEDS: oxyCODONE HCl Immed Release 5 MG TABLET PO ×4 (02:37→18:25)
[2022-11-18] MEDS: LORazepam 0.5 MG TABLET PO (02:37)
[2022-11-18 03:55] VITALS: BP 135/69; PULSE 92; RESP 16; TEMP 36.7; O2SAT 95
[2022-11-18 07:39] LABS: Hematocrit 29.2 % (42.0-52.0); Hemoglobin 9.3 g/dl (14.0-18.0); Mean Corpuscular HGB Conc 31.8 g/dl (31.0-36.0); Mean Corpuscular Hemoglobin 29.2 pg (27.0-33.0); Mean Corpuscular Volume 91.8 fL (80.0-98.0); Mean Platelet Volume 10.5 fL (9.4-12.4); Platelet Count 203 X10*3/uL (160-400); Red Blood Count 3.18 X10*6/uL (4.60-5.80); Red Cell Distribution Width 13.4 % (11.0-16.0); White Blood Count 7.9 X10*3/uL (4.8-10.8)
[2022-11-18 08:00] VITALS: BP 155/78; PULSE 107; RESP 20; TEMP 36.8; O2SAT 95
[2022-11-18 08:07] LABS: Anion Gap 13 (12-20); Blood Urea Nitrogen 15 mg/dL (9-16); Calcium 8.7 mg/dL (8.4-10.2); Carbon Dioxide 25 mmol/L (22-29); Chloride 113 mmol/L (96-108); Creatinine Clr Calc Pharmacy 143.5; Estimated Glomerular Filt Rate > 60; Glucose Fasting 97 mg/dL (60-99); Potassium 3.8 mmol/L (3.3-5.1); Sodium 147 mmol/L (135-145)
[2022-11-18] MEDS: Albuterol/Iprat 2.5/0.5MG 3 ML AMPUL.NEB INHALE ×2 (08:10→19:51)
--- NOTE | 2022-11-18 09:06 | P.PNIM_ITS ---
Subjective Subjective Date of Service: 11/18/22 Interval History: cc: abd pain interval history:not talking today Physical Exam Vital Signs: Vital Signs: Last Vital Signs Temp 98.2 F 11/18/22 08:00 Pulse 107 H 11/18/22 08:00 Resp 20 11/18/22 08:00 BP 155/78 H 11/18/22 08:00 Pulse Ox 95 11/18/22 08:00 O2 Del Method 11/18/22 08:00 O2 Flow Rate 1 11/16/22 23:49 FiO2 30 11/12/22 09:00 BMI result Body Mass Index 25.7 a bit more distended Objective Data Active Medications Albuterol/Ipratropium (Albuterol/Iprat 2.5/0.5mg 3 Ml Ampul.Neb) 3 ml INHALE RQ6H WHILE AWAKE [facility] Last Admin: 11/18/22 08:10 Dose: 3 ml Documented By: HUMBLE Dextrose (Dextrose 50 % 25 Gm/50 Ml Syringe) 25 gm IVPUSH Q15M PRN; Protocol PRN Reason: per Hypoglycemia Standing Ord. Last Admin: 11/11/22 17:45 Dose: 25 gm Documented By: SOLEDAD Diazepam (Diazepam 10 Mg/2 Ml Cartridge) 5 mg IVPUSH Q6H PRN PRN Reason: Anxiety Last Admin: 11/17/22 03:47 Dose: 5 mg Documented By: UZAIR Enoxaparin Sodium (Enoxaparin Sodium 40 Mg/0.4 Ml Syringe) 40 mg SUBCUT Q24H [facility] Last Admin: 11/17/22 17:08 Dose: Not Given Documented By: ABBE Non-Admin Reason: Patient Refused Glucose (Glucose Gel 15 Gm Gel..Gram.) 15 gm PO Q15M PRN; Protocol PRN Reason: per Hypoglycemia Standing Ord. Haloperidol Decanoate (Haloperidol Decanoate 50 Mg/Ml Ampul) 100 mg IM Q14D [facility] Dextrose (D5w) 1,000 mls @ 125 mls/hr IVCONT .Q8H [facility] Lamotrigine (Lamotrigine 100 Mg Tablet) 100 mg PO BID [facility] Last Admin: 11/17/22 20:07 Dose: 100 mg Documented By: IVAN Levetiracetam (Levetiracetam 1,000 Mg Tablet) 1,000 mg PO BID [facility] Last Admin: 11/17/22 20:07 Dose: 1,000 mg Documented By: IVAN Lorazepam (Lorazepam 0.5 Mg Tablet) 0.5 mg PO Q4H PRN PRN Reason: agitation Last Admin: 11/18/22 02:37 Dose: 0.5 mg Documented By: IVAN Morphine Sulfate (Morphine Sulfate 4 Mg/Ml Cartridge) 4 mg IVPUSH Q6H PRN; Protocol PRN Reason: Pain, Severe (Pain Scale 7-10) Last Admin: 11/16/22 12:12 Dose: 4 mg Documented By: SOLISPE Ondansetron HCl (Ondansetron Hcl 4 Mg/2 Ml Vial) 4 mg IVPUSH Q6H PRN PRN Reason: nausea Last Admin: 11/16/22 20:26 Dose: 4 mg Documented By: MORENO Oxycodone HCl (Oxycodone Hcl Immed Release 5 Mg Tablet) 5 mg PO Q4H PRN PRN Reason: moderate pain Last Admin: 11/18/22 02:37 Dose: 5 mg Documented By: IVAN Labs 11/18/22 06:39 11/18/22 06:39 Labs: Laboratory Results - last 24 hr 11/18/22 11/18/22 06:39 06:39 MCV 91.8 MCH 29.2 MCHC 31.8 RDW 13.4 Plt Count 203 MPV 10.5 Absolute Nucleated RBC 0.000 Nucleated RBC % (auto) 0.0 Anion Gap 13 Estim Creat Clear Calc 143.5 Estimated GFR > 60 Fasting Glucose 97 Calcium 8.7 Assessment and Plan (1) Hypernatremia: Status: Acute Plan 57M pmh bipolar, seizure disorder, htn, hld, hypothyroid, presented after witnesses seizure, course was complicated by SBO with bowel necrosis and acute hypoxic respiratory failure requiring intubation, now extubated and downgraded to medical floor acute hypoxic respiratory failure resolved SBO s/p ex lap with resection of necrotic prox jejunum management per surgery matthieu resolved hypernatremia restart d5w, monitor epilepsy continue keppra schizoaffective disorder continue mood stabilizers, haldol coag negative staph in 1/2 blood cultures likely contaminant, dced vanc dvt prophylaxis - lovenox full cdoe reason for continued hospitalization:awaiting return of gi, hyperna, Time Spent With Patient Time: Total time managing care of this patient today ____ minutes. Quality Stroke Does the patient have a stroke diagnosis?: No VTE Prior VTE?: No VTE Risk Level:: Medical - moderate - high VTE Device Contraindication: Treatment Not Indicated VTE Drug Contraindication: N/A - Med Ordered
--- NOTE | 2022-11-18 10:29 | P.PNGS_ITS ---
Subjective Subjective Date of Service: 11/18/22 Interval history: Patient seems much more awake and alert, answering some simple questions. Denies abdominal pain. Multiple bowel movements over the past 4 hours. Physical Exam Vital Signs: Vital Signs: Last Vital Signs Temp 98.2 F 11/18/22 08:00 Pulse 107 H 11/18/22 08:00 Resp 20 11/18/22 08:00 BP 155/78 H 11/18/22 08:00 Pulse Ox 95 11/18/22 08:00 O2 Del Method 11/18/22 08:00 O2 Flow Rate 1 11/16/22 23:49 FiO2 30 11/12/22 09:00 BMI result Body Mass Index 25.7 Const: General: comfortable, no acute distress and confusion Nutritional Appearance: thin Orientation/consciousness: confusion Limitations: behavi oral limitations HEENT: Head: Yes normocephalic and Yes atraumatic Resp: Effort & Inspection: normal respiratory effort Auscultation: no crackles, no rales and no wheezes GI: Inspection: Yes normal to inspection Palpation (GI): Soft to palpation, nontender, no guarding and not rigid Percussion: Yes dullness to percussion Auscultation: normal bowel sounds Rectal Exam - Male: Yes deferred Abdomen image: 1. Midline incision clean, dry, and intact. Skin: General skin exam: no rashes or lesions noted Neuro: General: confusion Extrem: General: Yes no clubbing, cyanosis or edema Objective Data Active Medications Albuterol/Ipratropium (Albuterol/Iprat 2.5/0.5mg 3 Ml Ampul.Neb) 3 ml INHALE RQ6H WHILE AWAKE [facility] Last Admin: 11/18/22 08:10 Dose: 3 ml Documented By: HUMBLE Dextrose (Dextrose 50 % 25 Gm/50 Ml Syringe) 25 gm IVPUSH Q15M PRN; Protocol PRN Reason: per Hypoglycemia Standing Ord. Last Admin: 11/11/22 17:45 Dose: 25 gm Documented By: SOLEDAD Diazepam (Diazepam 10 Mg/2 Ml Cartridge) 5 mg IVPUSH Q6H PRN PRN Reason: Anxiety Last Admin: 11/17/22 03:47 Dose: 5 mg Documented By: UZAIR Enoxaparin Sodium (Enoxaparin Sodium 40 Mg/0.4 Ml Syringe) 40 mg SUBCUT Q24H [facility] Last Admin: 11/17/22 17:08 Dose: Not Given Documented By: BABE Non-Admin Reason: Patient Refused Glucose (Glucose Gel 15 Gm Gel..Gram.) 15 gm PO Q15M PRN; Protocol PRN Reason: per Hypoglycemia Standing Ord. Haloperidol Decanoate (Haloperidol Decanoate 50 Mg/Ml Ampul) 100 mg IM Q14D [facility] Dextrose (D5w) 1,000 mls @ 125 mls/hr IVCONT .Q8H [facility] Lamotrigine (Lamotrigine 100 Mg Tablet) 100 mg PO BID [facility] Last Admin: 11/17/22 20:07 Dose: 100 mg Documented By: IVAN Levetiracetam (Levetiracetam 1,000 Mg Tablet) 1,000 mg PO BID [facility] Last Admin: 11/17/22 20:07 Dose: 1,000 mg Documented By: IVAN Lorazepam (Lorazepam 0.5 Mg Tablet) 0.5 mg PO Q4H PRN PRN Reason: agitation Last Admin: 11/18/22 02:37 Dose: 0.5 mg Documented By: IVAN Morphine Sulfate (Morphine Sulfate 4 Mg/Ml Cartridge) 4 mg IVPUSH Q6H PRN; Protocol PRN Reason: Pain, Severe (Pain Scale 7-10) Last Admin: 11/16/22 12:12 Dose: 4 mg Documented By: ABBE Ondansetron HCl (Ondansetron Hcl 4 Mg/2 Ml Vial) 4 mg IVPUSH Q6H PRN PRN Reason: nausea Last Admin: 11/16/22 20:26 Dose: 4 mg Documented By: MORENO Oxycodone HCl (Oxycodone Hcl Immed Release 5 Mg Tablet) 5 mg PO Q4H PRN PRN Reason: moderate pain Last Admin: 11/18/22 02:37 Dose: 5 mg Documented By: IVAN Labs 11/18/22 06:39 11/18/22 06:39 Labs: Laboratory Results - last 24 hr 11/18/22 11/18/22 06:39 06:39 MCV 91.8 MCH 29.2 MCHC 31.8 RDW 13.4 Plt Count 203 MPV 10.5 Absolute Nucleated RBC 0.000 Nucleated RBC % (auto) 0.0 Anion Gap 13 Estim Creat Clear Calc 143.5 Estimated GFR > 60 Fasting Glucose 97 Calcium 8.7 Procedures Date of Service Date of Service: 11/18/22 Progress Note: A&P Assessment and plan (1) Seizure disorder: Status: Acute (2) Schizoaffective disorder: Status: Acute (3) Ischemic necrosis of small bowel: Status: Acute Plan 57-year-old male with multiple medical issues, s/p exploratory laparotomy, small-bowel resection for necrotic bowel. Patient is now passing flatus and moving bowels. He is tolerating a clear liquid diet without nausea or vomiting. Will advance to a soft regular diet today. Time Spent With Patient Time: Total time managing care of this patient today ____ minutes. Quality Stroke Does the patient have a stroke diagnosis?: No VTE Prior VTE?: No VTE Risk Level:: Medical - moderate - high VTE Device Contraindication: Treatment Not Indicated VTE Drug Contraindication: N/A - Med Ordered
--- NOTE | 2022-11-18 10:31 | PM.PNNEP ---
Subjective Subjective Date of Service: 11/19/22 Interval history: Events noted Not eating Physical Exam Vital Signs: Vital Signs: Last Vital Signs Temp 98.2 F 11/18/22 08:00 Pulse 107 H 11/18/22 08:00 Resp 20 11/18/22 08:00 BP 155/78 H 11/18/22 08:00 Pulse Ox 95 11/18/22 08:00 O2 Del Method 11/18/22 08:00 O2 Flow Rate 1 11/16/22 23:49 FiO2 30 11/12/22 09:00 BMI result Body Mass Index 25.7 Const: General: alert and awake HEENT: Head: Yes normocephalic and Yes atraumatic Neck: Neck: Yes supple Resp: Auscultation: clear to auscultation bilaterally Cardio: Heart sounds: S1 normal heart sound present and S2 normal heart sound present GI: Palpation (GI): Soft to palpation and no guarding Extrem: General: Yes no pedal edema Objective Data Labs 11/18/22 06:39 11/18/22 06:39 Labs: Laboratory Results - last 24 hr 11/18/22 11/18/22 06:39 06:39 WBC 7.9 RBC 3.18 L Hgb 9.3 L Hct 29.2 L MCV 91.8 MCH 29.2 MCHC 31.8 RDW 13.4 Plt Count 203 MPV 10.5 Absolute Nucleated RBC 0.000 Nucleated RBC % (auto) 0.0 Sodium 147 H Potassium 3.8 Chloride 113 H Carbon Dioxide 25 Anion Gap 13 BUN 15 Creatinine 0.59 Estim Creat Clear Calc 143.5 Estimated GFR > 60 Fasting Glucose 97 Calcium 8.7 Microbiology Microbiology Results: Microbiology 11/10/22 01:16 Blood - Venous Blood Culture - Final No growth after 5 days. 11/10/22 01:16 Blood - Venous Blood Culture - Final Coag negative Staphylococcus Procedures Date of Service Date of Service: 11/18/22 Assessment & Plan Assessment and plan (1) MELY (acute kidney injury): Status: Acute (2) Hyperkalemia: Status: Acute (3) Metabolic acidosis: Status: Acute (4) Hypernatremia: Status: Acute Plan 57-year-old man wiith underlying history of hypothyroidism, hypertension, bipolar/schizoaffective disorder, seizure disorder, resident of [facility], bed-bound admitted on 11/10/2022 with seizure and abdominal distension.? On ER evaluation patient hypotensive with CT abdomen suggestive of small-bowel obstruction.?Overnight 11/11/2022 with development of worsening hypotension associated with fluid shifts requiring starting on vasopressor support, transferred to intensive care unit, and intubation.? Ultimately taken for explorative laparotomy with finding of patchy necrotic small-bowel, Extubated 11/12/2022.? Started on Lamictal significant improvement in agitation. Course complicated by MELY and Hyperkalemia, resolved with resuscitation efforts. Now profoundly hypernatremic from water deficit. Plan: - D5/W to 150cc/hr - daily labs monitoring renal function and lytes Time Spent With Patient Time: Total time managing care of this patient today ____ minutes. Progress Note: Quality Stroke Does the patient have a stroke diagnosis?: No
--- NOTE | 2022-11-18 10:36 | PM.PNGS ---
Subjective Subjective Date of Service: 11/18/22 Interval history: No events over the weekend. Not answering questions today. Physical Exam Vital Signs: Vital Signs: Last Vital Signs Temp 98.2 F 11/18/22 08:00 Pulse 107 H 11/18/22 08:00 Resp 20 11/18/22 08:00 BP 155/78 H 11/18/22 08:00 Pulse Ox 95 11/18/22 08:00 O2 Del Method 11/18/22 08:00 O2 Flow Rate 1 11/16/22 23:49 FiO2 30 11/12/22 09:00 BMI result Body Mass Index 25.7 Const: General: comfortable and no acute distress Resp: Effort & Inspection: normal respiratory effort GI: Inspection: Yes distended (softly) and Yes incision (clean, no erythema) Palpation (GI): Soft to palpation, nontender, no guarding and not rigid Skin: General skin exam: no rashes or lesions noted Objective Data Active Medications Albuterol/Ipratropium (Albuterol/Iprat 2.5/0.5mg 3 Ml Ampul.Neb) 3 ml INHALE RQ6H WHILE AWAKE [facility] Last Admin: 11/18/22 08:10 Dose: 3 ml Documented By: HUMBLE Dextrose (Dextrose 50 % 25 Gm/50 Ml Syringe) 25 gm IVPUSH Q15M PRN; Protocol PRN Reason: per Hypoglycemia Standing Ord. Last Admin: 11/11/22 17:45 Dose: 25 gm Documented By: SOLEDAD Diazepam (Diazepam 10 Mg/2 Ml Cartridge) 5 mg IVPUSH Q6H PRN PRN Reason: Anxiety Last Admin: 11/17/22 03:47 Dose: 5 mg Documented By: UZAIR Enoxaparin Sodium (Enoxaparin Sodium 40 Mg/0.4 Ml Syringe) 40 mg SUBCUT Q24H [facility] Last Admin: 11/17/22 17:08 Dose: Not Given Documented By: ABBE Non-Admin Reason: Patient Refused Glucose (Glucose Gel 15 Gm Gel..Gram.) 15 gm PO Q15M PRN; Protocol PRN Reason: per Hypoglycemia Standing Ord. Haloperidol Decanoate (Haloperidol Decanoate 50 Mg/Ml Ampul) 100 mg IM Q14D [facility] Dextrose (D5w) 1,000 mls @ 125 mls/hr IVCONT .Q8H [facility] Lamotrigine (Lamotrigine 100 Mg Tablet) 100 mg PO BID [facility] Last Admin: 11/17/22 20:07 Dose: 100 mg Documented By: IVAN Levetiracetam (Levetiracetam 1,000 Mg Tablet) 1,000 mg PO BID [facility] Last Admin: 11/17/22 20:07 Dose: 1,000 mg Documented By: IVAN Lorazepam (Lorazepam 0.5 Mg Tablet) 0.5 mg PO Q4H PRN PRN Reason: agitation Last Admin: 11/18/22 02:37 Dose: 0.5 mg Documented By: IVAN Morphine Sulfate (Morphine Sulfate 4 Mg/Ml Cartridge) 4 mg IVPUSH Q6H PRN; Protocol PRN Reason: Pain, Severe (Pain Scale 7-10) Last Admin: 11/16/22 12:12 Dose: 4 mg Documented By: ABBE Ondansetron HCl (Ondansetron Hcl 4 Mg/2 Ml Vial) 4 mg IVPUSH Q6H PRN PRN Reason: nausea Last Admin: 11/16/22 20:26 Dose: 4 mg Documented By: MORENO Oxycodone HCl (Oxycodone Hcl Immed Release 5 Mg Tablet) 5 mg PO Q4H PRN PRN Reason: moderate pain Last Admin: 11/18/22 02:37 Dose: 5 mg Documented By: IVAN Labs 11/18/22 06:39 11/18/22 06:39 Labs: Laboratory Results - last 24 hr 11/18/22 11/18/22 06:39 06:39 MCV 91.8 MCH 29.2 MCHC 31.8 RDW 13.4 Plt Count 203 MPV 10.5 Absolute Nucleated RBC 0.000 Nucleated RBC % (auto) 0.0 Anion Gap 13 Estim Creat Clear Calc 143.5 Estimated GFR > 60 Fasting Glucose 97 Calcium 8.7 Procedures Date of Service Date of Service: 11/18/22 Progress Note: A&P Assessment and plan (1) Ischemic necrosis of small bowel: Status: Acute Plan 57 year old male 1 week s/p exploratory laparotomy, proximal small bowel resection for patchy necrotic bowel. No mechanical obstruction found. Started on clears yesterday. Has been incontinent of multiple loose BM. Abdomen soft, incision clean.?Can advance to solid as tolerated. Time Spent With Patient Time: Total time managing care of this patient today ____ minutes. Quality Stroke Does the patient have a stroke diagnosis?: No VTE Prior VTE?: No VTE Risk Level:: Medical - moderate - high VTE Device Contraindication: Treatment Not Indicated VTE Drug Contraindication: N/A - Med Ordered
[2022-11-18] MEDS: levETIRAcetam 1,000 MG TABLET 1000 MG PO ×2 (10:37→21:01)
[2022-11-18] MEDS: lamoTRIgine 100 MG TABLET PO ×2 (10:37→21:01)
--- NOTE | 2022-11-18 10:47 | MHC.CLN ---
F/U DIET ADVANCED TO LOW FIBER-APPROPRIATE MD ADDED ENSURE SUPPLEMENT TO INCREASE KCALS SUPP TO PROVIDE 1050KCALS, 60G PROTEIN WITH 100% ACCEPTANCE MONITOR PO INTAKE AND SUPPLEMENT ACCEPTANCE
[2022-11-18 11:50] VITALS: BP 157/77; PULSE 101; RESP 20; TEMP 36.5; O2SAT 96
--- NOTE | 2022-11-18 15:33 | MHC.CM.PN ---
per rounds pt not ready for dc plan to return to care [facility]
[2022-11-18 15:41] VITALS: BP 159/79; PULSE 104; RESP 18; TEMP 37.1; O2SAT 97
[2022-11-18] MEDS: Enoxaparin Sodium 40 MG/0.4 ML SYRINGE SUBCUT (18:25)
--- NOTE | 2022-11-18 19:32 | PC.NURSE ---
Nurse attempted iv around 1500 , patient was uncooperative and moved frequently during the attempt, patient pulled previous iv and pulled triple lumen before that, attempted to teach patient about importance of iv access and he shook his head no
[2022-11-18 20:00] VITALS: BP 152/82; PULSE 101; RESP 18; TEMP 37.1; O2SAT 94; O2SAT 98
[2022-11-18] MEDS: Dextrose 5 % 1,000 ML 125 ML IVCONT (21:02)
[2022-11-18 23:30] VITALS: BP 152/72; PULSE 69; RESP 17; TEMP 36.7; O2SAT 96
[2022-11-19 06:54] LABS: Hematocrit 28.9 % (42.0-52.0); Hemoglobin 9.4 g/dl (14.0-18.0); Mean Corpuscular HGB Conc 32.5 g/dl (31.0-36.0); Mean Corpuscular Hemoglobin 29.8 pg (27.0-33.0); Mean Corpuscular Volume 91.7 fL (80.0-98.0); Platelet Count 233 X10*3/uL (160-400); Red Blood Count 3.15 X10*6/uL (4.60-5.80); Red Cell Distribution Width 13.6 % (11.0-16.0); White Blood Count 8.3 X10*3/uL (4.8-10.8)
[2022-11-19 07:06] LABS: Anion Gap 15 (12-20); Blood Urea Nitrogen 16 mg/dL (9-16); Calcium 8.4 mg/dL (8.4-10.2); Carbon Dioxide 21 mmol/L (22-29); Chloride 113 mmol/L (96-108); Creatinine Clr Calc Pharmacy 141.1; Estimated Glomerular Filt Rate > 60; Glucose Fasting 93 mg/dL (60-99); Potassium 3.7 mmol/L (3.3-5.1); Sodium 145 mmol/L (135-145)
--- NOTE | 2022-11-19 07:07 | PC.NURSE ---
Patient had a IV placed. Shortly after patient removed it the IV. MD aware. 2 IVs and centeral line have been pulled by this patient during this stay.
--- NOTE | 2022-11-19 07:10 | PC.NURSE ---
Patient refused 04:00 vitals.
[2022-11-19 07:48] VITALS: BP 149/85; PULSE 104; RESP 20; TEMP 36.9; O2SAT 93
[2022-11-19] MEDS: Albuterol/Iprat 2.5/0.5MG 3 ML AMPUL.NEB INHALE ×2 (07:50→20:02)
--- NOTE | 2022-11-19 08:49 | HO.PM.IMPN ---
Subjective Subjective Date of Service: 11/19/22 Interval History: abd more soft, having BMs on solids Physical Exam Vital Signs: Vital Signs: Last Vital Signs Temp 98.5 F 11/19/22 07:48 Pulse 104 H 11/19/22 07:48 Resp 20 11/19/22 07:48 BP 149/85 H 11/19/22 07:48 Pulse Ox 93 11/19/22 07:48 O2 Del Method 11/19/22 07:48 O2 Flow Rate 1 11/16/22 23:49 FiO2 30 11/12/22 09:00 BMI result Body Mass Index 25.7 Const: General: comfortable and no acute distress Resp: Effort & Inspection: normal respiratory effort GI: Inspection: Yes distended (softly) and Yes incision (clean, no erythema) Palpation (GI): Soft to palpation, nontender, no guarding and not rigid Skin: General skin exam: no rashes or lesions noted Objective Data Active Medications Albuterol/Ipratropium (Albuterol/Iprat 2.5/0.5mg 3 Ml Ampul.Neb) 3 ml INHALE RQ6H WHILE AWAKE [facility] Last Admin: 11/19/22 07:50 Dose: 3 ml Documented By: HUMBLE Dextrose (Dextrose 50 % 25 Gm/50 Ml Syringe) 25 gm IVPUSH Q15M PRN; Protocol PRN Reason: per Hypoglycemia Standing Ord. Last Admin: 11/11/22 17:45 Dose: 25 gm Documented By: SOLEDAD Diazepam (Diazepam 10 Mg/2 Ml Cartridge) 5 mg IVPUSH Q6H PRN PRN Reason: Anxiety Last Admin: 11/17/22 03:47 Dose: 5 mg Documented By: UZAIR Enoxaparin Sodium (Enoxaparin Sodium 40 Mg/0.4 Ml Syringe) 40 mg SUBCUT Q24H [facility] Last Admin: 11/18/22 18:25 Dose: 40 mg Documented By: CLINTON Glucose (Glucose Gel 15 Gm Gel..Gram.) 15 gm PO Q15M PRN; Protocol PRN Reason: per Hypoglycemia Standing Ord. Haloperidol Decanoate (Haloperidol Decanoate 50 Mg/Ml Ampul) 100 mg IM Q14D [facility] Lamotrigine (Lamotrigine 100 Mg Tablet) 100 mg PO BID [facility] Last Admin: 11/18/22 21:01 Dose: 100 mg Documented By: TYRA Levetiracetam (Levetiracetam 1,000 Mg Tablet) 1,000 mg PO BID [facility] Last Admin: 11/18/22 21:01 Dose: 1,000 mg Documented By: TYRA Lorazepam (Lorazepam 0.5 Mg Tablet) 0.5 mg PO Q4H PRN PRN Reason: agitation Last Admin: 11/18/22 02:37 Dose: 0.5 mg Documented By: IVAN Morphine Sulfate (Morphine Sulfate 4 Mg/Ml Cartridge) 4 mg IVPUSH Q6H PRN; Protocol PRN Reason: Pain, Severe (Pain Scale 7-10) Last Admin: 11/16/22 12:12 Dose: 4 mg Documented By: ABBE Ondansetron HCl (Ondansetron Hcl 4 Mg/2 Ml Vial) 4 mg IVPUSH Q6H PRN PRN Reason: nausea Last Admin: 11/16/22 20:26 Dose: 4 mg Documented By: MORENO Oxycodone HCl (Oxycodone Hcl Immed Release 5 Mg Tablet) 5 mg PO Q4H PRN PRN Reason: moderate pain Last Admin: 11/18/22 18:25 Dose: 5 mg Documented By: CLINTON Labs 11/19/22 05:42 11/19/22 05:42 Labs: Laboratory Results - last 24 hr 11/19/22 11/19/22 05:42 05:42 MCV 91.7 MCH 29.8 MCHC 32.5 RDW 13.6 Plt Count 233 MPV 11.0 Absolute Nucleated RBC 0.000 Nucleated RBC % (auto) 0.0 Anion Gap 15 Estim Creat Clear Calc 141.1 Estimated GFR > 60 Fasting Glucose 93 Calcium 8.4 Assessment and Plan (1) Hypernatremia: Status: Acute Plan 57M pmh bipolar, seizure disorder, htn, hld, hypothyroid, presented after witnesses seizure, course was complicated by SBO with bowel necrosis and acute hypoxic respiratory failure requiring intubation, now extubated and downgraded to medical floor acute hypoxic respiratory failure resolved SBO s/p ex lap with resection of necrotic prox jejunum management per surgery now on solids matthieu resolved hypernatremia now 145, will hold d5w and check if can maintain without epilepsy continue kaylynn barajasctive disorder continue mood stabilizers, haldol coag negative staph in 1/2 blood cultures likely contaminant, dced vanc dvt prophylaxis - lovenox full cdoe reason for continued hospitalization:hyperna, Time Spent With Patient Time: Total time managing care of this patient today ____ minutes. Quality Stroke Does the patient have a stroke diagnosis?: No VTE Prior VTE?: No VTE Risk Level:: Medical - moderate - high VTE Device Contraindication: Treatment Not Indicated VTE Drug Contraindication: N/A - Med Ordered
--- NOTE | 2022-11-19 09:59 | P.PNNP_ITS ---
Subjective Subjective Date of Service: 11/20/22 Interval history: Events noted Physical Exam Vital Signs: Vital Signs: Last Vital Signs Temp 98.5 F 11/19/22 07:48 Pulse 104 H 11/19/22 07:48 Resp 20 11/19/22 07:48 BP 149/85 H 11/19/22 07:48 Pulse Ox 93 11/19/22 07:48 O2 Del Method 11/19/22 07:48 O2 Flow Rate 1 11/16/22 23:49 FiO2 30 11/12/22 09:00 BMI result Body Mass Index 25.7 Const: General: alert and awake HEENT: Head: Yes normocephalic and Yes atraumatic Neck: Neck: Yes supple Resp: Auscultation: clear to auscultation bilaterally Cardio: Heart sounds: S1 normal heart sound present and S2 normal heart sound present GI: Palpation (GI): Soft to palpation and no guarding Extrem: General: Yes no pedal edema Objective Data Labs 11/19/22 05:42 11/19/22 05:42 Labs: Laboratory Results - last 24 hr 11/19/22 11/19/22 05:42 05:42 WBC 8.3 RBC 3.15 L Hgb 9.4 L Hct 28.9 L MCV 91.7 MCH 29.8 MCHC 32.5 RDW 13.6 Plt Count 233 MPV 11.0 Absolute Nucleated RBC 0.000 Nucleated RBC % (auto) 0.0 Sodium 145 Potassium 3.7 Chloride 113 H Carbon Dioxide 21 L Anion Gap 15 BUN 16 Creatinine 0.60 Estim Creat Clear Calc 141.1 Estimated GFR > 60 Fasting Glucose 93 Calcium 8.4 Microbiology Microbiology Results: Microbiology 11/10/22 01:16 Blood - Venous Blood Culture - Final No growth after 5 days. 11/10/22 01:16 Blood - Venous Blood Culture - Final Coag negative Staphylococcus Procedures Date of Service Date of Service: 11/19/22 Assessment & Plan Assessment and plan (1) MELY (acute kidney injury): Status: Acute (2) Hyperkalemia: Status: Acute (3) Metabolic acidosis: Status: Acute (4) Hypernatremia: Status: Acute Plan 57-year-old man with underlying history of hypothyroidism, hypertension, bipolar/schizoaffective disorder, seizure disorder, resident of [facility], bed-bound admitted on 11/10/2022 with seizure and abdominal distension.? On ER evaluation patient hypotensive with CT abdomen suggestive of small-bowel obstruction.?Overnight 11/11/2022 with development of worsening hypotension associated with fluid shifts requiring starting on vasopressor s upport, transferred to intensive care unit, and intubation.? Ultimately taken for explorative laparotomy with finding of patchy necrotic small-bowel, Extubated 11/12/2022.? Started on Lamictal significant improvement in agitation. Course complicated by MELY and Hyperkalemia, resolved with resuscitation efforts. Now profoundly hypernatremic from water deficit. Plan: - D5/W and keep I > O Encourage PO - daily labs monitoring renal function and lytes Time Spent With Patient Time: Total time managing care of this patient today ____ minutes. Progress Note: Quality Stroke Does the patient have a stroke diagnosis?: No
[2022-11-19] MEDS: levETIRAcetam 1,000 MG TABLET 1000 MG PO ×2 (10:38→21:18)
[2022-11-19] MEDS: lamoTRIgine 100 MG TABLET PO ×2 (10:38→21:18)
[2022-11-19 11:12] VITALS: BP 126/72; PULSE 104; RESP 20; TEMP 36.6; O2SAT 94
[2022-11-19 16:00] VITALS: BP 135/72; PULSE 101; RESP 20; TEMP 36.7; O2SAT 97
--- NOTE | 2022-11-19 17:11 | PM.PNGS ---
Subjective Subjective Date of Service: 11/19/22 Interval history: Patient reports upper abdominal discomfort. He is tolerating some food but not very hungry. No bowel movement 2 days apparently. Physical Exam Vital Signs: Vital Signs: Last Vital Signs Temp 98.0 F 11/19/22 16:00 Pulse 101 H 11/19/22 16:00 Resp 20 11/19/22 16:00 BP 135/72 11/19/22 16:00 Pulse Ox 97 11/19/22 16:00 O2 Del Method 11/19/22 16:00 O2 Flow Rate 1 11/16/22 23:49 FiO2 30 11/12/22 09:00 BMI result Body Mass Index 25.7 Const: General: comfortable, no acute distress and confusion Nutritional Appearance: well nourished Orientation/consciousness: confusion Limitations: behavioral limitations Resp: Effort & Inspection: normal respiratory effort, no cough and no respiratory distress GI: Other: Midline incision is clean, dry, and intact without redness or discharge. Inspection: Yes normal to inspection and Yes distended Palpation (GI): Soft to palpation, nontender, no guarding and not rigid Neuro: General: confusion Extrem: General: Yes normal to inspection Objective Data Active Medications Albuterol/Ipratropium (Albuterol/Iprat 2.5/0.5mg 3 Ml Ampul.Neb) 3 ml INHALE RQ6H WHILE AWAKE [facility] Last Admin: 11/19/22 16:21 Dose: Not Given Documented By: HUNTER Non-Admin Reason: pt refused neb stated hes anxious Dextrose (Dextrose 50 % 25 Gm/50 Ml Syringe) 25 gm IVPUSH Q15M PRN; Protocol PRN Reason: per Hypoglycemia Standing Ord. Last Admin: 11/11/22 17:45 Dose: 25 gm Documented By: SOLEDAD Diazepam (Diazepam 10 Mg/2 Ml Cartridge) 5 mg IVPUSH Q6H PRN PRN Reason: Anxiety Last Admin: 11/17/22 03:47 Dose: 5 mg Documented By: UZAIR Enoxaparin Sodium (Enoxaparin Sodium 40 Mg/0.4 Ml Syringe) 40 mg SUBCUT Q24H [facility] Last Admin: 11/18/22 18:25 Dose: 40 mg Documented By: CLINTON Glucose (Glucose Gel 15 Gm Gel..Gram.) 15 gm PO Q15M PRN; Protocol PRN Reason: per Hypoglycemia Standing Ord. Haloperidol Decanoate (Haloperidol Decanoate 50 Mg/Ml Ampul) 100 mg IM Q14D [facility] Lamotrigine (Lamotrigine 100 Mg Tablet) 100 mg PO BID [facility] Last Admin: 11/19/22 10:38 Dose: 100 mg Documented By: CLINTON Levetiracetam (Levetiracetam 1,000 Mg Tablet) 1,000 mg PO BID [facility] Last Admin: 11/19/22 10:38 Dose: 1,000 mg Documented By: CLINTON Lorazepam (Lorazepam 0.5 Mg Tablet) 0.5 mg PO Q4H PRN PRN Reason: agitation Last Admin: 11/18/22 02:37 Dose: 0.5 mg Documented By: DEX-ERIKA Morphine Sulfate (Morphine Sulfate 4 Mg/Ml Cartridge) 4 mg IVPUSH Q6H PRN; Protocol PRN Reason: Pain, Severe (Pain Scale 7-10) Last Admin: 11/16/22 12:12 Dose: 4 mg Documented By: ABBE Ondansetron HCl (Ondansetron Hcl 4 Mg/2 Ml Vial) 4 mg IVPUSH Q6H PRN PRN Reason: nausea Last Admin: 11/16/22 20:26 Dose: 4 mg Documented By: MORENO Oxycodone HCl (Oxycodone Hcl Immed Release 5 Mg Tablet) 5 mg PO Q4H PRN PRN Reason: moderate pain Last Admin: 11/18/22 18:25 Dose: 5 mg Documented By: CLINTON Labs 11/19/22 05:42 11/19/22 05:42 Labs: Laboratory Results - last 24 hr 11/19/22 11/19/22 05:42 05:42 MCV 91.7 MCH 29.8 MCHC 32.5 RDW 13.6 Plt Count 233 MPV 11.0 Absolute Nucleated RBC 0.000 Nucleated RBC % (auto) 0.0 Anion Gap 15 Estim Creat Clear Calc 141.1 Estimated GFR > 60 Fasting Glucose 93 Calcium 8.4 Procedures Date of Service Date of Service: 11/19/22 Progress Note: A&P Assessment and plan (1) Ischemic necrosis of small bowel: Status: Acute (2) Schizoaffective disorder: Status: Acute (3) Seizure disorder: Status: Acute Plan 57-year-old male patient with seizure disorder presenting with patchy necrosis involving the proximal jejunum, S/P small-bowel resection with primary anastomosis. Patient was incontinent of stool but but reports no BM for 2 days. He is tolerating full liquid diet without nausea or vomiting. Wounds remained clean and intact. Will continue with full liquids and reassess in a.m.. Time Spent With Patient Time: Total time managing care of this patient today ____ minutes. Quality Stroke Does the patient have a stroke diagnosis?: No VTE Prior VTE?: No VTE Risk Level:: Medical - moderate - high VTE Device Contraindication: Treatment Not Indicated VTE Drug Contraindication: N/A - Med Ordered
[2022-11-19] MEDS: Enoxaparin Sodium 40 MG/0.4 ML SYRINGE SUBCUT (18:44)
[2022-11-19 20:00] VITALS: BP 146/99; PULSE 75; RESP 20; TEMP 36.6; O2SAT 100
[2022-11-19 20:03] VITALS: PULSE 98; RESP 20; O2SAT 95
[2022-11-19] MEDS: LORazepam 0.5 MG TABLET PO (21:21)
[2022-11-19 23:54] VITALS: BP 159/73; PULSE 92; RESP 18; TEMP 36.9; O2SAT 95
[2022-11-20 03:58] VITALS: BP 136/73; PULSE 101; RESP 18; TEMP 36.7; O2SAT 95
[2022-11-20 06:00] VITALS: BMI 25.7
[2022-11-20 06:50] LABS: Hematocrit 28.5 % (42.0-52.0); Hemoglobin 9.4 g/dl (14.0-18.0); Mean Corpuscular Hemoglobin 29.8 pg (27.0-33.0); Mean Corpuscular Volume 90.5 fL (80.0-98.0); Mean Platelet Volume 10.7 fL (9.4-12.4); Platelet Count 242 X10*3/uL (160-400); Red Blood Count 3.15 X10*6/uL (4.60-5.80); Red Cell Distribution Width 13.8 % (11.0-16.0); White Blood Count 8.8 X10*3/uL (4.8-10.8)
[2022-11-20 07:13] LABS: Anion Gap 17 (12-20); Blood Urea Nitrogen 17 mg/dL (9-16); Calcium 8.4 mg/dL (8.4-10.2); Carbon Dioxide 18 mmol/L (22-29); Chloride 112 mmol/L (96-108); Estimated Glomerular Filt Rate > 60; Glucose Fasting 91 mg/dL (60-99); Potassium 3.7 mmol/L (3.3-5.1); Sodium 143 mmol/L (135-145)
[2022-11-20] MEDS: Albuterol/Iprat 2.5/0.5MG 3 ML AMPUL.NEB INHALE (07:37)
[2022-11-20 07:38] VITALS: PULSE 104; RESP 18; O2SAT 97
[2022-11-20 07:56] VITALS: BP 128/97; PULSE 89; RESP 20; TEMP 36.7; O2SAT 93
[2022-11-20] MEDS: lamoTRIgine 100 MG TABLET PO (08:10)
[2022-11-20] MEDS: levETIRAcetam 1,000 MG TABLET 1000 MG PO (08:10)
--- NOTE | 2022-11-20 10:43 | MHC.CM.PN ---
pt dcd back to [facility] at 1
--- NOTE | 2022-11-20 10:57 | MHC.CM.PN ---
pts mother notified of dc jose manuel [place] [phone]
--- NOTE | 2022-11-20 11:06 | PM.PNNEP ---
Subjective Subjective Date of Service: 11/21/22 Interval history: Events noted Physical Exam Vital Signs: Vital Signs: Last Vital Signs Temp 98.0 F 11/20/22 07:56 Pulse 89 11/20/22 07:56 Resp 20 11/20/22 07:56 BP 128/97 H 11/20/22 07:56 Pulse Ox 93 11/20/22 07:56 O2 Del Method 11/20/22 07:56 O2 Flow Rate 1 11/16/22 23:49 FiO2 30 11/12/22 09:00 BMI result Body Mass Index 25.7 Const: General: alert and awake Neck: Neck: Yes supple Resp: Auscultation: clear to auscultation bilaterally Cardio: Heart sounds: S1 normal heart sound present and S2 normal heart sound present GI: Palpation (GI): Soft to palpation and no guarding Extrem: General: Yes no pedal edema Objective Data Labs 11/20/22 05:44 11/20/22 05:44 Labs: Laboratory Results - last 24 hr 11/20/22 11/20/22 05:44 05:44 WBC 8.8 RBC 3.15 L Hgb 9.4 L Hct 28.5 L MCV 90.5 MCH 29.8 MCHC 33.0 RDW 13.8 Plt Count 242 MPV 10.7 Absolute Nucleated RBC 0.000 Nucleated RBC % (auto) 0.0 Sodium 143 Potassium 3.7 Chloride 112 H Carbon Dioxide 18 L Anion Gap 17 BUN 17 H Creatinine 0.58 Estim Creat Clear Calc 146.0 Estimated GFR > 60 Fasting Glucose 91 Calcium 8.4 Microbiology Microbiology Results: Microbiology 11/10/22 01:16 Blood - Venous Blood Culture - Final No growth after 5 days. 11/10/22 01:16 Blood - Venous Blood Culture - Final Coag negative Staphylococcus Procedures Date of Service Date of Service: 11/20/22 Assessment & Plan Assessment and plan (1) MELY (acute kidney injury): Status: Acute (2) Hyperkalemia: Status: Acute (3) Metabolic acidosis: Status: Acute (4) Hypernatremia: Status: Acute Plan 57-year-old man with underlying history of hypothyroidism, hypertension, bipolar/schizoaffective disorder, seizure disorder, resident of [facility], bed-bound admitted on 11/10/2022 with seizure and abdominal distension.? On ER evaluation patient hypotensive with CT abdomen suggestive of small-bowel obstruction.?Overnight 11/11/2022 with development of worsening hypotension associated with fluid shifts requiring starting on vasopressor support, transferred to intensive care unit, and intubation.? Ultimately taken for explorative laparotomy with finding of patchy necrotic small-bowel, Extubated 11/12/2022.? Started on Lamictal significant improvement in agitation. Course complicated by MELY and Hyperkalemia, resolved with resuscitation efforts. profoundly hypernatremic from water deficit. - improving Plan: - keep I > O Encourage PO Watch bicarb; if < 16 would add PO bicarb - daily labs monitoring renal function and lytes Time Spent With Patient Time: Total time managing care of this patient today ____ minutes. Progress Note: Quality Stroke Does the patient have a stroke diagnosis?: No
[2022-11-20 11:12] VITALS: BP 114/71; PULSE 101; RESP 20; TEMP 36.4; O2SAT 95
[2022-11-20] MEDS: oxyCODONE HCl Immed Release 5 MG TABLET PO (11:18)
[2022-11-20] MEDS: LORazepam 0.5 MG TABLET PO (11:18)
--- NOTE | 2022-11-20 11:32 | MHC.CLN ---
F/U PO INTAKE 25% X 1 MEAL DIET RX: LOW FIBER-APPROPRIATE PT RECEIVING ENSURE SUPPLEMENT TO INCREASE KCALS SUPP PROVIDES 1050KCALS, 60G PROTEIN WITH 100% ACCEPTANCE MONITOR PO INTAKE AND SUPPLEMENT ACCEPTANCE
--- NOTE | 2022-11-20 11:43 | PC.NURSE ---
report received from overnight RN, multimedia services manager per DEC. Pt to be discharged today, report called to receiving facility at 1140. Pt c/o pain to abd incision, multimedia services manager per DEC. Safety precautions in place, call [place] within reach, encouraged to call for assistance.
--- NOTE | 2022-11-20 11:58 | P.DS_ITS ---
DS: Providers Provider Date of Service: 11/20/22 Date of admission: 11/10/22 06:51 Primary care physician: Juan Richey DO Consults: 11/10/22 06:49 Consult to General Surgery Routine Consulting Provider: George Moses Reason for consultation: SBO Has provider been notified: Yes Consult to Nephrology Routine Consulting Provider: [facility] Reason for consultation: Hyponatremia DS: Diagnosis Discharge Diagnosis (1) MELY (acute kidney injury): Status: Acute (2) Hyperkalemia: Status: Acute (3) Metabolic acidosis: Status: Acute (4) Hypernatremia: Status: Acute (5) Seizure disorder: Status: Acute (6) Ischemic necrosis of small bowel: Status: Acute (7) Hyponatremia: Status: Acute DS: Summary Hospital Course Hospital Course: The patient had prolonged hospital stay. For full details please return to EMR. Admission note HPI 57-year-old male with past medical history of bipolar disorder, hyperlipidemia, hypertension, hypothyroidism, schizoaffective disorder, seizure disorder, presents to the hospital with witnessed seizure at [facility].? Patient is somnolent but wakes up, shakes his head yes or no but is unable to get much history from him. on review of document sent with him to the ED it seems that pt was sent for abdominal distention, lack of bowel sounds and diaareah as well as vomiting. On arrival to the ED patient noted to be hypotensive with a BP of 87/60, received some fluids with improvement in his BP, Labs are significant for WBC count of 15.2, sodium of 121 with no previous for comparison, potassium of 5.7, chloride of 89, creatinine of 1.64, Abdomen pelvic CT shows diffuse small bowel dilation with suggestion of a transition point in the right abdomen overall concerning for small-bowel obstruction Head CT -ve. Unable to obtain review of system is patient is not cooperating with history. Past medical history is obtained from documents sent to the ED from [facility] course The patient was admitted for evaluation of abdominal pain with evidence of small-bowel obstruction. NG tube was placed but the patient did up removing it himself with altered mentation. A new tube was placed but the patient continued to have low blood pressure readings concerning for shock as he did not respond well to IV fluid boluses. He lost his IV lines as he removed them so central line was placed by ICU team. Blood pressure did not improve much after 2.5 L of fluid. His abdomen continued to worsen so he was transferred to ICU and evaluated by surgical team who took him for surgery on the morning of 11/11/2022. Surgery was consistent with proximal jejunum patchy necrosis identified status post small-bowel resection with primary anastomosis. The patient start on diet once he started having gases. Wounds remained clean and intact. He was followed by surgical team during the hospital stay. His diet was advanced to regular and he was able to pass stool. He will be discharged to [facility] with a plan to follow-up with surgical team as outpatient. His psychiatry medications were held during the hospital stay. Restarted clozapine 12.5 mg on the day of discharge. Should be increased gradually over the course of the next week. Gabapentin 600 mg t.i.d. was held as the patient is more alert and interactive. Decision on restarting it can be taken as outpatient setting. Blood pressure was running soft to high normal. Lisinopril and propranolol 10 mg will be held until he is back to his normal physical activity and body tune. Advance your diet gradually as tolerated Restart clozapine by increasing the dose by 25 mg daily back to 75 mg daily Hold lisinopril, propranolol and which blood pressure before restarting them Gabapentin 600 mg t.i.d. was held, can be restarted at the facility if needed To follow-up with surgery team as outpatient Time Spent with Patient Time attestation: Total time managing care of this patient today ____ minutes. Discharge coordination time: Greater than 30 minutes Quality: Safe Use of Opioids Does Pt have an Active Cancer Diagnosis on the Problem List?: No Quality: Stroke Does the patient have a stroke diagnosis?: No Physical Exam Vital Signs: Vital Signs: Last Vital Signs Temp 97.6 F 11/20/22 11:12 Pulse 101 H 11/20/22 11:12 Resp 20 11/20/22 11:12 BP 114/71 11/20/22 11:12 Pulse Ox 95 11/20/22 11:12 O2 Del Method 11/20/22 11:12 O2 Flow Rate 1 11/16/22 23:49 FiO2 30 11/12/22 09:00 BMI result Body Mass Index 25.7 Const: Other: Constitutional : Awake, interactive, not in distress Neck : Normal inspection, Supple Cardiovascular : RRR, no JVP, no lower extremity edema Respiratory : good bilateral air entry, no crackles, wheezes or rhonchi Gastrointestinal: soft, lax, Normal bowel sounds, Non tender, surgical wound covered with dressing with no drainage or bleeding Skin : Warm, Dry Neurological : Alert & oriented x2, No focal deficit DS: Data Data Completed and Pending Completed studies during hospitalization [Text1]: Pending at discharge 11/11/22 10:18 Surgical [PTH] Routine Labs on day of discharge: Laboratory Results - last 24 hr 11/20/22 11/20/22 05:44 05:44 WBC 8.8 RBC 3.15 L Hgb 9.4 L Hct 28.5 L MCV 90.5 MCH 29.8 MCHC 33.0 RDW 13.8 Plt Count 242 MPV 10.7 Absolute Nucleated RBC 0.000 Nucleated RBC % (auto) 0.0 Sodium 143 Potassium 3.7 Chloride 112 H Carbon Dioxide 18 L Anion Gap 17 BUN 17 H Creatinine 0.58 Estim Creat Clear Calc 146.0 Estimated GFR > 60 Fasting Glucose [address] scan - abdomen: Radiologist's impression: ITS Impressions Chest X-Ray 11/10/22 01:25 IMPRESSION: Low lung volumes without acute findings. Abdomen/Pelvis CT 11/10/22 02:25 IMPRESSION: 1. Diffuse small bowel dilation with suggestion of a transition point in the right abdomen, overall concerning for small bowel obstruction. 2. Trace free fluid in the lower abdomen. 3. Left lower pole renal calculi without hydronephrosis. Cervical Spine CT 11/10/22 02:25 IMPRESSION: HEAD: No acute intracranial findings. Chronic appearing changes as noted above. CERVICAL SPINE: No acute findings identified. Degenerative changes as noted above. Head CT 11/10/22 02:25 IMPRESSION: HEAD: No acute intracranial findings. Chronic appearing changes as noted above. CERVICAL SPINE: No acute findings identified. Degenerative changes as noted above. Chest X-Ray 11/10/22 13:45 IMPRESSION: Enteric tube terminates below the level of the diaphragm. Chest X-Ray 11/11/22 01:06 IMPRESSION: Enteric tube courses into the proximal stomach with side-port in the region of the gastroesophageal junction; consider advancement. Low lung volumes with mild streaky bibasilar opacities suggesting atelectasis. Chest X-Ray 11/11/22 02:33 IMPRESSION: Right IJ central line tip in the region of the cavoatrial junction. Low lung volumes with streaky bibasilar opacities suggesting atelectasis. Chest X-Ray 11/11/22 06:25 IMPRESSION: Endotracheal tube tip approximately 6.5 cm above the [place]. Streaky bibasilar opacities more suggestive of atelectasis. Abdomen X-Ray 11/15/22 11:09 IMPRESSION: 1. Gaseous dilatation stomach. 2. Mildly dilated small bowel loop left midabdomen with air-fluid level. No pneumatosis. Chest X-Ray 11/17/22 01:29 IMPRESSION: Small right pleural effusion with adjacent basilar opacity suggesting atelectasis though consolidation is difficult to entirely exclude, overall mildly worsened from prior. Discharge Plan Discharge Anticipated Discharge Date/Time: 11/20/22 11:32 Patient Disposition: [facility] Discharge Diagnosis: Small-bowel obstruction with necrosis Electrolyte imbalance Acute kidney injury Referrals: [facility] one [Other] - 1 Week George Moses MD [Physician] - 1 Week Juan Richey DO [Primary Care Provider] - 1 Week Discharge Medications: New oxycodone 5 mg Tablet 5 mg PO Q6H PRN (Reason: moderate pain) Qty: 15 0RF Rx Instructions: Partial Fill upon patient request. Continued acetaminophen 325 mg Tablet 650 mg PO Q4H PRN (Reason: Fever Or Pain) Rx Instructions: do not exceed 3 g / 24 hrs diphenhydramine HCl [Benadryl Allergy] 25 mg Tablet 25 mg PO Q6H PRN (Reason: Itching) sennosides [senna] 8.6 mg Tablet 8.6 mg PO DAILY PRN (Reason: Constipation) benztropine 0.5 mg Tablet 0.5 mg PO BID chlorpromazine 100 mg Tablet 100 mg PO BID Rx Instructions: give with 25mg tab for total of 125mg twice daily haloperidol decanoate [Haldol Decanoate] 100 mg/mL Solution 100 mg IM Q2W ondansetron HCl 4 mg Tablet 4 mg PO Q6H PRN (Reason: Nausea And Vomiting) loperamide [Imodium A-D] 2 mg Tablet 2 mg PO Q6H PRN (Reason: Loose Stool) Rx Instructions: not to exceed 8mg / 24 hours hydroxyzine HCl 50 mg Tablet 50 mg PO Q8H PRN (Reason: Agitation) Rx Instructions: not to exceed 150mg daily; until 11/28/22 melatonin 3 mg Tablet 3 mg PO BEDTIME omeprazole 40 mg Capsule,Delayed Release(Dr/Ec) 40 mg PO BEDTIME tramadol 50 mg Tablet 50 mg PO Q12H PRN (Reason: right hip pain) guaifenesin 100 mg/5 mL Liquid 200 mg PO Q6H PRN (Reason: Cough) levothyroxine 75 mcg Tablet 75 mcg PO DAILY@0600 tamsulosin 0.4 mg Capsule 0.4 mg PO BEDTIME diazepam 2 mg Tablet 2 mg PO BID gemfibrozil [Lopid] 600 mg Tablet 600 mg PO BID bisacodyl 10 mg Suppository 10 mg SC DAILY PRN (Reason: Constipation) Rx Instructions: use if senna is ineffective chlorpromazine 25 mg Tablet 25 mg PO BID Rx Instructions: give with 100mg tab for total 125mg twice daily Fleet Enema 19-7 gram/118 mL Enema 118 ml SC DAILY PRN (Reason: Constipation) Rx Instructions: use if dulcolax suppository is ineffective docusate sodium 100 mg Capsule 100 mg PO Q8H PRN (Reason: Constipation) Rx Instructions: use if senna ineffective oxcarbazepine 600 mg Tablet 600 mg PO BID gabapentin 100 mg Capsule 100 mg PO TID Rx Instructions: give with 600mg for total of 700mg three times daily clozapine 25 mg Tablet 25 mg PO DAILY Rx Instructions: give with 50mg for total of 75mg propranolol 20 mg Tablet 20 mg PO TID Rx Instructions: give with 10mg for total of 30mg three times daily hydroxyzine HCl 50 mg/mL Solution 50 mg IM Q8H PRN (Reason: Agitation) Rx Instructions: use if declines PO form until 11/28/22; not to exceed 150mg daily cetylpyridinium chloride Lozenge 1 jaja MUCOUS MEMBRANE Q2H PRN (Reason: Sore Throat) Rx Instructions: one 3mg lozenge [place] Nasal 0.65 % Aerosol,[place] 2 spray INTRANASAL Q12H PRN (Reason: dry nose) Saccharomyces boulardii [Probiotic (S.boulardii)] 250 mg Capsule 250 mg PO DAILY lactulose 10 gram/15 mL Solution 30 ml PO DAILY sodium chloride 1,000 mg Tablet,Soluble 1,000 mg PO BID methyl salicylate-menthol 15-10 % Cream 1 appl TOPICAL Q8H PRN (Reason: Back Pain) Xifaxan 550 mg Tablet 550 mg PO BID Biotene Dry Mouth Oral Rinse Mouthwash 15 ml MUCOUS MEMBRANE BID Rx Instructions: swish for 15-30 secs , then spit out; do not swallow alum-mag hydroxide-simeth 200-200-20 mg/5 mL Suspension 30 ml PO Q6H PRN (Reason: GI UPSET) Changed ibuprofen 600 mg Tablet 600 mg PO TID PRN (Reason: Pain (Scale Score 4-6)) Qty: 60 0RF Held gabapentin 600 mg Tablet 600 mg PO TID Hold Instructions: Patient more alert and interactive, monitor for the need of the med. Rx Instructions: give with 100mg for total of 700mg three times daily propranolol 10 mg Tablet 10 mg PO TID Hold Instructions: Monitor restarting PRopranolol 20 mg tid before increasing to 30 mg tid Rx Instructions: give with 20mg for total of 30mg three times daily lisinopril 5 mg Tablet 5 mg PO DAILY Hold Instructions: Resume on 11/26/22. Monitor BP for 1 week prior to restarting it. clozapine 50 mg Tablet 50 mg PO DAILY Hold Instructions: Resume on 11/25/22. Restart the 25 mg daily for 3 days before going back to full dose Rx Instructions: give with 25mg for total 75mg Discharge Orders: Discharge Order (Routine); Ordered 11/20/22 Ordered By: Andrey Samuels Diet: Advance to usual diet Activity on Discharge: As tolerated Stand Alone Forms: Patient Portal Discharge page Activity Restrictions/Additional Instructions: If the incision area is tender, you may apply an ice pack for short intervals (No more than 20 minutes on, followed by at least 20 minutes off). Do not apply heat. Do not use creams, lotions, or topical antibiotics unless instructed to do so by your surgeon. These can cause infection or allergic reaction. You have mag closing your incision and these will be removed approximately 10-14 days after surgery. Follow up in office. ([phone]) Call Your Doctor If: -Your temperature exceeds 101.5? F -You experience excessive pain or swelling -You have an unexpected reaction to medication -You have excessive bleeding -You experience continued vomiting/nausea -Your incision begins to separate -Your incision shows signs of infection such as increased redness, swell ing, excessive pain, drainage (light blood or clear fluid is normal) or heat Care Plan Goals: Read below Health Concerns: Read below Plan of Treatment: Read below Assessment: You were admitted to the hospital for abdominal pain. Found to have intestinal obstruction. Had a surgery done removing a necrotic part of your small bowel. You tolerated surgery well and started tolerating diet. Advance your diet gradually as tolerated Restart clozapine by increasing the dose by 25 mg daily back to 75 mg daily Hold lisinopril, propranolol and which blood pressure before restarting them Gabapentin 600 mg t.i.d. was held, can be restarted at the facility if needed To follow-up with surgery team as outpatient
[2022-11-20 11:59] LABS: COVID-19 Test Negative (Negative); IDNOW Serial# 55D5AD1C
[2022-11-20] MEDS: cloZAPine 25 MG TABLET 12.5 MG PO (12:35)
[2022-11-25 11:42] LABS: Glucose, Whole Blood 50 mg/dL (60-115)
== END 2022-11-20 13:24 | disposition skilled nursing facility (03) | DRG 329 ==
LOC: HO.ED 03:43 → HO.EDOVER 07:05 → HO.IMC 15:32 → HO.ICU 11-11 06:00 → HO.IMC 11-14 10:38
PROVIDERS: Internal Medicine; Internal Medicine Nephrology; Internal Medicine Pulmonary Disease; Registered Nurse Community Health; Student in an Organized Health Care Education/Training Program; Surgery; Admitting Provider Internal Medicine; Emergency Provider Emergency Medicine; PCP Hospitalist; Visit Provider Student in an Organized Health Care Education/Training Program
PROC: 0DBA0ZZ Excision of Jejunum, Open Approach (ICD-10-PCS; CPT 49000; principal; 2022-11-11 08:40)
DX: K55.9 Vascular disorder of intestine, unspecified (principal); J96.01 Acute respiratory failure with hypoxia; K55.029 Acute infarction of small intestine, extent unspecified; N17.0 Acute kidney failure with tubular necrosis; E87.1 Hypo-osmolality and hyponatremia; E87.20 Acidosis, unspecified; E87.0 Hyperosmolality and hypernatremia; G40.909 Epilepsy, unspecified, not intractable, without status epilepticus; F31.9 Bipolar disorder, unspecified; E86.1 Hypovolemia; K21.9 Gastro-esophageal reflux disease without esophagitis; I95.9 Hypotension, unspecified; E87.6 Hypokalemia; E78.5 Hyperlipidemia, unspecified; E03.9 Hypothyroidism, unspecified; F25.9 Schizoaffective disorder, unspecified; Z20.822 Contact with and (suspected) exposure to COVID-19; Z74.01 Bed confinement status; Z88.0 Allergy status to penicillin; Z79.899 Other long term (current) drug therapy
CPT/HCPCS: 36415; 36600; 70450; 71045; 72125; 74021; 74176; 80048; 80053; 80076; 80202; 80307; 81001; 82040; 82565; 82803; 82947; 83605; 83690; 83735; 83880; 83930; 83935; 84100; 84300; 84443; 84484; 85007; 85025; 85027; 85610; 86850; 86900; 86901; 87040; 87147; 87205; 87635; 88307; 93005; 94002; 94003; 94640; 99285; C1758; J0131; J0611; J0692; J1200; J1643; J1650; J1953; J2250; J2270; J2405; J2543; J3010; J3360; J3370; J3371; J3475; P9047

== ENCOUNTER → 2022-12-10 10:44 | Outpatient (BNVA) | payer MEDICARE, MEDICAID, SELFPAY | PROVIDERS: PCP Hospitalist; Visit Provider Surgery | DX: Z13.89 Encounter for screening for other disorder (principal) | CPT/HCPCS: 99212 ==

== ENCOUNTER 2023-01-09 14:30 | Outpatient (REF) | payer MEDICARE, MEDICAID, SELFPAY ==
[2023-01-09 16:27] LABS: Anion Gap 15 (12-20); Blood Urea Nitrogen 7 mg/dL (9-16); Carbon Dioxide 23 mmol/L (22-29); Chloride 99 mmol/L (96-108); Estimated Glomerular Filt Rate > 60; Glucose Random 92 mg/dL (60-115); Potassium 4.9 mmol/L (3.3-5.1); Sodium 132 mmol/L (135-145)
== END 2023-01-09 14:31 | disposition home or self-care (01) ==
LOC: HO.LAB 14:30
PROVIDERS: PCP Hospitalist; Visit Provider Internal Medicine Hypertension Specialist
DX: E87.1 Hypo-osmolality and hyponatremia (principal)
CPT/HCPCS: 36415; 80048

== ENCOUNTER 2023-05-01 12:51 | Emergency (ER) | payer MEDICARE, MEDICAID, SELFPAY ==
[2023-05-01 12:57] VITALS: BP 150/79; PULSE 86; RESP 18; O2SAT 99
[2023-05-01 13:03] VITALS: BP 126/78; PULSE 90; O2SAT 95; BMI 26.1
--- NOTE | 2023-05-01 13:15 | ED.GENADULT ---
HPI - General Adult General Chief complaint: General Medical Stated complaint: abd lump,pt ?'s hernia,no pain per ems Time Seen by Provider: 05/01/23 12:58 Source: patient Mode of arrival: EMS History of Present Illness HPI narrative: This is a 57 years old male who is resident of [facility] presented to the emergency department complaining of a possible hernia. He denies any abdominal pain he denies any nausea denies any vomiting staff at the correction noted the a hernia this morning, the patient told me that he had hernia for long time. Patient has history of schizoaffective disorder TBI, Onset (ago): week(s) Location: abdomen Radiation: non-radiation Severity scale (1-10): 1 Pain Consistency: constant Related Data Home Medications Medication Instructions Recorded Confirmed Saccharomyces boulardii 250 mg 250 mg PO DAILY 11/10/22 12/11/22 capsule (Probiotic (S.boulardii)) acetaminophen 325 mg tablet 650 mg PO Q4H PRN Fever Or Pain 11/10/22 12/11/22 aluminum-mag hydroxide-simethicone 30 ml PO Q6H PRN GI UPSET 11/10/22 12/11/22 200 mg-200 mg-20 mg/5 mL oral susp benztropine 0.5 mg tablet 0.5 mg PO BID 11/10/22 12/11/22 bisacodyl 10 mg rectal suppository 10 mg GA DAILY PRN Constipation 11/10/22 12/11/22 cetylpyridinium chloride 1 jaja mucous membrane Q2H PRN Sore 11/10/22 12/11/22 Throat chlorpromazine 100 mg tablet 100 mg PO BID 11/10/22 12/11/22 chlorpromazine 25 mg tablet 25 mg PO BID 11/10/22 12/11/22 clozapine 25 mg tablet 25 mg PO DAILY 11/10/22 12/11/22 clozapine 50 mg tablet 50 mg PO DAILY 11/10/22 12/11/22 diazepam 2 mg tablet 2 mg PO BID 11/10/22 12/11/22 diphenhydramine HCl 25 mg tablet 25 mg PO Q6H PRN Itching 11/10/22 12/11/22 (Benadryl Allergy) docusate sodium 100 mg capsule 100 mg PO Q8H PRN Constipation 11/10/22 12/11/22 gabapentin 100 mg capsule 100 mg PO TID 11/10/22 12/11/22 gabapentin 600 mg tablet 600 mg PO TID 11/10/22 12/11/22 gemfibrozil 600 mg tablet (Lopid) 600 mg PO BID 11/10/22 12/11/22 guaifenesin 100 mg/5 mL oral liquid 200 mg PO Q6H PRN Cough 11/10/22 12/11/22 haloperidol decanoate 100 mg/mL 100 mg IM Q2W 11/10/22 12/11/22 intramuscular solution (Haldol Decanoate) hydroxyzine HCl 50 mg tablet 50 mg PO Q8H PRN Agitation 11/10/22 12/11/22 hydroxyzine HCl 50 mg/mL 50 mg IM Q8H PRN Agitation 11/10/22 12/11/22 intramuscular solution lactulose 10 gram/15 mL oral 30 ml PO DAILY 11/10/22 12/11/22 solution levothyroxine 75 mcg tablet 75 mcg PO DAILY@0600 11/10/22 12/11/22 lisinopril 5 mg tablet 5 mg PO DAILY 11/10/22 12/11/22 loperamide 2 mg tablet (Imodium 2 mg PO Q6H PRN Loose Stool 11/10/22 12/11/22 A-D) melatonin 3 mg tablet 3 mg PO BEDTIME 11/10/22 12/11/22 methyl salicylate 15 %-menthol 10 1 appl topical Q8H PRN Back Pain 11/10/22 12/11/22 % topical cream omeprazole 40 mg capsule,delayed 40 mg PO BEDTIME 11/10/22 12/11/22 release ondansetron HCl 4 mg tablet 4 mg PO Q6H PRN Nausea And Vomiting 11/10/22 12/11/22 oxcarbazepine 600 mg tablet 600 mg PO BID 11/10/22 12/11/22 propranolol 10 mg tablet 10 mg PO TID 11/10/22 12/11/22 propranolol 20 mg tablet 20 mg PO TID 11/10/22 12/11/22 rifaximin 550 mg tablet (Xifaxan) 550 mg PO BID 11/10/22 12/11/22 saliva substitute combo no.9 15 ml mucous membrane BID 11/10/22 12/11/22 (Biotene Dry Mouth Oral Rinse mouthwash) sennosides 8.6 mg tablet (senna) 8.6 mg PO DAILY PRN Constipation 11/10/22 12/11/22 sodium chloride 0.65 % nasal spray 2 spray intranasal Q12H PRN dry 11/10/22 12/11/22 aerosol (Deep Sea Nasal) nose sodium chloride 1,000 mg soluble 1,000 mg PO BID 11/10/22 12/11/22 tablet sodium phosphates 19 gram-7 118 ml GA DAILY PRN Constipation 11/10/22 12/11/22 gram/118 mL enema (Fleet Enema) tamsulosin 0.4 mg capsule 0.4 mg PO BEDTIME 11/10/22 12/11/22 tramadol 50 mg tablet 50 mg PO Q12H PRN right hip pain 11/10/22 12/11/22 Previous Rx's Medication Instructions Recorded ibuprofen 600 mg tablet 600 mg PO TID PRN Pain (Scale 11/20/22 Score 4-6) #60 tabs oxycodone 5 mg tablet 5 mg PO Q6H PRN moderate pain #15 11/20/22 tabs Allergies Allergy/AdvReac Type Severity Reaction Status Date / Time Penicillins [PENICILLINS] Allergy Unknown UNKNOWN Verified 12/10/22 10:58 Review of Systems Constitutional: Constitutional: Reports no additional constitutional complaints Cardiovascular: Cardiovascular: Reports no additional cardiovascular complaints Psychiatric: Psychiatric: Reports no additional psychiatric complaints PMFSH Past Medical History Medical History Bipolar disorder BPH (benign prostatic hyperplasia) GERD (gastroesophageal reflux disease) Heart failure Hyperlipidemia Hypertension Hyponatremia Hypothyroidism Schizoaffective disorder Seizure disorder Surgical History History of exploratory laparotomy (11/11/22) Social History Social History Household Members: Other Housing: Assisted Living Facility Unable to assess alcohol history related to: Unknown Alcohol intake: never Patient Tobacco Use Status: Never used Tobacco Smoked in Last 30 Days: Yes Use of substances other than those prescribed or required for medical reasons: No Advance Directives: Yes Advance Directives on File: Yes Advance Directives Date on File: 11/12/22 Physical Exam ED Vital Signs: Vital Signs - 24 hr 05/01/23 12:57 Pulse Rate 86 Respiratory Rate 18 Blood Pressure 150/79 H Pulse Oximetry 99 Oxygen Delivery Method Room Air BMI result Body Mass Index 26.1 Const General: cooperative, comfortable, no acute distress, well developed, alert and awake Nutritional Appearance: average body habitus Orientation/consciousness: patient oriented x3 Limitations: no limitations HENMT Head: Yes normal to inspection General nose exam: Normal external nose present Face and sinus: Yes normal facial exam Neck Neck: Yes normal visual inspection and Yes full ROM Chest Chest palpation & inspection: normal inspection of the chest Resp Effort & Inspection: normal respiratory effort Auscultation: clear to auscultation bilaterally Cardio Jugular venous distension: no JVD Rate: regular rate Rhythm: regular rhythm GI Other: Examination of the abdomen showed a soft abdomen there is a scar in the mid abdomen, there is no tenderness no guarding no rebound. He has hernia of the abdominal wound which is reduced easily. Inspection: No distended and Yes incision Palpation (GI): Soft to palpation, not firm, nontender, no guarding and not rigid Skin General skin exam: no rashes or lesions noted and elasticity normal Rashes: no rashes Neuro General: patient oriented x3 Extrem General: Yes normal to inspection Right upper extremity: normal to inspection Medical Decision Making Medical Decision Making MDM Narrative: Patient has a known abdominal wall hernia but no clinical evidence of incarceration patient has no abdominal pain at this point. I think can be discharged back to the nursing facility he can return if abdominal pain or vomiting. I do not think this patient needs any blood work, he has no pain at this point the hernia is reduced. Differential Diagnosis Differential Diagnoses: The differential diagnosis associated with the presentation includes Abdominal hernia/hernia incarcerated Admission/Observation Consideration of admission/observation: Escalation of care including admission/observation considered External Record Review External record reviewed: Inpatient record and Other (halfway RECORD) Chronic Conditions TBI, schizoaffective disorder Discharge Plan Discharge Clinical Impression: Hernia of abdominal wall Patient Disposition: Home, Self-Care Instructions: Incisional Hernia (DC) Additional Instructions: Follow-up with Dr. Moses surgery, return if worse Prescriptions: No Action acetaminophen 325 mg Tablet 650 mg PO Q4H PRN (Reason: Fever Or Pain) Rx Instructions: do not exceed 3 g / 24 hrs diphenhydramine HCl [Benadryl Allergy] 25 mg Tablet 25 mg PO Q6H PRN (Reason: Itching) sennosides [senna] 8.6 mg Tablet 8.6 mg PO DAILY PRN (Reason: Constipation) gabapentin 600 mg Tablet 600 mg PO TID Hold Instructions: Patient more alert and interactive, monitor for the need of the med. Rx Instructions: give with 100mg for total of 700mg three times daily benztropine 0.5 mg Tablet 0.5 mg PO BID chlorpromazine 100 mg Tablet 100 mg PO BID Rx Instructions: give with 25mg tab for total of 125mg twice daily haloperidol decanoate [Haldol Decanoate] 100 mg/mL Solution 100 mg IM Q2W ondansetron HCl 4 mg Tablet 4 mg PO Q6H PRN (Reason: Nausea And Vomiting) loperamide [Imodium A-D] 2 mg Tablet 2 mg PO Q6H PRN (Reason: Loose Stool) Rx Instructions: not to exceed 8mg / 24 hours hydroxyzine HCl 50 mg Tablet 50 mg PO Q8H PRN (Reason: Agitation) Rx Instructions: not to exceed 150mg daily; until 11/28/22 melatonin 3 mg Tablet 3 mg PO BEDTIME omeprazole 40 mg Capsule,Delayed Release(Dr/Ec) 40 mg PO BEDTIME tramadol 50 mg Tablet 50 mg PO Q12H PRN (Reason: right hip pain) guaifenesin 100 mg/5 mL Liquid 200 mg PO Q6H PRN (Reason: Cough) levothyroxine 75 mcg Tablet 75 mcg PO DAILY@0600 propranolol 10 mg Tablet 10 mg PO TID Hold Instructions: Monitor restarting PRopranolol 20 mg tid before increasing to 30 mg tid Rx Instructions: give with 20mg for total of 30mg three times daily tamsulosin 0.4 mg Capsule 0.4 mg PO BEDTIME diazepam 2 mg Tablet 2 mg PO BID gemfibrozil [Lopid] 600 mg Tablet 600 mg PO BID bisacodyl 10 mg Suppository 10 mg GA DAILY PRN (Reason: Constipation) Rx Instructions: use if senna is ineffective chlorpromazine 25 mg Tablet 25 mg PO BID Rx Instructions: give with 100mg tab for total 125mg twice daily Fleet Enema 19-7 gram/118 mL Enema 118 ml GA DAILY PRN (Reason: Constipation) Rx Instructions: use if dulcolax suppository is ineffective docusate sodium 100 mg Capsule 100 mg PO Q8H PRN (Reason: Constipation) Rx Instructions: use if senna ineffective oxcarbazepine 600 mg Tablet 600 mg PO BID lisinopril 5 mg Tablet 5 mg PO DAILY Hold Instructions: Resume on 11/26/22. Monitor BP for 1 week prior to restarting it. gabapentin 100 mg Capsule 100 mg PO TID Rx Instructions: give with 600mg for total of 700mg three times daily clozapine 25 mg Tablet 25 mg PO DAILY Rx Instructions: give with 50mg for total of 75mg propranolol 20 mg Tablet 20 mg PO TID Rx Instructions: give with 10mg for total of 30mg three times daily hydroxyzine HCl 50 mg/mL Solution 50 mg IM Q8H PRN (Reason: Agitation) Rx Instructions: use if declines PO form until 11/28/22; not to exceed 150mg daily cetylpyridinium chloride Lozenge 1 jaja MUCOUS MEMBRANE Q2H PRN (Reason: Sore Throat) Rx Instructions: one 3mg lozenge Deep Sea Nasal 0.65 % Aerosol,[place] 2 spray INTRANASAL Q12H PRN (Reason: dry nose) Saccharomyces boulardii [Probiotic (S.boulardii)] 250 mg Capsule 250 mg PO DAILY lactulose 10 gram/15 mL Solution 30 ml PO DAILY clozapine 50 mg Tablet 50 mg PO DAILY Hold Instructions: Resume on 11/25/22. Restart the 25 mg daily for 3 days before going back to full dose Rx Instructions: give with 25mg for total 75mg sodium chloride 1,000 mg Tablet,Soluble 1,000 mg PO BID methyl salicylate-menthol 15-10 % Cream 1 appl TOPICAL Q8H PRN (Reason: Back Pain) Xifaxan 550 mg Tablet 550 mg PO BID Biotene Dry Mouth Oral Rinse Mouthwash 15 ml MUCOUS MEMBRANE BID Rx Instructions: swish for 15-30 secs , then spit out; do not swallow alum-mag hydroxide-simeth 200-200-20 mg/5 mL Suspension 30 ml PO Q6H PRN (Reason: GI UPSET) oxycodone 5 mg Tablet 5 mg PO Q6H PRN (Reason: moderate pain) Qty: 15 0RF Rx Instructions: Partial Fill upon patient request. ibuprofen 600 mg Tablet 600 mg PO TID PRN (Reason: Pain (Scale Score 4-6)) Qty: 60 0RF Referrals: George Moses MD [Physician] - 5 days Interventions: ED Discharge Assessment Last Done: 05/01/23 15:45 Discharge Date/Time: 05/01/23 15:47
--- NOTE | 2023-05-01 13:25 | PC.NURSE ---
pt axox3, VSS, respirations even and unlabored, skin wpd. pt arrived via ems from facility; per ems facility states noticed abd. hernia today however pt states x 3 mo. pt denies abd. pain/n/v/d/cp/sob. healed incision noted on abd. pt states from sb procedure 6 mo ago; no signs of infection. +bs x 4, no tenderness on palpation. pt denies questions at this time, call rebolledo within reach.
--- NOTE | 2023-05-01 13:45 | PC.NURSE ---
called akanksha souza to discuss d/c for pt; [facility] in agreement deny having further questions/concerns; awaiting ems eta.
--- NOTE | 2023-05-01 14:02 | PC.NURSE ---
pt mom called regarding d/c plan; educated on plan and denies having questions/concerns at this time.
== END 2023-05-01 15:47 | disposition home or self-care (01) ==
PROVIDERS: Emergency Provider Emergency Medicine
DX: K43.9 Ventral hernia without obstruction or gangrene (principal)
CPT/HCPCS: 99283; 99284

== ENCOUNTER 2023-05-29 09:03 | Outpatient (REF) | payer MEDICARE, MEDICAID, SELFPAY ==
--- NOTE | ~2023-05-29 | CT_ITS ---
EXAMINATION: CT ABDOMEN WITH CONTRAST CLINICAL INFORMATION: Incisional hernia COMPARISON: Previous CT of the abdomen and pelvis October 2022 TECHNIQUE: Contiguous axial thin section helical images of the abdomen were performed following the administration of oral contrast and 85 mL of Omnipaque 350 intravenous contrast. The data set was reformatted in the coronal and sagittal planes and reviewed on an independent workstation. This CT examination was performed using dose optimization techniques as appropriate, variously including the following: *Automated exposure control *Adjustment of mA and/or kV according to patient size (this includes techniques or standardized protocols for targeted exams where dose is matched to indication/reason for exam; i.e. extremities or head) *Use of iterative reconstruction technique DLP: 219 mGy-cm FINDINGS: LUNG BASES: Normal LIVER, GALLBLADDER, AND BILIARY TREE: Normal PANCREAS: Normal SPLEEN: Normal ADRENAL GLANDS AND KIDNEYS: The adrenal glands are normal. There are 1 and 3 mm stones in the lower pole of the left kidney. There is a subcentimeter low-attenuation lesion in the posterior upper pole of the left kidney probably representing a cyst. No imaging follow-up recommended. BOWEL LOOPS: There is diastasis of the rectus muscles. There is diffuse bulge in this region containing transverse colon. There is soft tissue thickening suggestive of previous surgery in this region. No focal hernia is seen. No fluid collection is seen. These findings are new from October 2022 exam. Stool throughout the colon questionable for constipation. Visualized bowel is otherwise normal. The appendix is normal. LYMPH NODES: Normal. VASCULAR: Atherosclerotic disease. No aneurysm. BONES: Mild spondylosis of the spine. CT/CT abdomen w IV con IMPRESSION: Diastasis of the rectus muscles and diffuse abdominal wall bulge containing transverse colon. No focal hernia or fluid collection seen. Soft tissue thickening in this region suggestive of postsurgical change. Small left renal stones. Fleischner Guidelines were followed.
[2023-05-29] MEDS: Barium Sulfate Oral (Vanilla) 450 ML ORAL.SUSP PO (11:50)
[2023-05-29] MEDS: iohexoL 350 MG/ML 100 ML INFUS..BTL IV (11:51)
[2023-05-30 08:26] LABS: Creatinine POC 0.5 mg/dL (0.5-1.4); GFR POC 60
== END 2023-05-29 09:04 | disposition home or self-care (01) ==
LOC: HO.CT 09:03
PROVIDERS: PCP Hospitalist; Visit Provider Hospitalist
DX: K43.2 Incisional hernia without obstruction or gangrene (principal)
CPT/HCPCS: 74160; 82565; Q9967

== ENCOUNTER 2023-06-03 13:37 | Outpatient (AMB) | payer MEDICARE, MEDICAID, SELFPAY ==
--- NOTE | 2023-06-03 13:39 | MHC.OFFVIS ---
Intake Vital Signs 06/03/23 14:00 Height 5 ft 9 in Weight 172 lb 4 oz BMI 25.4 BP 132/73 Blood Pressure Location Lt brachial Position Sitting Pulse 99 Intake Visit Reasons: protruding abdomen, ? hernia Intake Note: Patient is seen in office for ER follow up visit, following protruding abdominal hernia. 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: No Accompanied by: Other Relationship Allergies Penicillins [PENICILLINS] Allergy (Unknown, Verified 06/03/23 13:53) UNKNOWN Medication List - Last Reconciled 06/03/23 by George Moses MD [Abdominal binder As directed] acetaminophen 650 mg PO Q4H PRN alum-mag hydroxide-simeth 200-200-20 mg/5 mL 30 mL PO Q6H PRN benztropine 0.5 mg PO BID bisacodyl 10 mg [place] DAILY PRN cetylpyridinium chloride 1 jaja mucous membrane Q2H PRN chlorpromazine 100 mg PO BID chlorpromazine 25 mg PO BID clozapine 25 mg PO DAILY clozapine 50 mg PO DAILY diazepam 2 mg PO BID diphenhydramine HCl (Benadryl Allergy) 25 mg PO Q6H PRN docusate sodium 100 mg PO Q8H PRN gabapentin 600 mg PO TID gabapentin 100 mg PO TID gemfibrozil (Lopid) 600 mg PO BID guaifenesin 200 mg PO Q6H PRN haloperidol decanoate (Haldol Decanoate) 100 mg IM Q2W hydroxyzine HCl 50 mg IM Q8H PRN hydroxyzine HCl 50 mg PO Q8H PRN ibuprofen 600 mg PO TID PRN lactulose 30 mL PO DAILY levothyroxine 75 mcg PO DAILY@0600 lisinopril 5 mg PO DAILY loperamide (Imodium A-D) 2 mg PO Q6H PRN melatonin 3 mg PO BEDTIME methyl salicylate-menthol 15-10 % 1 appl topical Q8H PRN omeprazole 40 mg PO BEDTIME ondansetron HCl 4 mg PO Q6H PRN oxcarbazepine 600 mg PO BID oxycodone 5 mg PO Q6H PRN propranolol 20 mg PO TID propranolol 10 mg PO TID rifaximin (Xifaxan) 550 mg PO BID Saccharomyces boulardii (Probiotic (S.boulardii)) 250 mg PO DAILY saliva substitute combo no.9 (Biotene Dry Mouth Oral Rinse mouthwash) 15 mL mucous membrane BID sennosides (senna) 8.6 mg PO DAILY PRN sodium chloride 1,000 mg PO BID sodium chloride 0.65% (Deep Sea Nasal) 2 sprays intranasal Q12H PRN sodium phosphates 19-7 gram/118 mL (Fleet Enema) 118 mL [place] DAILY PRN tamsulosin 0.4 mg PO BEDTIME tramadol 50 mg PO Q12H PRN HPI HPI Comments History of Present Illness Details 57-year-old male patient well known to service with a 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 The patient notes that when he stands a weakness in his abdominal wall. He denies nausea, vomiting, fever or chills. His bowels have been regular and his appetite normal. A CT abdomen and pelvis was obtained which showed a diastasis recti with a bulge of the fascia at the midline above the umbilicus. He presents for further evaluation of this abdominal bulge. [facility] Medical History Bipolar disorder BPH (benign prostatic hyperplasia) GERD (gastroesophageal reflux disease) Heart failure Hyperlipidemia Hypertension Hyponatremia Hypothyroidism Schizoaffective disorder Seizure disorder Surgical History History of exploratory laparotomy (11/11/22) Social History Household Members: Other Housing: Assisted Living Facility Unable to assess alcohol history related to: Unknown Alcohol intake: never Patient Tobacco Use Status: Never used Tobacco Advance Directives Date on File: 11/12/22 Review of Systems Const All systems reviewed & are unremarkable except as noted in HPI and below Physical Exam Vital Signs: Last Vital Signs Pulse 99 06/03/23 14:00 BP 132/73 06/03/23 14:00 BMI result Body Mass Index 25.4 Const General: comfortable and well developed Nutritional Appearance: well nourished Orientation/consciousness: patient oriented x3 Limitations: no limitations Resp Effort & Inspection: normal respiratory effort, no audible wheezes, no cough and no respiratory distress GI Inspection: Yes normal to inspection Palpation (GI): Soft to palpation, nontender, no guarding and not rigid Abdomen image: 1. Abdominal wall weakness noted above the umbilicus which increases with Valsalva maneuvers. There is no tenderness to palpation. The weakness easily reduces in the supine position. Skin Other: Warm, dry, no rash Neuro General: patient oriented x3 Assessment & Plan Assessment & Plan (1) Incisional hernia, without obstruction or gangrene: Code(s): K43.2 - Incisional hernia without obstruction or gangrene (2) History of exploratory laparotomy: Onset Date: 11/11/22 Comment: Small-bowel resection, George Moses MD Code(s): Z98.890 - Other specified postprocedural states Plan 57-year-old male patient presenting with an abdominal wall hernia following small-bowel resection but is generally asymptomatic with no nausea, vomiting, diarrhea or constipation. On examination the weakness is easily identified and increases with Valsalva maneuvers. We discussed repair of this incisional hernia with possible implantation of mesh. Other options include wearing an abdominal binder which could be placed in the morning when the hernias reduced and worn throughout the day specially with activity. While this will not reduce the size of the hernia it will decrease the chance of the hernia enlarging. I reviewed this option with the patient and his mother (over the telephone) and they wished to continue the non operative measures. If his symptoms seem to worsen, he was instructed to call the office for follow-up examination. Medications: New [Abdominal binder] As directed 1 ea 0RF Z98.890 - Other specified postprocedural states Coding Level of Care Code Est Pt Level 3 (33609) Diagnoses Incisional hernia, without obstruction or gangrene K43.2 History of exploratory laparotomy Z98.890
[2023-06-03 14:00] VITALS: BP 132/73; PULSE 99; BMI 25.4
== END 2023-06-03 14:29 | disposition home or self-care (01) ==
PROVIDERS: PCP Hospitalist; Visit Provider Surgery
DX: K43.2 Incisional hernia without obstruction or gangrene (principal)
CPT/HCPCS: 99214

== ENCOUNTER → 2023-06-03 13:37 | Outpatient (BNVA) | payer MEDICARE, MEDICAID, SELFPAY | PROVIDERS: PCP Hospitalist; Visit Provider Surgery ==

== ENCOUNTER 2024-01-19 20:25 | Emergency (ER) | payer MEDICARE, MEDICAID, SELFPAY ==
[2024-01-19 20:34] VITALS: BP 167/79; BP 188/108; PULSE 91; PULSE 98; RESP 15; TEMP 37.2; O2SAT 97; O2SAT 98; BMI 30.5
--- NOTE | 2024-01-19 20:51 | ECG_ITS ---
Test Reason : SEIZURES Blood Pressure : / mmHG Vent. Rate : 087 BPM Atrial Rate : 087 BPM P-R Int : 160 ms QRS Dur : 086 ms QT Int : 378 ms P-R-T Axes : 054 -13 -18 degrees QTc Int : 454 ms Normal sinus rhythm Left ventricular hypertrophy with repolarization abnormality ( R in aVL ) Inferior infarct , age undetermined Abnormal ECG When compared with ECG of 11-NOV-2022 02:58, Inferior infarct is now Present T wave inversion now evident in Inferior leads T wave inversion less evident in Lateral leads Referred By: Generic ED Physician Electronically Signed By:Pankaj Azar
--- NOTE | 2024-01-19 21:29 | ED_ITS ---
HPI - General Adult General Chief complaint: Seizure Stated complaint: AMS SEIZURE ACTIVITY Time Seen by Provider: 01/19/24 20:53 Source: patient, RN notes reviewed and old records reviewed Mode of arrival: EMS Limitations: no limitations History of Present Illness HPI narrative: 58-year-old male past medical history significant for bipolar disorder, hyperlipidemia, hypertension, hypothyroidism, schizoaffective disorder, seizure disorder presents for evaluation of reported witnessed seizure-like activity at his [facility] facility. Per staff, the patient reportedly had 3 seizures today, each lasting about 10 minutes. Staff reports the patient had postictal state following each seizure The last seizure was at 7:00 p.m. prior to coming into the hospital The patient arrived to the hospital awake, alert and oriented He denies having seizures today He states that he has no complaints He feels as though staff at [facility] is ?not treating me appropriately. ? Specifically, the patient denies any fevers, chills, headaches, chest pain, cough, shortness of breath, abdominal pain, nausea, vomiting Related Data Home Medications ?Medication ?Instructions ?Recorded ?Confirmed Saccharomyces boulardii 250 mg 250 mg PO DAILY 11/10/22 12/11/22 capsule (Probiotic (S.boulardii)) acetaminophen 325 mg tablet 650 mg PO Q4H PRN Fever Or Pain 11/10/22 06/03/23 aluminum-mag hydroxide-simethicone 30 ml PO Q6H PRN GI UPSET 11/10/22 06/03/23 200 mg-200 mg-20 mg/5 mL oral susp benztropine 0.5 mg tablet 0.5 mg PO BID 11/10/22 06/03/23 bisacodyl 10 mg rectal suppository 10 mg WY DAILY PRN Constipation 11/10/22 06/03/23 cetylpyridinium chloride 1 jaja mucous membrane Q2H PRN Sore 11/10/22 06/03/23 Throat chlorpromazine 100 mg tablet 100 mg PO BID 11/10/22 06/03/23 chlorpromazine 25 mg tablet 25 mg PO BID 11/10/22 06/03/23 clozapine 25 mg tablet 25 mg PO DAILY 11/10/22 06/03/23 clozapine 50 mg tablet 50 mg PO DAILY 11/10/22 06/03/23 diazepam 2 mg tablet 2 mg PO BID 11/10/22 06/03/23 diphenhydramine HCl 25 mg tablet 25 mg PO Q6H PRN Itching 11/10/22 06/03/23 (Benadryl Allergy) docusate sodium 100 mg capsule 100 mg PO Q8H PRN Constipation 11/10/22 06/03/23 gabapentin 100 mg capsule 100 mg PO TID 11/10/22 06/03/23 gabapentin 600 mg tablet 600 mg PO TID 11/10/22 12/11/22 gemfibrozil 600 mg tablet (Lopid) 600 mg PO BID 11/10/22 06/03/23 guaifenesin 100 mg/5 mL oral liquid 200 mg PO Q6H PRN Cough 11/10/22 06/03/23 haloperidol decanoate 100 mg/mL 100 mg IM Q2W 11/10/22 06/03/23 intramuscular solution (Haldol Decanoate) hydroxyzine HCl 50 mg tablet 50 mg PO Q8H PRN Agitation 11/10/22 06/03/23 hydroxyzine HCl 50 mg/mL 50 mg IM Q8H PRN Agitation 11/10/22 06/03/23 intramuscular solution lactulose 10 gram/15 mL oral 30 ml PO DAILY 11/10/22 06/03/23 solution levothyroxine 75 mcg tablet 75 mcg PO DAILY@0600 11/10/22 06/03/23 lisinopril 5 mg tablet 5 mg PO DAILY 11/10/22 12/11/22 loperamide 2 mg tablet (Imodium 2 mg PO Q6H PRN Loose Stool 11/10/22 06/03/23 A-D) melatonin 3 mg tablet 3 mg PO BEDTIME 11/10/22 06/03/23 methyl salicylate 15 %-menthol 10 1 appl topical Q8H PRN Back Pain 11/10/22 12/11/22 % topical cream omeprazole 40 mg capsule,delayed 40 mg PO BEDTIME 11/10/22 06/03/23 release ondansetron HCl 4 mg tablet 4 mg PO Q6H PRN Nausea And Vomiting 11/10/22 06/03/23 oxcarbazepine 600 mg tablet 600 mg PO BID 11/10/22 06/03/23 propranolol 10 mg tablet 10 mg PO TID 11/10/22 12/11/22 propranolol 20 mg tablet 20 mg PO TID 11/10/22 12/11/22 rifaximin 550 mg tablet (Xifaxan) 550 mg PO BID 11/10/22 06/03/23 saliva substitute combo no.9 15 ml mucous membrane BID 11/10/22 12/11/22 (Biotene Dry Mouth Oral Rinse mouthwash) sennosides 8.6 mg tablet (senna) 8.6 mg PO DAILY PRN Constipation 11/10/22 06/03/23 sodium chloride 0.65 % nasal spray 2 spray intranasal Q12H PRN dry 11/10/22 06/03/23 aerosol (Deep Sea Nasal) nose sodium chloride 1,000 mg soluble 1,000 mg PO BID 11/10/22 12/11/22 tablet sodium phosphates 19 gram-7 118 ml WY DAILY PRN Constipation 11/10/22 12/11/22 gram/118 mL enema (Fleet Enema) tamsulosin 0.4 mg capsule 0.4 mg PO BEDTIME 11/10/22 06/03/23 tramadol 50 mg tablet 50 mg PO Q12H PRN right hip pain 11/10/22 06/03/23 Previous Rx's ?Medication ?Instructions ?Recorded ibuprofen 600 mg tablet 600 mg PO TID PRN Pain (Scale 11/20/22 Score 4-6) #60 tabs oxycodone 5 mg tablet 5 mg PO Q6H PRN moderate pain #15 11/20/22 tabs Abdominal binder #1 ea 06/03/23 Allergies Allergy/AdvReac Type Severity Reaction Status Date / Time Penicillins [PENICILLINS] Allergy Unknown UNKNOWN Verified 01/19/24 20:48 Review of Systems 2 Constitutional: Constitutional: Denies body ache(s), Denies chills, Denies fever(s) and Denies headache(s) Eyes: Eyes: Denies blurry vision ENT: Denies headache(s) and Denies sore throat Cardiovascular: Cardiovascular: Denies chest pain and Denies dyspnea Respiratory: Respiratory: Denies cough and Denies dyspnea Gastrointestinal: Gastrointestinal: Denies abdominal pain, Denies nausea and Denies vomiting Genitourinary: Genitourinary: Denies dysuria Musculoskeletal: Musculoskeletal: Denies back pain Integumentary/Breasts: Skin/Breast: Denies rash Neurologic: Denies headache(s) Comments: Staff reports the patient has seizures today, the patient denies this Psychiatric: Psychiatric: Denies anxiety and Denies suicidal ideation PMF Past Medical History Medical History Bipolar disorder BPH (benign prostatic hyperplasia) GERD (gastroesophageal reflux disease) Heart failure Hyperlipidemia Hypertension Hyponatremia Hypothyroidism Schizoaffective disorder Seizure disorder Surgical History History of exploratory laparotomy (11/11/22) Social History Social History Household Members: Other Housing: Assisted Living Facility Unable to assess alcohol history related to: Unknown Alcohol intake: never Patient Tobacco Use Status: Never used Tobacco Smoked in Last 30 Days: No Use of substances other than those prescribed or required for medical reasons: No Advance Directives: Yes Advance Directives on File: Yes Advance Directives Date on File: 11/12/22 Physical Exam ED Vital Signs: Vital Signs - 24 hr 01/19/24 20:34 Temperature 99.0 F Pulse Rate 91 Respiratory Rate 15 Blood Pressure 167/79 H Pulse Oximetry 97 Oxygen Delivery Method Room Air BMI result Body Mass Index 30.5 Const General: healthy appearing, comfortable, no acute distress, alert and awake Nutritional Appearance: well nourished Orientation/consciousness: patient oriented x3 HENMT Head: Yes normocephalic and Yes atraumatic Eyes Eyelids: Yes eyelids normal Conjunctivae: conjunctivae normal Sclerae: sclerae normal Corneas: corneas normal Pupils: Equal, round and reactive pupils present EOM: EOMs intact bilaterally Neck Neck: Yes full ROM Resp Effort & Inspection: normal respiratory effort, able to speak in complete sentences and not labored Cardio Rate: regular rate Rhythm: regular rhythm GI Inspection: No distended Palpation (GI): Soft to palpation, not firm, nontender, no guarding and not rigid Skin General skin exam: elasticity normal Neuro General: patient oriented x3 Cranial nerves: Yes CN's II-XII intact bilaterally, Yes Equal, round and reactive pupils present and Yes Bilaterally intact EOM present Cognition (Neuro): normal cognition Extrem Other: Moving all extremities well without any obvious deformities Course Reevaluation(s) Reevaluation #1: Patient's sodium was noted to be low at 127, his most recent sodium was from over a year ago that was 132. Unclear what his more recent baseline has been. His CPK was slightly elevated to 351 however his lactic acid was normal at 0.8. This is highly indicative the patient did not have any true seizure-like activity. Patient had multiple seizures today lasting 10 minutes or more I would expect his lactic acid to be elevated. The patient was initially refusing IV fluids, however he change his mind is apparently going to allow a L of IV fluids to be administered. , that the patient is awake, alert oriented, has been since arrival to the ED. He has an advanced directive stating that he is capable of making his own decision Time: 22:35 Reevaluation #2: Patient received IV fluids, he is stable for discharge. Remains awake, alert and oriented Time: 23:45 Medications Administered Discontinued Medications Generic Name Dose Route Start Last Admin Trade Name Freq PRN Reason Stop Dose Admin Sodium Chloride 1,000 mls @ 999 mls/hr 01/19/24 22:15 01/19/24 23:43 Ns IV 01/19/24 23:15 Infused .Q1H1M ESPINOZA Infusion Medical Decision Making Medical Decision Making MDM Narrative: 58-year-old male past medical history as documented above presents for evaluation of reported seizure-like activity. The patient himself has no complaints. He is awake, alert and oriented and appears to be at his baseline. Labs including CPK and lactic acid, EKG. The patient will be on the radiation monitor to closely monitor for any seizure-like activity. I do not see any indication for emergent imaging of the brain at this time as there was no reported fall, trauma and the patient is currently at his mental baseline Differential Diagnosis Differential Diagnoses: The differential diagnosis associated with the presentation includes Pseudo seizure Seizure disorder Electrolyte abnormality Altered mental status Seizure-like activity Lab Data 01/19/24 21:39 01/19/24 21:39 Labs: Lab Results 01/19/24 Range/Units 21:39 WBC 7.2 (4.8-10.8) X10*3/uL RBC 4.23 L D (4.60-5.80) X10*6/uL Hgb 12.4 L D (14.0-18.0) g/dl Hct 34.5 L D (42.0-52.0) % MCV 81.6 (80.0-98.0) fL MCH 29.3 (27.0-33.0) pg MCHC 35.9 (31.0-36.0) g/dl RDW 12.2 (11.0-16.0) % Plt Count 156 L D (160-400) X10*3/uL MPV 9.7 (9.4-12.4) fL Immature Gran % (Auto) 0.3 (0.0-0.4) % Neut % (Auto) 80.7 H (45-73) % Lymph % (Auto) 10.6 L (20-40) % Churchill % (Auto) 8.1 (2-11) % Eos % (Auto) 0.0 (0-4) % Baso % (Auto) 0.3 (0-2) % Lymph # (Auto) 0.8 L (1.2-4.9) X10*3/uL Churchill # (Auto) 0.6 (0.1-1.2) X10*3/uL Eos # (Auto) 0.0 (0.0-0.4) X10*3/uL Baso # (Auto) 0.0 (0.0-0.2) X10*3/uL Abs Immat Gran (auto) 0.02 (0.00-0.03) X10*3/uL Absolute Neuts (auto) 5.8 (2.0-8.3) x10*3/uL Absolute Nucleated RBC 0.000 (0.0-0.012) X10*3/uL Nucleated RBC % (auto) 0.0 (0.0-0.2) /100WBC Sodium 127 L (135-145) mmol/L Potassium 4.2 (3.3-5.1) mmol/L Chloride 98 (96-108) mmol/L Carbon Dioxide 22 (22-29) mmol/L Anion Gap 11 L (12-20) BUN 11 (9-16) mg/dL Creatinine 0.68 (0.5-1.4) mg/dL Estim Creat Clear Calc 130.5 Estimated GFR > 60 Random Glucose 107 (60-115) mg/dL Lactic Acid 0.8 (0.5-2.0) mmol/L Calcium 9.0 (8.4-10.2) mg/dL Total Bilirubin 0.3 (0.0-1.0) mg/dL AST 21 (5-37) U/L ALT 27 (0-40) U/L Alkaline Phosphatase 83 (39-117) U/L Total Creatine Kinase 351 H (38-174) U/L Total Protein 6.6 (6.5-8.0) g/dL Albumin 4.4 (3.5-5.0) g/dL Independent Interpretation I performed an independent interpretation of an: EKG (Normal sinus rhythm with a rate of 87 beats minute. Left ventricular hypertrophy noted. No ST segment elevation OR) Discharge Plan Discharge Clinical Impression: Seizure-like activity, Acute hyponatremia Patient Disposition: Home, Self-Care Instructions: Hyponatremia (ED) Additional Instructions: Your workup in the ER today was reassuring. Except that your sodium was low at 127 This was treated with IV fluids You should reduce pure water intake at home as this will lower your sodium I recommend that you follow-up with your primary doctor within 1 week for repeat labs Based on your blood work, it is not likely that you had true seizures today Prescriptions: No Action acetaminophen 325 mg Tablet 650 mg PO Q4H PRN (Reason: Fever Or Pain) Rx Instructions: do not exceed 3 g / 24 hrs diphenhydramine HCl [Benadryl Allergy] 25 mg Tablet 25 mg PO Q6H PRN (Reason: Itching) sennosides [senna] 8.6 mg Tablet 8.6 mg PO DAILY PRN (Reason: Constipation) gabapentin 600 mg Tablet 600 mg PO TID Hold Instructions: Patient more alert and interactive, monitor for the need of the med. Rx Instructions: give with 100mg for total of 700mg three times daily benztropine 0.5 mg Tablet 0.5 mg PO BID chlorpromazine 100 mg Tablet 100 mg PO BID Rx Instructions: give with 25mg tab for total of 125mg twice daily haloperidol decanoate [Haldol Decanoate] 100 mg/mL Solution 100 mg IM Q2W ondansetron HCl 4 mg Tablet 4 mg PO Q6H PRN (Reason: Nausea And Vomiting) loperamide [Imodium A-D] 2 mg Tablet 2 mg PO Q6H PRN (Reason: Loose Stool) Rx Instructions: not to exceed 8mg / 24 hours hydroxyzine HCl 50 mg Tablet 50 mg PO Q8H PRN (Reason: Agitation) Rx Instructions: not to exceed 150mg daily; until 11/28/22 melatonin 3 mg Tablet 3 mg PO BEDTIME omeprazole 40 mg Capsule,Delayed Release(Dr/Ec) 40 mg PO BEDTIME tramadol 50 mg Tablet 50 mg PO Q12H PRN (Reason: right hip pain) guaifenesin 100 mg/5 mL Liquid 200 mg PO Q6H PRN (Reason: Cough) levothyroxine 75 mcg Tablet 75 mcg PO DAILY@0600 propranolol 10 mg Tablet 10 mg PO TID Hold Instructions: Monitor restarting PRopranolol 20 mg tid before increasing to 30 mg tid Rx Instructions: give with 20mg for total of 30mg three times daily tamsulosin 0.4 mg Capsule 0.4 mg PO BEDTIME diazepam 2 mg Tablet 2 mg PO BID gemfibrozil [Lopid] 600 mg Tablet 600 mg PO BID bisacodyl 10 mg Suppository 10 mg WY DAILY PRN (Reason: Constipation) Rx Instructions: use if senna is ineffective chlorpromazine 25 mg Tablet 25 mg PO BID Rx Instructions: give with 100mg tab for total 125mg twice daily Fleet Enema 19-7 gram/118 mL Enema 118 ml WY DAILY PRN (Reason: Constipation) Rx Instructions: use if dulcolax suppository is ineffective docusate sodium 100 mg Capsule 100 mg PO Q8H PRN (Reason: Constipation) Rx Instructions: use if senna ineffective oxcarbazepine 600 mg Tablet 600 mg PO BID lisinopril 5 mg Tablet 5 mg PO DAILY Hold Instructions: Resume on 11/26/22. Monitor BP for 1 week prior to restarting it. gabapentin 100 mg Capsule 100 mg PO TID Rx Instructions: give with 600mg for total of 700mg three times daily clozapine 25 mg Tablet 25 mg PO DAILY Rx Instructions: give with 50mg for total of 75mg propranolol 20 mg Tablet 20 mg PO TID Rx Instructions: give with 10mg for total of 30mg three times daily hydroxyzine HCl 50 mg/mL Solution 50 mg IM Q8H PRN (Reason: Agitation) Rx Instructions: use if declines PO form until 11/28/22; not to exceed 150mg daily cetylpyridinium chloride Lozenge 1 jaja MUCOUS MEMBRANE Q2H PRN (Reason: Sore Throat) Rx Instructions: one 3mg lozenge Deep Sea Nasal 0.65 % Aerosol,Drayden 2 spray INTRANASAL Q12H PRN (Reason: dry nose) Saccharomyces boulardii [Probiotic (S.boulardii)] 250 mg Capsule 250 mg PO DAILY lactulose 10 gram/15 mL Solution 30 ml PO DAILY clozapine 50 mg Tablet 50 mg PO DAILY Hold Instructions: Resume on 11/25/22. Restart the 25 mg daily for 3 days before going back to full dose Rx Instructions: give with 25mg for total 75mg sodium chloride 1,000 mg Tablet,Soluble 1,000 mg PO BID methyl salicylate-menthol 15-10 % Cream 1 appl TOPICAL Q8H PRN (Reason: Back Pain) Xifaxan 550 mg Tablet 550 mg PO BID Biotene Dry Mouth Oral Rinse Mouthwash 15 ml MUCOUS MEMBRANE BID Rx Instructions: swish for 15-30 secs , then spit out; do not swallow alum-mag hydroxide-simeth 200-200-20 mg/5 mL Suspension 30 ml PO Q6H PRN (Reason: GI UPSET) oxycodone 5 mg Tablet 5 mg PO Q6H PRN (Reason: moderate pain) Qty: 15 0RF Rx Instructions: Partial Fill upon patient request. ibuprofen 600 mg Tablet 600 mg PO TID PRN (Reason: Pain (Scale Score 4-6)) Qty: 60 0RF (DME) Abdominal binder measure to fit See Rx Instructions .Route .MEDSUPPLY Qty: 1 0RF Rx Instructions: As directed Print Language: Icelandic
[2024-01-19 21:46] LABS: MANUAL DIFF FLAG NO
[2024-01-19 21:47] LABS: Basophils Percent Auto 0.3 % (0-2); Hematocrit 34.5 % (42.0-52.0); Hemoglobin 12.4 g/dl (14.0-18.0); Imm Gran Abs Auto 0.02 X10*3/uL (0.00-0.03); Imm Gran Pct Auto 0.3 % (0.0-0.4); Lymphocytes Absolute Auto 0.8 X10*3/uL (1.2-4.9); Lymphocytes Percent Auto 10.6 % (20-40); Mean Corpuscular HGB Conc 35.9 g/dl (31.0-36.0); Mean Corpuscular Hemoglobin 29.3 pg (27.0-33.0); Mean Corpuscular Volume 81.6 fL (80.0-98.0); Mean Platelet Volume 9.7 fL (9.4-12.4); Monocytes Absolute Auto 0.6 X10*3/uL (0.1-1.2); Monocytes Percent Auto 8.1 % (2-11); Neutrophils Absolute Auto 5.8 x10*3/uL (2.0-8.3); Neutrophils Percent Auto 80.7 % (45-73); Platelet Count 156 X10*3/uL (160-400); Red Blood Count 4.23 X10*6/uL (4.60-5.80); Red Cell Distribution Width 12.2 % (11.0-16.0); White Blood Count 7.2 X10*3/uL (4.8-10.8)
[2024-01-19 21:57] LABS: Lactic Acid 0.8 mmol/L (0.5-2.0)
[2024-01-19 22:03] LABS: Alanine Aminotransferase 27 U/L (0-40); Albumin Level 4.4 g/dL (3.5-5.0); Alkaline Phosphatase 83 U/L (39-117); Anion Gap 11 (12-20); Aspartate Amino Transferase 21 U/L (5-37); Bilirubin Total 0.3 mg/dL (0.0-1.0); Blood Urea Nitrogen 11 mg/dL (9-16); Carbon Dioxide 22 mmol/L (22-29); Chloride 98 mmol/L (96-108); Creatinine Clr Calc Pharmacy 130.5; Estimated Glomerular Filt Rate > 60; Glucose Random 107 mg/dL (60-115); Potassium 4.2 mmol/L (3.3-5.1); Sodium 127 mmol/L (135-145); Total Protein 6.6 g/dL (6.5-8.0)
[2024-01-19] MEDS: 0.9 % Sodium Chloride 1,000 ML 999 ML IV (22:41)
--- NOTE | 2024-01-19 22:46 | PC.NURSE ---
arian kirk placed orders for iv and ivf. pt refused iv placement arian kirk to bedside explain need for iv pt agreeable to iv placement iv placed in L FA pt medicated according to mar
[2024-01-20 00:19] VITALS: BP 172/93; PULSE 78; RESP 19; TEMP 36.9; O2SAT 96
[2024-01-20 00:30] VITALS: BP 149/73; PULSE 85; RESP 16; TEMP 36.9; O2SAT 97
--- NOTE | 2024-01-20 00:30 | PC.NURSE ---
pt ready for discharge waiting for ems transport back to facility
== END 2024-01-20 03:49 | disposition home or self-care (01) ==
PROVIDERS: Physician Assistant; Emergency Provider Emergency Medicine; PCP Hospitalist
DX: E87.1 Hypo-osmolality and hyponatremia (principal); G40.909 Epilepsy, unspecified, not intractable, without status epilepticus; I10 Essential (primary) hypertension
CPT/HCPCS: 36415; 80053; 82550; 83605; 85025; 93005; 96360; 99284

== ENCOUNTER → 2024-01-19 20:51 | Outpatient (BNV) | payer MEDICARE, MEDICAID, SELFPAY | PROVIDERS: Emergency Provider Emergency Medicine; PCP Hospitalist; Visit Provider Internal Medicine Cardiovascular Disease | DX: R94.31 Abnormal electrocardiogram [ECG] [EKG] (principal) | CPT/HCPCS: 93010 ==

== ENCOUNTER 2024-11-01 09:57 | Outpatient (AMB) | payer MEDICARE, MEDICAID, SELFPAY ==
[2024-11-01 10:01] VITALS: BP 142/78; PULSE 98; O2SAT 99; BMI 28.1
--- NOTE | 2024-11-01 10:01 | MHC.OFFVIS ---
Vital Signs 11/01/24 10:01 Height 5 ft 9 in Weight 190 lb 0.615 oz BMI 28.1 BP 142/78 H Blood Pressure Location Rt radial Position Sitting Pulse 98 Pulse Source Pulse Oximeter Pulse Oximetry (%) 99 Oxygen Delivery Method Room Air Intake Visit Reasons: Colonoscopy screening Intake Note: NEW PATIENT Reason; Screening Prior hx of colo/egd? 2013 w/ Dr. Genao. Hx of TA Concerns/Questions? No significant GI concerns per pt or staff. Paperwork (physician) provided. Allergies Penicillins [PENICILLINS] Allergy (Unknown, Verified 11/01/24 10:01) UNKNOWN HPI HPI Colonoscopy screening: Details: 59 year old? male with past medical history of schizoaffective disorder, intracranial injury, hypertension, hyperlipidemia, presbyopia, hypothyroidism, bipolar, GERD, BPH is here today for pre colonoscopy screening.? Patient was sent to us by PCP.? Last colonoscopy was in [address] Epps. One tubular adenoma was removed from the sigmoid colon. Otherwise normal to cecum, EGD at that time negative for H pylori or Barretts. Reports normal bowel movements without constipation diarrhea, hematochezia, melena, unintentional weight loss or ribbon like stools. No family history of colorectal cancer. Patient denies any upper GI symptoms like heartburn, dyspepsia, dysphagia or odynophagia.? ? Denies history of difficulty with sedation or anesthesia in the past.? Negative for history of sleep apnea.? Denies any history of cardiac, renal, pulmonary, or hepatic disease.?? No history of infectious? diseases like hepatitis A, B, C, HIV or tuberculosis.? Patient is not on any anticoagulation [facility] Medical History Hyponatremia Heart failure Schizoaffective disorder Hypothyroidism Hyperlipidemia Hypertension Bipolar disorder Seizure disorder GERD (gastroesophageal reflux disease) BPH (benign prostatic hyperplasia) Surgical History History of exploratory laparotomy (11/11/22) Social History Household Members: Other Housing: Assisted Living Facility Unable to assess alcohol history related to: Unknown Alcohol intake: never Patient Tobacco Use Status: Never used Tobacco Advance Directives Date on File: 11/12/22 Review of Systems Const Denies weight gain and Denies weight loss ENT Reports no additional complaints, Denies dysphagia and Denies odynophagia Card Reports no additional complaints Resp Reports no additional complaints GI Denies abdominal pain, Denies belching, Denies melena, Denies bloating, Denies change in bowel habits, Denies dysphagia, Denies excessive flatus, Denies dyspepsia, Denies heartburn, Denies diarrhea, Denies loose stools, Denies nausea, Denies odynophagia and Denies vomiting Reports no additional complaints Musc Reports no additional complaints Neuro Reports no additional complaints Psych Reports no additional complaints Endo Reports no additional complaints Physical Exam Vital Signs: Last Vital Signs Pulse 98 11/01/24 10:01 BP 142/78 H 11/01/24 10:01 Pulse Ox 99 11/01/24 10:01 Oxygen Delivery Method Room Air 11/01/24 10:01 BMI result Body Mass Index 28.1 Const General: healthy appearing and no acute distress Nutritional Appearance: well nourished Orientation/consciousness: patient oriented x3 HEENT Head: Yes normal to inspection, Yes normocephalic and Yes atraumatic Face and sinus: Yes normal facial exam Mouth: Normal oral and palatal mucosa present Throat: Yes posterior oropharynx normal, Yes tonsils normal and Yes uvula midline Resp Effort & Inspection: normal respiratory effort, able to speak in complete sentences, no tracheal deviation and symmetric chest movement Auscultation: clear to auscultation bilaterally Cardio Rate: regular rate GI Other: Abdomen distended, patient is wearing abdominal binder Inspection: Yes distended Palpation (GI): Soft to palpation, not firm, nontender and No hepatosplenomegaly present Auscultation: normal bowel sounds General: Yes no CVA tenderness Back/Spine/Pelvis Back: no CVA tenderness Skin General skin exam: elasticity normal, turgor normal and dry skin Neuro General: patient oriented x3 Psych Appearance: grossly normal Mental Status: mental status grossly normal Assessment & Plan Assessment & Plan (1) Screen for colon cancer: Code(s): Z12.11 - Encounter for screening for malignant neoplasm of colon Plan Patient denies any GI, cardiac or respiratory symptoms.? Denies any issues with anesthesia in the past.? Denies any history of sleep apnea.? No history of infectious diseases in the past or present.? Not on any anticoagulation therapy.? No family history of colon cancer or polyps.? Personal history of tubular adenoma in the past. Patient was seen by GI office in 2020 with plan for colonoscopy. Gastroenterology note reviewed from that visit. Unsure why patient has not followed up for the procedure. Scan note is in patient's chart (under provider's notes in gastroenterology) Patient denies melena, hematochezia, unintentional weight loss or ribbon like stools.? Discussed at length the pre-procedure,? prep, diet & medications as well as what to expect prior, during and after the procedure.?? Stressed the importance of good bowel prep.? Recommended the use of Vaseline or Calmoseptine OTC & baby wipes with bowel movements to promote comfort.? ?Patient verbalizes understanding and agrees to plan of care.? He was given the opportunity to ask questions and all questions answered.? We will see him after the procedure.? Medications: New bisacodyl (Dulcolax (bisacodyl)) take 4 tabs at noon the day before your colonoscopy 20 mg (4 x 5 mg) PO ONCE 1 day 4 tabs 0RF Z12.11 - Encounter for screening for malignant neoplasm of colon polyethylene glycol 3350 (Miralax) As directed by gastroenterology department at [facility] 238 grams PO ONCE 238 grams 0RF Z12.11 - Encounter for screening for malignant neoplasm of colon Coding Level of Care Code New Pt Level 3 (43183) Diagnoses Screen for colon cancer Z12.11 Time Spent (min) 40 Comment 30 minutes spent with patient and additional 10 minutes spent reviewing his records
== END 2024-11-01 15:47 | disposition home or self-care (01) ==
PROVIDERS: PCP Hospitalist; Visit Provider Nurse Practitioner Family
DX: Z01.818 Encounter for other preprocedural examination (principal); Z12.11 Encounter for screening for malignant neoplasm of colon
CPT/HCPCS: 99024

== ENCOUNTER → 2024-11-01 09:57 | Outpatient (BNVA) | payer MEDICARE, MEDICAID, SELFPAY | PROVIDERS: PCP Hospitalist; Visit Provider Nurse Practitioner Family | DX: Z01.818 Encounter for other preprocedural examination (principal); K21.9 Gastro-esophageal reflux disease without esophagitis | CPT/HCPCS: 99212 ==

== ENCOUNTER 2025-08-30 14:27 | Outpatient (AMB) | payer MEDICARE, MEDICAID, SELFPAY ==
--- NOTE | 2025-08-30 14:39 | MHC.OFFVIS ---
Intake Visit Reasons: hx of UTI/ Elevated PSA Intake Note: New Patient is present for elevated PSA and PmHx of UTI Urology Rx:Tamsulosin PVR:279 mls Blood Thinners:none Imaging completed:none Labs done 07/08/25:PSA 15. Block Operator Required: No Accompanied by: Self / Same As Patient Allergies Penicillins (PENICILLINS) Allergy (Unknown, Verified 08/30/25 14:40) UNKNOWN HPI Comments Details: Kojo is a pleasant male. He is a patient of Dr. Richey. He seen for the following urologic conditions - incomplete bladder emptying - lower urinary tract symptoms Variable PSA 07/07 1.2, 09/06 2.2 Longstanding schizoaffective disorder Has been on tamsulosin Prior history UTI with incomplete bladder emptying. Postvoid volume 280 cc today. Trial bethanechol Three-month follow-up check PVR [facility] Medical History (Updated 08/30/25 @ 15:11 by Garland Gamboa MD) Hyponatremia Heart failure Schizoaffective disorder Hypothyroidism Hyperlipidemia Hypertension Bipolar disorder Seizure disorder GERD (gastroesophageal reflux disease) BPH (benign prostatic hyperplasia) Surgical History (Updated 01/14/25 @ 14:13 by Evelyne Funes RN) History of exploratory laparotomy (11/11/22) Social History Household Members: Other Housing: Assisted Living Facility Alcohol intake: never Patient Tobacco Use Status: Never used Tobacco Advance Directives Date on File: 11/12/22 Review of Systems Const Denies chills and Denies fever(s) Card Reports no additional complaints and Denies syncope Resp Denies cough GI Denies abdominal pain and Denies heartburn Reports as per HPI and Denies change in libido Neuro Denies syncope Psych Denies change in libido Endo Denies change in libido Physical Exam Const General: cooperative, healthy appearing, comfortable and no acute distress Orientation/consciousness: patient oriented x3 HEENT Face and sinus: Yes normal facial exam Mouth: moist mucous membranes Neck Neck: Yes normal visual inspection, Yes full ROM and Yes trachea midline Chest Chest palpation & inspection: normal inspection of the chest Resp Effort & Inspection: normal respiratory effort, able to speak in complete sentences and no respiratory distress GI Inspection: Yes normal to inspection Back/Spine/Pelvis Cervical Spine: normal cervical lordosis Thoracic/Lumbar Spine: thoracic and lumbar spine normal to inspection Skin General skin exam: no rashes or lesions noted Neuro General: patient oriented x3, gait normal, tone normal and moves all extremities Extrem General: Yes normal to inspection and Yes capillary refill normal Office Procedures Post Void Residual Post Residual Void Post Void Residual (PVR): 279 [id number] Void Residual by ultrasound Results AMB Urinalysis, Automated UA Leukoctes 0 Judit/uL Last Edit by Aditi Nunez [facility] on 08/30/25 14:54 UA Nitrite Negative Last Edit by Aditi Nunez, [facility] on 08/30/25 14:54 UA Urobilinogen 0.2 mg/dL Last Edit by [facility], [facility] on 08/30/25 14:54 UA Protein 0 mg/dL Last Edit by [facility], [facility] on 08/30/25 14:54 UA pH 6.5 Last Edit by [facility], [facility] on 08/30/25 14:54 UA Blood 0 Roger/uL Last Edit by Aditi Enrique, [facility] on 08/30/25 14:54 UA Specific [place] 1.010 Last Edit by [facility], [facility] on 08/30/25 14:54 UA Ketone Negative Last Edit by [facility], [facility] on 08/30/25 14:54 UA Bilirubin 0 mg/dL Last Edit by [facility], [facility] on 08/30/25 14:54 UA Glucose 0 mg/dL Last Edit by [facility], [facility] on 08/30/25 14:54 Results Reviewed Results Reviewed: Laboratory Last Values Urine pH (Auto) 6.5 08/30/25 14:53 Specific [place] (Auto) 1.010 08/30/25 14:53 Urine Protein (Auto) 0 mg/dL 08/30/25 14:53 Glucose (UA)(Auto) 0 mg/dL 08/30/25 14:53 Urine Ketones (Auto) Negative 08/30/25 14:53 Urine Blood (Auto) 0 Roger/uL 08/30/25 14:53 Urine Nitrite (Auto) Negative 08/30/25 14:53 Urine Bilirubin (Auto) 0 mg/dL 08/30/25 14:53 Urine Urobilinogen (Auto) 0.2 mg/dL 08/30/25 14:53 Leukocyte Esterase (Auto) 0 Judit/uL 08/30/25 14:53 Assessment & Plan Assessment & Plan (1) Urinary retention with incomplete bladder emptying: Code(s): R33.9 - Retention of urine, unspecified Category: Medical Plan Trial bethanechol Medications: New bethanechol chloride 50 mg PO BID 60 tabs 1RF 30 days N39.0 - Urinary tract infection, site not specified, R33.9 - Retention of urine, unspecified Patient Instructions: This note is constructed using voice recognition software. While every effort has been made to ensure accuracy director industrial museum errors may have been included. Imaging studies, laboratory and physical exam results were discussed and reviewed in detail. No major barriers to patient understanding were identified. An opportunity to ask questions regarding the treatment plan was provided. All questions were answered. The patient expressed understanding and agreement with the above treatment plan. The patient is aware they should contact our office by phone for worsening of their current condition or the appearance of new urologic symptoms. Compliance is encouraged with any medications and followup testing that is ordered. It is a privilege to participate in the urologic care of your patient. If you have any questions or concerns regarding treatment for the above conditions, or other urologic issues, please do not hesitate to contact me. The office telephone contact is [phone]. Sincerely, Dr Garland Gamboa MD, [facility] - Urology Compassionate Specialist Care for the Genitourinary System Coding Level of Care Code New Pt Level 4 (00561) Diagnoses Urinary retention with incomplete bladder emptying R33.9 CPT Codes Post Residual Void - PVR CPT Code: 26229-Yhbf Void Residual by ultrasound ([id number])
--- OUTSIDE RECORDS SUMMARY | 2025-08-31 11:46 | XMS_ITS | Encounter Summary ---
Author Organization [employer] Address [address] [place] [address] Care Team Providers Care Curriculum Facilitator Name Role Phone Juan Richey MD Primary Care Provider [phone] Encounter Details Date Type Department Care Team (Late st Contact Info) Description 06/23/2025 Lab Requisition [facility] - Main Lab [address] [facility] [place] [address] Juan Richey MD [address] [place] [address] Dr [address] [place], [place] Benign prostatic hyperplasia without lower urinary tract symptoms; Hyperlipidemia, unspecified; Hypo-osmolality and hyponatremia; Disorders of amino-acid transport, unspecified (CMS/HCC V24) Social History Tobacco Use Types Packs/Day Years Used Date Smoking Tobacco: Never Assessed Sex and Gender Information Value Date Recorded Sex Assigned at Not on file Legal Sex Male 3:39 AM EST Gender Identity Not on file Sexual Orientation Not on file documented as of this encounter Plan of Treatment Not on file documented as of this encounter Procedures Procedure Name Priority Date/Time Associated Diagnosis Comments LIPID PANEL WITH REFLEX TO DIRECT LDL Routine 06/23/2025 6:40 AM EDT Benign prostatic hyperplasia without lower urinary tract symptoms Hyperlipidemia, unspecified Hypo-osmolality and hyponatremia Disorders of amino-acid transport, unspecified (CMS/HCC V24) PROSTATE SPECIFIC ANTIGEN DIAGNOSTIC Routine 06/23/2025 6:40 AM EDT Benign prostatic hyperplasia without lower urinary tract symptoms Hyperlipidemia, unspecified Hypo-osmolality and hyponatremia Disorders of amino-acid transport, unspecified (CMS/HCC V24) CBC WITH AUTO DIFFERENTIAL Routine 06/23/2025 6:40 AM EDT Benign prostatic hyperplasia without lower urinary tract symptoms Hyperlipidemia, unspecified Hypo-osmolality and hyponatremia Disorders of amino-acid transport, unspecified (CMS/HCC V24) CBC AND DIFFERENTIAL Routine 06/23/2025 6:40 AM EDT Benign prostatic hyperplasia without lower urinary tract symptoms Hyperlipidemia, unspecified Hypo-osmolality and hyponatremia Disorders of amino-acid transport, unspecified (CMS/HCC V24) THYROXINE FREE Routine 06/23/2025 6:40 AM EDT Benign prostatic hyperplasia without lower urinary tract symptoms Hyperlipidemia, unspecified Hypo-osmolality and hyponatremia Disorders of amino-acid transport, unspecified (CMS/HCC V24) AMMONIA Routine 06/23/2025 6:40 AM EDT Benign prostatic hyperplasia without lower urinary tract symptoms Hyperlipidemia, unspecified Hypo-osmolality and hyponatremia Disorders of amino-acid transport, unspecified (CMS/HCC V24) COMPREHENSIVE METABOLIC PANEL Routine 06/23/2025 6:40 AM EDT Benign prostatic hyperplasia without lower urinary tract symptoms Hyperlipidemia, unspecified Hypo-osmolality and hyponatremia Disorders of amino-acid transport, unspecified (CMS/HCC V24) documented in this encounter Results * (ABNORMAL) CBC auto differential (06/23/2025 6:40 AM EDT) [facility] Signature WBC 3.6(L) 4.8 - 10.8 K/mcL LAB HEMETOLOGY METHOD 06/23/2025 7:52 AM [facility] RBC 4.20(L) 4.50 - 5.50 M/mcL LAB HEMETOLOGY METHOD 06/23/2025 7:52 AM [facility] Hemoglobin 12.2(L) 13.5 - 17.5 g/dL LAB HEMETOLOGY METHOD 06/23/2025 7:52 AM [facility] Hematocrit 34.5(L) 42.0 - 54.0 % LAB HEMETOLOGY METHOD 06/23/2025 7:52 AM [facility] MCV 81.8 79.0 - 98.0 FL LAB HEMETOLOGY METHOD 06/23/2025 7:52 AM [facility] MCH 28.9 27.0 - 32.0 pcg LAB HEMETOLOGY METHOD 06/23/2025 7:52 AM [facility] MCHC 35.4 32.0 - 37.0 g/dL LAB HEMETOLOGY METHOD 06/23/2025 7:52 AM [facility] RDW 13.1 11.0 - 15.0 % LAB HEMETOLOGY METHOD 06/23/2025 7:52 AM [facility] Platelets 131 130 - 400 K/mcL LAB HEMETOLOGY METHOD 06/23/2025 7:52 AM [facility] MPV 10.1 7.0 - 11.0 FL LAB HEMETOLOGY METHOD 06/23/2025 7:52 AM [facility] NRBC 0.0 <1.0 % LAB HEMETOLOGY METHOD 06/23/2025 7:52 AM [facility] NRBC Absolute 0.00 <0.10 K/mcL LAB HEMETOLOGY METHOD 06/23/2025 7:52 AM [facility] Neutrophils Relative 65.2 % LAB HEMETOLOGY METHOD 06/23/2025 7:52 AM [facility] Lymphocytes Relative 20.6 % LAB HEMETOLOGY METHOD 06/23/2025 7:52 AM [facility] Monocytes Relative 12.9 % LAB HEMETOLOGY METHOD 06/23/2025 7:52 AM [facility] Eosinophils Relative 0.3 % LAB HEMETOLOGY METHOD 06/23/2025 7:52 AM [facility] Basophils Relative 0.5 % LAB HEMETOLOGY METHOD 06/23/2025 7:52 AM [facility] Immature Granulocytes Relative 0.5 % LAB HEMETOLOGY METHOD 06/23/2025 7:[address] [facility] Neutrophils Absolute 2.37 1.50 - 7.00 K/[facility] LAB HEMETOLOGY METHOD 06/23/2025 7:[address] [facility] Lymphocytes Absolute 0.75(L) 1.00 - 5.00 K/[facility] LAB HEMETOLOGY METHOD 06/23/2025 7:[address] [facility] Monocytes Absolute 0.47 0.20 - 1.00 K/[facility] LAB HEMETOLOGY METHOD 06/23/2025 7:[address] [facility] Eosinophils Absolute 0.01 0.00 - 0.50 K/[facility] LAB HEMETOLOGY METHOD 06/23/2025 7:[address] [facility] Basophils Absolute 0.02 0.00 - 0.20 K/mcL LAB HEMETOLOGY METHOD 06/23/2025 7:[address] [facility] Immature Granulocytes Absolute 0.02 0.00 - 0.03 K/[facility] LAB HEMETOLOGY METHOD 06/23/2025 7:[address] [facility] Blood Venous blood specimen / Unknown 06/23/2025 6:40 AM EDT 06/23/2025 7:44 AM EDT us Juan Richey MD LAB BLOOD ORDERABLES Final Resul t [facility] [address] [place] [address], * Thyroxine free (06/23/2025 6:40 AM EDT) Free T4 1.00 0.70 - 1.80 ng/dL LAB CHEMISTRY METHOD 06/23/2025 8:[address] [facility] Blood Venous blood specimen / Unknown 06/23/2025 6:40 AM EDT 06/23/2025 7:44 AM EDT us Juan Richey MD LAB BLOOD ORDERABLES Final Resul t Performing Organization Address [facility] Co de Phone Number [facility] [address] [place] [address], [place] [phone] * (ABNORMAL) Ammonia (06/23/2025 6:40 AM EDT) Ammonia 70(H) 11 - 35 mcmol/L LAB CHEMISTRY METHOD 06/23/2025 8:[address] [facility] Blood Venous blood specimen / Unknown 06/23/2025 6:40 AM EDT 06/23/2025 7:44 AM EDT us Juan Richey MD LAB BLOOD ORDERABLES Final Resul t Performing Organization Address [facility] de Phone Number [facility] [address] [place] [address], [place] [phone] * Prostate specific antigen diagnostic (06/23/2025 6:40 AM EDT) PSA 1.21 0.00 - 4.00 ng/mL LAB CHEMISTRY METHOD 06/23/2025 9:[address] [facility] Blood Venous blood specimen / Unknown 06/23/2025 6:40 AM EDT 06/23/2025 7:[address] [facility] - 06/23/2025 9:25 AM EDT The Siemens Advia Centaur Chemiluminescent Immunoassay is used. Results obtained with different assay methods or kits cannot be used interchangeably. Results cannot be interpreted as absolute evidence of the presence or absence of malignant disease. us Juan Richey MD LAB BLOOD ORDERABLES Final Resul t Performing Organization Address [facility] Co de Phone Number [facility] [address] [place] [address], [place] [phone] * (ABNORMAL) Lipid panel with reflex to direct LDL (06/23/2025 6:40 AM EDT) Cholesterol 156 0 - 200 mg/dL LAB CHEMISTRY METHOD 06/23/2025 8:[address] [facility] Triglycerides 170(H) 0 - 150 mg/dL LAB CHEMISTRY METHOD [facility]/23[facility]25 [facility] HDL 33(L) >=40 mg/dL LAB CHEMISTRY METHOD 06/23/2025 8:[address] [facility] LDL Calculated 89 0 - 100 mg/dL LAB CHEMISTRY METHOD 06/23/2025 8:[address] [facility] Comment:Estimated LDL Calcul ated using equation: Total cholesterol - HDL cholesterol - (Triglycerides/5) VLDL Cholesterol Markell 34 mg/dL LAB CHEMISTRY METHOD 06/23/2025 8:16 AM [facility] Non HDL Chol. (LDL+VLDL) 123 <145 mg/dL LAB CHEMISTRY METHOD 06/23/2025 8:16 AM [facility] Chol/HDL Ratio 4.7(H) 0.0 - 4.4 LAB CHEMISTRY METHOD 06/23/2025 8:16 AM [facility] Blood Venous blood specimen / Unknown 06/23/2025 6:40 AM EDT 06/23/2025 7:44 AM EDT us Juan Richey MD LAB BLOOD ORDERABLES Final Resul t [facility] [address] [place] [address], * (ABNORMAL) Comprehensive metabolic panel (06/23/2025 6:40 AM EDT) Sodium 126(L) 133 - 145 mmol/L LAB CHEMISTRY METHOD 06/23/2025 8:13 AM [facility] Potassium 4.4 3.5 - 5.5 mmol/L LAB CHEMISTRY METHOD 06/23/2025 8:13 AM [facility] Chloride 95(L) 96 - 110 mmol/L LAB CHEMISTRY METHOD 06/23/2025 8:13 AM [facility] CO2 24 21 - 32 mmol/L LAB CHEMISTRY METHOD 06/23/2025 8:13 AM [facility] Anion Gap 7 3 - 11 LAB CHEMISTRY METHOD 06/23/2025 8:13 AM [facility] Glucose 102(H) 70 - 100 mg/dL LAB CHEMISTRY METHOD 06/23/2025 8:13 AM [facility] BUN 6 5 - 25 mg/dL LAB CHEMISTRY METHOD 06/23/2025 8:13 AM [facility] Creatinine 0.50(L) 0.70 - 1.30 mg/dL LAB CHEMISTRY METHOD 06/23/2025 8:13 AM [facility] eGFR 116 >=60 mL/min/1. 73m2 LAB CHEMISTRY METHOD 06/23/2025 8:13 AM [facility] Comment:Calculation based on the Chronic Kidney Disease Epidemiology Collaboration (CKD-EPI) equation refit without adjustment for race. BUN/Creatinine Ratio 12.0 LAB CHEMISTRY METHOD 06/23/2025 8:13 AM [facility] Calcium 8.9 8.5 - 10.5 mg/dL LAB CHEMISTRY METHOD 06/23/2025 8:13 AM [facility] AST (SGOT) 22 10 - 42 unit/L LAB CHEMISTRY METHOD 06/23/2025 8:13 AM [facility] ALT (SGPT) 36 10 - 60 unit/L LAB CHEMISTRY METHOD 06/23/2025 8:13 AM [facility] Alkaline Phosphatase 95 42 - 121 unit/L LAB CHEMISTRY METHOD 06/23/2025 8:13 AM [facility] Total Protein 6.0 6.0 - 8.0 g/dL LAB CHEMISTRY METHOD 06/23/2025 8:[address] [facility] Albumin 3.8 3.2 - 5.0 g/dL LAB CHEMISTRY METHOD 06/23/2025 8:[address] [facility] Total Bilirubin 0.4 0.0 - 1.4 mg/dL LAB CHEMISTRY METHOD 06/23/2025 8:[address] [facility] Blood Venous blood specimen / Unknown 06/23/2025 6:40 AM EDT 06/23/2025 7:44 AM EDT us Juan Richey MD LAB BLOOD ORDERABLES Final Resul t [facility] [address] [place] [address], documented in this encounter Visit Diagnoses Diagnosis Benign prostatic hyperplasia without lower urinary tract symptoms Hyperlipidemia, unspecified Hypo-osmolality and hyponatremia Disorders of amino-acid transport, unspecified (CMS/HCC V24) documented in this encounter Care Teams Curriculum Facilitator Relationship Specialty Start Date End Date Juan Richey MD [address] [place] [address] [address] [place] PCP - General Internal Medicine 11/22/24 documented as of this encounter
--- OUTSIDE RECORDS SUMMARY | 2025-08-31 11:46 | XMS_ITS | Encounter Summary ---
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 Social History Tobacco Use Types Packs/Day Years [...] Procedure Name Priority Date/Time Associated Diagnosis Comments CBC WITH AUTO DIFFERENTIAL Routine 04/01/2025 6:10 AM EDT Other chcf (current) drug therapy CBC AND DIFFERENTIAL Routine 04/01/2025 6:10 AM EDT 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 AMMONIA Routine 04/01/2025 6:10 AM EDT 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 COMPREHENSIVE METABOLIC PANEL Routine 04/01/2025 6:10 AM EDT Other chcf (current) drug therapy documented in this encounter Results * (ABNORMAL) CBC auto differential (04/01/2025 6:10 AM EDT) WBC 4.1(L) 4.8 - 10.8 K/mcL LAB HEMETOLOGY METHOD 04/01/2025 8:30 AM [facility] LAB RBC 4.10(L) 4.50 - 5.50 M/mcL LAB HEMETOLOGY METHOD 04/01/2025 8:30 AM [facility] LAB Hemoglobin 12.0(L) 13.5 - 17.5 g/dL LAB HEMETOLOGY METHOD 04/01/2025 8:30 AM [facility] LAB Hematocrit 33.9(L) 42.0 - 54.0 % LAB HEMETOLOGY METHOD 04/01/2025 8:30 AM [facility] LAB MCV 83.1 79.0 - 98.0 FL LAB HEMETOLOGY METHOD 04/01/2025 8:30 AM [facility] LAB MCH 29.4 27.0 - 32.0 pcg LAB HEMETOLOGY METHOD 04/01/2025 8:30 AM [facility] LAB MCHC 35.4 32.0 - 37.0 g/dL LAB HEMETOLOGY METHOD 04/01/2025 8:30 AM [facility] LAB RDW 12.9 11.0 - 15.0 % LAB HEMETOLOGY METHOD 04/01/2025 8:30 AM [facility] LAB Platelets 137 130 - 400 K/mcL LAB HEMETOLOGY METHOD 04/01/2025 8:30 AM [facility] LAB MPV 10.1 7.0 - 11.0 FL LAB HEMETOLOGY METHOD 04/01/2025 8:30 AM [facility] LAB NRBC 0.0 <1.0 % LAB HEMETOLOGY METHOD 04/01/2025 8:30 AM [facility] LAB NRBC Absolute 0.00 <0.10 K/mcL LAB HEMETOLOGY METHOD 04/01/2025 8:30 AM [facility] Neutrophils Relative 60.7 % LAB HEMETOLOGY METHOD 04/01/2025 8:30 AM EDT [facility] Lymphocytes Relative 24.1 % LAB HEMETOLOGY METHOD 04/01/2025 8:30 AM EDT [facility] Monocytes Relative 14.1 % LAB HEMETOLOGY METHOD 04/01/2025 8:30 AM EDT [facility] Eosinophils Relative 0.2 % LAB HEMETOLOGY METHOD 04/01/2025 8:30 AM EDT [facility] Basophils Relative 0.7 % LAB HEMETOLOGY METHOD 04/01/2025 8:30 AM [facility] Immature Granulocytes Relative 0.2 % LAB HEMETOLOGY METHOD 04/01/2025 8:30 AM [facility] Neutrophils Absolute 2.49 1.50 - 7.00 K/mcL LAB HEMETOLOGY [facility] Lymphocytes Absolute 0.99(L) 1.00 - 5.00 K/mcL LAB HEMETOLOGY METHOD 04/01/2025 8:30 AM EDT [facility] LAB Monocytes Absolute 0.58 0.20 - 1.00 K/mcL LAB HEMETOLOGY METHOD 04/01/2025 8:30 AM [facility] Eosinophils Absolute 0.01 0.00 - 0.50 K/mcL LAB HEMETOLOGY METHOD 04/01/2025 8:30 AM EDT [facility] LAB Basophils Absolute 0.03 0.00 - 0.20 K/mcL LAB HEMETOLOGY METHOD 04/01/2025 8:30 AM T [facility] LAB Immature Granulocytes Absolute 0.01 0.00 - 0.03 K/mcL LAB HEMETOLOGY METHOD 04/01/2025 8:30 AM [facility] LAB Blood Venous blood specimen / Unknown 04/01/2025 6:10 AM EDT 04/01/2025 7:46 AM EDT us Juan Richey MD LAB BLOOD ORDERABLES Final Resul t Performing Organization Address City/[facility]/ZIP Co de Phone Number [facility] LAB [address] [place] [address], [place] [phone] * (ABNORMAL) Ammonia (04/01/2025 6:10 AM EDT) Ammonia 72(H) 11 - 35 mcmol/L LAB CHEMISTRY METHOD 04/01/2025 8:57 AM EDT [facility] LAB Blood Venous blood specimen / Unknown 04/01/2025 6:10 AM EDT 04/01/2025 7:46 AM EDT us Juan Richey MD LAB BLOOD ORDERABLES Final Resul t Performing Organization Address [facility]/ZIP Co de Phone Number [facility] [address] [place] [address], [place] [phone] * (ABNORMAL) Comprehensive metabolic panel (04/01/2025 6:10 AM EDT) Sodium 127(L) 133 - 145 mmol/L LAB CHEMISTRY METHOD 04/01/2025 9:23 AM [facility] Potassium 4.0 3.5 - 5.5 mmol/L LAB CHEMISTRY METHOD 04/01/2025 9:23 AM [facility] Chloride 96 96 - 110 mmol/L LAB CHEMISTRY METHOD 04/01/2025 9:23 AM [facility] CO2 22 21 - 32 mmol/L LAB CHEMISTRY METHOD 04/01/2025 9:23 AM [facility] Anion Gap 9 3 - 11 LAB CHEMISTRY METHOD 04/01/2025 9:23 AM [facility] Glucose 96 70 - 100 mg/dL LAB CHEMISTRY METHOD 04/01/2025 9:23 AM [facility] BUN 8 5 - 25 mg/dL LAB CHEMISTRY METHOD 04/01/2025 9:23 AM [facility] Creatinine 0.54(L) 0.70 - 1.30 mg/dL LAB CHEMISTRY METHOD 04/01/2025 9:23 AM [facility] LAB eGFR 113 >=60 mL/min/1. 73m2 LAB CHEMISTRY METHOD 04/01/2025 9:23 AM [facility] Comment:Calculation based on the Chronic Kidney Disease Epidemiology Collaboration (CKD-EPI) equation refit without adjustment for race. BUN/Creatinine Ratio 14.8 LAB CHEMISTRY METHOD 04/01/2025 9:23 AM [facility] Calcium 8.3(L) 8.5 - 10.5 mg/dL LAB CHEMISTRY METHOD 04/01/2025 9:23 AM [facility] LAB AST (SGOT) 17 10 - 42 unit/L LAB CHEMISTRY METHOD 04/01/2025 9:23 AM [facility] LAB ALT (SGPT) 28 10 - 60 unit/L LAB CHEMISTRY METHOD 04/01/2025 9:23 AM [facility] Alkaline Phosphatase 105 42 - 121 unit/L LAB CHEMISTRY METHOD 04/01/2025 9:23 AM [facility] Total Protein 5.9(L) 6.0 - 8.0 g/dL LAB CHEMISTRY METHOD 04/01/2025 9:23 AM [facility] Albumin 3.7 3.2 - 5.0 g/dL LAB CHEMISTRY METHOD 04/01/2025 9:23 AM [facility] Total Bilirubin 0.5 0.0 - 1.4 mg/dL LAB CHEMISTRY METHOD 04/01/2025 9:23 AM [facility] LAB Blood Venous blood specimen / Unknown 04/01/2025 6:10 AM EDT 04/01/2025 7:46 AM EDT us uJan Richey MD LAB BLOOD ORDERABLES Final Resul t ONI ALDANA [facility]LY ([facility]) [facility] [address] [place] [address], documented in this encounter Visit Diagnoses Diagnosis 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
--- OUTSIDE RECORDS SUMMARY | 2025-08-31 11:46 | XMS_ITS | Encounter Summary ---
[facility] Organization [facility] Address [address] [place] [address] Care Team Providers Care Tradeshow Worker Name Role Phone Juan Richey MD Primary Care Provider [phone] Encounter Details Date Type Department Care Team (Late st Contact Info) Description 03/11/2025 Lab Requisition [facility] [address] [facility] [place] [address] Juan Richey MD [address] [place] [address] Dr [address] [place], [place] Hypo-osmolality and hyponatremia Social History Tobacco Use Types Packs/Day Years [...] Procedure Name Priority Date/Time Associated Diagnosis Comments BASIC METABOLIC PANEL Routine 03/11/2025 6:48 AM EDT Hypo-osmolality and hyponatremia documented in this encounter Results * (ABNORMAL) Basic metabolic panel (03/11/2025 6:48 AM EDT) Sodium 125(L) 133 - 145 mmol/L LAB CHEMISTRY METHOD 03/11/2025 8:47 AM [facility] Potassium 4.1 3.5 - 5.5 mmol/L LAB CHEMISTRY METHOD 03/11/2025 8:47 AM [facility] Chloride 96 96 - 110 mmol/L LAB CHEMISTRY METHOD 03/11/2025 8:47 AM [facility] CO2 21 21 - 32 mmol/L LAB CHEMISTRY METHOD 03/11/2025 8:47 AM T [facility] Anion Gap 8 3 - 11 LAB CHEMISTRY METHOD 03/11/2025 8:47 AM [facility] Glucose 112(H) 70 - 100 mg/dL LAB CHEMISTRY METHOD 03/11/2025 8:47 AM [facility] BUN 8 5 - 25 mg/dL LAB CHEMISTRY METHOD 03/11/2025 8:47 AM [facility] Creatinine 0.53(L) 0.70 - 1.30 mg/dL LAB CHEMISTRY METHOD 03/11/2025 8:47 AM [facility] LAB eGFR 114 >=60 mL/min/1. 73m2 LAB CHEMISTRY METHOD 03/11/2025 8:47 AM [facility] Comment:Calculation based on the Chronic Kidney Disease Epidemiology Collaboration (CKD-EPI) equation refit without adjustment for race. BUN/Creatinine Ratio 15.1 LAB CHEMISTRY METHOD 03/11/2025 8:47 AM [facility] Calcium 8.4(L) 8.5 - 10.5 mg/dL LAB CHEMISTRY METHOD 03/11/2025 8:47 AM [facility] Blood Venous blood specimen / Unknown 03/11/2025 6:48 AM EDT 03/11/2025 7:36 AM EDT us Juan Richey MD LAB BLOOD ORDERABLES Final Resul t [facility] [address] [place] [address], documented in this encounter Visit Diagnoses Diagnosis Hypo-osmolality and hyponatremia documented in this encounter Care Teams Tradeshow Worker Relationship Specialty Start Date End Date Juan Richey MD [address] [place] [address] Dr [address] [place] [address] PCP - General Internal Medicine 11/22/24 documented as of this encounter
--- OUTSIDE RECORDS SUMMARY | 2025-08-31 11:47 | XMS_ITS | Encounter Summary ---
[facility] Address [address] [place] [address] Care Team Providers Care Enterprise Business Architect Name Role Phone Juan Richey MD Primary Care Provider [phone] Encounter Details Date Type Department Care Team (Late st Contact Info) Description 04/28/2025 Lab Requisition [facility] 299 [facility] [place] [address] Juan Richey MD [address] [place] [address] [address] [place], [place] Other block captain (current) drug therapy Social History Tobacco Use [...] Procedure Name Priority Date/Time Associated Diagnosis Comments COMPLETE BLOOD COUNT Routine 04/28/2025 5:45 AM EDT Other block captain (current) drug therapy documented in this encounter Results * (ABNORMAL) Complete blood count (04/28/2025 5:45 AM EDT) WBC 4.6(L) 4.8 - 10.8 K/[facility] LAB HEMETOLOGY METHOD 04/28/2025 7:16 AM EDT [facility] RBC 4.10(L) 4.50 - 5.50 M/[facility] LAB HEMETOLOGY METHOD 04/28/2025 7:16 AM EDT [facility] Hemoglobin 12.2(L) 13.5 - 17.5 g/dL LAB HEMETOLOGY METHOD 04/28/2025 7:16 AM EDT [facility] Hematocrit 33.5(L) 42.0 - 54.0 % LAB HEMETOLOGY METHOD 04/28/2025 7:16 AM EDT [facility] MCV 82.3 79.0 - 98.0 FL LAB HEMETOLOGY METHOD 04/28/2025 7:16 AM EDT [facility] MCH 30.0 27.0 - 32.0 pcg LAB HEMETOLOGY METHOD 04/28/2025 7:16 AM EDT [facility] MCHC 36.4 32.0 - 37.0 g/dL LAB HEMETOLOGY METHOD 04/28/2025 7:16 AM EDT [facility] RDW 12.8 11.0 - 15.0 % LAB HEMETOLOGY METHOD 04/28/2025 7:16 AM EDT [facility] Platelets 140 130 - 400 K/mcL LAB HEMETOLOGY METHOD 04/28/2025 7:16 AM EDT [facility] MPV 10.2 7.0 - 11.0 FL LAB HEMETOLOGY METHOD 04/28/2025 7:16 AM EDT [facility] NRBC 0.0 <1.0 % LAB HEMETOLOGY METHOD 04/28/2025 7:16 AM EDT [facility] NRBC Absolute 0.00 <0.10 K/mcL LAB HEMETOLOGY METHOD 04/28/2025 7:16 AM EDT [facility] Blood Venous blood specimen / Unknown 04/28/2025 5:45 AM EDT 04/28/2025 6:52 AM EDT us Juan Richey MD LAB BLOOD ORDERABLES Final Resul t [facility] [address] [place] [address], documented in this encounter Visit Diagnoses Diagnosis Other block captain (current) drug therapy documented in this encounter Care Teams Enterprise Business Architect Relationship Specialty Start Date End Date Juan Richey MD [address] [place] [address] [address] MAR[place] Rogers PCP - General Internal Medicine 11/22/24 documented as of this encounter
--- OUTSIDE RECORDS SUMMARY | 2025-08-31 11:47 | XMS_ITS | Encounter Summary ---
[facility] Address [address] [place] [address] Care Team Providers Care Bartender Server Name Role Phone Juan Richey MD Primary Care Provider [phone] Encounter Details Date Type Department Care Team (Late st Contact Info) Description 05/26/[address] [facility] Lab 299 [facility] [place] [address] Juan Richey MD [address] [place] [address] [address] [place], [place] Other vermin exterminator (current) drug therapy Social History Tobacco Use [...] Diagnosis Comments CBC WITH AUTO DIFFERENTIAL Routine 05/26/2025 6:09 AM EDT Other shelter (current) drug therapy CBC AND DIFFERENTIAL Routine 05/26/2025 6:09 AM EDT Other shelter (current) drug therapy documented in this encounter Results * (ABNORMAL) CBC auto differential (05/26/2025 6:09 AM EDT) WBC 4.8 4.8 - 10.8 K/mcL LAB HEMETOLOGY METHOD 05/26/2025 8:30 AM EDT [facility] RBC 4.10(L) 4.50 - 5.50 M/mcL LAB HEMETOLOGY METHOD 05/26/2025 8:30 AM EDT [facility] LAB Hemoglobin 12.0(L) 13.5 - 17.5 g/dL LAB HEMETOLOGY METHOD 05/26/2025 8:30 AM T [facility] LAB Hematocrit 34.1(L) 42.0 - 54.0 % LAB HEMETOLOGY METHOD 05/26/2025 8:30 AM [facility] LAB MCV 83.0 79.0 - 98.0 FL LAB HEMETOLOGY METHOD 05/26/2025 8:30 AM EDT [facility] LAB MCH 29.2 27.0 - 32.0 pcg LAB HEMETOLOGY METHOD 05/26/2025 8:30 AM [facility] LAB MCHC 35.2 32.0 - 37.0 g/dL LAB HEMETOLOGY METHOD 05/26/2025 8:30 AM [facility] LAB RDW 13.0 11.0 - 15.0 % LAB HEMETOLOGY METHOD 05/26/2025 8:30 AM [facility] LAB Platelets 138 130 - 400 K/mcL LAB HEMETOLOGY METHOD 05/26/2025 8:30 AM [facility] LAB MPV 10.0 7.0 - 11.0 FL LAB HEMETOLOGY METHOD 05/26/2025 8:30 AM [facility] LAB NRBC 0.0 <1.0 % LAB HEMETOLOGY METHOD 05/26/2025 8:30 AM [facility] LAB NRBC Absolute 0.00 <0.10 K/mcL LAB HEMETOLOGY METHOD 05/26/2025 8:30 AM [facility] Neutrophils Relative 70.6 % LAB HEMETOLOGY METHOD 05/26/2025 8:30 AM [facility] Lymphocytes Relative 17.4 % LAB HEMETOLOGY METHOD 05/26/2025 8:30 AM [facility] Monocytes Relative 11.0 % LAB HEMETOLOGY METHOD 05/26/2025 8:30 AM EDT [facility] Eosinophils Relative 0.2 % LAB HEMETOLOGY METHOD 05/26/2025 8:30 AM EDT [facility] Basophils Relative 0.4 % LAB HEMETOLOGY METHOD 05/26/2025 8:30 AM EDT [facility] Immature Granulocytes Relative 0.4 % LAB HEMETOLOGY METHOD 05/26/2025 8:30 AM EDT [facility] Neutrophils Absolute 3.40 1.50 - 7.00 K/mcL LAB HEMETOLOGY METHOD 05/26/2025 8:30 AM EDT [facility] Lymphocytes Absolute 0.84(L) 1.00 - 5.00 K/mcL LAB HEMETOLOGY METHOD 05/26/2025 8:30 AM EDT [facility] Monocytes Absolute 0.53 0.20 - 1.00 K/mcL LAB HEMETOLOGY METHOD 05/26/2025 8:30 AM EDT [facility] Eosinophils Absolute 0.01 0.00 - 0.50 K/mcL LAB HEMETOLOGY METHOD 05/26/2025 8:30 AM EDT [facility] Basophils Absolute 0.02 0.00 - 0.20 K/mcL LAB HEMETOLOGY METHOD 05/26/2025 8:30 AM EDT [facility] Immature Granulocytes Absolute 0.02 0.00 - 0.03 K/mcL LAB HEMETOLOGY METHOD 05/26/2025 8:30 AM EDT [facility] Blood Venous blood specimen / Unknown 05/26/2025 6:09 AM EDT 05/26/2025 7:08 AM EDT us Juan Richey MD LAB BLOOD ORDERABLES Final Resul t [facility] [address] [place] [address], documented in this encounter Visit Diagnoses Diagnosis Other shelter (current) drug therapy documented in this encounter Care Teams Bartender Server Relationship Specialty Start Date End Date Juan Richey MD [address] [place] PCP - General Internal Medicine 11/22/24 documented as of this encounter
--- OUTSIDE RECORDS SUMMARY | 2025-08-31 11:47 | XMS_ITS | Encounter Summary ---
Author Organization [facility] Address [address] [place] [address] Care Team Providers Care Animal Ride Attendant Name Role Phone Juan Richey MD Primary Care Provider [phone] Encounter Details Date Type Department Care Team (Late st Contact Info) Description 08/12/2025 Lab Requisition [facility] - Main Lab 299 [facility] [place] [address] Juan Richey MD [address] [place] [address] Dr [address] [place], [place] Other intermediate school teacher (current) drug therapy Social History Tobacco Use [...] Procedure Name Priority Date/Time Associated Diagnosis Comments SST - GOLD Routine 08/12/2025 6:40 AM EDT Other intermediate school teacher (current) drug therapy CBC WITH AUTO DIFFERENTIAL Routine 08/12/2025 6:40 AM EDT Other intermediate school teacher (current) drug therapy OXCARBAZEPINE LEVEL Routine 08/12/2025 6 :40 AM EDT Other nursing home (current) drug therapy CBC AND DIFFERENTIAL Routine 08/12/2025 6:40 AM EDT Other nursing home (current) drug therapy documented in this encounter Results * SST tube (08/12/2025 6:40 AM EDT) Extra Tube Hold for add-ons. 08/12/2025 9:01 AM EDT [facility] Comment:Auto resulted. Blood Venous blood specimen / Unknown 08/12/2025 6:40 AM EDT 08/12/2025 7:30 AM EDT us Juan Richey MD LAB BLOOD ORDERABLES Final Resul t [facility] [address] [place] [address], * (ABNORMAL) CBC auto differential (08/12/2025 6:40 AM EDT) WBC 5.2 4.8 - 10.8 K/mcL LAB HEMETOLOGY METHOD [facility] RBC 4.30(L) 4.50 - 5.50 M/mcL LAB HEMETOLOGY METHOD 08/12/2025 7:55 AM [facility] Hemoglobin 12.8(L) 13.5 - 17.5 g/dL LAB HEMETOLOGY METHOD 08/12/2025 7:55 AM [facility] Hematocrit 36.2(L) 42.0 - 54.0 % LAB HEMETOLOGY METHOD 08/12/2025 7:55 AM [facility] MCV 83.6 79.0 - 98.0 FL LAB HEMETOLOGY METHOD 08/12/2025 7:55 AM [facility] MCH 29.6 27.0 - 32.0 pcg LAB HEMETOLOGY METHOD 08/12/2025 7:55 AM [facility] MCHC 35.4 32.0 - 37.0 g/dL LAB HEMETOLOGY METHOD 08/12/2025 7:55 AM [facility] RDW 12.6 11.0 - 15.0 % LAB HEMETOLOGY METHOD 08/12/2025 7:55 AM [facility] Platelets 147 130 - 400 K/mcL LAB HEMETOLOGY METHOD 08/12/2025 7:55 AM [facility] MPV 9.9 7.0 - 11.0 FL LAB HEMETOLOGY METHOD 08/12/2025 7:55 AM [facility] NRBC 0.0 <1.0 % LAB HEMETOLOGY METHOD 08/12/2025 7:55 AM [facility] NRBC Absolute 0.00 <0.10 K/[facility] LAB HEMETOLOGY METHOD 08/12/2025 7:55 AM [facility] Neutrophils Relative 70.0 % LAB HEMETOLOGY METHOD 08/12/2025 7:55 AM [facility] Lymphocytes Relative 17.1 % LAB HEMETOLOGY METHOD 08/12/2025 7:55 AM [facility] Monocytes Relative 11.9 % LAB HEMETOLOGY METHOD 08/12/2025 7:55 AM [facility] Eosinophils Relative 0.2 % LAB HEMETOLOGY METHOD 08/12/2025 7:55 AM [facility] Basophils Relative 0.4 % LAB HEMETOLOGY METHOD 08/12/2025 7:55 AM [facility] Immature Granulocytes Relative 0.4 % LAB HEMETOLOGY METHOD 08/12/2025 7:55 AM [facility] Neutrophils Absolute 3.65 1.50 - 7.00 K/[facility] LAB HEMETOLOGY METHOD 08/12/2025 7:55 AM [facility] Lymphocytes Absolute 0.89(L) 1.00 - 5.00 K/mcL LAB HEMETOLOGY METHOD 08/12/2025 7:55 AM [facility] Monocytes Absolute 0.62 0.20 - 1.00 K/[facility] LAB HEMETOLOGY METHOD 08/12/2025 7:55 AM EDT [facility] Eosinophils Absolute 0.01 0.00 - 0.50 K/mcL LAB HEMETOLOGY METHOD 08/12/2025 7:55 AM EDT [facility] Basophils Absolute 0.02 0.00 - 0.20 K/[facility] LAB HEMETOLOGY METHOD 08/12/2025 7:55 AM EDT [facility] Immature Granulocytes Absolute 0.02 0.00 - 0.03 K/[facility] LAB HEMETOLOGY METHOD 08/12/2025 7:55 AM EDT [facility] Blood Venous blood specimen / Unknown 08/12/2025 6:40 AM EDT 08/12/2025 7:30 AM EDT us Juan Richey MD LAB BLOOD ORDERABLES Final Resul t Performing Organization Address City/[facility]/ZIP Co de Phone Number [facility] [address] [place] [address], [place] [phone] * Oxcarbazepine level (08/12/2025 6:40 AM EDT) Oxcarbazepine 17.2 10 - 35 ug/mL 08/16/2025 10:11 AM EST [facility] Comment: If applicable, any drug confirmation testing reported here was developed and the performance characteristics determined by [facility]. This confirmation testing has not been cleared or approved by the FDA. The laboratory is regulated under CLIA as qualified to perform high-complexity testing. This test is used for patient testing purposes. It should not be regarded as investigational or for research. Test performed at [facility], [address], [place] [address] Mey Sinclair MD, PhD - Tape Edge Machine Operator Blood Venous blood specimen / Unknown 08/12/2025 6:40 AM EDT 08/12/2025 7:30 AM EDT us Juan Richey MD LAB BLOOD ORDERABLES Final Resul t [facility] [address] [place] [address] documented in this encounter Visit Diagnoses Diagnosis Other nursing home (current) drug therapy documented in this encounter Care Teams Animal Ride Attendant Relationship Specialty Start Date End Date Juan Richey MD [address] [place] [address] Dr [address] [place] Rogers PCP - General Internal Medicine 11/22/24 documented as of this encounter
--- OUTSIDE RECORDS SUMMARY | 2025-08-31 11:48 | XMS_ITS | Encounter Summary ---
Author Organization [facility] Address [address] [place] [address] Care Team Providers Care Database Administration Project Manager Name Role Phone Juan Richey MD Primary Care Provider [phone] Encounter Details Date Type Department Care Team (Late st Contact Info) Description 08/18/2025 Lab Requisition [facility] - Main Lab [address] [place] [address] Juan Richey MD [address] [place] [address] Dr [address] [place], [place] Other director long term care (current) drug therapy Social History Tobacco Use [...] Procedure Name Priority Date/Time Associated Diagnosis Comments PROSTATE SPECIFIC ANTIGEN DIAGNOSTIC Routine 08/18/2025 12:00 AM EST Other director long term care (current) drug therapy documented in this encounter Results * Prostate specific antigen diagnostic (08/18/2025 12:00 AM EST) PSA 2.19 0.00 - 4.00 ng/mL LAB CHEMISTRY METHOD 08/18/2025 3:25 PM EST [facility] Blood Venous blood specimen / Unknown 08/18/2025 08/18/2025 2:10 PM EST Narrative [facility] - 08/18/2025 3:25 PM EST The Siemens Advia Centaur Chemiluminescent Immunoassay is used. Results obtained with different assay methods or kits cannot be used interchangeably. Results cannot be interpreted as absolute evidence of the presence or absence of malignant disease. us Juan Richey MD LAB BLOOD ORDERABLES Final Resul t [facility] ([facility]) [facility] [address] [place] [address], documented in this encounter Visit Diagnoses Diagnosis Other director long term care (current) drug therapy documented in this encounter Care Teams Database Administration Project Manager Relationship Specialty Start Date End Date Juan Richey MD [address] [place] [address] Dr [address] [place], [place] PCP - General Internal Medicine 11/22/24 documented as of this encounter
--- OUTSIDE RECORDS SUMMARY | 2025-08-31 11:48 | XMS_ITS | Encounter Summary ---
Author Organization [facility] Address [address] [place] [address] Care Team Providers Care Manager Of Enterprise Name Role Phone Juan Richey MD Primary Care Provider [phone] Encounter Details Date Type Department Care Team (Late st Contact Info) Description 07/01/2025 Lab Requisition [facility] Lab [address] [place] [address] Juan Richey MD [address] [place] [address] Dr [address] [place], [place] Dysuria Social History Tobacco Use Types Packs/Day Years [...] Procedure Name Priority Date/Time Associated Diagnosis Comments URINALYSIS WITH REFLEX MICROSCOPIC AND CULTURE Routine 07/01/2025 12:00 AM EDT Dysuria REINA URINE CULTURE TUBE Routine 07/01/2025 12:00 AM EDT Dysuria URINALYSIS WITH REFLEX MICROSCOPIC AND CULTURE Routine 07/01/2025 12:00 AM EDT Dysuria CULTURE URINE Routine 07/01/2025 12:00 AM EDT Dysuria documented in this encounter Results * (ABNORMAL) Culture urine (07/01/2025 12:00 AM EDT) Culture, Urine >=100,000 CFU/mL Enterococcus faecalis(A) JEFERSON 07/04/2025 8:11 AM EDT [facility] Comment: This is an edited result. Previous organism was Enterococcus species on 07/03/2025 at 1314 EDT. Urine Urine specimen obtained by clean catch procedure / Unknown 07/01/2025 07/01/2025 4:24 PM EDT Narrative Organism Antibiotic Method Susceptibility Enterococcus faecalis Benzylpenicillin JEFERSON 4 ug/ml: Susceptible Enterococcus faecalis Ampicillin JEFERSON <=2 ug/ml: Susceptible Enterococcus faecalis Ciprofloxacin JEFERSON 1 ug/ml: Susceptible Enterococcus faecalis Levofloxacin JEFERSON 1 ug/ml: Susceptible Enterococcus faecalis Linezolid JEFERSON 2 ug/ml: Susceptible Enterococcus faecalis Vancomycin JEFERSON 1 ug/ml: Susceptible Enterococcus faecalis Tetracycline JEFERSON >=16 ug/ml: Resistant Enterococcus faecalis Nitrofurantoin JEFERSON <=16 ug/ml: Susceptible us Juan Richey MD LAB MICROBIOLOGY - GENERAL ORDER TRISH Final Result [facility] [address] [place] [address], [place] [phone] * (ABNORMAL) Urinalysis with reflex microscopic and culture (07/01/2025 12:00 AM EDT) Specific [place] Urine 1.016 1.003 - 1.030 LAB URINALYSIS - AUTOMATED METHOD 07/01/2025 4:24 PM EDT [facility] pH, Urine 7.0 5.0 - 8.0 pH LAB URINALYSIS - AUTOMATED METHOD 07/01/2025 4:24 PM [facility] Leukocytes, Urine Large(A) Negative LAB URINALYSIS - AUTOMATED METHOD 07/01/2025 4:24 PM T [facility] Nitrite, Urine Negative Negative LAB URINALYSIS - AUTOMATED METHOD 07/01/2025 4:24 PM EDT [facility] Protein, Urine 100(A) <=Trace mg/dL LAB URINALYSIS - AUTOMATED METHOD 07/01/2025 4:24 PM [facility] Glucose, Urine Negative Negative mg/dL LAB URINALYSIS - AUTOMATED METHOD 07/01/2025 4:24 PM T [facility] Ketones, Urine Trace(A) Negative mg/dL LAB URINALYSIS - AUTOMATED METHOD 07/01/2025 4:24 PM EDT [facility] Urobilinogen , Urine 1.0 0.2 - 1.0 mg/dL LAB URINALYSIS - AUTOMATED METHOD 07/01/2025 4:24 PM EDT [facility] Bilirubin, Urine Negative Negative LAB URINALYSIS - AUTOMATED METHOD 07/01/2025 4:24 PM EDT [facility] Blood, Urine Negative Negative LAB URINALYSIS - AUTOMATED METHOD 07/01/2025 4:24 PM [facility] RBC, Urine 4 0 - 4 /HPF 07/01/2025 4:24 PM EDT [facility] WBC, Urine 30(H) 0 - 4 /HPF 07/01/2025 4:24 PM EDT [facility] Squamous Epithelial, Urine 10 0 - 60 /LPF 07/01/2025 4:24 PM EDT [facility] Non-Squamous Epithelial, Urine Rare Transitional epithelial cells. /LPF [facility]2025 [facility] Bacteria, Urine Many(A) Negative /HPF 07/01/2025 4:24 PM [facility] Hyaline Casts, Urine 1 0 - 3 /LPF 07/01[facility]2025 4[facility] Mucus, Urine Large None /HPF 07/01/2025 4:24 PM EDT [facility] Urine Urine specimen obtained by clean catch procedure / Unknown 07/01/2025 07/01/2025 2:43 PM EDT us Juan Richey MD LAB URINE ORDERABLES Final Resul t [facility] [address] [place] [address], * Reina urine culture tube (07/01/2025 12:00 AM EDT) Extra Tube Hold for add-ons. 07/01/2025 4:01 PM EDT [facility] Comment:Auto resulted. Urine Urine specimen obtained by clean catch procedure / Unknown 07/01/2025 07/01/2025 2:43 PM EDT us Juan Richey MD LAB URINE ORDERABLES Final Resul t [facility] [address] [place] [address], documented in this encounter Visit Diagnoses Diagnosis Dysuria documented in this encounter Care Teams Manager Of Enterprise Relationship Specialty Start Date End Date Juan Richey MD [address] [place] PCP - General Internal Medicine 11/22/24 documented as of this encounter
--- OUTSIDE RECORDS SUMMARY | 2025-08-31 11:49 | XMS_ITS | Encounter Summary ---
[facility] Address [address] [place] [address] Care Team Providers Care Exec. Creative Director Name Role Phone Juan Richey MD Primary Care Provider [phone] Encounter Details Date Type Department Care Team (Late st Contact Info) Description 12/28/2024 Lab Requisition [facility] Lab [address] [facility] [place] [address] Juan Richey MD [address] [place] [address] [address] [place], [place] Dysuria Social History Tobacco Use Types Packs/Day Years Used Date Smoking Tobacco: Never Assessed Sex and Gender Information Value Date Recorded Sex Assigned at Not on file Legal Sex Male 3:39 AM EST Gender Identity Not on file Sexual Orientation Not on file documented as of this encounter Plan of Treatment Scheduled Orders Name Type Priority Associated Diagnoses Orde r Schedule 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 Lab Routine Dysuria Ordered: 12/28/2024 documented as of this encounter Procedures Procedure Name Priority Date/Time Associated Diagnosis Comments URINALYSIS WITH REFLEX MICROSCOPIC Routine 12/28/2024 1:16 PM EDT Dysuria URINALYSIS WITH REFLEX MICROSCOPIC Routine 12/28/2024 1:16 PM EDT Dysuria documented in this encounter Results * Urinalysis with reflex microscopic (12/28/2024 1:16 PM EDT) Specific [place] Urine 1.010 1.003 - 1.030 LAB URINALYSIS - AUTOMATED METHOD 12/28/2024 2:49 PM EDT [facility] pH, Urine 7.5 5.0 - 8.0 pH LAB URINALYSIS - AUTOMATED METHOD 12/28/2024 2:49 PM EDT [facility] Leukocytes, Urine Negative Negative LAB URINALYSIS - AUTOMATED METHOD 12/28/2024 2:49 PM EDT [facility] Nitrite, Urine Negative Negative LAB URINALYSIS - AUTOMATED METHOD 12/28/2024 2:49 PM EDT [facility] Protein, Urine Negative <=Trace mg/dL LAB URINALYSIS - AUTOMATED METHOD 12/28/2024 2:49 PM EDT [facility] Glucose, Urine Negative Negative mg/dL LAB URINALYSIS - AUTOMATED METHOD 12/28/2024 2:49 PM T [facility] Ketones, Urine Negative Negative mg/dL LAB URINALYSIS - AUTOMATED METHOD 12/28/2024 2:49 PM T [facility] Urobilinogen, Urine 1.0 0.2 - 1.0 mg/dL LAB URINALYSIS - AUTOMATED METHOD 12/28/2024 2:49 PM EDT [facility] Bilirubin, Urine Negative Negative LAB URINALYSIS - AUTOMATED METHOD 12/28/2024 2:49 PM [facility] Blood, Urine Negative Negative LAB URINALYSIS - AUTOMATED METHOD 12/28/2024 2:49 PM [facility] Urine Urine specimen obtained by clean catch procedure / Unknown 12/28/2024 1:16 PM EDT 12/28/2024 2:27 PM EDT us Juan Richey MD LAB URINE ORDERABLES Final Resul t [facility] [address] [place] [address], documented in this encounter Visit Diagnoses Diagnosis Dysuria documented in this encounter Care Teams Exec. Creative Director Relationship Specialty Start Date End Date Juan Richey MD [address] [place] [address] [facility] [place], [place] PCP - General Internal Medicine 11/22/24 documented as of this encounter
--- OUTSIDE RECORDS SUMMARY | 2025-08-31 11:49 | XMS_ITS | Encounter Summary ---
Author Organization [facility] Address [address] [place] [address] Care Team Providers Care Architectural Designer Name Role Phone Juan Richey MD Primary Care Provider [phone] Encounter Details Date Type Department Care Team (Late st Contact Info) Description 12/30/2024 Lab Requisition [facility] - Main Lab [address] [facility] [place] [address] Juan Richey MD [address] [place] [address] Dr [address] [place], [place] Altered mental status, unspecified Social History Tobacco Use Types Packs/Day Years [...] Associated Diagnosis Comments SST - GOLD Routine 12/30/2024 12:00 AM EDT Altered mental status, unspecified CBC WITH AUTO DIFFERENTIAL Routine 12/30/2024 12:00 AM EDT Altered mental status, unspecified CHLORPROMAZINE LEVEL Routine 12/30/2024 12:00 AM EDT Altered mental status, unspecified OXCARBAZEPINE LEVEL Routine 12/30/2024 1 2:00 AM EDT Altered mental status, unspecified CBC AND DIFFERENTIAL Routine 12/30/2024 12:00 AM EDT Altered mental status, unspecified COMPREHENSIVE METABOLIC PANEL Routine 12/30/2024 12:00 AM EDT Altered mental status, unspecified documented in this encounter Results * SST tube (12/30/2024 12:00 AM EDT) Extra Tube Hold for add-ons. 12/30/2024 9:01 AM EDT [facility] Comment:Auto resulted. Blood Venous blood specimen / Unknown 12/30/2024 12/30/2024 7:18 AM EDT us Juan Richey MD LAB BLOOD ORDERABLES Final Resul t [facility] [address] [place] [address], * (ABNORMAL) CBC auto differential (12/30/2024 12:00 AM EDT) WBC 4.9 4.8 - 10.8 K/mcL LAB HEMETOLOGY [facility] RBC 4.10(L) 4.50 - 5.50 M/mcL LAB HEMETOLOGY METHOD 12/30/2024 7:32 AM [facility] Hemoglobin 12.1(L) 13.5 - 17.5 g/dL LAB HEMETOLOGY METHOD 12/30/2024 7:32 AM [facility] Hematocrit 33.9(L) 42.0 - 54.0 % LAB HEMETOLOGY METHOD 12/30/2024 7:32 AM EDT [facility] MCV 82.9 79.0 - 98.0 FL LAB HEMETOLOGY METHOD 12/30/2024 7:32 AM [facility] MCH 29.6 27.0 - 32.0 pcg LAB HEMETOLOGY METHOD 12/30/2024 7:32 AM [facility] MCHC 35.7 32.0 - 37.0 g/dL LAB HEMETOLOGY METHOD 12/30/2024 7:32 AM [facility] RDW 12.8 11.0 - 15.0 % LAB HEMETOLOGY METHOD 12/30/2024 7:32 AM [facility] Platelets 156 130 - 400 K/mcL LAB HEMETOLOGY METHOD 12/30/2024 7:32 AM [facility] MPV 10.2 7.0 - 11.0 FL LAB HEMETOLOGY METHOD 12/30/2024 7:32 AM [facility] NRBC 0.0 <1.0 % LAB HEMETOLOGY METHOD 12/30/2024 7:32 AM [facility] NRBC Absolute 0.00 <0.10 K/mcL LAB HEMETOLOGY METHOD 12/30/2024 7:32 AM [facility] Neutrophils Relative 67.1 % LAB HEMETOLOGY METHOD 12/30/2024 7:32 AM [facility] Lymphocytes Relative 21.4 % LAB HEMETOLOGY METHOD 12/30/2024 7:32 AM [facility] Monocytes Relative 10.5 % LAB HEMETOLOGY METHOD 12/30/2024 7:32 AM [facility] Eosinophils Relative 0.2 % LAB HEMETOLOGY METHOD 12/30/2024 7:32 AM [facility] Basophils Relative 0.4 % LAB HEMETOLOGY METHOD 12/30/2024 7:32 AM [facility] Immature Granulocytes Relative 0.4 % LAB HEMETOLOGY METHOD 12/30/2024 7:32 AM [facility] Neutrophils Absolute 3.27 1.50 - 7.00 K/mcL LAB HEMETOLOGY METHOD 12/30/2024 7:32 AM [facility] Lymphocytes Absolute 1.04 1.00 - 5.00 K/mcL LAB HEMETOLOGY METHOD 12/30/2024 7:32 AM [facility] Monocytes Absolute 0.51 0.20 - 1.00 K/mcL LAB HEMETOLOGY METHOD 12/30/2024 7:32 AM EDT [facility] Eosinophils Absolute 0.01 0.00 - 0.50 K/mcL LAB HEMETOLOGY METHOD 12/30/2024 7:32 AM EDT [facility] Basophils Absolute 0.02 0.00 - 0.20 K/mcL LAB HEMETOLOGY METHOD 12/30/2024 7:32 AM EDT [facility] Immature Granulocytes Absolute 0.02 0.00 - 0.03 K/mcL LAB HEMETOLOGY METHOD 12/30/2024 7:32 AM EDT [facility] Blood Venous blood specimen / Unknown 12/30/2024 12/30/2024 7:18 AM EDT us Juan Richey MD LAB BLOOD ORDERABLES Final Resul t [facility] [address] [place] [address], * (ABNORMAL) Chlorpromazine level (12/30/2024 12:00 AM EDT) Chlorpromazine (Thorazine) <25(L) 30 - 300 ng/mL 01/11/2025 2:25 AM EDT [facility] Comment: INTERPRETIVE INFORMATION: Chlorpromazine, Serum or Plasma Therapeutic Range: 30-300 ng/mL Toxic Range: Greater than or equal to 600 ng/mL Chlorpromazine is a neuroleptic drug indicated for the treatment of schizophrenia, psychotic disorders and intractable hiccup. Chlorpromazine should not be used in patients who have epilepsy, Parkinson's disease, hypoparathyroidism, myasthenia gravis and prostatic hypertrophy. Adverse effects may include drowsiness, hypotension, agranulocytosis, cardiac abnormalities, seizures and rare life-threatening effects, such as phenothiazine sudden syndrome and neuroleptic malignant syndrome. This test was developed and its performance characteristics determined by [facility]. It has not been cleared or approved by the [place] Food and Drug Administration. This test was performed in a CLIA certified laboratory and is intended for clinical purposes. Performed By: [email or web address] [address] [place] [id number] [employer] Teacher: Hoang Rosales MD, PhD CLIA Number: [id number] Blood Venous blood specimen / Unknown 12/30/2024 12/30/2024 7:18 AM EDT us Juan Richey MD LAB BLOOD ORDERABLES Final Resul t Performing Organization Address City/[facility]/ZIP Co de Phone Number [facility] [address] [place] [address] * Oxcarbazepine level (12/30/2024 12:00 AM EDT) Oxcarbazepine 18.0 10 - 35 ug/mL 01/03/2025 11:17 AM EDT [facility] Comment: If applicable, any drug confirmation testing reported here was developed and the performance characteristics determined by [facility]. This confirmation testing has not been cleared or approved by the FDA. The laboratory is regulated under CLIA as qualified to perform high-complexity testing. This test is used for patient testing purposes. It should not be regarded as investigational or for research. Test performed at [facility], [address] [facility], [place] [address] Mey Sinclair MD, PhD - Support Services Specialist Blood Venous blood specimen / Unknown 12/30/2024 12/30/2024 7:18 AM EDT us Juan Richey MD LAB BLOOD ORDERABLES Final Resul t Performing Organization Address [facility]/ZIP Co de Phone Number [facility] [address] [place] [address] * (ABNORMAL) Comprehensive metabolic panel (12/30/2024 12:00 AM EDT) Sodium 123(L) 133 - 145 mmol/L LAB CHEMISTRY METHOD 12/30/2024 7:48 AM [facility] Potassium 3.9 3.5 - 5.5 mmol/L LAB CHEMISTRY METHOD 12/30/2024 7:48 AM [facility] Chloride 94(L) 96 - 110 mmol/L LAB CHEMISTRY METHOD 12/30/2024 7:48 AM [facility] CO2 20(L) 21 - 32 mmol/L LAB CHEMISTRY METHOD 12/30/2024 7:48 AM [facility] Anion Gap 9 3 - 11 LAB CHEMISTRY METHOD 12/30/2024 7:48 AM [facility] Glucose 103(H) 70 - 100 mg/dL LAB CHEMISTRY METHOD 12/30/2024 7:48 AM [facility] BUN 10 5 - 25 mg/dL LAB CHEMISTRY METHOD 12/30/2024 7:48 AM [facility] Creatinine 0.73 0.70 - 1.30 mg/dL LAB CHEMISTRY METHOD 12/30/2024 7:48 AM [facility] eGFR 104 >=60 mL/min/1. 73m2 LAB CHEMISTRY METHOD 12/30/2024 7:48 AM [facility] Comment:Calculation based on the Chronic Kidney Disease Epidemiology Collaboration (CKD-EPI) equation refit without adjustment for race. BUN/Creatinine Ratio 13.7 LAB CHEMISTRY METHOD 12/30/2024 7:48 AM [facility] Calcium 8.8 8.5 - 10.5 mg/dL LAB CHEMISTRY METHOD 12/30/2024 7:48 AM [facility] AST (SGOT) 20 10 - 42 unit/L LAB CHEMISTRY METHOD 12/30/2024 7:48 AM [facility] ALT (SGPT) 33 10 - 60 unit/L LAB CHEMISTRY METHOD 12/30/2024 7:48 AM [facility] Alkaline Phosphatase 97 42 - 121 unit/L LAB CHEMISTRY METHOD 12/30/2024 7:48 AM EDT [facility] Total Protein 6.6 6.0 - 8.0 g/dL LAB CHEMISTRY METHOD 12/30/2024 7:48 AM EDT [facility] Albumin 4.2 3.2 - 5.0 g/dL LAB CHEMISTRY METHOD 12/30/2024 7:48 AM EDT [facility] Total Bilirubin 0.4 0.0 - 1.4 mg/dL LAB CHEMISTRY METHOD 12/30/2024 7:48 AM EDT [facility] Blood Venous blood specimen / Unknown 12/30/2024 12/30/2024 7:18 AM EDT us Juan Richey MD LAB BLOOD ORDERABLES Final Resul t [facility] [address] [place] [address], documented in this encounter Visit Diagnoses Diagnosis Altered mental status, unspecified documented in this encounter Care Teams Architectural Designer Relationship Specialty Start Date End Date Juan Richey MD [address] [place] [address] Dr [address] [place] PCP - General Internal Medicine 11/22/24 documented as of this encounter
--- OUTSIDE RECORDS SUMMARY | 2025-08-31 11:49 | XMS_ITS | Clinical Summary ---
Author Organization [address] [facility] Address [address] [place] [address] Phone Care Team Providers Care Nurse Head Name Role Phone Juan Richey MD Primary Care Provider [phone] Encounters Date Type Department Care Team Description 08/28/2025 Lab Requisition [facility] Lab [address] [place] [phone] Juan Richey MD Other uat tester (current) drug therapy; Encounter for therapeutic drug level monitoring; Polyneuropathy, unspecified 08/18/2025 Lab Requisition [facility] Lab [address] [place] [phone] Juan Richey MD Other uat tester (current) drug therapy 08/12/2025 Lab Requisition [facility] Lab [address] [place] [address] Jaun Richey MD Other care home (current) drug therapy 07/08/2025 Lab Requisition [facility] Lab [address] [place] [address] Juan Richey MD Hypothyroidism, unspecified; Other uat tester (current) drug therapy; Disorder of urea cycle metabolism, unspecified (CMS/[facility] V24); Benign prostatic hyperplasia without lower urinary tract symptoms; Hyperlipidemia, unspecified 07/01/2025 Lab Requisition [facility] Lab [address] [place] [phone] Juan Richey MD Dysuria 06/23/2025 Lab Requisition [facility] Lab [address] [place] [phone] Juan Richey MD Benign prostatic hyperplasia without lower urinary tract symptoms; Hyperlipidemia, unspecified; Hypo-osmolality and hyponatremia; Disorders of amino-acid transport, unspecified (CMS/HCC V24) from Last 3 Months Social History Tobacco Use Types Packs/Day Years Used Date Smoking Tobacco: Never Assessed Sex and Gender Information Value Date Recorded Sex Assigned at Not on file Legal Sex Male 3:39 AM EST Gender Identity Not on file Sexual Orientation Not on file Plan of Treatment Health Maintenance Due Date Last Done Comments Colorectal Cancer Screening: Colonoscopy 1963 DTaP,Tdap,and Td Vaccines (1 - Tdap) 1982 Pneumococcal Vaccine: 50+ Years (1 of 1 - PCV) 2013 Zoster Vaccines (1 of 2) 2013 HIV Screening 09/15/2022 Hepatitis C Screening 09/15/2022 Medicare Annual Wellness Visit 09/15/2022 Social Influencers of Health Screening 09/15/2022 Depression Screening 10/13/2024 COVID-19 Vaccine ( - season) 2025 Influenza Vaccine (#1) 2025 Cholesterol Screening (Lipid Panel) 07/08/2030 07/08/2025, 06/23/2025, 12/23/2024, Additional history exists RSV Immunization Adult Patients (1 - 1-dose 75+ series) 2038 HIB Vaccines Aged Out No longer eligi ble based on patient's age to complete this topic HPV Vaccines Aged Out No longer eligi ble based on patient's age to complete this topic Hepatitis A Vaccines Aged Out No long er eligible based on patient's age to complete this topic Hepatitis B Vaccines Aged Out No long er eligible based on patient's age to complete this topic IPV Vaccines Aged Out No longer eligi ble based on patient's age to complete this topic MMR Vaccines Aged Out No longer eligi ble based on patient's age to complete this topic Meningococcal ACWY Vaccine Aged Out N o longer eligible based on patient's age to complete this topic Meningococcal B Vaccine Aged Out No l onger eligible based on patient's age to complete this topic RSV Immunization Patients Under 20 months Aged Out No longer eligible based on patient's age to complete this topic Varicella Vaccines Aged Out No longer eligible based on patient's age to complete this topic Procedures Procedure Name Priority Date/Time Associated Diagnosis Comments PROSTATE SPECIFIC ANTIGEN DIAGNOSTIC Routine 08/18/2025 12:00 AM EST Other uat tester (current) drug therapy SST - GOLD Routine 08/12/2025 6:40 AM EDT Other care home (current) drug therapy CBC WITH AUTO DIFFERENTIAL Routine 08/12/2025 6:40 AM EDT Other care home (current) drug therapy OXCARBAZEPINE LEVEL Routine 08/12/2025 6 :40 AM EDT Other care home (current) drug therapy CBC AND DIFFERENTIAL Routine 08/12/2025 6:40 AM EDT Other care home (current) drug therapy LIPID PANEL WITH REFLEX TO DIRECT LDL Routine 07/08/2025 7:05 AM EDT Hypothyroidism, unspecified Other care home (current) drug therapy Disorder of urea cycle metabolism, unspecified (CMS/HCC V24) Benign prostatic hyperplasia without lower urinary tract symptoms Hyperlipidemia, unspecified THYROXINE FREE Routine 07/08/2025 7:05 AM EDT Hypothyroidism, unspecified Other care home (current) drug therapy Disorder of urea cycle metabolism, unspecified (CMS/HCC V24) Benign prostatic hyperplasia without lower urinary tract symptoms Hyperlipidemia, unspecified PROSTATE SPECIFIC ANTIGEN DIAGNOSTIC Routine 07/08/2025 7:05 AM EDT Hypothyroidism, unspecified Other uat tester (current) drug therapy Disorder of urea cycle metabolism, unspecified (CMS/HCC V24) Benign prostatic hyperplasia without lower urinary tract symptoms Hyperlipidemia, unspecified AMMONIA Routine 07/08/2025 7:05 AM EDT Hypothyroidism, unspecified Other uat tester (current) drug therapy Disorder of urea cycle metabolism, unspecified (CMS/HCC V24) Benign prostatic hyperplasia without lower urinary tract symptoms Hyperlipidemia, unspecified THYROID STIMULATING HORMONE Routine 07/08/2025 7:05 AM EDT Hypothyroidism, unspecified Other uat tester (current) drug therapy Disorder of urea cycle metabolism, unspecified (CMS/HCC V24) Benign prostatic hyperplasia without lower urinary tract symptoms Hyperlipidemia, unspecified URINALYSIS WITH REFLEX MICROSCOPIC AND CULTURE Routine 07/01/2025 12:00 AM EDT Dysuria REINA URINE CULTURE TUBE Routine 07/01/2025 12:00 AM EDT Dysuria URINALYSIS WITH REFLEX MICROSCOPIC AND CULTURE Routine 07/01/2025 12:00 AM EDT Dysuria CULTURE URINE Routine 07/01/2025 12:00 AM EDT Dysuria CBC WITH AUTO DIFFERENTIAL Routine 06/23/2025 6:40 [...] Disorders of amino-acid transport, unspecified (CMS/HCC V24) LIPID PANEL WITH REFLEX TO DIRECT LDL Routine 06/23/2025 6:40 AM EDT Benign prostatic hyperplasia without lower urinary tract symptoms Hyperlipidemia, unspecified Hypo-osmolality and hyponatremia Disorders of amino-acid transport, unspecified (CMS/HCC V24) COMPREHENSIVE METABOLIC PANEL Routine 06/23/2025 6:40 AM EDT Benign prostatic hyperplasia without lower urinary tract symptoms Hyperlipidemia, unspecified Hypo-osmolality and hyponatremia Disorders of amino-acid transport, unspecified ([facility] V24) from Last 3 Months Results * Prostate specific antigen diagnostic (08/18/2025 12:00 AM EST) Only the most recent of3 resultswithin the time period is included. [facility] PSA 2.19 0.00 - 4.00 ng/mL LAB CHEMISTRY METHOD 08/18/2025 3:25 PM EST [facility] Blood Venous blood specimen / Unknown 08/18/2025 08/18/2025 2:10 PM EST Narrative [facility] - 08/18/2025 3:25 PM EST The Siemens Advia Hoodsaur Chemiluminescent Immunoassay is used. Results obtained with different assay methods or kits cannot be used interchangeably. Results cannot be interpreted as absolute evidence of the presence or absence of malignant disease. us Juan Richey MD LAB BLOOD ORDERABLES Final Resul t Performing Organization Address City/[facility]/ZIP Co de Phone Number [facility] [address] [place] [address], [place] [phone] * SST tube (08/12/2025 6:40 AM EDT) [facility] Extra Tube Hold for add-ons. 08/12/2025 9:01 AM EDT [facility] Comment:Auto resulted. Blood Venous blood specimen / Unknown 08/12/2025 6:40 AM EDT 08/12/2025 7:30 AM EDT us Juan Richey MD LAB BLOOD ORDERABLES Final Resul t Performing Organization Address City/[facility]/ZIP Co de Phone Number [facility] [address] [place], [place] [address] [phone] * (ABNORMAL) CBC auto differential (08/12/2025 6:40 AM EDT) Only the most recent of2 resultswithin the time period is included. [facility] Signature WBC 5.2 4.8 - 10.8 K/mcL LAB HEMETOLOGY METHOD 08/12/2025 7:[address] [facility] RBC 4.30(L) 4.50 - 5.50 M/mcL LAB HEMETOLOGY METHOD 08/12/2025 7:[address] [facility] Hemoglobin 12.8(L) 13.5 - 17.5 g/dL LAB HEMETOLOGY METHOD 08/12/2025 7:[address] [facility] Hematocrit 36.2(L) 42.0 - 54.0 % LAB HEMETOLOGY METHOD 08/12/2025 7:[address] [facility] MCV 83.6 79.0 - 98.0 FL LAB HEMETOLOGY METHOD 08/12/2025 7:[address] [facility] MCH 29.6 27.0 - 32.0 pcg LAB HEMETOLOGY METHOD 08/12/2025 7:[address] [facility] MCHC 35.4 32.0 - 37.0 g/dL LAB HEMETOLOGY METHOD 08/12/2025 7:[address] [facility] RDW 12.6 11.0 - 15.0 % LAB HEMETOLOGY METHOD 08/12/2025 7:[address] [facility] Platelets 147 130 - 400 K/mcL LAB HEMETOLOGY METHOD 08/12/2025 7:[address] [facility] MPV 9.9 7.0 - 11.0 FL LAB HEMETOLOGY METHOD 08/12/2025 7:[address] [facility] NRBC 0.0 <1.0 % LAB HEMETOLOGY METHOD 08/12/2025 7:[address] [facility] NRBC Absolute 0.00 <0.10 K/mcL LAB HEMETOLOGY METHOD 08/12/2025 7:[address] [facility] Neutrophils Relative 70.0 % LAB HEMETOLOGY METHOD 08/12/2025 7:[address] [facility] Lymphocytes Relative 17.1 % LAB HEMETOLOGY METHOD 08/12/2025 7:[address] [facility] Monocytes Relative 11.9 % LAB HEMETOLOGY METHOD 08/12/2025 7:[address] [facility] Eosinophils Relative 0.2 % LAB HEMETOLOGY METHOD 08/12/2025 7:[address] [facility] Basophils Relative 0.4 % LAB HEMETOLOGY METHOD 08/12/2025 7:[address] [facility] Immature Granulocytes Relative 0.4 % LAB HEMETOLOGY METHOD 08/12/2025 7:[address] [facility] Neutrophils Absolute 3.65 1.50 - 7.00 K/mcL LAB HEMETOLOGY METHOD 08/12/2025 7:[address] [facility] Lymphocytes Absolute 0.89(L) 1.00 - 5.00 K/mcL LAB HEMETOLOGY METHOD 08/12/2025 7:[address] [facility] Monocytes Absolute 0.62 0.20 - 1.00 K/mcL LAB HEMETOLOGY METHOD 08/12/2025 7:[address] [facility] Eosinophils Absolute 0.01 0.00 - 0.50 K/mcL LAB HEMETOLOGY METHOD 08/12/2025 7:[address] [facility] Basophils Absolute 0.02 0.00 - 0.20 K/mcL LAB HEMETOLOGY METHOD 08/12/2025 7:[address] [facility] Immature Granulocytes Absolute 0.02 0.00 - 0.03 K/mcL LAB HEMETOLOGY METHOD 08/12/2025 7:55 AM EDT [facility] Blood Venous blood specimen / Unknown 08/12/2025 6:40 AM EDT 08/12/2025 7:30 AM EDT us Juan Richey MD LAB BLOOD ORDERABLES Final Resul t [facility] [address] [place] [address], [place] [phone] * Oxcarbazepine level (08/12/2025 6:40 AM EDT) Oxcarbazepine 17.2 10 - 35 ug/mL 08/16/2025 10:11 AM EST [facility] Comment: If applicable, any drug confirmation testing reported here was developed and the performance characteristics determined by [facility]. This confirmation testing has not been cleared or approved by the FDA. The laboratory is regulated under CLIA as qualified to perform high-complexity testing. This test is used for patient testing purposes. It should not be regarded as investigational or for research. Test performed at [facility], [address] , [place] [address] Mey Sinclair MD, PhD - [facility] Director Blood Venous blood specimen / Unknown 08/12/2025 6:40 AM EDT 08/12/2025 7:30 AM EDT us Juan Richey MD LAB BLOOD ORDERABLES Final Resul t [facility] [address] [place] [address] * (ABNORMAL) Lipid panel with reflex to direct LDL (07/08/2025 7:05 AM EDT) Only the most recent of2 resultswithin the time period is included. Cholesterol 155 0 - 200 mg/dL LAB CHEMISTRY METHOD 07/08/2025 8:26 AM EDT [facility] Triglycerides 180(H) 0 - 150 mg/dL LAB CHEMISTRY METHOD 07/08/2025 8:26 AM EDT [facility] HDL 26(L) >=40 mg/dL LAB CHEMISTRY METHOD 07/08/2025 8:[address] [facility] LDL Calculated 93 0 - 100 mg/dL LAB CHEMISTRY METHOD 07/08/2025 8:26 AM EDT [facility] Comment:Estimated LDL Calcul ated using equation: Total cholesterol - HDL cholesterol - (Triglycerides/5) VLDL Cholesterol Markell 36 mg/dL LAB CHEMISTRY METHOD 07/08/2025 8:26 AM EDT [facility] Non HDL Chol. (LDL+VLDL) 129 <145 mg/dL LAB CHEMISTRY METHOD 07/08/2025 8:[address] [facility] Chol/HDL Ratio 6.0(H) 0.0 - 4.4 LAB CHEMISTRY METHOD 07/08/2025 8:26 AM T [facility] Blood Venous blood specimen / Unknown 07/08/2025 7:05 AM EDT 07/08/2025 7:40 AM EDT us Juan Richey MD LAB BLOOD ORDERABLES Final Resul t [facility] [address] [place] [address], * Thyroid stimulating hormone (07/08/2025 7:05 AM EDT) TSH 1.06 0.40 - 4.00 mcIU/mL LAB CHEMISTRY METHOD 07/08/2025 9:00 AM EDT [facility] Blood Venous blood specimen / Unknown 07/08/2025 7:05 AM EDT 07/08/2025 7:40 AM EDT us Juan Richey MD LAB BLOOD ORDERABLES Final Resul t Performing Organization Address City/[facility] Co de Phone Number [facility] [address] [place] [address], * Thyroxine free (07/08/2025 7:05 AM EDT) Only the most recent of2 resultswithin the time period is included. Free T4 1.09 0.70 - 1.80 ng/dL LAB CHEMISTRY METHOD 07/08/2025 8:55 AM EDT [facility] Blood Venous blood specimen / Unknown 07/08/2025 7:05 AM EDT 07/08/2025 7:40 AM EDT us Juan Richey MD LAB BLOOD ORDERABLES Final Resul t Performing Organization Address [facility] de Phone Number [facility] [address] [place] [address], * (ABNORMAL) Ammonia (07/08/2025 7:05 AM EDT) Only the most recent of2 resultswithin the time period is included. Ammonia 76(H) 11 - 35 mcmol/L LAB CHEMISTRY METHOD 07/08/2025 8:01 AM EDT [facility] Blood Venous blood specimen / Unknown 07/08/2025 7:05 AM EDT 07/08/2025 7:40 AM EDT us Juan Richey MD LAB BLOOD ORDERABLES Final Resul t Performing Organization Address [facility] Co de Phone Number [facility] [address] [place] [address], [place] [phone] * (ABNORMAL) Urinalysis with reflex microscopic and culture (07/01/2025 12:00 AM EDT) Specific [place] Urine 1.016 1.003 - 1.030 LAB URINALYSIS - AUTOMATED METHOD 07/01/2025 4:[address] [facility] pH, Urine 7.0 5.0 - 8.0 pH LAB URINALYSIS - AUTOMATED METHOD 07/01/2025 4:[address] [facility] Leukocytes, Urine Large(A) Negative LAB URINALYSIS - AUTOMATED METHOD 07/01/2025 4:[address] [facility] Nitrite, Urine Negative Negative LAB URINALYSIS - AUTOMATED METHOD 07/01/2025 4:[address] [facility] Protein, Urine 100(A) <=Trace mg/dL LAB URINALYSIS - AUTOMATED METHOD 07/01/2025 4:[address] [facility] Glucose, Urine Negative Negative mg/dL LAB URINALYSIS - AUTOMATED METHOD 07/01/2025 4:[address] [facility] Ketones, Urine Trace(A) Negative mg/dL LAB URINALYSIS - AUTOMATED METHOD 07/01/2025 4:[address] [facility] Urobilinogen , Urine 1.0 0.2 - 1.0 mg/dL LAB URINALYSIS - AUTOMATED METHOD 07/01/2025 4:[address] [facility] Bilirubin, Urine Negative Negative LAB URINALYSIS - AUTOMATED METHOD 07/01/2025 4:[address] [facility] Blood, Urine Negative Negative LAB URINALYSIS - AUTOMATED METHOD 07/01/2025 4:[address] [facility] RBC, Urine 4 0 - 4 /HPF 07/01/2025 4:[address] [facility] WBC, Urine 30(H) 0 - 4 /HPF 07/01/2025 4:[address] [facility] Squamous Epithelial, Urine 10 0 - 60 /LPF 07/01/2025 4:[address] [facility] Non-Squamous Epithelial, Urine Rare Transitional epithelial cells. /LPF 07/01/2025 4:24 PM EDT [facility] Bacteria, Urine Many(A) Negative /HPF 07/01/2025 4:24 PM EDT [facility] Hyaline Casts, Urine 1 0 - 3 /LPF 07/01/2025 4:24 PM EDT [facility] Mucus, Urine Large None /HPF 07/01/2025 4:24 PM EDT [facility] Urine Urine specimen obtained by clean catch procedure / Unknown 07/01/2025 07/01/2025 2:43 PM EDT us Juan Richey MD LAB URINE ORDERABLES Final Resul t Performing Organization Address [facility] Co de Phone Number [facility] [address] [place] [address], [place] [phone] * Reina urine culture tube (07/01/2025 12:00 AM EDT) Extra Tube Hold for add-ons. 07/01/2025 4:01 PM EDT [facility] Comment:Auto resulted. Urine Urine specimen obtained by clean catch procedure / Unknown 07/01/2025 07/01/2025 2:43 PM EDT us Juan Richey MD LAB URINE ORDERABLES Final Resul t Performing Organization Address City/[facility]/ZIP Co de Phone Number [facility] [address] [place] [address], [place] [phone] * (ABNORMAL) Culture urine (07/01/2025 12:00 AM EDT) Culture, Urine >=100,000 CFU/mL Enterococcus faecalis(A) JEFERSON 07/04/2025 8:11 AM EDT [facility] Comment: This is an edited [...] MICROBIOLOGY - GENERAL ORDER TRISH Final Result [facility] [address] [place] [address], * (ABNORMAL) Comprehensive metabolic panel (06/23/2025 6:40 AM EDT) Sodium 126(L) 133 - 145 mmol/L LAB CHEMISTRY METHOD 06/23/2025 8:[address] [facility] Potassium 4.4 3.5 - 5.5 mmol/L LAB CHEMISTRY METHOD 06/23/2025 8:[address] [facility] Chloride 95(L) 96 - 110 mmol/L LAB CHEMISTRY METHOD 06/23/2025 8:[address] [facility] CO2 24 21 - 32 mmol/L LAB CHEMISTRY METHOD 06/23/2025 8:[address] [facility] Anion Gap 7 3 - 11 LAB CHEMISTRY METHOD 06/23/2025 8:[address] [facility] Glucose 102(H) 70 - 100 mg/dL LAB CHEMISTRY METHOD 06/23/2025 8:[address] [facility] BUN 6 5 - 25 mg/dL LAB CHEMISTRY METHOD 06/23/2025 8:[address] [facility] Creatinine 0.50(L) 0.70 - 1.30 mg/dL LAB CHEMISTRY METHOD 06/23/2025 8:[address] [facility] eGFR 116 >=60 mL/min/1. 73m2 LAB CHEMISTRY METHOD 06/23/2025 8:[address] [facility] Comment:Calculation based on the Chronic Kidney Disease Epidemiology Collaboration (CKD-EPI) equation refit without adjustment for race. BUN/Creatinine Ratio 12.0 LAB CHEMISTRY METHOD 06/23/2025 8:[address] [facility] Calcium 8.9 8.5 - 10.5 mg/dL LAB CHEMISTRY METHOD 06/23/2025 8:[address] [facility] AST (SGOT) 22 10 - 42 unit/L LAB CHEMISTRY METHOD 06/23/2025 8:[address] [facility] ALT (SGPT) 36 10 - 60 unit/L LAB CHEMISTRY METHOD 06/23/2025 8:[address] [facility] Alkaline Phosphatase 95 42 - 121 unit/L LAB CHEMISTRY METHOD 06/23/2025 8:[address] [facility] Total Protein 6.0 6.0 - 8.0 g/dL LAB CHEMISTRY METHOD 06/23/2025 8:[address] [facility] Albumin 3.8 3.2 - 5.0 g/dL LAB CHEMISTRY METHOD 06/23/2025 8:[address] [facility] Total Bilirubin 0.4 0.0 - 1.4 mg/dL LAB CHEMISTRY METHOD 06/23/2025 8:[address] [facility] Blood Venous blood specimen / Unknown 06/23/2025 6:40 AM EDT 06/23/2025 7:44 AM EDT us Juan Richey MD LAB BLOOD ORDERABLES Final Resul t [facility] [address] [place] [address], [place] [phone] from Last 3 Months Insurance MEDICARE MEDICAID - [place] Care Teams Nurse Head Relationship Specialty Start Date End Date Juan Richey MD [address] [place] [address] [address] MARLY Rogers PCP - General Internal Medicine 11/22/24
--- OUTSIDE RECORDS SUMMARY | 2025-08-31 11:49 | XMS_ITS | Encounter Summary ---
Author Organization [facility] Address [address] [place] [address] Care Team Providers Care Tractor Mechanic Apprentice Name Role Phone Juan Richey MD Primary Care Provider [phone] Encounter Details Date Type Department Care Team (Late st Contact Info) Description 07/08/2025 Lab Requisition [facility] - Main Lab 299 [facility] [place] [address] Juan Richey MD [address] [place] [address] Dr [address] [place], [place] Hypothyroidism, unspecified; Other detention (current) drug therapy; Disorder of urea cycle metabolism, unspecified (CMS/HCC V24); Benign prostatic hyperplasia without lower urinary tract symptoms; Hyperlipidemia, unspecified Social History Tobacco Use Types Packs/Day [...] 07/08/2025 7:05 AM EDT Hypothyroidism, unspecified Other detention (current) drug therapy Disorder of urea cycle metabolism, unspecified (CMS/HCC V24) Benign prostatic hyperplasia without lower urinary tract symptoms Hyperlipidemia, unspecified PROSTATE SPECIFIC ANTIGEN DIAGNOSTIC Routine 07/08/2025 7:05 AM EDT Hypothyroidism, unspecified 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 Disorder of urea cycle metabolism, unspecified (CMS/HCC V24) Benign prostatic hyperplasia without lower urinary tract symptoms Hyperlipidemia, unspecified THYROID STIMULATING HORMONE Routine 07/08/2025 7:05 AM EDT Hypothyroidism, unspecified Other detention (current) drug therapy Disorder of urea cycle metabolism, unspecified (CMS/HCC V24) Benign prostatic hyperplasia without lower urinary tract symptoms Hyperlipidemia, unspecified THYROXINE FREE Routine 07/08/2025 7:05 AM EDT Hypothyroidism, unspecified 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 Disorder of urea cycle metabolism, unspecified ([facility]/HCC V24) Benign prostatic hyperplasia without lower urinary tract symptoms Hyperlipidemia, unspecified AMMONIA Routine 07/08/2025 7:05 AM EDT Hypothyroidism, unspecified Other detention (current) drug therapy Disorder of urea cycle metabolism, unspecified ([facility] V24) Benign prostatic hyperplasia without lower urinary tract symptoms Hyperlipidemia, unspecified documented in this encounter Results * (ABNORMAL) Lipid panel with reflex to direct LDL (07/08/2025 7:05 AM EDT) Cholesterol 155 0 - 200 mg/dL LAB CHEMISTRY METHOD 07/08/2025 8:26 AM [facility] Triglycerides 180(H) 0 - 150 mg/dL LAB CHEMISTRY METHOD 07/08/2025 8:26 AM [facility] HDL 26(L) >=40 mg/dL LAB CHEMISTRY METHOD 07/08/2025 8:26 AM [facility] LDL Calculated 93 0 - 100 mg/dL LAB CHEMISTRY METHOD 07/08/2025 8:26 AM [facility] Comment:Estimated LDL Calcul ated using equation: Total cholesterol - HDL cholesterol - (Triglycerides/5) VLDL Cholesterol Markell 36 mg/dL LAB CHEMISTRY METHOD 07/08/2025 8:26 AM [facility] Non HDL Chol. (LDL+VLDL) 129 <145 mg/dL LAB CHEMISTRY METHOD 07/08/2025 8:26 AM [facility] Chol/HDL Ratio 6.0(H) 0.0 - 4.4 LAB CHEMISTRY METHOD 07/08/2025 8:26 AM [facility] Blood Venous blood specimen / Unknown 07/08/2025 7:05 AM EDT 07/08/2025 7:40 AM EDT us Juan Richey MD LAB BLOOD ORDERABLES Final Resul t Performing Organization Address City/[facility]/ZIP Co de Phone Number [facility] [address] [place] [address], [place] [phone] * Thyroxine free (07/08/2025 7:05 AM EDT) Free T4 1.09 0.70 - 1.80 ng/dL LAB CHEMISTRY METHOD 07/08/2025 8:55 AM EDT [facility] Blood Venous blood specimen / Unknown 07/08/2025 7:05 AM EDT 07/08/2025 7:40 AM EDT us Juan Richey MD LAB BLOOD ORDERABLES Final Resul t Performing Organization Address [facility] de Phone Number [facility] [address] [place] [address], [place] [phone] * (ABNORMAL) Prostate specific antigen diagnostic (07/08/2025 7:05 AM EDT) Pathologist [facility] PSA 15.25(H) 0.00 - 4.00 ng/mL LAB CHEMISTRY METHOD 07/08/2025 8:55 AM EDT [facility] Blood Venous blood specimen / Unknown 07/08/2025 7:05 AM EDT 07/08/2025 7:40 AM EDT Narrative [facility] - 07/08/2025 8:55 AM EDT The Siemens Advia Centaur Chemiluminescent Immunoassay is used. Results obtained with different assay methods or kits cannot be used interchangeably. Results cannot be interpreted as absolute evidence of the presence or absence of malignant disease. us Juan Richey MD LAB BLOOD ORDERABLES Final Resul t Performing Organization Address City/[facility] Co de Phone Number [facility] [address] [place] [address], [place] [phone] * (ABNORMAL) Ammonia (07/08/2025 7:05 AM EDT) Ammonia 76(H) 11 - 35 mcmol/L LAB CHEMISTRY METHOD 07/08/2025 8:01 AM EDT [facility] Blood Venous blood specimen / Unknown 07/08/2025 7:05 AM EDT 07/08/2025 7:40 AM EDT us Juan Richey MD LAB BLOOD ORDERABLES Final Resul t Performing Organization Address City/[facility]/ZIP Co de Phone Number [facility] [address] [place] [address], [place] [phone] * Thyroid stimulating hormone (07/08/2025 7:05 AM EDT) TSH 1.06 0.40 - 4.00 mcIU/mL LAB CHEMISTRY METHOD 07/08/2025 9:00 AM EDT [facility] Blood Venous blood specimen / Unknown 07/08/2025 7:05 AM EDT 07/08/2025 7:40 AM EDT us Juan Richey MD LAB BLOOD ORDERABLES Final Resul t Performing Organization Address City/[facility]/ZIP Co de Phone Number [facility] [address] [place] [address], [place] [phone] documented in this encounter Visit Diagnoses Diagnosis Hypothyroidism, unspecified Other detention (current) drug therapy Disorder of urea cycle metabolism, unspecified (CMS/HCC V24) Benign prostatic hyperplasia without lower urinary tract symptoms Hyperlipidemia, unspecified documented in this encounter Care Teams Tractor Mechanic Apprentice Relationship Specialty Start Date End Date Juan Richey MD [address] [place] [address] Dr Ramirez [facility] [place] PCP - General Internal Medicine 11/22/24 documented as of this encounter
--- OUTSIDE RECORDS SUMMARY | 2025-08-31 11:50 | XMS_ITS | Encounter Summary ---
Author Organization [facility] Address [address] [place] [address] Care Team Providers Care Side Puller Name Role Phone Juan Richey MD Primary Care Provider [phone] Encounter Details Date Type Department Care Team (Latest Contact Info) Description 12/23/2024 Lab Requisition [facility] - Main Lab 299 [facility] [place] [address] Juan Richey MD [address] [place] [address] [address] [place], [place] Schizoaffective disorder, unspecified (CMS/HCC V24, CMS/HCC V28); Essential (primary) hypertension; Benign prostatic hyperplasia with lower urinary tract symptoms; Hypothyroidism, unspecified; Hyperlipidemia, unspecified Social History Tobacco Use Types [...] PANEL WITH REFLEX TO DIRECT LDL Routine 12/23/2024 6:35 AM EDT Schizoaffective disorder, unspecified (CMS/HCC) Essential (primary) hypertension Benign prostatic hyperplasia with lower urinary tract symptoms Hypothyroidism, unspecified Hyperlipidemia, unspecified PROSTATE SPECIFIC ANTIGEN DIAGNOSTIC Routine 12/23/2024 6:35 AM EDT Schizoaffective disorder, unspecified (CMS/HCC) Essential (primary) hypertension Benign prostatic hyperplasia with lower urinary tract symptoms Hypothyroidism, unspecified Hyperlipidemia, unspecified COMPLETE BLOOD COUNT Routine 12/23/2024 6:35 AM EDT Schizoaffective disorder, unspecified (CMS/HCC) Essential (primary) hypertension Benign prostatic hyperplasia with lower urinary tract symptoms Hypothyroidism, unspecified Hyperlipidemia, unspecified THYROXINE FREE Routine 12/23/2024 6:35 AM EDT Schizoaffective disorder, unspecified (CMS/HCC) Essential (primary) hypertension Benign prostatic hyperplasia with lower urinary tract symptoms Hypothyroidism, unspecified Hyperlipidemia, unspecified AMMONIA Routine 12/23/2024 6:35 AM EDT Schizoaffective disorder, unspecified (CMS/HCC) Essential (primary) hypertension Benign prostatic hyperplasia with lower urinary tract symptoms Hypothyroidism, unspecified Hyperlipidemia, unspecified COMPREHENSIVE METABOLIC PANEL Routine 12/23/2024 6:35 AM EDT Schizoaffective disorder, unspecified (CMS/HCC) Essential (primary) hypertension Benign prostatic hyperplasia with lower urinary tract symptoms Hypothyroidism, unspecified Hyperlipidemia, unspecified documented in this encounter Results * Thyroxine free (12/23/2024 6:35 AM EDT) Free T4 0.92 0.70 - 1.80 ng/dL LAB CHEMISTRY METHOD 12/23/2024 8:59 AM EDT [facility] Blood Venous blood specimen / Unknown 12/23/2024 6:35 AM EDT 12/23/2024 7:05 AM EDT us Juan Richey MD LAB BLOOD ORDERABLES Final Resul t [facility] [address] [place] [address], * (ABNORMAL) Ammonia (12/23/2024 6:35 AM EDT) Ammonia 71(H) 11 - 35 mcmol/L LAB CHEMISTRY METHOD 12/23/2024 8:59 AM EDT [facility] Comment:Results verified by repeat testing Blood Venous blood specimen / Unknown 12/23/2024 6:35 AM EDT 12/23/2024 7:05 AM EDT us Juan Richey MD LAB BLOOD ORDERABLES Final Resul t [facility] [address] [place] [address], [place] [phone] * Prostate specific antigen diagnostic (12/23/2024 6:35 AM EDT) PSA 1.26 0.00 - 4.00 ng/mL LAB CHEMISTRY METHOD 12/23/2024 8:59 AM EDT [facility] Blood Venous blood specimen / Unknown 12/23/2024 6:35 AM EDT 12/23/2024 7:05 AM EDT Narrative [facility] - 12/23/2024 8:59 AM EDT The Siemens Advia Leanplumaur Chemiluminescent Immunoassay is used. Results obtained with different assay methods or kits cannot be used interchangeably. Results cannot be interpreted as absolute evidence of the presence or absence of malignant disease. us Juan Richey MD LAB BLOOD ORDERABLES Final Resul t [facility] [address] [place] [address], [place] [phone] * (ABNORMAL) Lipid panel with reflex to direct LDL (12/23/2024 6:35 AM EDT) Cholesterol 141 0 - 200 mg/dL LAB CHEMISTRY METHOD 12/23/2024 8:59 AM EDT [facility] Triglycerides 139 0 - 150 mg/dL LAB CHEMISTRY METHOD 12/23/2024 8:59 AM EDT [facility] HDL 32(L) >=40 mg/dL LAB CHEMISTRY METHOD 12/23/2024 8:59 AM EDT [facility] LDL Calculated 81 0 - 100 mg/dL LAB CHEMISTRY METHOD 12/23/2024 8:59 AM EDT [facility] VLDL Cholesterol Markell 27.8 mg/dL LAB CHEMISTRY METHOD 12/23/2024 8:59 AM T [facility] Non HDL Chol. (LDL+VLDL) 109 <145 mg/dL LAB CHEMISTRY METHOD 12/23/2024 8:59 AM [facility] Chol/HDL Ratio 4.4 0.0 - 4.4 LAB CHEMISTRY METHOD 12/23/2024 8:59 AM [facility] Blood Venous blood specimen / Unknown 12/23/2024 6:35 AM EDT 12/23/2024 7:05 AM EDT us Juan Richey MD LAB BLOOD ORDERABLES Final Resul t [facility] [address] [place] [address], [place] [phone] * (ABNORMAL) Comprehensive metabolic panel (12/23/2024 6:35 AM EDT) Sodium 127(L) 133 - 145 mmol/L LAB CHEMISTRY METHOD 12/23/2024 8:59 AM [facility] Potassium 3.8 3.5 - 5.5 mmol/L LAB CHEMISTRY METHOD 12/23/2024 8:59 AM [facility] Chloride 97 96 - 110 mmol/L LAB CHEMISTRY METHOD 12/23/2024 8:59 AM [facility] CO2 21 21 - 32 mmol/L LAB CHEMISTRY METHOD 12/23/2024 8:59 AM [facility] Anion Gap 9 3 - 11 LAB CHEMISTRY METHOD 12/23/2024 8:59 AM [facility] Glucose 109(H) 70 - 100 mg/dL LAB CHEMISTRY METHOD 12/23/2024 8:59 AM [facility] BUN 9 5 - 25 mg/dL LAB CHEMISTRY METHOD 12/23/2024 8:59 AM [facility] Creatinine 0.70 0.70 - 1.30 mg/dL LAB CHEMISTRY METHOD 12/23/2024 8:59 AM [facility] eGFR 105 >=60 mL/min/1. 73m2 LAB CHEMISTRY METHOD 12/23/2024 8:59 AM [facility] Comment:Calculation based on the Chronic Kidney Disease Epidemiology Collaboration (CKD-EPI) equation refit without adjustment for race. BUN/Creatinine Ratio 12.9 LAB CHEMISTRY METHOD 12/23/2024 8:59 AM [facility] Calcium 8.4(L) 8.5 - 10.5 mg/dL LAB CHEMISTRY METHOD 12/23/2024 8:59 AM [facility] AST (SGOT) 15 10 - 42 unit/L LAB CHEMISTRY METHOD 12/23/2024 8:59 AM [facility] ALT (SGPT) 29 10 - 60 unit/L LAB CHEMISTRY METHOD 12/23/2024 8:59 AM [facility] Alkaline Phosphatase 97 42 - 121 unit/L LAB CHEMISTRY METHOD 12/23/2024 8:59 AM [facility] Total Protein 5.6(L) 6.0 - 8.0 g/dL LAB CHEMISTRY METHOD 12/23/2024 8:59 AM [facility] Albumin 3.5 3.2 - 5.0 g/dL LAB CHEMISTRY METHOD 12/23/2024 8:59 AM [facility] Total Bilirubin 0.3 0.0 - 1.4 mg/dL LAB CHEMISTRY METHOD 12/23/2024 8:59 AM [facility] Blood Venous blood specimen / Unknown 12/23/2024 6:35 AM EDT 12/23/2024 7:05 AM EDT us Juan Richey MD LAB BLOOD ORDERABLES Final Resul t [facility] [address] [place] [address], * (ABNORMAL) Complete blood count (12/23/2024 6:35 AM EDT) [facility] Signature WBC 4.3(L) 4.8 - 10.8 K/mcL LAB HEMETOLOGY METHOD 12/23/2024 7:26 AM [facility] RBC 4.00(L) 4.50 - 5.50 M/mcL LAB HEMETOLOGY METHOD 12/23/2024 7:26 AM [facility] Hemoglobin 11.7(L) 13.5 - 17.5 g/dL LAB HEMETOLOGY METHOD 12/23/2024 7:26 AM [facility] Hematocrit 32.6(L) 42.0 - 54.0 % LAB HEMETOLOGY METHOD 12/23/2024 7:26 AM [facility] MCV 82.3 79.0 - 98.0 FL LAB HEMETOLOGY METHOD 12/23/2024 7:26 AM [facility] MCH 29.5 27.0 - 32.0 pcg LAB HEMETOLOGY METHOD 12/23/2024 7:26 AM [facility] MCHC 35.9 32.0 - 37.0 g/dL LAB HEMETOLOGY METHOD 12/23/2024 7:26 AM [facility] RDW 12.5 11.0 - 15.0 % LAB HEMETOLOGY METHOD 12/23/2024 7:26 AM [facility] Platelets 144 130 - 400 K/mcL LAB HEMETOLOGY METHOD 12/23/2024 7:26 AM [facility] MPV 10.0 7.0 - 11.0 FL LAB HEMETOLOGY METHOD 12/23/2024 7:26 AM [facility] NRBC 0.0 <1.0 % LAB HEMETOLOGY METHOD 12/23/2024 7:26 AM EDT [facility] NRBC Absolute 0.00 <0.10 K/mcL LAB HEMETOLOGY METHOD 12/23/2024 7:26 AM EDT [facility] Blood Venous blood specimen / Unknown 12/23/2024 6:35 AM EDT 12/23/2024 7:05 AM EDT us Juan Richey MD LAB BLOOD ORDERABLES Final Resul t [facility] [address] [place] [address], documented in this encounter Visit Diagnoses Diagnosis Schizoaffective disorder, unspecified (CMS/HCC V24, CMS/HCC V28) Essential (primary) hypertension Unspecified essential hypertension Benign prostatic hyperplasia with lower urinary tract symptoms Hypothyroidism, unspecified Hyperlipidemia, unspecified documented in this encounter Care Teams Side Puller Relationship Specialty Start Date End Date Juan Richey MD [address] [place] [address] Dr [address] [place] PCP - General Internal Medicine 11/22/24 documented as of this encounter
--- OUTSIDE RECORDS SUMMARY | 2025-08-31 11:50 | XMS_ITS | Clinical Summary ---
Author Organization [facility] Facility Address [address] [place] [address] Care Team Providers Care Assembler And Tester Electronics Name Role Phone Juan Richey Primary Care Provider [phone] Allergies Active Allergy Reactions Criticality Noted Date Comments Penicillin G 05/12/2014 Medications acetaminophen (TYLENOL) 325 MG tablet Take 2 tablets by mouth 2 Active cloZAPine (CLOZARIL) 25 MG tablet Take 1 tablet by mouth 1 (one) time each day 2 Active diazePAM (VALIUM) 2 MG tablet Take 1 tablet by mouth in the morning and 1 tablet in the evening. 2 Active diphenhydrAMINE (BENADRYL) 25 MG tablet Take 1 tablet by mouth 2 Active ibuprofen (ADVIL,MOTRIN) 600 MG tablet Take 1 tablet by mouth in the morning and 1 tablet in the evening and 1 tablet before bedtime. 2 Active lactulose (CHRONULAC) 10 GM/15ML solution Take 30 mL by mouth 1 (one) time each day 2 Active lisinopril 5 MG tablet Take 1 tablet by mouth 2 Active Naloxone HCl 4 MG/0.1ML liquid Administer into affected nostril(s) 3 Active omeprazole (PriLOSEC) [address] capsule Take 1 capsule by mouth 2 Active ondansetron (ZOFRAN) 4 MG tablet Take 1 tablet by mouth 2 Active rifAXIMin (XIFAXAN) 550 MG tablet Take 1 tablet by mouth in the morning and 1 tablet in the evening. 2 Active traMADol (ULTRAM) 50 MG tablet Take 1 tablet by mouth 2 Active benztropine (COGENTIN) 0.5 MG tablet Take 0.5 mg by mouth in the morning and 0.5 mg in the evening. Active Dentifrices (BIOTENE DRY MOUTH DT) Apply to teeth Activ e bisacodyl (Bisacodyl Laxative) 10 MG suppository Insert 10 mg into the rectum 1 (one) time each day Active docusate sodium (COLACE) 100 MG capsule Take 100 mg by mouth in the morning and 100 mg in the evening. Active gabapentin (NEURONTIN) 100 MG capsule Take 100 mg by mouth in the morning and 100 mg in the evening and 100 mg before bedtime. Active gemfibrozil (LOPID) 600 MG tablet Take 600 mg by mouth in the morning and 600 mg in the evening. Take before meals. Active senna (SENOKOT) 8.6 MG tablet Take 1 tablet by mouth 1 (one) time each day Active tamsulosin (FLOMAX) 0.4 MG 24 hr capsule Take 0.4 mg by mouth 1 (one) time each day Active cloZAPine (CLOZARIL) 50 MG tablet 3 Active OXcarbazepine (TRILEPTAL) 600 MG tablet 3 Active chlorproMAZINE (THORAZINE) 25 MG tablet 3 Active haloperidol decanoate (HALDOL DECANOATE) 100 MG/ML injection 3 Active hydrOXYzine (VISTARIL) 50 MG/ML injection 3 Active lactulose (ENULOSE) 10 GM/15ML solution oral solution 3 Active levothyroxine (SYNTHROID, LEVOTHROID) 75 MCG tablet 3 Active Social History Tobacco Use Types Packs/Day Years Used Date Smoking Tobacco: Never Passive Smoke Exposure: Never Smokeless Tobacco: Never Tobacco Cessation:Counseling Given: No Alcohol Use Standard Drinks/Week Comments Never 0 (1 standard drink = 0.6 oz pur e alcohol) Sex and Gender Information Value Date Recorded Sex Assigned at Not on file Legal Sex Male 11:19 AM EST Gender Identity Not on file Sexual Orientation Not on file Last Filed Vital Signs Vital Sign Reading Time Taken Comments Blood Pressure 130/80 06/09/2023 2:04 PM EDT Pulse 97 06/09/2023 2:04 PM EDT Temperature - - Respiratory Rate - - Oxygen Saturation 97% 06/09/2023 2:04 PM EDT Inhaled Oxygen Concentration - - Weight 80.7 kg (178 lb) 06/09/2023 2:04 PM EDT Height - - Body Mass Index - - Plan of Treatment Health Maintenance Due Date Last Done Comments Pneumococcal Vaccine: 50+ Ye ars (1 of 2 - PCV) 1982 Colorectal Cancer Screening: Annual FOBT 2012 Colorectal Cancer Screening: Colonoscopy 2012 Colorectal Cancer Screening: Sigmoidoscopy 2012 Influenza Vaccine (#1) 2025 Hepatitis B Vaccine Aged Out No longe r eligible based on patient's age to complete this topic Insurance Medicare [facility] Medicare [facility] Care Teams Assembler And Tester Electronics Relationship Specialty Start Date End Date Juan Richey DO [address] [place] [address] DRIVE [address] [place], [place] PCP - General Internal Medicine 11/11/22
--- OUTSIDE RECORDS SUMMARY | 2025-08-31 11:50 | XMS_ITS | Encounter Summary ---
Author Organization [facility] Address [address] [place] [address] Care Team Providers Care Gravel Weigher Name Role Phone Juan Richey MD Primary Care Provider [phone] Encounter Details Date Type Department Care Team (Late st Contact Info) Description 12/08/2024 Lab Requisition [facility] - Main Lab 299 [facility] [place] [address] Juna Richey MD [address] [place] [address] Dr [address] [place], [place] Other medical terminologist (current) drug therapy Social History Tobacco Use [...] Associated Diagnosis Comments SST - GOLD Routine 12/08/2024 6:40 PM EST Other medical terminologist (current) drug therapy LAVENDER - EDTA Routine 12/08/2024 6:40 PM EST Other nursing home (current) drug therapy CHLORPROMAZINE LEVEL Routine 12/08/2024 6:40 PM EST Other medical terminologist (current) drug therapy documented in this encounter Results * Lavender tube (12/08/2024 6:40 PM EST) Extra Tube Hold for add-ons. 12/08/2024 9:01 PM EST [facility] Comment:Auto resulted. Blood Venous blood specimen / Unknown 12/08/2024 6:40 PM EST 12/08/2024 7:05 PM EST us Juan Richey MD LAB BLOOD ORDERABLES Final Resul t Performing Organization Address [facility]/ZIP Co de Phone Number [facility] [address] [place] [address], [place] [phone] * SST tube (12/08/2024 6:40 PM EST) Extra Tube Hold for add-ons. 12/08/2024 9:01 PM EST [facility] Comment:Auto resulted. Blood Venous blood specimen / Unknown 12/08/2024 6:40 PM EST 12/08/2024 7:05 PM EST us Juan Richey MD LAB BLOOD ORDERABLES Final Resul t Performing Organization Address [facility] de Phone Number [facility] [address] [place] [address], [place] [phone] * (ABNORMAL) Chlorpromazine level (12/08/2024 6:40 PM EST) Chlorpromazine (Thorazine) 27(L) 30 - 300 ng/mL 12/14/2024 2:42 PM EST [facility] Comment: INTERPRETIVE INFORMATION: Chlorpromazine, Serum or [...] developed and its performance characteristics determined by [facility]. It has not been cleared or approved by the [place] Food and Drug Administration. This test was performed in a CLIA certified laboratory and is intended for clinical purposes. Performed By: [facility] [address] [place], [place] [id number] Automatic Brine Mixer Operator: Hoang Rosales MD, PhD CLIA Number: [id number] Blood Venous blood specimen / Unknown 12/08/2024 6:40 PM EST 12/08/2024 7:05 PM EST us Juan Richey MD LAB BLOOD ORDERABLES Final Resul t [facility] [address] [place] [address] documented in this encounter Visit Diagnoses Diagnosis Other medical terminologist (current) drug therapy documented in this encounter Care Teams Gravel Weigher Relationship Specialty Start Date End Date Juan Richey MD [address] [place] [address] [address] [place] PCP - General Internal Medicine 11/22/24 documented as of this encounter
--- OUTSIDE RECORDS SUMMARY | 2025-08-31 11:51 | XMS_ITS | Encounter Summary ---
Author Organization [facility] Address [address] [place] [address] Care Team Providers Care Flight Agent Name Role Phone Juan Richey MD Primary Care Provider [phone] Encounter Details Date Type Department Care Team (Late st Contact Info) Description 12/02/2024 Lab Requisition [facility] - Main Lab 299 [facility] [place] [address] Juan Richey MD [address] [place] [address] [address] [place], [place] Other hyperlipidemia; Benign prostatic hyperplasia without lower urinary tract symptoms; Other shelter (current) drug therapy Social History Tobacco Use [...] Associated Diagnosis Comments SST - GOLD Routine 12/02/2024 12:00 AM EST Other hyperlipidemia Benign prostatic hyperplasia without lower urinary tract symptoms Other parts counterman (current) drug therapy LIPID PANEL WITH REFLEX TO DIRECT LDL Routine 12/02/2024 12:00 AM EST Other hyperlipidemia Benign prostatic hyperplasia without lower urinary tract symptoms Other parts counterman (current) drug therapy PROSTATE SPECIFIC ANTIGEN DIAGNOSTIC Routine 12/02/2024 12:00 AM EST Other hyperlipidemia Benign prostatic hyperplasia without lower urinary tract symptoms Other parts counterman (current) drug therapy RED - PLAIN Routine 12/02/2024 12:00 AM EST Other hyperlipidemia Benign prostatic hyperplasia without lower urinary tract symptoms Other shelter (current) drug therapy CHLORPROMAZINE LEVEL Routine 12/02/2024 12:00 AM EST Other hyperlipidemia Benign prostatic hyperplasia without lower urinary tract symptoms Other shelter (current) drug therapy OXCARBAZEPINE LEVEL Routine 12/02/2024 1 2:00 AM EST Other hyperlipidemia Benign prostatic hyperplasia without lower urinary tract symptoms Other shelter (current) drug therapy THYROXINE FREE Routine 12/02/2024 12:00 AM EST Other hyperlipidemia Benign prostatic hyperplasia without lower urinary tract symptoms Other shelter (current) drug therapy documented in this encounter Results * (ABNORMAL) Chlorpromazine level (12/02/2024 12:00 AM EST) Chlorpromazine (Thorazine) <25(L) 30 - 300 ng/mL 12/10/2024 2:43 AM EST [facility] Comment: INTERPRETIVE INFORMATION: Chlorpromazine, Serum or [...] developed and its performance characteristics determined by [employer] It has not been cleared or approved by the [place] Food and Drug Administration. This test was performed in a CLIA certified laboratory and is intended for clinical purposes. Performed By: [employer] [address] [place] [address] Maintenance Worker Municipal: Hoang Rosales MD, PhD CLIA Number: [id number] Blood Venous blood specimen / Unknown 12/02/2024 12/02/2024 7:29 PM EST us Juan Richey MD LAB BLOOD ORDERABLES Final Resul t [facility] [address] [place] [address] 105 * SST tube (12/02/2024 12:00 AM EST) Extra Tube Hold for add-ons. 12/02/2024 9:01 PM EST [facility] Comment:Auto resulted. Blood Venous blood specimen / Unknown 12/02/2024 12/02/2024 7:29 PM EST us Juan Richey MD LAB BLOOD ORDERABLES Final Resul t Performing Organization Address [facility]/ZIP Co de Phone Number [facility] [address] [place] [address], [place] [phone] * Red tube (12/02/2024 12:00 AM EST) Extra Tube Hold for add-ons. 12/02/2024 9:01 PM EST [facility] Comment:Auto resulted. Blood Venous blood specimen / Unknown 12/02/2024 12/02/2024 7:29 PM EST us Juan Richey MD LAB BLOOD ORDERABLES Final Resul t Performing Organization Address [facility] Co de Phone Number [facility] [address] [place] [address], [place] [phone] * Oxcarbazepine level (12/02/2024 12:00 AM EST) Oxcarbazepine 14.2 10 - 35 ug/mL 12/06/2024 9:19 AM EST [facility] Comment: If applicable, any drug confirmation testing reported here was developed and the performance characteristics determined by [facility]. This confirmation testing has not been cleared or approved by the FDA. The laboratory is regulated under CLIA as qualified to perform high-complexity testing. This test is used for patient testing purposes. It should not be regarded as investigational or for research. Test performed at [facility], [address], [place] [address] Mey Sinclair MD, PhD - Knitting Machine Tender Blood Venous blood specimen / Unknown 12/02/2024 12/02/2024 7:29 PM EST us Juan Richey MD LAB BLOOD ORDERABLES Final Resul t Performing Organization Address City/[facility]/ZIP Co de Phone Number [facility] [address] [place] [address] * Prostate specific antigen diagnostic (12/02/2024 12:00 AM EST) PSA 1.10 0.00 - 4.00 ng/mL LAB CHEMISTRY METHOD 12/02/2024 8:01 PM EST [facility] Blood Venous blood specimen / Unknown 12/02/2024 12/02/2024 7:29 PM EST Narrative [facility] - 12/02/2024 8:01 PM EST The Siemens Advia Centaur Chemiluminescent Immunoassay is used. Results obtained with different assay methods or kits cannot be used interchangeably. Results cannot be interpreted as absolute evidence of the presence or absence of malignant disease. us Juan Richey MD LAB BLOOD ORDERABLES Final Resul t Performing Organization Address [facility] de Phone Number [facility] [address] [place] [address], [place] [phone] * Thyroxine free (12/02/2024 12:00 AM EST) Free T4 1.01 0.70 - 1.80 ng/dL LAB CHEMISTRY METHOD 12/02/2024 7:56 PM EST [facility] Blood Venous blood specimen / Unknown 12/02/2024 12/02/2024 7:29 PM EST us Juan Richey MD LAB BLOOD ORDERABLES Final Resul t Performing Organization Address City/[facility]/ZIP Co de Phone Number [facility] [address] [place] [address], [place] [phone] * (ABNORMAL) Lipid panel with reflex to direct LDL (12/02/2024 12:00 AM EST) Cholesterol 134 0 - 200 mg/dL LAB CHEMISTRY METHOD 12/02/2024 7:[address] [facility] Triglycerides 267(H) 0 - 150 mg/dL LAB CHEMISTRY METHOD 12/02/2024 7:[address] [facility] HDL 28(L) >=40 mg/dL LAB CHEMISTRY METHOD 12/02/2024 7:[address] [facility] LDL Calculated 53 0 - 100 mg/dL LAB CHEMISTRY METHOD 12/02/2024 7:[address] [facility] VLDL Cholesterol Markell 53.4 mg/dL LAB CHEMISTRY METHOD 12/02/2024 7:[address] [facility] Non HDL Chol. (LDL+VLDL) 106 <145 mg/dL LAB CHEMISTRY METHOD 12/02/2024 7:[address] [facility] Chol/HDL Ratio 4.8(H) 0.0 - 4.4 LAB CHEMISTRY METHOD 12/02/2024 7:[address] [facility] Blood Venous blood specimen / Unknown 12/02/2024 12/02/2024 7:29 PM EST us Juan Richey MD LAB BLOOD ORDERABLES Final Resul t [facility] [address] [place] [address], [place] [phone] documented in this encounter Visit Diagnoses Diagnosis Other hyperlipidemia Benign prostatic hyperplasia without lower urinary tract symptoms Other parts counterman (current) drug therapy documented in this encounter Care Teams Flight Agent Relationship Specialty Start Date End Date Juan Richey MD [address] [place] PCP - General Internal Medicine 11/22/24 documented as of this encounter
--- OUTSIDE RECORDS SUMMARY | 2025-08-31 11:51 | XMS_ITS | Encounter Summary ---
Author Organization [facility] Address [address] [place] [address] Care Team Providers Care Product Architect Name Role Phone Juan Richey MD Primary Care Provider [phone] Encounter Details Date Type Department Care Team (Late st Contact Info) Description 02/07/2025 Lab Requisition [facility] [address] [facility] [place] [address] Juan Richey MD [address] [place] [address] Dr [address] [place], [place] Other exterminator helper (current) drug therapy Social History Tobacco Use [...] Associated Diagnosis Comments BASIC METABOLIC PANEL Routine 02/07/2025 6:05 AM EDT Other nursing home (current) drug therapy documented in this encounter Results * (ABNORMAL) Basic metabolic panel (02/07/2025 6:05 AM EDT) Sodium 126(L) 133 - 145 mmol/L LAB CHEMISTRY METHOD 02/07/2025 10:54 AM EDT [facility] Potassium 4.0 3.5 - 5.5 mmol/L LAB CHEMISTRY METHOD 02/07/2025 10:54 AM EDT [facility] Chloride 95(L) 96 - 110 mmol/L LAB CHEMISTRY METHOD 02/07/2025 10:54 AM [facility] CO2 22 21 - 32 mmol/L LAB CHEMISTRY METHOD 02/07/2025 10:54 AM EDT [facility] Anion Gap 9 3 - 11 LAB CHEMISTRY METHOD 02/07/2025 10:54 AM EDT [facility] Glucose 106(H) 70 - 100 mg/dL LAB CHEMISTRY METHOD 02/07/2025 10:54 AM [facility] BUN 11 5 - 25 mg/dL LAB CHEMISTRY METHOD 02/07/2025 10:54 AM [facility] Creatinine 0.61(L) 0.70 - 1.30 mg/dL LAB CHEMISTRY METHOD 02/07/2025 10:54 AM T [facility] eGFR 109 >=60 mL/min/1. 73m2 LAB CHEMISTRY METHOD 02/07/2025 10:54 AM T [facility] Comment:Calculation based on the Chronic Kidney Disease Epidemiology Collaboration (CKD-EPI) equation refit without adjustment for race. BUN/Creatinine Ratio 18.0 LAB CHEMISTRY METHOD 02/07/2025 10:54 AM [facility] Calcium 8.5 8.5 - 10.5 mg/dL LAB CHEMISTRY METHOD 02/07/2025 10:54 AM [facility] Blood Venous blood specimen / Unknown 02/07/2025 6:05 AM EDT 02/07/2025 8:35 AM EDT us Juan Richey MD LAB BLOOD ORDERABLES Final Resul t [facility] [address] [place] [address], documented in this encounter Visit Diagnoses Diagnosis Other exterminator helper (current) drug therapy documented in this encounter Care Teams Product Architect Relationship Specialty Start Date End Date Juan Richey MD [address] [place] [address] Dr [address] [place] [address] MD PCP - General Internal Medicine 11/22/24 documented as of this encounter
--- OUTSIDE RECORDS SUMMARY | 2025-08-31 11:51 | XMS_ITS | Encounter Summary ---
Author Organization [employer] Address [address] [place] [address] Care Team Providers Care District Commercial Superintendent Name Role Phone Juan Richey MD Primary Care Provider [phone] Encounter Details Date Type Department Care Team (Latest Contact Info) Description 02/25/2025 Lab Requisition [facility] - Main Lab [address] [facility] [place] [address] Juan Richey MD [address] [place] [address] [address] [place], [place] Schizoaffective disorder, unspecified (CMS/HCC V24, CMS/HCC V28); Hypothyroidism, unspecified Social History Tobacco Use Types Packs/Day [...] Procedure Name Priority Date/Time Associated Diagnosis Comments GABAPENTIN LEVEL Routine 02/25/2025 5:50 AM EDT Schizoaffective disorder, unspecified (CMS/HCC V24, CMS/HCC V28) Hypothyroidism, unspecified COMPLETE BLOOD COUNT Routine 02/25/2025 5:50 AM EDT Schizoaffective disorder, unspecified (CMS/HCC V24, CMS/HCC V28) Hypothyroidism, unspecified THYROID STIMULATING HORMONE Routine 02/25/2025 5:50 AM EDT Schizoaffective disorder, unspecified (CMS/HCC V24, CMS/HCC V28) Hypothyroidism, unspecified documented in this encounter Results * Thyroid stimulating hormone (02/25/2025 5:50 AM EDT) TSH 1.51 0.40 - 4.00 mcIU/mL LAB CHEMISTRY METHOD 02/25/2025 10:58 AM EDT [facility] Blood Venous blood specimen / Unknown 02/25/2025 5:50 AM EDT 02/25/2025 6:36 AM EDT us Juan Richey MD LAB BLOOD ORDERABLES Final Resul t [facility] [address] [place] [address], [place] [phone] * (ABNORMAL) Complete blood count (02/25/2025 5:50 AM EDT) WBC 4.4(L) 4.8 - 10.8 K/mcL LAB HEMETOLOGY METHOD 02/25/2025 6:47 AM EDT [facility] RBC 3.90(L) 4.50 - 5.50 M/mcL LAB HEMETOLOGY METHOD [facility]25 6[facility] Hemoglobin 11.8(L) 13.5 - 17.5 g/dL LAB HEMETOLOGY METHOD 02/25/2025 6:47 AM [facility] Hematocrit 32.7(L) 42.0 - 54.0 % LAB HEMETOLOGY METHOD 02/25/2025 6:47 AM T [facility] MCV 83.2 79.0 - 98.0 FL LAB HEMETOLOGY METHOD 02/25/2025 6:47 AM EDT [facility] MCH 30.0 27.0 - 32.0 pcg LAB HEMETOLOGY METHOD 02/25/2025 6:47 AM [facility] MCHC 36.1 32.0 - 37.0 g/dL LAB HEMETOLOGY METHOD 02/25/2025 6:47 [facility] RDW 12.3 11.0 - 15.0 % LAB HEMETOLOGY METHOD 02/25/2025 6:47 AM EDT [facility] Platelets 135 130 - 400 K/mcL LAB HEMETOLOGY METHOD 02/25/2025 6:47 AM EDT [facility] MPV 10.2 7.0 - 11.0 FL LAB HEMETOLOGY METHOD 02/25/2025 6:47 AM EDT [facility] NRBC 0.0 <1.0 % LAB HEMETOLOGY METHOD 02/25/2025 6:47 AM EDT [facility] NRBC Absolute 0.00 <0.10 K/mcL [facility] 02/25/2025 6:47 AM EDT [facility] Blood Venous blood specimen / Unknown 02/25/2025 5:50 AM EDT 02/25/2025 6:36 AM EDT Juan Richey MD LAB BLOOD ORDERABLES Final Resul t [facility] [address] [place] [address], * (ABNORMAL) Gabapentin level (02/25/2025 5:50 AM EDT) Gabapentin 1.7(L) 2.0 - 12.0 ug/mL 02/28/2025 11:17 AM EDT [facility] Comment: If applicable, any drug confirmation testing reported here was developed and the performance characteristics determined by [facility]. This confirmation testing has not been cleared or approved by the FDA. The laboratory is regulated under CLIA as qualified to perform high-complexity testing. This test is used for patient testing purposes. It should not be regarded as investigational or for research. Test performed at [facility], [address] , [place] [address] Mey Sinclair MD, PhD - Hotel Room Attendant Blood Venous blood specimen / Unknown 02/25/2025 5:50 AM EDT 02/25/2025 6:36 AM EDT us Juan Richey MD LAB BLOOD ORDERABLES Final Resul t [facility] [address] [place] [address] documented in this encounter Visit Diagnoses Diagnosis Schizoaffective disorder, unspecified (CMS/HCC V24, CMS/HCC V28) Hypothyroidism, unspecified documented in this encounter Care Teams District Commercial Superintendent Relationship Specialty Start Date End Date Juan Richey MD [address] [place], [place] PCP - General Internal Medicine 11/22/24 documented as of this encounter
--- OUTSIDE RECORDS SUMMARY | 2025-08-31 11:51 | XMS_ITS | Encounter Summary ---
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; Encounter for therapeutic drug level monitoring; Polyneuropathy, unspecified Social History Tobacco Use Types Packs/Day Years Used Date Smoking Tobacco: Never Assessed Sex and Gender Information Value Date Recorded Sex Assigned at Not on file Legal Sex Male 3:39 AM EST Gender Identity Not on file Sexual Orientation Not on file documented as of this encounter Plan of Treatment Pending Results Name Type Priority Associated Diagnoses Date /Time Gabapentin level Lab Routine Other care home (current) drug therapy Encounter for therapeutic drug level monitoring Polyneuropathy, unspecified 08/28/2025 7:14 AM EST documented as of this encounter Visit Diagnoses Diagnosis Other care home (current) drug therapy Encounter for therapeutic drug level monitoring Polyneuropathy, unspecified documented in this encounter Care Teams Tape Cutting Machine Operator Relationship Specialty Start Date End Date Juan Richey MD [address] [place] [address] Dr [address] [place], [place] PCP - General Internal Medicine 11/22/24 documented as of this encounter
--- OUTSIDE RECORDS SUMMARY | 2025-08-31 11:51 | XMS_ITS | Encounter Summary ---
Author Organization [facility] Address [address] [place] [address] Care Team Providers Care Janitor Supervisor Name Role Phone Juan Richey MD Primary Care Provider [phone] Encounter Details Date Type Department Care Team (Latest Contact Info) Description 01/26/2025 Lab Requisition [facility] - Main Lab 299 [facility] [place] [address] Juan Richey MD [address] [place] [address] [address] [place], [place] Schizoaffective disorder, unspecified (CMS/HCC V24, CMS/HCC V28) Social History Tobacco Use Types Packs/Day Years [...] Diagnosis Comments CBC WITH AUTO DIFFERENTIAL Routine 01/26/2025 5:57 AM EDT Schizoaffective disorder, unspecified (CMS/HCC V24, CMS/HCC V28) OXCARBAZEPINE LEVEL Routine 01/26/2025 5 :57 AM EDT Schizoaffective disorder, unspecified (CMS/HCC V24, CMS/HCC V28) CBC AND DIFFERENTIAL Routine 01/26/2025 5:57 AM EDT Schizoaffective disorder, unspecified (CMS/HCC V24, CMS/HCC V28) documented in this encounter Results * (ABNORMAL) CBC auto differential (01/26/2025 5:57 AM EDT) WBC 5.6 4.8 - 10.8 K/[facility] HEMETOLOGY METHOD 01/26/2025 7:56 AM [facility] RBC 4.00(L) 4.50 - 5.50 M/mcL LAB HEMETOLOGY METHOD 01/26/2025 7:56 AM [facility] Hemoglobin 11.9(L) 13.5 - 17.5 g/dL LAB HEMETOLOGY METHOD 01/26/2025 7:56 AM [facility] Hematocrit 32.9(L) 42.0 - 54.0 % LAB HEMETOLOGY METHOD 01/26/2025 7:56 AM [facility] MCV 82.9 79.0 - 98.0 FL LAB HEMETOLOGY METHOD 01/26/2025 7:56 AM [facility] MCH 30.0 27.0 - 32.0 pcg LAB HEMETOLOGY METHOD 01/26/2025 7:56 AM [facility] MCHC 36.2 32.0 - 37.0 g/dL LAB HEMETOLOGY METHOD 01/26/2025 7:56 AM [facility] RDW 12.5 11.0 - 15.0 % LAB HEMETOLOGY METHOD 01/26/2025 7:56 AM [facility] Platelets 156 130 - 400 K/mcL LAB HEMETOLOGY METHOD 01/26/2025 7:56 AM [facility] MPV 9.8 7.0 - 11.0 FL LAB HEMETOLOGY METHOD 01/26/2025 7:56 AM [facility] NRBC 0.0 <1.0 % LAB HEMETOLOGY METHOD 01/26/2025 7:56 AM [facility] NRBC Absolute 0.00 <0.10 K/mcL LAB HEMETOLOGY METHOD 01/26/2025 7:56 AM [facility] Neutrophils Relative 74.5 % LAB HEMETOLOGY METHOD 01/26/2025 7:56 AM [facility] Lymphocytes Relative 15.0 % LAB HEMETOLOGY METHOD 01/26/2025 7:56 AM [facility] Monocytes Relative 9.1 % LAB HEMETOLOGY METHOD 01/26/2025 7:56 AM [facility] Eosinophils Relative 0.4 % LAB HEMETOLOGY METHOD 01/26/2025 7:56 AM [facility] Basophils Relative 0.5 % LAB HEMETOLOGY METHOD 01/26/2025 7:56 AM [facility] Immature Granulocytes Relative 0.5 % LAB HEMETOLOGY METHOD 01/26/2025 7:56 AM [facility] Neutrophils Absolute 4.16 1.50 - 7.00 K/mcL LAB HEMETOLOGY METHOD 01/26/2025 7:56 AM [facility] Lymphocytes Absolute 0.84(L) 1.00 - 5.00 K/mcL LAB HEMETOLOGY METHOD 01/26/2025 7:56 AM [facility] Monocytes Absolute 0.51 0.20 - 1.00 K/mcL LAB HEMETOLOGY METHOD 01/26/2025 7:56 AM [facility] Eosinophils Absolute 0.02 0.00 - 0.50 K/mcL LAB HEMETOLOGY METHOD 01/26/2025 7:56 AM [facility] Basophils Absolute 0.03 0.00 - 0.20 K/mcL LAB HEMETOLOGY METHOD 01/26/2025 7:56 AM [facility] Immature Granulocytes Absolute 0.03 0.00 - 0.03 K/mcL LAB HEMETOLOGY METHOD 01/26/2025 7:56 AM [facility] Blood Venous blood specimen / Unknown 01/26/2025 5:57 AM EDT 01/26/2025 7:30 AM EDT us Juan Richey MD LAB BLOOD ORDERABLES Final Resul t [facility] [address] [place] [address], [place] [phone] * Oxcarbazepine level (01/26/2025 5:57 AM EDT) Oxcarbazepine 21.9 10 - 35 ug/mL 01/28/2025 10:11 AM EDT [facility] Comment: If applicable, any drug confirmation testing reported here was developed and the performance characteristics determined by [facility]. This confirmation testing has not been cleared or approved by the FDA. The laboratory is regulated under CLIA as qualified to perform high-complexity testing. This test is used for patient testing purposes. It should not be regarded as investigational or for research. Test performed at [facility], [address], [place] [address] Mey Sinclair MD, PhD - New Car Salesperson Blood Venous blood specimen / Unknown 01/26/2025 5:57 AM EDT 01/26/2025 7:30 AM EDT Juan Richey MD LAB BLOOD ORDERABLES Final Resul t [facility] [address] [place] [address] documented in this encounter Visit Diagnoses Diagnosis Schizoaffective disorder, unspecified (CMS/HCC V24, CMS/HCC V28) documented in this encounter Care Teams Janitor Supervisor Relationship Specialty Start Date End Date Juan Richey MD [address] [facility] [place], [place] PCP - General Internal Medicine 11/22/24 documented as of this encounter
--- OUTSIDE RECORDS SUMMARY | 2025-08-31 11:52 | XMS_ITS | Encounter Summary ---
Author Organization [employer] Address [address] [place] [address] Care Team Providers Care Stadium Manager Name Role Phone Juan Richey MD Primary Care Provider [phone] Encounter Details Date Type Department Care Team (Late st Contact Info) Description 11/22/2024 Lab Requisition [facility] - Main Lab [address] [facility] [place] [address] Juan Richey MD [address] [place] [address] Dr [address] [place], [place] Essential (primary) hypertension; Schizoaffective disorder, unspecified (CMS/HCC V24, CMS/HCC V28) [...] Associated Diagnosis Comments SST - GOLD Routine 11/22/2024 4:45 PM EST Essential (primary) hypertension Schizoaffective disorder, unspecified (CMS/HCC) CLOZAPINE Routine 11/22/2024 4:45 PM EST Essential (primary) hypertension Schizoaffective disorder, unspecified (CMS/HCC) CBC WITH AUTO DIFFERENTIAL Routine 11/22/2024 4:45 PM EST Essential (primary) hypertension Schizoaffective disorder, unspecified (CMS/HCC) GABAPENTIN LEVEL Routine 11/22/2024 4:45 PM EST Essential (primary) hypertension Schizoaffective disorder, unspecified (CMS/HCC) CBC AND DIFFERENTIAL Routine 11/22/2024 4:45 PM EST Essential (primary) hypertension Schizoaffective disorder, unspecified (CMS/HCC) AMMONIA Routine 11/22/2024 4:45 PM EST Essential (primary) hypertension Schizoaffective disorder, unspecified (CMS/HCC) COMPREHENSIVE METABOLIC PANEL Routine 11/22/2024 4:45 PM EST Essential (primary) hypertension Schizoaffective disorder, unspecified (CMS/HCC) documented in this encounter Results * SST tube (11/22/2024 4:45 PM EST) Pathologist [facility] Extra Tube Hold for add-ons. 11/22/2024 7:01 PM EST [facility] Comment:Auto resulted. Blood Venous blood specimen / Unknown 11/22/2024 4:45 PM EST 11/22/2024 5:18 PM EST us Juan Richey MD LAB BLOOD ORDERABLES Final Resul t [facility] [address] [place] [address], [place] [phone] * (ABNORMAL) CBC auto differential (11/22/2024 4:45 PM EST) Pathologist [facility] WBC 4.1(L) 4.8 - 10.8 K/mcL LAB HEMETOLOGY METHOD 11/22/2024 5:49 PM [facility] RBC 4.20(L) 4.50 - 5.50 M/mcL LAB HEMETOLOGY METHOD 11/22/2024 5:49 PM [facility] Hemoglobin 12.5(L) 13.5 - 17.5 g/dL LAB HEMETOLOGY METHOD 11/22/2024 5:49 PM [facility] Hematocrit 35.5(L) 42.0 - 54.0 % LAB HEMETOLOGY METHOD 11/22/2024 5:49 PM [facility] MCV 84.9 79.0 - 98.0 FL LAB HEMETOLOGY METHOD 11/22/2024 5:49 PM [facility] MCH 29.9 27.0 - 32.0 pcg LAB HEMETOLOGY METHOD 11/22/2024 5:49 PM [facility] MCHC 35.2 32.0 - 37.0 g/dL LAB HEMETOLOGY METHOD 11/22/2024 5:49 PM [facility] RDW 12.4 11.0 - 15.0 % LAB HEMETOLOGY METHOD 11/22/2024 5:49 PM [facility] Platelets 155 130 - 400 K/mcL LAB HEMETOLOGY METHOD 11/22/2024 5:49 PM [facility] MPV 10.1 7.0 - 11.0 FL LAB HEMETOLOGY METHOD 11/22/2024 5:49 PM [facility] NRBC 0.0 <1.0 % LAB HEMETOLOGY METHOD 11/22/2024 5:49 PM [facility] NRBC Absolute 0.00 <0.10 K/mcL LAB HEMETOLOGY METHOD 11/22/2024 5:49 PM [facility] Neutrophils Relative 69.8 % LAB HEMETOLOGY METHOD 11/22/2024 5:49 PM [facility] Lymphocytes Relative 18.1 % LAB HEMETOLOGY METHOD 11/22/2024 5:49 PM [facility] Monocytes Relative 10.9 % LAB HEMETOLOGY METHOD 11/22/2024 5:49 PM [facility] Eosinophils Relative 0.2 % LAB HEMETOLOGY METHOD 11/22/2024 5:49 PM [facility] Basophils Relative 0.5 % LAB HEMETOLOGY METHOD 11/22/2024 5:49 PM [facility] Immature Granulocytes Relative 0.5 % LAB HEMETOLOGY METHOD 11/22/2024 5:49 PM EST [facility] Neutrophils Absolute 2.89 1.50 - 7.00 K/mcL LAB HEMETOLOGY METHOD 11/22/2024 5:49 PM EST [facility] Lymphocytes Absolute 0.75(L) 1.00 - 5.00 K/mcL LAB HEMETOLOGY METHOD 11/22/2024 5:49 PM EST [facility] Monocytes Absolute 0.45 0.20 - 1.00 K/mcL LAB HEMETOLOGY METHOD 11/22/2024 5:49 PM EST [facility] Eosinophils Absolute 0.01 0.00 - 0.50 K/mcL LAB HEMETOLOGY METHOD 11/22/2024 5:49 PM EST [facility] Basophils Absolute 0.02 0.00 - 0.20 K/mcL LAB HEMETOLOGY METHOD 11/22/2024 5:49 PM EST [facility] Immature Granulocytes Absolute 0.02 0.00 - 0.03 K/[facility] LAB HEMETOLOGY METHOD 11/22/2024 5:49 PM EST [facility] Blood Venous blood specimen / Unknown 11/22/2024 4:45 PM EST 11/22/2024 5:18 PM EST us Juan Richey MD LAB BLOOD ORDERABLES Final Resul t [facility] [address] [place] [address], * (ABNORMAL) Gabapentin level (11/22/2024 4:45 PM EST) Gabapentin 1.7(L) 2.0 - 12.0 ug/mL 11/25/2024 4:08 AM EST [facility] Comment: If applicable, any drug confirmation testing reported here was developed and the performance characteristics determined by [facility]. This confirmation testing has not been cleared or approved by the FDA. The laboratory is regulated under CLIA as qualified to perform high-complexity testing. This test is used for patient testing purposes. It should not be regarded as investigational or for research. Test performed at [facility], [address] [place] [address] Mey Sinclair MD, PhD - [employer] Blood Venous blood specimen / Unknown 11/22/2024 4:45 PM EST 11/22/2024 5:18 PM EST us Juan Richey MD LAB BLOOD ORDERABLES Final Resul t [facility] [address] [place] [address] * (ABNORMAL) Clozapine (11/22/2024 4:45 PM EST) Clozapine 94(L) 200 - 700 ng/mL 11/25/2024 12:10 PM EST [facility] Comment:Clozapine (Clozaril) toxic level: >1000 ng/mL Norclozapine 150(L) 200 - 700 ng/mL 11/25/2024 12:10 PM EST [facility] Comment: For Refractory Schizophrenia, at least 350 ng/mL of Clozapine should be achieved to evaluate efficacy. After response is achieved, reduce dose to minimum level needed to maintain remission. Seizure activity may occur with Clozapine levels over 600 ng/mL, but is unusual below 1000 ng/mL. The biological activity of Clozapine metabolites is not fully known. Typically, Norclozapine concentrations are similar to those of the parent Clozapine (+/- 50%). If applicable, any drug confirmation testing reported here was developed and the performance characteristics determined by [facility]. This confirmation testing has not been cleared or approved by the FDA. The laboratory is regulated under CLIA as qualified to perform high-complexity testing. This test is used for patient testing purposes. It should not be regarded as investigational or for research. Test performed at [facility], [address] , [place] [address] Mey Sinclair MD, PhD - [employer] Blood Venous blood specimen / Unknown 11/22/2024 4:45 PM EST 11/22/2024 5:18 PM EST us Juan Richey MD LAB BLOOD ORDERABLES Final Resul t [facility] [address] [place] [address] * Ammonia (11/22/2024 4:45 PM EST) Ammonia 33 11 - 35 mcmol/L LAB CHEMISTRY METHOD 11/22/2024 5:54 PM [facility] Blood Venous blood specimen / Unknown 11/22/2024 4:45 PM EST 11/22/2024 5:18 PM EST us Juan Richey MD LAB BLOOD ORDERABLES Final Resul t Performing Organization Address City/[facility]/ZIP Co de Phone Number [facility] [address] [place] [address], [place] [phone] * (ABNORMAL) Comprehensive metabolic panel (11/22/2024 4:45 PM EST) Sodium 123(L) 133 - 145 mmol/L LAB CHEMISTRY METHOD 11/22/2024 6:43 PM [facility] Potassium 3.9 3.5 - 5.5 mmol/L LAB CHEMISTRY METHOD 11/22/2024 6:43 PM [facility] Chloride 91(L) 96 - 110 mmol/L LAB CHEMISTRY METHOD 11/22/2024 6:43 PM [facility] CO2 24 21 - 32 mmol/L LAB CHEMISTRY METHOD 11/22/2024 6:43 PM [facility] Anion Gap 8 3 - 11 LAB CHEMISTRY METHOD 11/22/2024 6:43 PM [facility] Glucose 98 70 - 100 mg/dL LAB CHEMISTRY METHOD 11/22/2024 6:43 PM [facility] BUN 9 5 - 25 mg/dL LAB CHEMISTRY METHOD 11/22/2024 6:43 PM [facility] Creatinine 0.70 0.70 - 1.30 mg/dL LAB CHEMISTRY METHOD 11/22/2024 6:43 PM [facility] eGFR 105 >=60 mL/min/1. 73m2 LAB CHEMISTRY METHOD 11/22/2024 6:43 PM [facility] Comment:Calculation based on the Chronic Kidney Disease Epidemiology Collaboration (CKD-EPI) equation refit without adjustment for race. BUN/Creatinine Ratio 12.9 LAB CHEMISTRY METHOD 11/22/2024 6:43 PM [facility] Calcium 8.9 8.5 - 10.5 mg/dL LAB CHEMISTRY METHOD 11/22/2024 6:43 PM [facility] AST (SGOT) 21 10 - 42 unit/L LAB CHEMISTRY METHOD 11/22/2024 6:43 PM [facility] ALT (SGPT) 30 10 - 60 unit/L LAB CHEMISTRY METHOD 11/22/2024 6:43 PM [facility] Alkaline Phosphatase 95 42 - 121 unit/L LAB CHEMISTRY METHOD 11/22/2024 6:43 PM [facility] Total Protein 6.6 6.0 - 8.0 g/dL LAB CHEMISTRY METHOD 11/22/2024 6:43 PM [facility] Albumin 4.2 3.2 - 5.0 g/dL LAB CHEMISTRY METHOD 11/22/2024 6:43 PM [facility] Total Bilirubin 0.4 0.0 - 1.4 mg/dL LAB CHEMISTRY METHOD 11/22/2024 6:43 PM [facility] Blood Venous blood specimen / Unknown 11/22/2024 4:45 PM EST 11/22/2024 5:18 PM EST us Juan Richey MD LAB BLOOD ORDERABLES Final Resul t [facility] [address] [place] [address], documented in this encounter Visit Diagnoses Diagnosis Essential (primary) hypertension Unspecified essential hypertension Schizoaffective disorder, unspecified (CMS/HCC V24, CMS/HCC V28) documented in this encounter Care Teams Stadium Manager Relationship Specialty Start Date End Date Juan Richey MD [address] [place] [address] Dr [address] [place], [place] PCP - General Internal Medicine 11/22/24 documented as of this encounter
--- OUTSIDE RECORDS SUMMARY | 2025-08-31 11:52 | XMS_ITS | Encounter Summary ---
Author Organization [employer] Address [address] [place] [address] Care Team Providers Care Insurance Licensing Supervisor Name Role Phone Juan Richey MD Primary Care Provider [phone] Encounter Details Date Type Department Care Team (Latest Contact Info) Description 03/04/[address] [facility] - Main Lab [address] [place] [address] Juan Richey MD [address] [place] [address] [address] [place], [place] Schizoaffective disorder, unspecified (CMS/HCC V24, CMS/HCC V28); Other symptoms and signs involving emotional state; Benign prostatic hyperplasia without lower urinary tract symptoms Social History Tobacco Use Types Packs/Day Years [...] Diagnosis Comments URINALYSIS WITH REFLEX MICROSCOPIC Routine 03/04/2025 12:00 AM EDT Schizoaffective disorder, unspecified (CMS/HCC V24, CMS/HCC V28) Other symptoms and signs involving emotional state Benign prostatic hyperplasia without lower urinary tract symptoms URINALYSIS WITH REFLEX MICROSCOPIC Routine 03/04/2025 12:00 AM EDT Schizoaffective disorder, unspecified (CMS/HCC V24, CMS/HCC V28) Other symptoms and signs involving emotional state Benign prostatic hyperplasia without lower urinary tract symptoms CULTURE URINE Routine 03/04/2025 12:00 AM EDT Schizoaffective disorder, unspecified (CMS/HCC V24, CMS/HCC V28) Other symptoms and signs involving emotional state Benign prostatic hyperplasia without lower urinary tract symptoms documented in this encounter Results * (ABNORMAL) Culture urine (03/04/2025 12:00 AM EDT) Pathologist [facility] Culture, Urine >100,000 CFU/mL Enterococcus faecalis(A) JEFERSON 03/06/2025 11:23 AM EDT [facility] Comment: Edited result: Previously reported as Enterococcus species on 03/05/2025 at 0947 EDT. Urine Urine specimen obtained by clean catch procedure / Unknown 03/04/2025 03/04/2025 7:42 AM EDT Narrative [facility] - 03/06/2025 11:23 AM EDT Additional colony types present in insignificant amounts. Organism Antibiotic Method Susceptibility Enterococcus faecalis Benzylpenicillin JEFERSON 2 ug/ml: Susceptible Enterococcus faecalis Ampicillin JEFERSON <=2 ug/ml: Susceptible Enterococcus faecalis Ciprofloxacin JEFERSON 1 ug/ml: Susceptible Enterococcus faecalis Levofloxacin JEFERSON 1 ug/ml: Susceptible Enterococcus faecalis Linezolid JEFERSON 2 ug/ml: Susceptible Enterococcus faecalis Vancomycin JEFERSON 1 ug/ml: Susceptible Enterococcus faecalis Tetracycline JEFERSON >=16 ug/ml: Resistant Enterococcus faecalis Nitrofurantoin JEFERSON <=16 ug/ml: Susceptible Juan Richey MD LAB MICROBIOLOGY - GENERAL ORDER TRISH Final Result [facility] [address] [place] [address], [place] [phone] * (ABNORMAL) Urinalysis with reflex microscopic (03/04/2025 12:00 AM EDT) [facility] [place] Urine 1.010 1.003 - 1.030 LAB URINALYSIS - AUTOMATED METHOD 03/04/2025 8:17 AM EDT [facility] pH, Urine 7.0 5.0 - 8.0 pH LAB URINALYSIS - AUTOMATED METHOD 03/04/2025 8:17 AM EDT [facility] Leukocytes, Urine Large(A) Negative LAB URINALYSIS - AUTOMATED METHOD 03/04/2025 8:17 AM [facility] Nitrite, Urine Negative Negative LAB URINALYSIS - AUTOMATED METHOD 03/04/2025 8:17 AM [facility] Protein, Urine Negative <=Trace mg/dL LAB URINALYSIS - AUTOMATED METHOD 03/04/2025 8:17 AM [facility] Glucose, Urine Negative Negative mg/dL LAB URINALYSIS - AUTOMATED METHOD 03/04/2025 8:17 AM [facility] Ketones, Urine Negative Negative mg/dL LAB URINALYSIS - AUTOMATED METHOD 03/04/2025 8:17 AM [facility] Urobilinogen, Urine 1.0 0.2 - 1.0 mg/dL LAB URINALYSIS - AUTOMATED METHOD 03/04/2025 8:17 AM [facility] Bilirubin, Urine Negative Negative LAB URINALYSIS - AUTOMATED METHOD 03/04/2025 8:17 AM [facility] Blood, Urine Negative Negative LAB URINALYSIS - AUTOMATED METHOD 03/04/2025 8:17 AM [facility] RBC, Urine 3.2 0 - 4 /HPF LAB URINALYSIS - AUTOMATED METHOD 03/04/2025 8:17 AM [facility] WBC, Urine 1.6 0 - 4 /HPF LAB URINALYSIS - AUTOMATED METHOD 03/04/2025 8:17 AM [facility] Squamous Epithelial, Urine >100(H) 0 - 60 /LPF LAB URINALYSIS - AUTOMATED METHOD 03/04/2025 8:17 AM [facility] Bacteria, Urine Negative Negative /HPF LAB URINALYSIS - AUTOMATED METHOD 03/04/2025 8:17 AM [facility] Hyaline Casts, Urine 0.8 0 - 3 /LPF LAB URINALYSIS - AUTOMATED METHOD 03/04/2025 8:17 AM [facility] Urine Urine specimen obtained by clean catch procedure / Unknown 03/04/2025 03/04/2025 7:36 AM EDT Juan Richey MD LAB URINE ORDERABLES Final Resul t [facility] [address] [place] [address], documented in this encounter Visit Diagnoses Diagnosis Schizoaffective disorder, unspecified (CMS/[facility] V24, CMS/[facility] V28) Other symptoms and signs involving emotional state Benign prostatic hyperplasia without lower urinary tract symptoms documented in this encounter Care Teams Insurance Licensing Supervisor Relationship Specialty Start Date End Date Juan Richey MD [address] [place] [address] Dr [address] [place] PCP - General Internal Medicine 11/22/24 documented as of this encounter
--- OUTSIDE RECORDS SUMMARY | 2025-08-31 11:52 | XMS_ITS | Encounter Summary ---
Author Organization [employer] Address [address] [place] [address] Care Team Providers Care Mobile Security Architect Name Role Phone Juan Richey MD Primary Care Provider [phone] Encounter Details Date Type Department Care Team (Late st Contact Info) Description 09/27/2024 Lab Requisition [facility] Lab [address] [facility] [place] [place] [address] Juan Richey MD [address] [place] [address] Dr [address] [place], [place] Other hospice case manager (current) drug therapy; Schizoaffective disorder, unspecified (CMS/HCC V24, CMS/HCC V28) [...] Date/Time Associated Diagnosis Comments SST - GOLD STAT 09/27/2024 12:00 AM EST Schizoaffective disorder, unspecified (CMS/HCC) Other longterm (current) drug therapy CBC WITH AUTO DIFFERENTIAL STAT 09/27/2024 12:00 AM EST Schizoaffective disorder, unspecified (CMS/HCC) Other longterm (current) drug therapy GABAPENTIN LEVEL STAT 09/27/2024 12:0 0 AM EST Schizoaffective disorder, unspecified (CMS/HCC) Other hospice case manager (current) drug therapy CBC AND DIFFERENTIAL Routine 09/27/2024 12:00 AM EST Schizoaffective disorder, unspecified (CMS/HCC) Other hospice case manager (current) drug therapy THYROID STIMULATING HORMONE STAT 09/27/2024 12:00 AM EST Schizoaffective disorder, unspecified (CMS/HCC) Other hospice case manager (current) drug therapy AMMONIA STAT 09/27/2024 12:00 AM EST Schizoaffective disorder, unspecified (CMS/HCC) Other longterm (current) drug therapy COMPREHENSIVE METABOLIC PANEL STAT 09/27/2024 12:00 AM EST Schizoaffective disorder, unspecified (CMS/HCC) Other longterm (current) drug therapy documented in this encounter Results * SST tube (09/27/2024 12:00 AM EST) Pathologist [facility] Extra Tube Hold for add-ons. 11/03/2024 9:[address] [facility] Comment:Auto resulted. Blood Venous blood specimen / Unknown 09/27/2024 09/27/2024 7:15 PM EST us Juan Richey MD LAB BLOOD ORDERABLES Final Resul t [facility] [address] [place] [address], * (ABNORMAL) CBC auto differential (09/27/2024 12:00 AM EST) Pathologist [facility] WBC 4.1(L) 4.8 - 10.8 K/mcL LAB HEMETOLOGY METHOD 09/27/2024 8:08 PM [facility] RBC 4.50 4.50 - 5.50 M/mcL LAB HEMETOLOGY METHOD 09/27/2024 8:08 PM [facility] Hemoglobin 13.3(L) 13.5 - 17.5 g/dL LAB HEMETOLOGY METHOD 09/27/2024 8:08 PM [facility] Hematocrit 37.4(L) 42.0 - 54.0 % LAB HEMETOLOGY METHOD 09/27/2024 8:08 PM [facility] MCV 83.5 79.0 - 98.0 FL LAB HEMETOLOGY METHOD 09/27/2024 8:08 PM [facility] MCH 29.7 27.0 - 32.0 pcg LAB HEMETOLOGY METHOD 09/27/2024 8:08 PM [facility] MCHC 35.6 32.0 - 37.0 g/dL LAB HEMETOLOGY METHOD 09/27/2024 8:08 PM [facility] RDW 12.8 11.0 - 15.0 % LAB HEMETOLOGY METHOD 09/27/2024 8:08 PM [facility] Platelets 157 130 - 400 K/mcL LAB HEMETOLOGY METHOD 09/27/2024 8:08 PM [facility] MPV 10.2 7.0 - 11.0 FL LAB HEMETOLOGY METHOD 09/27/2024 8:08 PM [facility] NRBC 0.0 <1.0 % LAB HEMETOLOGY METHOD 09/27/2024 8:08 PM [facility] NRBC Absolute 0.00 <0.10 K/mcL LAB HEMETOLOGY METHOD 09/27/2024 8:08 PM [facility] Neutrophils Relative 67.7 % LAB HEMETOLOGY METHOD 09/27/2024 8:08 PM [facility] Lymphocytes Relative 22.0 % LAB HEMETOLOGY METHOD 09/27/2024 8:08 PM [facility] Monocytes Relative 9.6 % LAB HEMETOLOGY METHOD 09/27/2024 8:08 PM [facility] Eosinophils Relative 0.0 % LAB HEMETOLOGY METHOD 09/27/2024 8:08 PM [facility] Basophils Relative 0.5 % LAB HEMETOLOGY METHOD 09/27/2024 8:[address] [facility] Immature Granulocytes Relative 0.2 % LAB HEMETOLOGY METHOD 09/27/2024 8:[address] [facility] Neutrophils Absolute 2.74 1.50 - 7.00 K/mcL LAB HEMETOLOGY METHOD 09/27/2024 8:[address] [facility] Lymphocytes Absolute 0.89(L) 1.00 - 5.00 K/mcL LAB HEMETOLOGY METHOD 09/27/2024 8:[address] [facility] Monocytes Absolute 0.39 0.20 - 1.00 K/mcL LAB HEMETOLOGY METHOD 09/27/2024 8:[address] [facility] Eosinophils Absolute 0.00 0.00 - 0.50 K/mcL LAB HEMETOLOGY METHOD 09/27/2024 8:[address] [facility] Basophils Absolute 0.02 0.00 - 0.20 K/mcL LAB HEMETOLOGY METHOD 09/27/2024 8:[address] [facility] Immature Granulocytes Absolute 0.01 0.00 - 0.03 K/mcL LAB HEMETOLOGY METHOD 09/27/2024 8:[address] [facility] Blood Venous blood specimen / Unknown 09/27/2024 09/27/2024 7:15 PM EST Juan Richey MD LAB BLOOD ORDERABLES Final Resul t [facility] [address] [place] [address], * (ABNORMAL) Gabapentin level (09/27/2024 12:00 AM EST) Gabapentin 1.4(L) 2.0 - 12.0 ug/mL 09/30/2024 3:20 PM EST [facility] Comment: If applicable, any drug confirmation testing reported here was developed and the performance characteristics determined by [facility]. This confirmation testing has not been cleared or approved by the FDA. The laboratory is regulated under CLIA as qualified to perform high-complexity testing. This test is used for patient testing purposes. It should not be regarded as investigational or for research. Test performed at [facility], [address] , [place] [address] Mey Sinclair MD, PhD - Lead Assistant Manager Blood Venous blood specimen / Unknown 09/27/2024 09/27/2024 7:15 PM EST us Juan Richey MD LAB BLOOD ORDERABLES Final Resul t [facility] [address] [place] [address] * (ABNORMAL) Ammonia (09/27/2024 12:00 AM EST) Ammonia 52(H) 11 - 35 mcmol/L LAB CHEMISTRY METHOD 09/27/2024 9:[address] [facility] Blood Venous blood specimen / Unknown 09/27/2024 09/27/2024 7:15 PM EST us Juan Richey MD LAB BLOOD ORDERABLES Final Resul t Performing Organization Address [facility] Co de Phone Number [facility] [address] [place] [address], [place] [phone] * Thyroid stimulating hormone (09/27/2024 12:00 AM EST) TSH 1.02 0.40 - 4.00 mcIU/mL LAB CHEMISTRY METHOD 09/27/2024 11:[address] [facility] Blood Venous blood specimen / Unknown 09/27/2024 09/27/2024 7:15 PM EST us Juan Richey MD LAB BLOOD ORDERABLES Final Resul t Performing Organization Address City/[facility]/ZIP Co de Phone Number [facility] [address] [place] [address], [place] [phone] * (ABNORMAL) Comprehensive metabolic panel (09/27/2024 12:00 AM EST) Sodium 127(L) 133 - 145 mmol/L LAB CHEMISTRY METHOD 09/27/2024 11:28 PM [facility] Potassium 4.5 3.5 - 5.5 mmol/L LAB CHEMISTRY METHOD 09/27/2024 11:28 PM [facility] Comment:Hemolysis present Chloride 96 96 - 110 mmol/L LAB CHEMISTRY METHOD 09/27/2024 11:28 PM [facility] CO2 22 21 - 32 mmol/L LAB CHEMISTRY METHOD 09/27/2024 11:28 PM [facility] Anion Gap 9 3 - 11 LAB CHEMISTRY METHOD 09/27/2024 11:28 PM [facility] Glucose 109(H) 70 - 100 mg/dL LAB CHEMISTRY METHOD 09/27/2024 11:28 PM [facility] BUN 5 5 - 25 mg/dL LAB CHEMISTRY METHOD 09/27/2024 11:28 PM [facility] Creatinine 0.70 0.70 - 1.30 mg/dL LAB CHEMISTRY METHOD 09/27/2024 11:28 PM [facility] eGFR 105 >=60 mL/min/1. 73m2 LAB CHEMISTRY METHOD 09/27/2024 11:28 PM [facility] Comment:Calculation based on the Chronic Kidney Disease Epidemiology Collaboration (CKD-EPI) equation refit without adjustment for race. BUN/Creatinine Ratio 7.1 LAB CHEMISTRY METHOD 09/27/2024 11:28 PM [facility] Calcium 9.2 8.5 - 10.5 mg/dL LAB CHEMISTRY METHOD 09/27/2024 11:28 PM [facility] AST (SGOT) 30 10 - 42 unit/L LAB CHEMISTRY METHOD 09/27/2024 11:28 PM [facility] Comment:Hemolysis present ALT (SGPT) 37 10 - 60 unit/L LAB CHEMISTRY METHOD 09/27/2024 11:[address] [facility] Alkaline Phosphatase 116 42 - 121 unit/L LAB CHEMISTRY METHOD 09/27/2024 11:[address] [facility] Total Protein 7.1 6.0 - 8.0 g/dL LAB CHEMISTRY METHOD 09/27/2024 11:28 PM [facility] Albumin 4.5 3.2 - 5.0 g/dL LAB CHEMISTRY METHOD 09/27/2024 11:28 PM [facility] Total Bilirubin 0.5 0.0 - 1.4 mg/dL LAB CHEMISTRY METHOD 09/27/2024 11:28 PM [facility] Blood Venous blood specimen / Unknown 09/27/2024 09/27/2024 7:15 PM EST us Juan Richey MD LAB BLOOD ORDERABLES Final Resul t [facility] [address] [place] [address], documented in this encounter Visit Diagnoses Diagnosis Other hospice case manager (current) drug therapy Schizoaffective disorder, unspecified (CMS/HCC V24, CMS/HCC V28) documented in this encounter Care Teams Mobile Security Architect Relationship Specialty Start Date End Date Juan Richey MD [address] [place] [address] Dr [address] [place] PCP - General Internal Medicine 11/22/24 documented as of this encounter
--- OUTSIDE RECORDS SUMMARY | 2025-08-31 11:53 | XMS_ITS | Encounter Summary ---
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 Social History Tobacco Use [...] Diagnosis Comments CBC WITH AUTO DIFFERENTIAL Routine 11/03/2024 7:03 AM EST Other fci (current) drug therapy CBC AND DIFFERENTIAL Routine 11/03/2024 7:03 AM EST Other fci (current) drug therapy documented in this encounter Results * (ABNORMAL) CBC auto differential (11/03/2024 7:03 AM EST) WBC 4.2(L) 4.8 - 10.8 K/mcL LAB HEMETOLOGY METHOD 11/03/2024 8:18 AM EST [facility] RBC 4.10(L) 4.50 - 5.50 M/mcL LAB HEMETOLOGY METHOD 11/03/2024 8:18 AM EST [facility] Hemoglobin 11.9(L) 13.5 - 17.5 g/dL LAB HEMETOLOGY METHOD 11/03/2024 8:18 AM [facility] Hematocrit 34.2(L) 42.0 - 54.0 % LAB HEMETOLOGY METHOD 11/03/2024 8:18 AM [facility] MCV 83.6 79.0 - 98.0 FL LAB HEMETOLOGY METHOD 11/03/2024 8:18 AM [facility] MCH 29.1 27.0 - 32.0 pcg LAB HEMETOLOGY METHOD 11/03/2024 8:18 AM [facility] MCHC 34.8 32.0 - 37.0 g/dL LAB HEMETOLOGY METHOD 11/03/2024 8:18 AM [facility] RDW 12.4 11.0 - 15.0 % LAB HEMETOLOGY METHOD 11/03/2024 8:18 AM [facility] Platelets 133 130 - 400 K/mcL LAB HEMETOLOGY METHOD 11/03/2024 8:18 AM [facility] MPV 9.8 7.0 - 11.0 FL LAB HEMETOLOGY METHOD 11/03/2024 8:18 AM [facility] NRBC 0.0 <1.0 % LAB HEMETOLOGY METHOD 11/03/2024 8:18 AM [facility] NRBC Absolute 0.00 <0.10 K/mcL LAB HEMETOLOGY METHOD 11/03/2024 8:18 AM [facility] Neutrophils Relative 69.5 % LAB HEMETOLOGY METHOD 11/03/2024 8:18 AM [facility] Lymphocytes Relative 19.9 % LAB HEMETOLOGY METHOD 11/03/2024 8:18 AM [facility] Monocytes Relative 9.7 % LAB HEMETOLOGY METHOD 11/03/2024 8:18 AM [facility] Eosinophils Relative 0.2 % LAB HEMETOLOGY METHOD 11/03/2024 8:18 AM EST [facility] Basophils Relative 0.5 % LAB HEMETOLOGY METHOD 11/03/2024 8:18 AM [facility] Immature Granulocytes Relative 0.2 % LAB HEMETOLOGY METHOD 11/03/2024 8:18 AM [facility] Neutrophils Absolute 2.93 1.50 - 7.00 K/mcL LAB HEMETOLOGY METHOD 11/03/2024 8:18 AM EST [facility] Lymphocytes Absolute 0.84(L) 1.00 - 5.00 K/mcL LAB HEMETOLOGY METHOD 11/03/2024 8:18 AM [facility] Monocytes Absolute 0.41 0.20 - 1.00 K/mcL LAB HEMETOLOGY METHOD 11/03/2024 8:18 AM [facility] Eosinophils Absolute 0.01 0.00 - 0.50 K/mcL LAB HEMETOLOGY METHOD 11/03/2024 8:18 AM [facility] Basophils Absolute 0.02 0.00 - 0.20 K/mcL LAB HEMETOLOGY METHOD 11/03/2024 8:18 AM [facility] Immature Granulocytes Absolute 0.01 0.00 - 0.03 K/mcL LAB HEMETOLOGY METHOD 11/03/2024 8:18 AM [facility] Blood Venous blood specimen / Unknown 11/03/2024 7:03 AM EST 11/03/2024 8:13 AM EST us Juan Richey MD LAB BLOOD ORDERABLES Final Resul t [facility] [address] [place] [address], documented in this encounter Visit Diagnoses Diagnosis Other termite technician (current) drug therapy documented in this encounter Care Teams Emergency Department Clinician Relationship Specialty Start Date End Date Juan Richey MD [address] [place] [address] Dr [address] [place] PCP - General Internal Medicine 11/22/24 documented as of this encounter
--- OUTSIDE RECORDS SUMMARY | 2025-08-31 11:53 | XMS_ITS | Encounter Summary ---
Author Organization [facility] Address [address] [place] [address] Care Team Providers Care Fashion Journalist Name Role Phone Juan Richey MD Primary Care Provider Encounter Details Date Type Department Care Team (Late st Contact Info) Description 09/02/2024 Lab Requisition [facility] [address] [place] [address] Juan Richey MD [address] [place] [address] [address] [place], [place] Other blade worker (current) drug therapy Social History Tobacco Use [...] Diagnosis Comments CBC WITH AUTO DIFFERENTIAL Routine 09/02/2024 6:35 AM EST Other fci (current) drug therapy CBC AND DIFFERENTIAL Routine 09/02/2024 6:35 AM EST Other fci (current) drug therapy BASIC METABOLIC PANEL Routine 09/02/2024 6:35 AM EST Other blade worker (current) drug therapy documented in this encounter Results * (ABNORMAL) CBC auto differential (09/02/2024 6:35 AM EST) WBC 5.0 4.8 - 10.8 K/[facility] LAB HEMETOLOGY METHOD 09/02/2024 7:45 AM EST [facility] RBC 4.10(L) 4.50 - 5.50 M/[facility] LAB HEMETOLOGY METHOD 09/02/2024 7:45 AM [facility] Hemoglobin 12.1(L) 13.5 - 17.5 g/dL LAB HEMETOLOGY METHOD 09/02/2024 7:45 AM [facility] Hematocrit 34.8(L) 42.0 - 54.0 % LAB HEMETOLOGY METHOD 09/02/2024 7:45 AM [facility] MCV 84.5 79.0 - 98.0 FL LAB HEMETOLOGY METHOD 09/02/2024 7:45 AM [facility] MCH 29.4 27.0 - 32.0 pcg LAB HEMETOLOGY METHOD 09/02/2024 7:45 AM [facility] MCHC 34.8 32.0 - 37.0 g/dL LAB HEMETOLOGY METHOD 09/02/2024 7:45 AM [facility] RDW 13.3 11.0 - 15.0 % LAB HEMETOLOGY METHOD 09/02/2024 7:45 AM [facility] Platelets 158 130 - 400 K/mcL LAB HEMETOLOGY METHOD 09/02/2024 7:45 AM [facility] MPV 10.5 7.0 - 11.0 FL LAB HEMETOLOGY METHOD 09/02/2024 7:45 AM [facility] NRBC 0.0 <1.0 % LAB HEMETOLOGY METHOD 09/02/2024 7:45 AM [facility] NRBC Absolute 0.00 <0.10 K/mcL LAB HEMETOLOGY METHOD 09/02/2024 7:45 AM [facility] Neutrophils Relative 65.4 % LAB HEMETOLOGY METHOD 09/02/2024 7:45 AM [facility] Lymphocytes Relative 22.1 % LAB HEMETOLOGY METHOD 09/02/2024 7:45 AM [facility] Monocytes Relative 11.3 % LAB HEMETOLOGY METHOD 09/02/2024 7:45 AM EST [facility] Eosinophils Relative 0.2 % LAB HEMETOLOGY METHOD 09/02/2024 7:45 AM [facility] Basophils Relative 0.8 % LAB HEMETOLOGY METHOD 09/02/2024 7:45 AM [facility] Immature Granulocytes Relative 0.2 % LAB HEMETOLOGY METHOD 09/02/2024 7:45 AM [facility] Neutrophils Absolute 3.29 1.50 - 7.00 K/mcL LAB HEMETOLOGY METHOD 09/02/2024 7:45 AM [facility] Lymphocytes Absolute 1.11 1.00 - 5.00 K/mcL LAB HEMETOLOGY METHOD 09/02/2024 7:45 AM [facility] Monocytes Absolute 0.57 0.20 - 1.00 K/mcL LAB HEMETOLOGY METHOD 09/02/2024 7:45 AM EST [facility] Eosinophils Absolute 0.01 0.00 - 0.50 K/mcL LAB HEMETOLOGY METHOD 09/02/2024 7:45 AM [facility] Basophils Absolute 0.04 0.00 - 0.20 K/mcL LAB HEMETOLOGY METHOD 09/02/2024 7:45 AM [facility] Immature Granulocytes Absolute 0.01 0.00 - 0.03 K/mcL LAB HEMETOLOGY METHOD 09/02/2024 7:45 AM EST [facility] Blood Venous blood specimen / Unknown 09/02/2024 6:35 AM EST 09/02/2024 7:22 AM EST us Juan Rihcey MD LAB BLOOD ORDERABLES Final Resul t [facility] [address] [place] [address], * (ABNORMAL) Basic metabolic panel (09/02/2024 6:35 AM EST) Sodium 131(L) 133 - 145 mmol/L LAB CHEMISTRY METHOD 09/02/2024 8:03 AM [facility] Potassium 4.1 3.5 - 5.5 mmol/L LAB CHEMISTRY METHOD 09/02/2024 8:03 AM [facility] Chloride 101 96 - 110 mmol/L LAB CHEMISTRY METHOD 09/02/2024 8:03 AM [facility] CO2 21 21 - 32 mmol/L LAB CHEMISTRY METHOD 09/02/2024 8:03 AM [facility] Anion Gap 9 3 - 11 LAB CHEMISTRY METHOD 09/02/2024 8:03 AM [facility] Glucose 96 70 - 100 mg/dL LAB CHEMISTRY METHOD 09/02/2024 8:03 AM [facility] BUN 11 5 - 25 mg/dL LAB CHEMISTRY METHOD 09/02/2024 8:03 AM [facility] Creatinine 0.66(L) 0.70 - 1.30 mg/dL LAB CHEMISTRY METHOD 09/02/2024 8:03 AM [facility] eGFR 107 >=60 mL/min/1. 73m2 LAB CHEMISTRY METHOD 09/02/2024 8:03 AM [facility] Comment:Calculation based on the Chronic Kidney Disease Epidemiology Collaboration (CKD-EPI) equation refit without adjustment for race. BUN/Creatinine Ratio 16.7 LAB CHEMISTRY METHOD 09/02/2024 8:03 AM [facility] Calcium 8.8 8.5 - 10.5 mg/dL LAB CHEMISTRY METHOD 09/02/2024 8:03 AM [facility] Blood Venous blood specimen / Unknown 09/02/2024 6:35 AM EST 09/02/2024 7:22 AM EST us Juan Richey MD LAB BLOOD ORDERABLES Final Resul t [facility] [address] [place] [address], documented in this encounter Visit Diagnoses Diagnosis Other fci (current) drug therapy documented in this encounter Care Teams Fashion Journalist Relationship Specialty Start Date End Date Juan Richey MD [address] [place] [address] [address] [place] PCP - General Internal Medicine 11/22/24 documented as of this encounter
--- OUTSIDE RECORDS SUMMARY | 2025-08-31 11:54 | XMS_ITS | Encounter Summary ---
Author Organization [facility] Address [address] [place] [address] Care Team Providers Care Jtac Name Role Phone Juan Richey MD Primary Care Provider [phone] Encounter Details Date Type Department Care Team (Late st Contact Info) Description 12/01/2024 Lab Requisition [facility] [address] [facility] [place] [address] Juan Richey MD [address] [place] [address] Dr [address] [place], [place] Other long term care phlebotomist (current) drug therapy Social History Tobacco Use [...] Associated Diagnosis Comments CBC WITH AUTO DIFFERENTIAL STAT 12/01/2024 4:05 PM EST Other jail (current) drug therapy CBC AND DIFFERENTIAL STAT 12/01/2024 4:05 PM EST Other long term care phlebotomist (current) drug therapy documented in this encounter Results * (ABNORMAL) CBC auto differential (12/01/2024 4:05 PM EST) WBC 5.0 4.8 - 10.8 K/mcL LAB HEMETOLOGY METHOD 12/01/2024 4:36 PM EST [facility] RBC 4.10(L) 4.50 - 5.50 M/mcL LAB HEMETOLOGY METHOD 12/01/2024 4:36 PM EST [facility] Hemoglobin 12.2(L) 13.5 - 17.5 g/dL LAB HEMETOLOGY METHOD 12/01/2024 4:36 PM [facility] Hematocrit 35.0(L) 42.0 - 54.0 % LAB HEMETOLOGY METHOD 12/01/2024 4:36 PM [facility] MCV 85.0 79.0 - 98.0 FL LAB HEMETOLOGY METHOD 12/01/2024 4:36 PM [facility] MCH 29.6 27.0 - 32.0 pcg LAB HEMETOLOGY METHOD 12/01/2024 4:36 PM [facility] MCHC 34.9 32.0 - 37.0 g/dL LAB HEMETOLOGY METHOD 12/01/2024 4:36 PM [facility] RDW 12.9 11.0 - 15.0 % LAB HEMETOLOGY METHOD 12/01/2024 4:36 PM [facility] Platelets 160 130 - 400 K/mcL LAB HEMETOLOGY METHOD 12/01/2024 4:36 PM [facility] MPV 10.1 7.0 - 11.0 FL LAB HEMETOLOGY METHOD 12/01/2024 4:36 PM [facility] NRBC 0.0 <1.0 % LAB HEMETOLOGY METHOD 12/01/2024 4:36 PM [facility] NRBC Absolute 0.00 <0.10 K/mcL LAB HEMETOLOGY METHOD 12/01/2024 4:36 PM [facility] Neutrophils Relative 71.0 % LAB HEMETOLOGY METHOD 12/01/2024 4:36 PM [facility] Lymphocytes Relative 18.2 % LAB HEMETOLOGY METHOD 12/01/2024 4:36 PM [facility] Monocytes Relative 9.6 % LAB HEMETOLOGY METHOD 12/01/2024 4:36 PM [facility] Eosinophils Relative 0.2 % LAB HEMETOLOGY METHOD 12/01/2024 4:36 PM EST [facility] Basophils Relative 0.4 % LAB HEMETOLOGY METHOD 12/01/2024 4:36 PM [facility] Immature Granulocytes Relative 0.6 % LAB HEMETOLOGY METHOD 12/01/2024 4:36 PM [facility] Neutrophils Absolute 3.54 1.50 - 7.00 K/mcL LAB HEMETOLOGY METHOD 12/01/2024 4:36 PM [facility] Lymphocytes Absolute 0.91(L) 1.00 - 5.00 K/mcL LAB HEMETOLOGY METHOD 12/01/2024 4:36 PM [facility] Monocytes Absolute 0.48 0.20 - 1.00 K/mcL LAB HEMETOLOGY METHOD 12/01/2024 4:36 PM [facility] Eosinophils Absolute 0.01 0.00 - 0.50 K/mcL LAB HEMETOLOGY METHOD 12/01/2024 4:36 PM [facility] Basophils Absolute 0.02 0.00 - 0.20 K/mcL LAB HEMETOLOGY METHOD 12/01/2024 4:36 PM [facility] Immature Granulocytes Absolute 0.03 0.00 - 0.03 K/mcL LAB HEMETOLOGY METHOD 12/01/2024 4:36 PM [facility] Blood Venous blood specimen / Unknown 12/01/2024 4:05 PM EST 12/01/2024 4:30 PM EST us Juan Richey MD LAB BLOOD ORDERABLES Final Resul t [facility] [address] [place] [address], documented in this encounter Visit Diagnoses Diagnosis Other jail (current) drug therapy documented in this encounter Care Teams Jtac Relationship Specialty Start Date End Date Juan Richey MD [address] [place] [address] [address] [place] PCP - General Internal Medicine 11/22/24 documented as of this encounter
--- OUTSIDE RECORDS SUMMARY | 2025-08-31 11:54 | XMS_ITS | Encounter Summary ---
Author Organization [facility] Address [address] [place] [address] Care Team Providers Care Ict Help Desk Technician Name Role Phone Juan Richey MD Primary Care Provider [phone] Encounter Details Date Type Department Care Team (Late st Contact Info) Description 08/25/2024 Lab Requisition [facility] - Main Lab [address] [facility] [place] [address] Juan Richey MD [address] [place] [address] Dr [address] [place], [place] Disturbances of salivary secretion Social History Tobacco Use Types Packs/Day Years [...] Procedure Name Priority Date/Time Associated Diagnosis Comments CLOZAPINE Routine 08/25/2024 8:05 AM EST Disturbances of salivary secretion CHLORPROMAZINE LEVEL Routine 08/25/2024 8:05 AM EST Disturbances of salivary secretion OXCARBAZEPINE LEVEL Routine 08/25/2024 8 :05 AM EST Disturbances of salivary secretion GABAPENTIN LEVEL Routine 08/25/2024 8:05 AM EST Disturbances of salivary secretion AMMONIA Routine 08/25/2024 8:05 AM EST Disturbances of salivary secretion COMPREHENSIVE METABOLIC PANEL Routine 08/25/2024 8:05 AM EST Disturbances of salivary secretion documented in this encounter Results * (ABNORMAL) Clozapine (08/25/2024 8:05 AM EST) Clozapine 106(L) 200 - 700 ng/mL 08/30/2024 7:20 AM EST [facility] Comment:Clozapine (Clozaril) toxic level: >1000 ng/mL Norclozapine 148(L) 200 - 700 ng/mL 08/30/2024 7:20 AM EST [facility] Comment: For Refractory Schizophrenia, at least [...] and the performance characteristics determined by [facility]. This confirmation testing has not been cleared or approved by the FDA. The laboratory is regulated under CLIA as qualified to perform high-complexity testing. This test is used for patient testing purposes. It should not be regarded as investigational or for research. Test performed at [facility], [address] , [place] [address] Mey Sinclair MD, PhD - Intelligence Manager Blood Venous blood specimen / Unknown 08/25/2024 8:05 AM EST 08/25/2024 8:57 AM EST us Juan Richey MD LAB BLOOD ORDERABLES Final Resul t [facility] [address] [place] [address] * (ABNORMAL) Ammonia (08/25/2024 8:05 AM EST) Ammonia 46(H) 11 - 35 mcmol/L LAB CHEMISTRY METHOD 08/25/2024 9:25 AM EST [facility] Blood Venous blood specimen / Unknown 08/25/2024 8:05 AM EST 08/25/2024 8:57 AM EST us Juan Richey MD LAB BLOOD ORDERABLES Final Resul t Performing Organization Address City/[facility]/ZIP Co de Phone Number [facility] ([facility]) [facility] [address] [place] [address], * Oxcarbazepine level (08/25/2024 8:05 AM EST) Oxcarbazepine 17.8 10 - 35 ug/mL 08/30/2024 8:54 AM EST [facility] Comment: If applicable, any drug confirmation testing reported here was developed and the performance characteristics determined by [facility]. This confirmation testing has not been cleared or approved by the FDA. The laboratory is regulated under CLIA as qualified to perform high-complexity testing. This test is used for patient testing purposes. It should not be regarded as investigational or for research. Test performed at [facility], [address] [place] [address] Mey Sinclair MD, PhD - Intelligence Manager Blood Venous blood specimen / Unknown 08/25/2024 8:05 AM EST 08/25/2024 8:57 AM EST Juan Richey MD LAB BLOOD ORDERABLES Final Resul t Performing Organization Address [facility] [place]/[facility]/ZIP Co de Phone Number [facility] [address] [place], [place] [id number] * (ABNORMAL) Gabapentin level (08/25/2024 8:05 AM EST) Gabapentin 1.3(L) 2.0 - 12.0 ug/mL 08/30/2024 1:04 PM EST [facility] Comment: If applicable, any drug confirmation testing reported here was developed and the performance characteristics determined by [facility]. This confirmation testing has not been cleared or approved by the FDA. The laboratory is regulated under CLIA as qualified to perform high-complexity testing. This test is used for patient testing purposes. It should not be regarded as investigational or for research. Test performed at [facility], [address] , [place], [place] [id number] Mey Sinclair MD, PhD - Intelligence Manager Blood Venous blood specimen / Unknown 08/25/2024 8:05 AM EST 08/25/2024 8:57 AM EST us Juan Richey MD LAB BLOOD ORDERABLES Final Resul t Performing Organization Address [facility] [place]/[facility] Co de Phone Number [facility] [address] [place] [address] * (ABNORMAL) Chlorpromazine level (08/25/2024 8:05 AM EST) Chlorpromazine (Thorazine) <25(L) 30 - 300 ng/mL 09/01/2024 5:02 PM EST [facility] Comment: INTERPRETIVE INFORMATION: Chlorpromazine, Serum [...] developed and its performance characteristics determined by [facility]. It has not been cleared or approved by the [place] Food and Drug Administration. This test was performed in a CLIA certified laboratory and is intended for clinical purposes. Performed By: [facility] [address] [place], [place] [id number] Saxophone Player: Hoang Rosales MD, PhD CLIA Number: [id number] Blood Venous blood specimen / Unknown 08/25/2024 8:05 AM EST 08/25/2024 8:57 AM EST us Juan Richey MD LAB BLOOD ORDERABLES Final Resul t Performing Organization Address [facility] [place]/[facility] Co de Phone Number [facility] [address] [place] [address] * (ABNORMAL) Comprehensive metabolic panel (08/25/2024 8:05 AM EST) Sodium 126(L) 133 - 145 mmol/L LAB CHEMISTRY METHOD 08/25/2024 9:28 AM [facility] Potassium 4.4 3.5 - 5.5 mmol/L LAB CHEMISTRY METHOD 08/25/2024 9:28 AM [facility] Chloride 93(L) 96 - 110 mmol/L LAB CHEMISTRY METHOD 08/25/2024 9:28 AM [facility] CO2 23 21 - 32 mmol/L LAB CHEMISTRY METHOD 08/25/2024 9:28 AM [facility] Anion Gap 10 3 - 11 LAB CHEMISTRY METHOD 08/25/2024 9:28 AM [facility] Glucose 89 70 - 100 mg/dL LAB CHEMISTRY METHOD 08/25/2024 9:28 AM [facility] BUN 10 5 - 25 mg/dL LAB CHEMISTRY METHOD 08/25/2024 9:28 AM [facility] Creatinine 0.72 0.70 - 1.30 mg/dL LAB CHEMISTRY METHOD 08/25/2024 9:28 AM [facility] eGFR 104 >=60 mL/min/1. 73m2 LAB CHEMISTRY METHOD 08/25/2024 9:28 AM [facility] Comment:Calculation based on the Chronic Kidney Disease Epidemiology Collaboration (CKD-EPI) equation refit without adjustment for race. BUN/Creatinine Ratio 13.9 LAB CHEMISTRY METHOD 08/25/2024 9:28 AM [facility] Calcium 9.3 8.5 - 10.5 mg/dL LAB CHEMISTRY METHOD 08/25/2024 9:28 AM [facility] AST (SGOT) 30 10 - 42 unit/L LAB CHEMISTRY METHOD 08/25/2024 9:28 AM [facility] ALT (SGPT) 31 10 - 60 unit/L LAB CHEMISTRY METHOD 08/25/2024 9:[address] [facility] Alkaline Phosphatase 107 42 - 121 unit/L LAB CHEMISTRY METHOD 08/25/2024 9:28 AM [facility] Total Protein 6.8 6.0 - 8.0 g/dL LAB CHEMISTRY METHOD 08/25/2024 9:28 AM [facility] Albumin 4.2 3.2 - 5.0 g/dL LAB CHEMISTRY METHOD 08/25/2024 9:28 AM [facility] Total Bilirubin 0.6 0.0 - 1.4 mg/dL LAB CHEMISTRY METHOD 08/25/2024 9:28 AM [facility] Blood Venous blood specimen / Unknown 08/25/2024 8:05 AM EST 08/25/2024 8:57 AM EST us Juan Rcihey MD LAB BLOOD ORDERABLES Final Resul t [facility] [address] [place] [address], [place] [phone] documented in this encounter Visit Diagnoses Diagnosis Disturbances of salivary secretion documented in this encounter Care Teams Ict Help Desk Technician Relationship Specialty Start Date End Date Juan Richey MD [address] [place] [address] Dr [address] [place] MD PCP - General Internal Medicine 11/22/24 documented as of this encounter
--- OUTSIDE RECORDS SUMMARY | 2025-08-31 11:54 | XMS_ITS | Encounter Summary ---
Author Organization [facility] Address [address] [place] [address] Care Team Providers Care Cold Meat Chef Name Role Phone Juan Richey MD Primary Care Provider [phone] Encounter Details Date Type Department Care Team (Late st Contact Info) Description 01/06/2025 Lab Requisition [facility] [address] [place] [address] Juan Richey MD [address] [place] [address] Dr [address] [place], [place] Other intermodal customer service (current) drug therapy Social History Tobacco Use [...] Procedure Name Priority Date/Time Associated Diagnosis Comments AMMONIA Routine 01/06/2025 6:00 AM EDT Other [facility] (current) drug therapy documented in this encounter Results * (ABNORMAL) Ammonia (01/06/2025 6:00 AM EDT) Ammonia 67(H) 11 - 35 mcmol/L LAB CHEMISTRY METHOD 01/06/2025 6:51 AM EDT [facility] Blood Venous blood specimen / Unknown 01/06/2025 6:00 AM EDT 01/06/2025 6:23 AM EDT us Juan Richey MD LAB BLOOD ORDERABLES Final Resul t [facility] [address] [place] [address], documented in this encounter Visit Diagnoses Diagnosis Other intermodal customer service (current) drug therapy documented in this encounter Care Teams Cold Meat Chef Relationship Specialty Start Date End Date Juan Richey MD [address] [place] [address] Dr [address] MARLY Rogers PCP - General Internal Medicine 11/22/24 documented as of this encounter
--- OUTSIDE RECORDS SUMMARY | 2025-08-31 11:54 | XMS_ITS | Encounter Summary ---
Author Organization [facility] Address [address] [place] [address] Care Team Providers Care Market Research Senior Project Manager Name Role Phone Juan Richey MD Primary Care Provider [phone] Encounter Details Date Type Department Care Team (Late st Contact Info) Description 01/07/2025 Lab Requisition [facility] [address] [place] [address] Juan Richey MD [address] [place] [address] Dr [address] [place], [place] Other occupational medicine physician (current) drug therapy Social History Tobacco Use [...] Procedure Name Priority Date/Time Associated Diagnosis Comments SODIUM Routine 01/07/2025 5:58 AM EDT Other residential (current) drug therapy documented in this encounter Results * (ABNORMAL) Sodium (01/07/2025 5:58 AM EDT) Sodium 124(L) 133 - 145 mmol/L LAB CHEMISTRY METHOD 01/07/2025 7:47 AM EDT [facility] Blood Venous blood specimen / Unknown 01/07/2025 5:58 AM EDT 01/07/2025 7:07 AM EDT us Juan Richey MD LAB BLOOD ORDERABLES Final Resul t [facility] [address] [place] [address], documented in this encounter Visit Diagnoses Diagnosis Other occupational medicine physician (current) drug therapy documented in this encounter Care Teams Market Research Senior Project Manager Relationship Specialty Start Date End Date Juan Richey MD [address] [place] [address] [address] MARLY Rogers PCP - General Internal Medicine 11/22/24 documented as of this encounter
== END 2025-08-30 15:16 | disposition home or self-care (01) ==
LOC: HO.HUSH 14:27
PROVIDERS: Visit Provider Urology
DX: R33.9 Retention of urine, unspecified (principal)
CPT/HCPCS: 99204

== ENCOUNTER → 2025-08-30 14:27 | Outpatient (BNVA) | payer MEDICARE, MEDICAID, SELFPAY | PROVIDERS: Visit Provider Urology | DX: N40.1 Benign prostatic hyperplasia with lower urinary tract symptoms (principal); R33.9 Retention of urine, unspecified; R97.20 Elevated prostate specific antigen [PSA] | CPT/HCPCS: 51798; 99202 ==

== ENCOUNTER 2025-09-20 09:31 | Outpatient (AMB) | payer MEDICARE, MEDICAID, SELFPAY ==
--- NOTE | 2025-09-20 09:35 | A.OFFVIS_ITS ---
Vital Signs 09/20/25 09:41 Height 5 ft 9 in Weight 190 lb BMI 28.1 BP 113/66 Blood Pressure Location Lt brachial Position Sitting Pulse 101 H Intake Visit Reasons: rediscuss abdominal hernia Intake Note: Patient is seen in office to rediscuss abdominal hernia. Pt c/o: hernia has increase since last visit, admits to annoying , loss of appetite, denies n/v/d/c L.OV:06/03/23 Billing Specialist Required: No Accompanied by: Other Relationship Allergies Penicillins (PENICILLINS) Allergy (Unknown, Verified 09/20/25 09:41) UNKNOWN Medication List - Last Reconciled 09/20/25 by George Moses MD [Abdominal binder As directed] acetaminophen 650 mg PO Q4H PRN alum-mag hydroxide-simeth 200-200-20 mg/5 mL 30 mL PO Q6H PRN ascorbic acid (vitamin C) 1 g PO DAILY 90 days benztropine 0.5 mg PO BID bisacodyl 10 mg MT DAILY PRN bisacodyl (Dulcolax (bisacodyl)) 20 mg (4 x 5 mg) PO ONCE 1 day cetylpyridinium chloride 1 jaja mucous membrane Q2H PRN chlorpromazine 100 mg PO BID chlorpromazine 25 mg PO BID clozapine 25 mg PO DAILY clozapine 50 mg PO DAILY Held on 11/20/22. Instructions: Resume on 11/25/22. Restart the 25 mg daily for 3 days before going back to full dose diazepam 2 mg PO BID diphenhydramine HCl (Benadryl Allergy) 25 mg PO Q6H PRN docusate sodium 100 mg PO Q8H PRN gabapentin 100 mg PO TID gemfibrozil (Lopid) 600 mg PO BID guaifenesin 200 mg PO Q6H PRN haloperidol decanoate (Haldol Decanoate) 100 mg IM Q2W hydroxyzine HCl 50 mg IM Q8H PRN hydroxyzine HCl 50 mg PO Q8H PRN ibuprofen 600 mg PO TID PRN lactulose 30 mL PO DAILY levothyroxine 75 mcg PO DAILY@0600 lisinopril 5 mg PO DAILY Held on 11/20/22. Instructions: Resume on 11/26/22. Monitor BP for 1 week prior to restarting it. loperamide (Imodium A-D) 2 mg PO Q6H PRN melatonin 3 mg PO BEDTIME methenamine hippurate 1 g PO DAILY 90 days methyl salicylate-menthol 15-10 % 1 appl topical Q8H PRN naloxone 4 mg/actuation (Narcan) 4 mg intranasal Q2M PRN omeprazole 40 mg PO BEDTIME ondansetron HCl 4 mg PO Q6H PRN oxcarbazepine 600 mg PO BID oxycodone 5 mg PO Q6H PRN polyethylene glycol 3350 (Miralax) 238 grams PO ONCE rifaximin (Xifaxan) 550 mg PO BID rifaximin (Xifaxan) 550 mg PO BID Saccharomyces boulardii (Probiotic (S.boulardii)) 250 mg PO DAILY saliva substitute combo no.9 (Biotene Dry Mouth Oral Rinse mouthwash) 15 mL mucous membrane BID sennosides (senna) 8.6 mg PO DAILY PRN sodium chloride 1,000 mg PO BID sodium chloride 0.65% (Deep Sea Nasal) 2 sprays intranasal Q12H PRN sodium phosphates 19-7 gram/118 mL (Fleet Enema) 118 mL MT DAILY PRN tamsulosin 0.4 mg PO BEDTIME tramadol 50 mg PO Q12H PRN HPI Comments Details: 60-year-old male patient returning for follow-up examination of his abdominal wall hernia. 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 He subsequently developed an abdominal wall bulge which has gradually increased in size. He denies nausea, vomiting, fever, chills, constipation or diarrhea. He reports a normal appetite. He has been wearing an abdominal binder but is having trouble keeping the binder on because he is not receiving any help from his caregivers. He was previously evaluated for this hernia in his decided to avoid surgery. He wishes to continue to avoid surgery. [facility] Medical History Hyponatremia Heart failure Schizoaffective disorder Hypothyroidism Hyperlipidemia Hypertension Bipolar disorder Seizure disorder GERD (gastroesophageal reflux disease) BPH (benign prostatic hyperplasia) Surgical History History of exploratory laparotomy (11/11/22) Social History Household Members: Other Housing: Assisted Living Facility Alcohol intake: never Patient Tobacco Use Status: Never used Tobacco Advance Directives Date on File: 11/12/22 Physical Exam Vital Signs: Last Vital Signs Pulse 101 H 09/20/25 09:41 BP 113/66 09/20/25 09:41 BMI result Body Mass Index 28.1 Const General: comfortable and well developed Nutritional Appearance: well nourished Orientation/consciousness: patient oriented x3 Limitations: no limitations Resp Effort & Inspection: normal respiratory effort, no audible wheezes, no cough and no respiratory distress GI Other: Pronounced incisional hernia in the lower abdomen which increases with standing but reduces easily in the supine position. No tenderness to palpation. Inspection: Yes normal to inspection Palpation (GI): Soft to palpation, nontender, no guarding and not rigid Skin Other: Warm, dry, no rash Neuro General: patient oriented x3 Assessment & Plan Assessment & Plan (1) Incisional hernia, without obstruction or gangrene: Code(s): K43.2 - Incisional hernia without obstruction or gangrene Category: Medical (2) History of exploratory laparotomy: Onset Date: 11/11/22 Comment: 11/11/2250-Oqngv-lhgnj resection, George Moses MD Code(s): Z98.890 - Other specified postprocedural states Category: Surgical Plan 60-year-old male patient returning for re-evaluation of his abdominal wall hernia. He continues to remain asymptomatic with no abdominal pain, nausea, vomiting, or evidence of obstruction. The hernia is easily reducible when in the supine position but as increased to some degree. We again discussed repair of this large hernia with mesh. He is very nervous about undergoing surgery once again and prefers to avoid surgery. Discussed this also with his mother over the phone during the examination. We discussed continuing to wear the abdominal binder to maintain support for his abdominal muscles. I have asked his caregivers to assist him in applying the binder while he is in bed 1st thing in the morning. I recommended a follow-up examination in 6 months. Coding Level of Care Code Est Pt Level 3 (86227) Diagnoses Incisional hernia, without obstruction or gangrene K43.2 History of exploratory laparotomy Z98.890
[2025-09-20 09:41] VITALS: BP 113/66; PULSE 101; BMI 28.1
== END 2025-09-20 10:03 | disposition home or self-care (01) ==
LOC: HO.HGS 09:31
PROVIDERS: Visit Provider Surgery
DX: K43.2 Incisional hernia without obstruction or gangrene (principal); Z98.890 Other specified postprocedural states
CPT/HCPCS: 99213

== ENCOUNTER → 2025-09-20 09:31 | Outpatient (BNVA) | payer MEDICARE, MEDICAID, SELFPAY | PROVIDERS: Visit Provider Surgery | DX: K43.2 Incisional hernia without obstruction or gangrene (principal); Z98.890 Other specified postprocedural states | CPT/HCPCS: 99212 ==